=== PATIENT | male | born 1985 | race Caucasian/White ===

== ENCOUNTER 2023-11-29 11:23 | Outpatient (OUT) | payer OTHER, SELFPAY ==
--- NOTE | 2023-11-29 | XR_ITS ---
The [address] [address] Patient Name: JOSELIN------ Kanika GARAY MRN: [id number] date: 1985 Sex: M Assigned Patient Location: Current Patient Location: Accession/Order Number: [id number] Exam Date: 11/29/2023 11:28 Report Date: 12/01/2023 07:46 At the request of: KOLTON PARKS Procedure: XR foot LT min 3V PROCEDURE: XR foot LT min 3V HISTORY: LEFT FOOT PAIN ; wound on plantar surface of first toe; history of first toe fracture per patient COMPARISON: None. FINDINGS: BONES:Irregularity of the distal articular surface of the first proximal phalanx suggesting remote fracture/trauma. Mild degenerative change of first metatarsophalangeal joint. SOFT TISSUES:Soft tissue swelling of the first toe. EFFUSION:None visible. OTHER: Negative. XR/XR foot LT min 3V IMPRESSION: 1. First toe soft tissue swelling consistent with patient history. No appreciable foreign body or evidence of osteomyelitis. Electronically authenticated by: MICHAEL CR Date: 12/01/2023 07:46
== END 2023-11-29 11:24 | disposition home or self-care (01) ==
LOC: WC 11:23
PROVIDERS: PCP Internal Medicine; Visit Provider Podiatrist Foot & Ankle Surgery
DX: M79.672 Pain in left foot (principal); E10.621 Type 1 diabetes mellitus with foot ulcer; L97.425 Non-pressure chronic ulcer of left heel and midfoot with muscle involvement without evidence of necrosis; L97.522 Non-pressure chronic ulcer of other part of left foot with fat layer exposed
CPT/HCPCS: 73630; G0463

== ENCOUNTER 2023-12-12 13:47 | Outpatient (OUT) | payer OTHER, SELFPAY ==
[2023-12-12 13:33] LABS: Basophils Absolute Auto 0.1 10^3/uL (0.0-0.1); Basophils Percent Auto 0.9 % (0.2-2.0); Eosinophils Absolute Auto 0.3 10^3/uL (0.0-0.7); Eosinophils Percent Auto 5.2 % (0.9-7.0); Hematocrit 34.6 % (42.0-54.0); Hemoglobin 11.5 g/dL (14.0-18.0); Immature Granulocytes Abs Auto 0.01 10^3/uL (0.00-0.03); Immature Granulocytes Pct Auto 0.2 % (0.0-0.5); Lymphocytes Absolute Auto 1.6 10^3/uL (1.2-3.8); Lymphocytes Percent Auto 29.8 % (20.5-60.0); Mean Corpuscular HGB Conc 33.2 g/dL (29.9-35.2); Mean Corpuscular Hemoglobin 29.3 pg (25.9-34.0); Mean Platelet Volume 9.9 fL (9.5-13.5); Monocytes Absolute Auto 0.7 10^3/uL (0.3-0.8); Monocytes Percent Auto 13.1 % (1.7-12.0); Neutrophils Absolute Auto 2.7 10^3/uL (1.4-6.5); Neutrophils Percent Auto 50.8 % (43.0-75.0); Platelet Count 211 10^3/uL (150-450); Red Blood Count 3.93 10^6/uL (4.70-6.10); Red Cell Distribution Width 12.7 % (11.0-15.0); White Blood Count 5.3 10^3/uL (4.0-11.0)
[2023-12-12 13:54] LABS: Erythrocyte Sedimentation Rate 43 mm/hr (<=15)
[2023-12-12 14:54] LABS: Anion Gap 15.6; BUN Creatinine Ratio 24.2; C Reactive Protein <0.50 mg/dL (<=0.50); Calcium 9.4 mg/dL (8.5-10.1); Carbon Dioxide 26.4 mmol/L (21.0-32.0); Chloride 99 mmol/L (98-107); Estimated GFR (African America >60 (>=60 mL/min/1.73m^2); Estimated GFR (Non-African Ame >60 (>=60 mL/min/1.73m^2); Glucose 388 mg/dL (74-106); Sodium 136 mmol/L (136-145)
== END 2023-12-12 13:48 | disposition home or self-care (01) ==
LOC: MRI 12-16 13:47
PROVIDERS: PCP Internal Medicine; Visit Provider Podiatrist Foot & Ankle Surgery
DX: M86.672 Other chronic osteomyelitis, left ankle and foot (principal)
CPT/HCPCS: 36415; 80048; 85025; 85652; 86140

== ENCOUNTER 2024-01-15 14:10 | Outpatient (OUT) | payer OTHER, SELFPAY ==
--- NOTE | 2024-01-15 14:13 | XR_ITS ---
The [address] [address] Patient Name: JOSELIN GARAY MRN: [id number] date: 1985 Sex: M Assigned Patient Location: Current Patient Location: Accession/Order Number: [id number] Exam Date: 01/15/2024 14:25 Report Date: 01/16/2024 13:11 At the request of: KOLTON PARKS Procedure: XR foot LT min 3V PROCEDURE: XR foot LT min 3V HISTORY: Left Foot Ulcer ; progression of plantar surface wound in region of first and second metatarsals COMPARISON: XR foot left 11/29/2023, 01/15/2024 FINDINGS: BONES:Mild degenerative changes the first metatarsophalangeal joint. SOFT TISSUES:Soft tissue swelling of the first and second toes. EFFUSION:None visible. OTHER: Negative. XR/XR foot LT min 3V IMPRESSION: 1. Soft tissue swelling of first and second toes; also seen on prior study. 2. No acute bone abnormality or evidence of osteomyelitis. Electronically authenticated by: MICHAEL CR Date: 01/16/2024 13:11
== END 2024-01-15 14:11 | disposition home or self-care (01) ==
LOC: WC 14:10
PROVIDERS: PCP Internal Medicine; Visit Provider Podiatrist Foot & Ankle Surgery
DX: E10.621 Type 1 diabetes mellitus with foot ulcer (principal); L97.425 Non-pressure chronic ulcer of left heel and midfoot with muscle involvement without evidence of necrosis; L97.522 Non-pressure chronic ulcer of other part of left foot with fat layer exposed
CPT/HCPCS: 73630; G0463

== ENCOUNTER 2024-01-16 11:15 | Observation (INO) | payer OTHER, SELFPAY ==
[2024-01-16] VITALS (11 sets, daily range): BP systolic 120–144; BP diastolic 64–92; PULSE 74–105; TEMP 36.4–36.8; O2SAT 97–99; BMI 31.5; BMI 30.2
--- NOTE | 2024-01-16 11:34 | US_ITS ---
The [place] [address] Patient Name: JOSELIN GARAY MRN: [id number] date: 1985 Sex: M Assigned Patient Location: ED.MAIN Current Patient Location: ED.MAIN Accession/Order Number: [id number] Exam Date: 01/16/2024 12:40 Report Date: 01/16/2024 13:08 At the request of: PEDRO LUIS SIMMONS Procedure: US venous doppler LE LT EXAMINATION: US venous doppler LE LT HISTORY: L calf pain , redness, swelling; history of ptosis/foot infection; diabetic COMPARISON: No relevant comparison available. FINDINGS: REGION: Left lower extremity THROMBI: None. COMPRESSIBILITY: Normal compressibility. FLOW: Normal waveform and antegrade flow between 5 and 20 cm/s. OTHER: Subcutaneous edema. 2 large lymph nodes within right groin, 5.7 x 2.5 x 2.2 cm and 4.1 x 1.6 x 2.0 cm. US/US venous doppler LE LT IMPRESSION: 1. No deep vein thrombus within the left lower extremity. 2. Enlarged left groin lymph nodes, likely reactive. Electronically authenticated by: MICHAEL CR Date: 01/16/2024 13:08
--- OUTSIDE RECORDS SUMMARY | 2024-01-16 11:37 | XMS_ITS | CCD ---
Author Organization [facility] Care Team Providers 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 Name Role Phone MISC, DOCTOR Primary Care Unavailable ANAIS JOHN Consulting Unavailable ANAIS JOHN Attending Unavailable ANAIS JOHN Admitting Unavailable Kolton Cote Consulting Unavailable MALGORZATA CEVALLOS Consulting Unavailable SHAIKH MAE Attending Unavailable SHAIKH MAE Admitting Unavailable SHAIKH MAE Primary Care Unavailable SHAIKH MAE Consulting Unavailable Reinaldo Schulz Unavailable Wil Hackett Unavailable Wilver Chambers Unavailable Reinaldo Schulz Unavailable [facility] Primary Care Provider DO Joaquín Giles Emergency Provider MD Shanthi Cross Admit Provider MD Shanthi Cross Attending Provider DO Kennedy Tran Emergency Provider MD Taylor Whitman Admit Provider MICHAEL Esquivel Emergency Provider DO Tuan Thakkar Attending Provider [facility] Primary Care Provider [phone] MD Shanthi Cross Attending Provider MD Bren Mccray Emergency Provider [phone] MD Bren Mccray Emergency Provider [facility] Primary Care Provider MD Homer Padilla Attending Provider [phone] MD Nunu Fry Other Provider Reinaldo Schulz Unavailable Reinaldo Schulz Unavailable HOMER PADILLA Referring Unavailable RUMA GONZALEZ Referring Unavailable CHRISTOPHER MCCRAY Attending Unavailable NONE, XXXX Primary Care Physician Unavailab Agnieszka Hampton Attending Unavailab Agnieszka Hampton Attending Unavailab Agnieszka Hampton Attending Unavailab le [facility] Primary Care Provider MICHAEL Esquivel Emergency Provider DO Dominik George Attending Provider Dominik George Unavailable MD Edward Dunaway Emergency Provider [facility] Primary Care Provider MICHAEL Esquivel Emergency Provider DO Dominik George Attending Provider MD Edward Dunaway Emergency Provider LUIGI Cisneros Emergency Provider [facility] Services Primary Care Provider DO Ruy Perry Emergency Provider [facility] NON STAFF Primary Care Provider Unavailabl e LUIGI Serrano Emergency Provider NON STAFF Primary Care Unavailable Ruy Perry Admitting Unavailable Ruy Perry Attending Unavailable NON STAFF Primary Care Unavailable Roger Serrano Admitting Unavailable Roger Serrano Attending Unavailable [facility] Primary Care Unavaila Dominik Carter Admitting Unavailable Dominik George Attending Unavailable [facility] Primary Care Unavaila Howard Marcos Admitting Unavailable Howard Esquivel Attending Unavailable [facility] Primary Care Unavaila Edward Lawler Admitting Unavailable Edward Dunaway Attending Unavailable Ashlee Cisneros Admitting Unavailable Ashlee Cisneros Attending Unavailable [facility] Primary Care Unavaila chance Saldivar MD, [place] Provider Primary Care Provi luke Medications Current Medications Medication Drug Class(es) Dates Sig (Normalized) Sig (Original) amitriptyline hydrochloride 25 mg oral tablet (3 sources) Tricyclic Antidepressant take 1 tablet by mouth at bedtime amitriptyline (Elavil) 25 MG tablet Take 25 mg by mouth at bedtime Active amoxicillin 875 mg oral tablet (5 sources) Penicillin-class Antibacterial Start: 07-02-2023 take 1 tablet by mouth in the morning amoxicillin (Amoxil) 875 MG tablet Take 875 mg by mouth in the morning and 875 mg before bedtime. 07/02/2023 Active ARIPiprazole 5 mg oral tablet (3 sources) Atypical Antipsychotic Start: 07-02-2022 take 1 tablet by mouth in the morning ARIPiprazole (Abilify) 5 MG tablet Take 5 mg by mouth in the morning. 07/02/2022 Active atomoxetine 80 mg oral capsule (3 sources) Norepinephrine Reuptake Inhibitor Start: 06-13-2022 take 1 capsule by mouth in the morning atomoxetine (Strattera) 80 MG capsule Take 80 mg by mouth in the morning. 06/13/2022 Active bismuth subsalicylate (6 sources) Bismuth Pepto-Bismol Not -Taking Pepto-Bismol Act marek buprenorphine 8 mg / naloxone 2 mg sublingual film (20 sources) Partial Opioid Agonist, Opioid Antagonist Start: 12-03-2020 Buprenorphine-Naloxo ne (Suboxone) 8-2 mg Film Active 2 FILM SUBLINGUAL Daily December 03, 2020 12:00am Start: 12-07-2017 End: 02-23-2019 take 4 tablets under the tongue once daily Buprenorphine-Naloxone Discontinued 4 TA B SUBLINGUAL Daily December 07, 2017 12:00am February 23, 2019 1:40pm Start: 10-31-2016 End: 12-07-2017 take 8 mg under the tongue twice daily Buprenorphine-Naloxone (Suboxone) 8-2 mg Film Discontinued 8 MG SUBLINGUAL Twice daily October 31, 2016 12:00am December 07, 2017 7:24am buprenorphine-na loxone (Suboxone) 8-[address] under the tongue. Active Buprenorphine HC l-Naloxone HCl (Suboxone) 8-2 MG SL film DISSOLVE 2 (TWO) films UNDER THE TONGUE DAILY Active Suboxone Active Comment on above: Dissolve 2 Film unde r the tongue once daily. cariprazine 3 mg oral capsule (20 sources) Atypical Antipsychotic Start: 2 End: take 1 capsule by mouth in the morning Vraylar 3 MG capsule Take 1 capsule by mouth in the morning. 12/24/2021 Active Start: 08-09-2021 End: 10-18-2021 take 1 capsule by mouth once daily Cariprazine (Vraylar) 1.5 mg capsule Discontinued 3 MG PO Daily August 09, 2021 12:00am October 18, 2021 12:54am Comment on above: Take 3 mg by mouth o nce daily. Continuous Blood Gluc Wallpaper Remover Steam (Dexcom G7 Wallpaper Remover Steam) device (3 sources) Start: 07-25-2022 Continuous Blood Gluc Wallpaper Remover Steam (Dexcom G7 Wallpaper Remover Steam) device USE DIRECTED. 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) 1 kit by Subconjunctival route Every 10 (ten) days 9 each 1 12/09/2023 Active Start: 11-19-2023 Continuous Glu cose Sensor (Dexcom G7 Sensor) [facility] [place] Indications: 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) CHANGE SENSOR EVERY TEN DAYS 11/19/2023 Active ergocalciferol 1.25 mg oral capsule (3 sources) Provitamin D2 Compound Start: 02-15-2022 ergocalciferol (Madie min D2) 1.25 MG (88383 UT) capsule t1po once a week for EIGHT weeks 02/15/2022 Active gabapentin 600 mg oral tablet (20 sources) Anti-epileptic Agent Start: 12-12-2020 gabapentin 600 mg, O ral Start Date: 12/12/20 Status: Ordered Start: 12-03-2020 take 300 mg by mouth twice daily Gabapentin Active 300 MG PO Twice daily December 03, 2020 7:59am Start: 09-12-2019 End: 12-03-2020 take 300 mg by mouth three times daily Gabapentin Discontinued 300 MG PO Three times daily November 02, 2019 12:00am December 03, 2020 7:59am Start: 10-31-2016 End: 08-04-2019 take 600 mg by mouth three times daily Gabapentin Discontinued 600 MG PO Three times daily October 31, 2016 12:00am August 04, 2019 9:33pm Gabapentin Not-T aking/PRN Gabapentin Activ e Comment on above: 1 capsule. hydroCHLOROthiazide 25 mg / losartan potassium 100 mg oral tablet (3 sources) Thiazide Diuretic, Angiotensin 2 Receptor Aparna Start: 023 take 1 tablet by mouth in the morning losartan-hydroCHL OROthiazide (Hyzaar) 100-25 MG tablet Take 1 tablet by mouth in the morning. 07/02/2022 Active ibuprofen 600 mg oral tablet (6 sources) Nonsteroidal Anti-inflammatory Drug Start: 024 take 1 tablet by mouth every eight hours as needed ibuprofen 600 MG tablet Take 1 tablet by mouth every 8 (eight) hours if needed 06/20/2023 Active insulin aspart (NovoLOG) 100 UNIT/ML injection (3 sources) insulin aspart (NovoLOG) 100 UNIT/ML injection 3 (three) times a day with meals. Active Insulin Disposable Pump (Omnipod DASH Pods, Gen 4,) misc (3 sources) Start: 023 Insulin Disposable Pump (Omnipod DASH Pods, Gen 4,) [facility] [place] 12/06/2022 Active Lantus (20 sources) Insulin Analog Start: 021 Lantus Daily Start Date: 12/12/20 Status: Ordered Start: 12-07-2020 End: 08-11-2021 Insulin Glargine (Basaglar Donnie florentinoen U-100 Insulin) 100 unit/mL (3 mL) insulin pen Discontinued 40 UNIT SUBCUT Every morning 0 December 07, 2020 2:01pm August 11, 2021 10:46am INJECT 36 UNITS EVERY MORNING and 26 UNITS at night SUBCUTANEOUSLY Start: 12-07-2020 End: 08-11-2021 Insulin Glargine (Basaglar K wikpen U-100 Insulin) 100 unit/mL (3 mL) insulin pen Discontinued 30 UNIT SUBCUT Daily at bedtime 0 December 07, 2020 2:01pm August 11, 2021 10:46am Start: 10-08-2019 End: 12-07-2020 Insulin Glargine (Basaglar K wikpen U-100 Insulin) 100 unit/mL (3 mL) insulin pen Discontinued 26 UNIT SUBCUT Daily at bedtime October 08, 2019 12:00am December 07, 2020 2:01pm Start: 09-25-2019 End: 12-07-2020 Insulin Glargine (Basaglar K wikpen U-100 Insulin) 100 unit/mL (3 mL) insulin pen Discontinued 36 UNIT SUBCUT Every morning September 25, 2019 12:00am December 07, 2020 2:01pm INJECT 36 UNITS EVERY MORNING and 26 UNITS at night SUBCUTANEOUSLY Start: 02-23-2019 End: 09-25-2019 Insulin Glargine (Lantus La ostar U-100 Insulin) 100 unit/mL (3 mL) insulin pen Discontinued 36 UNIT SUBCUT Twice daily February 23, 2019 9:46am September 25, 2019 1:00pm Start: 12-08-2017 End: 02-23-2019 Insulin Glargine (Lantus La ostar U-100 Insulin) 100 unit/mL (3 mL) insulin pen Discontinued 30 UNIT SUBCUT Twice daily December 08, 2017 12:00am February 23, 2019 9:46am Start: 08-17-2017 End: 08-22-2017 Insulin Glargine (Lantus U-1 00 Insulin) 100 unit/mL Solution Discontinued 20 UNIT SUBCUT 1 to 2 times per day August 17, 2017 12:00am August 22, 2017 12:26pm Start: 03-18-2017 End: 12-07-2017 inject 30 [IU] by subcutaneous injection twice daily Insulin Glargine (Lantus U-100 Insulin) 100 unit/mL solution Discontinued 30 UNIT SUBCUT Twice daily May 01, 2017 5:55pm December 07, 2017 7:25am Start: 10-31-2016 End: 11-01-2016 Insulin Glargine (Lantus) 10 0 unit/mL Solution Discontinued SOLUTION October 31, 2016 12:00am November 01, 2016 4:46pm Start: 10-31-2016 End: 03-18-2017 inject 20 [IU] by subcutaneous injection twice daily Insulin Glargine (Lantus U-100 Insulin) 100 unit/mL Solution Discontinued 20 UNIT SUBCUT Twice daily 4 November 01, 2016 5:06pm March 18, 2017 1:34pm Lantus Not-Sandra g Lantus Active Comment on above: as directed Subcutan eous insulin isophane / insulin, regular, human (6 sources) Insulin NovoLIN N Not-Ta chandler NovoLIN N Active Insulin Pump-Infus. Set-Mete r (10 sources) Start: 08-11-2021 Insulin Pump-I nfus. Set-Meter Active 0 .Route 1 August 11, 2021 12:00am As directed Start: 08-11-2021 Insulin Pump-I nfus. Set-Meter Active 0 .ROUTE 1 August 10, 2021 11:00pm As directed Start: 08-11-2021 Insulin Pump-I nfus. Set-Meter Active 0 .ROUTE 1 August 11, 2021 12:00am As directed lamoTRIgine 100 mg oral tablet (20 sources) Mood Stabilizer, Anti-epileptic Agent Start: 06-13-2022 take 1 tablet by mouth every twelve hours lamoTRIgine (LaMICtal) 100 MG tablet Take 1 tablet by mouth every 12 (twelve) hours. 06/13/2022 Active Start: 10-18-2021 End: 06-20-2023 take 25 mg by mouth twice daily Lamotrigine Discontinued 25 MG PO Twice daily October 18, 2021 12:00am June 20, 2023 12:57pm Start: 08-09-2021 End: 09-02-2021 take 25 mg by mouth once daily Lamotrigine Discontinue d 25 MG PO Daily August 09, 2021 12:00am September 02, 2021 3:37am lisinopril 10 mg oral tablet (6 sources) Angiotensin Converting Enzyme Inhibitor Start: 06-20-2023 take 1 tablet by mouth once daily lisinopril 10 MG tablet Take 10 mg by mouth Daily 06/20/2023 Active losartan potassium 100 mg oral tablet (3 sources) Angiotensin 2 Receptor Aparna Start: 06-13-2022 take 1 tablet by mouth in the morning losartan (Cozaar) 100 MG tablet Take 100 mg by mouth in the morning. 06/13/2022 Active mupirocin 0.02 mg/mg topical ointment (20 sources) RNA Synthetase Inhibitor Antibacterial Start: 03-05-2023 mupirocin Top 2% Oint 1 france, Topical, TID, 22 gm, Refill(s) 0, [employer] [facility], 185, cm, 03/05/23 8:47:00 EST, Height/Length Dosing, 108.7, kg, 03/05/23 8:47:00 EST, Weight Dosing Start Date: 03/05/23 Status: Ordered Start: 10-14-2019 End: 12-03-2020 Mupirocin Discontinued 1 FR[place] LIC TOPICAL Daily October 28, 2019 8:18pm December 03, 2020 8:11am apply thin layer to all open areas omeprazole 40 mg oral tablet (20 sources) Proton Pump Inhibitor Start: 12-12-2020 take 40 mg by mouth once daily omeprazole 40 mg, Oral, Daily Start Date: 12/12/20 Status: Ordered Start: 12-07-2020 End: 08-09-2021 take 20 mg by mouth once daily before breakfast Omeprazole Discontinued 20 MG PO Daily before breakfast December 07, 2020 12:00am August 09, 2021 9:36am Start: 12-18-2019 End: 12-03-2020 take 20 mg by mouth once daily Omeprazole Discontinued 20 MG PO Daily December 18, 2019 12:00am December 03, 2020 8:11am Start: 12-08-2017 End: 05-27-2018 take 20 mg by mouth once daily Omeprazole Discontinued 20 MG PO Daily December 08, 2017 12:00am May 27, 2018 6:08pm further refills per PCP take [address] [facility] every twelve hours sildenafil 100 mg oral tablet (20 sources) Phosphodiesterase 5 Inhibitor Start: 03-05-2022 take 1 tablet by mouth in the morning sildenafil (Viagra) 100 MG tablet Take 100 mg by mouth in the morning. 03/05/2022 Active Start: 12-21-2020 End: 02-23-2022 sildenafil (VIAGRA) 100 mg t ablet Take 1 tablet by mouth as needed. 30 tablet 5 12/21/2020 02/23/2022 Discontinued (Course of therapy completed) Start: 10-08-2019 End: 12-03-2020 take 1 tablet by mouth once daily as needed Sildenafil Discontinued 50 MG PO Daily October 08, 2019 12:00am December 03, 2020 8:03am TAKE 1 TABLET BY MOUTH ONCE DAILY NEEDED Comment on above: Take 1 tablet by belen th as needed. sucralfate 1000 mg oral tablet (20 sources) Aluminum Complex Start: 12-12-2020 sucralfate 1 g Tab gm tab(s), Oral Start Date: 12/12/20 Status: Ordered Start: 12-07-2020 End: 08-09-2021 take 1 g by mouth once before mealtime Sucralfate Discontinued 1 GM PO 3x/Day before meals & bedtime 120 December 07, 2020 12:00am August 09, 2021 9:36am Start: 12-18-2019 sucralfate (CA RAFATE) 1 gram tablet Sucralfate (Carafate) 1 gram tablet Active 1 GM PO Twice daily 14 December 18, 2019 6:06pm 0 12/18/2019 Active Start: 12-18-2019 End: 12-03-2020 take 1 tablet by mouth twice daily Sucralfate (Carafate) 1 gram tablet Discontinued 1 GM PO Twice daily 14 December 18, 2019 12:00am December 03, 2020 8:03am take 1 tablet by belen th every eight hours Comment on above: Sucralfate (Carafate ) 1 gram tablet Active 1 GM PO Twice daily 14 December 18, 2019 6:06pm Completed/Discontinued Medications Medication Drug Class(es) Dates Sig (Normalized) Sig (Original) acetaminophen 325 mg oral capsule (10 sources) Start: 10-12-2019 End: 12-03-2020 take 2 capsules by mouth every six hours Acetaminophen (Tylenol) 325 mg capsule Discontinued 650 MG PO Q6H 60 October 12, 2019 8:55am December 03, 2020 7:59am acetaminophen 300 mg / codeine phosphate 30 mg oral tablet (10 sources) Opioid Agonist Start: 09-25-2019 End: 10-08-2019 take 1 tablet by mouth every six hours as needed Acetaminophen-Codei ne (Tylenol-Codeine #3) 300-30 mg tablet Discontinued 1 TAB PO Q6H September 25, 2019 12:00am October 08, 2019 6:24am TAKE 1 TABLET BY MOUTH EVERY 6 HOURS NEEDED acetaminophen 325 mg / HYDROcodone bitartrate 5 mg oral tablet (20 sources) Opioid Agonist Start: 09-12-2019 End: 09-25-2019 take 1 tablet by mouth every eight hours Hydrocodone-Acetami nophen (Starbuck) 5-325 mg tablet Discontinued 1 TAB PO Q8H 6 2 September 12, 2019 September 25, 2019 1:12pm Start: 11-29-2016 End: 12-19-2016 Hydrocodone-Acetaminophen (N orco) 5-325 mg tablet Discontinued 1 TAB PO every 6 to 8 hours November 29, 2016 December 19, 2016 4:40pm amLODIPine 5 mg oral tablet (20 sources) Dihydropyridine Calcium Channel Aparna Start: 08-26-2021 End: 06-20-2023 take 1 tablet by mouth once daily Amlodipine (Norvasc) 5 mg tablet Discontinued 5 MG PO Daily August 26, 2021 12:00am June 20, 2023 12:57pm Comment on above: Take 1 tablet by belen th. amoxicillin 875 mg / clavulanate 125 mg oral tablet (10 sources) Penicillin-class Antibacterial Start: 03-04-2019 End: 08-04-2019 take 1 tablet by mouth twice daily Amoxicillin-Pot Clavulanate (Augmentin) 875-125 mg tablet Discontinued 1 TAB PO Twice daily March 04, 2019 1:00am August 04, 2019 9:33pm atropine sulfate 0.025 mg / diphenoxylate hydrochloride 2.5 mg oral tablet (10 sources) Anticholinergic, Cholinergic Muscarinic Antagonist, Antidiarrheal Start: 08-22-2017 End: 12-07-2017 take 1 tablet by mouth three times daily Diphenoxylate-Atr opine Discontinued 1 TAB PO Three times daily August 22, 2017 12:27pm December 07, 2017 7:24am azithromycin 500 mg oral tablet (10 sources) Macrolide Antimicrobial Start: 03-04-2019 End: 08-04-2019 take 500 mg by mouth once daily Azithromycin Discontinued 500 MG PO Daily 5 March 04, 2019 1:00am August 04, 2019 9:33pm 24 hr buPROPion hydrochloride 150 mg extended release oral tablet (10 sources) Aminoketone Start: 12-03-2020 End: 08-09-2021 take 150 mg by mouth once daily Bupropion Hcl Discontinued 150 MG PO Daily December 03, 2020 12:00am August 09, 2021 9:39am cephalexin 500 mg oral capsule (20 sources) Cephalosporin Antibacterial Start: 11-02-2019 End: 12-27-2019 take 500 mg by mouth every eight hours Cephalexin Discontinued 500 MG PO Every 8 hours 12 November 02, 2019 12:00am December 27, 2019 10:09pm Start: 09-12-2019 End: 09-25-2019 take 1 capsule by mouth every twelve hours Cephalexin (Keflex) 500 mg capsule Discontinued 500 MG PO Q12H 14 September 12, 2019 12:00am September 25, 2019 1:12pm clindamycin 300 mg oral capsule (10 sources) Lincosamide Antibacterial Start: 08-07-2019 End: 09-12-2019 take 300 mg by mouth three times daily Clindamycin Hcl Discontinued 300 MG PO Three times daily August 07, 2019 12:00am September 12, 2019 3:02pm dicyclomine hydrochloride 10 mg oral capsule (10 sources) Anticholinergic Start: 08-22-2017 End: 05-27-2018 take 10 mg by mouth three times daily Dicyclomine Discontinued 10 MG PO Three times daily August 22, 2017 12:31pm May 27, 2018 6:08pm doxycycline hyclate 100 mg oral capsule (10 sources) Tetracycline-class Drug Start: 03-22-2021 End: 07-07-2021 take 100 mg by mouth twice daily Doxycycline Hyclate Discontinued 100 MG PO Twice daily 14 12March 22, 2021 1:00am July 07, 2021 7:35am DULoxetine 30 mg delayed release oral capsule (10 sources) Serotonin and Norepinephrine Reuptake Inhibitor Start: 12-08-2017 End: 05-27-2018 take 30 mg by mouth once daily at bedtime Duloxetine Discontinued 30 MG PO Daily at bedtime December 08, 2017 12:00am May 27, 2018 6:08pm Further refills per PCP Prior-authorization per PCP ([facility] FREESTYLE TANG 2 READER (10 sources) Start: 01-22-2022 FREESTYLE TANG 2 READER as directed. 0 01/22/2022 Active Comment on above: as directed. FREESTYLE TANG 2 SENSOR kit (10 sources) Start: 01-22-2022 FREESTYLE TANG 2 SENSOR kit CHANGE SENSOR EVERY 14 DAYS 0 01/22/2022 Active Comment on above: CHANGE SENSOR EVERY 14 DAYS glucose 4000 mg chewable tablet (10 sources) Start: 11-01-2016 End: 05-27-2018 Glucose Discontinued 4 GM PO Once 120 November 01, 2016 12:00am May 27, 2018 6:08pm may repeat once in 10 minutes 12 hr guaiFENesin 600 mg extended release oral tablet (10 sources) Start: 03-04-2019 End: 08-04-2019 take 1 tablet by mouth twice daily, then take 1 tablet by mouth every twelve hours Guaifenesin (Mucinex) 600 mg Tablet Extended Release 12hr Discontinued 600 MG PO Twice daily 14 March 04, 2019 1:00am August 04, 2019 9:33pm Insulin Aspart U-100 (Novolog Flexpen U-100 Insulin) 100 unit/mL (3 mL) insulin pen (10 sources) Start: 10-28-2019 End: 12-03-2020 Insulin Aspart U-100 (Novolog Flexpen U-100 Insulin) 100 unit/mL (3 mL) insulin pen Discontinued 20 UNIT SUBCUT THREE TIMES DAILY WITH MEALS October 28, 2019 7:18pm December 03, 2020 7:10am INJECT 20 UNITS SUBCUTANEOUSLY WITH MEALS and 6 (SIX) UNITS WITH snacks DIRECTED Start: 10-28-2019 End: 12-03-2020 Insulin Aspart U-100 (Novolo g Flexpen U-100 Insulin) 100 unit/mL (3 mL) insulin pen Discontinued 20 UNIT SUBCUT THREE TIMES DAILY WITH MEALS October 28, 2019 8:18pm December 03, 2020 8:10am INJECT 20 UNITS SUBCUTANEOUSLY WITH MEALS and 6 (SIX) UNITS WITH snacks DIRECTED insulin aspart, human 100 unt/ml injectable solution (20 sources) Insulin Analog Start: 02-13-2022 insulin aspart U-100 (NOVOLOG) 100 unit/mL USE UP TO 150 UNITS daily with insulin pump 0 02/13/2022 Active Start: 09-02-2021 Insulin Aspart U-100 Active 200 UNIT SUBCUT Use as Directed September 01, 2021 11:00pm EVERY 3 DAYS. Start: 09-02-2021 Insulin Aspart U-100 Active 200 UNIT SUBCUT Use as Directed September 02, 2021 12:00am EVERY 3 DAYS. Start: 12-12-2020 insulin aspart U-100 (NOVOLOG) 100 unit/mL as directed Subcutaneous 0 12/12/2020 Active Start: 12-12-2020 NovoLOG 100 un its/mL injectable solution SubCutaneous Start Date: 12/12/20 Status: Ordered Start: 12-03-2020 End: 08-11-2021 inject 1 dose by subcutaneous injection at bedtime Insulin Aspart U-100 Discontinued 0 sliding scale dose SUBCUT Before meals and at bedtime December 02, 2020 11:00pm August 11, 2021 9:46am Start: 12-03-2020 End: 08-11-2021 inject 1 dose by subcutaneous injection at bedtime Insulin Aspart U-100 Discontinued 0 sliding scale dose SUBCUT Before meals and at bedtime December 03, 2020 12:00am August 11, 2021 10:46am Start: 10-28-2019 End: 10-28-2019 Insulin Aspart U-100 (Novolo g Flexpen U-100 Insulin) 100 unit/mL (3 mL) insulin pen Discontinued 10 UNIT SUBCUT THREE TIMES DAILY WITH MEALS 0 October 28, 2019 12:50pm October 28, 2019 8:18pm INJECT 20 UNITS SUBCUTANEOUSLY WITH MEALS and 6 (SIX) UNITS WITH snacks DIRECTED Start: 10-28-2019 End: 12-03-2020 inject 6 [IU] by subcutaneous injection at bedtime Insulin Aspart U-100 Discontinued 6 UNIT SUBCUT Bedtime October 27, 2019 11:00pm December 03, 2020 7:10am 6 UNITS WITH hS SNACK Start: 10-28-2019 End: 12-03-2020 inject 6 [IU] by subcutaneous injection at bedtime Insulin Aspart U-100 Discontinued 6 UNIT SUBCUT Bedtime October 28, 2019 12:00am December 03, 2020 8:10am 6 UNITS WITH hS SNACK Start: 09-25-2019 End: 10-28-2019 Insulin Aspart U-100 (Novolo g Flexpen U-100 Insulin) 100 unit/mL (3 mL) insulin pen Discontinued 20 UNIT SUBCUT THREE TIMES DAILY WITH MEALS September 25, 2019 12:00am October 28, 2019 12:50pm INJECT 20 UNITS SUBCUTANEOUSLY WITH MEALS and 6 (SIX) UNITS WITH snacks DIRECTED Start: 09-25-2019 End: 10-28-2019 Insulin Aspart U-100 (Novolo g Flexpen U-100 Insulin) 100 unit/mL (3 mL) insulin pen Discontinued 6 UNIT SUBCUT As Directed September 25, 2019 12:00am October 28, 2019 12:50pm INJECT 20 UNITS SUBCUTANEOUSLY WITH MEALS and 6 (SIX) UNITS WITH snacks DIRECTED Start: 12-07-2017 End: 09-25-2019 Insulin Aspart U-100 (Novolo g Flexpen U-100 Insulin) 100 unit/mL insulin pen Discontinued 0 .ROUTE .COMPLEX December 07, 2017 7:26am September 25, 2019 1:00pm Sliding scale with meals and at bedtime. Start: 08-22-2017 End: 12-07-2017 inject 6 [IU] by subcutaneous injection once at mealtime Insulin Aspart U-100 (Novolog Flexpen U-100 Insulin) 100 unit/mL Insulin Pen Discontinued 6 UNITS SUBCUT 3x/Day with meals August 22, 2017 12:00am December 07, 2017 7:26am Start: 08-22-2017 End: 12-07-2017 Insulin Aspart U-100 (Novolo g Flexpen U-100 Insulin) 100 unit/mL Insulin Pen Discontinued 0 UNITS SUBCUT 3X/Day with meals and bedtime August 22, 2017 12:00am December 07, 2017 7:26am Insulin Aspart 1 00 UNIT/ML as directed Subcutaneous daily via insulin pump Active Insulin Aspart 1 00 UNIT/ML as directed Subcutaneous daily via insulin pump Active Comment on above: as directed Subcutan eous USE UP TO 150 UNITS daily with insulin pump 3 ml insulin lispro 100 unt/ml cartridge (20 sources) Insulin Analog Start: 11-01-19 17 End: 08-23-19 18 Insulin Lispro (Humalog U-100 Insulin) 100 unit/mL Cartridge Discontinued 0 UNIT SUBCUT Before meals and at bedtime May 01, 2017 5:55pm August 22, 2017 12:30pm insulin NPH hum/reg insulin hm (INSULIN NPH AND REGULAR HUMAN SUBCUTANEOUS) (10 sources) insulin NPH hum/ reg insulin hm (INSULIN NPH AND REGULAR HUMAN SUBCUTANEOUS) insulin isophane / insulin, regular, human (5 sources) Insulin 0 Active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 [Mass/Vol] 34.1 g/dL 32.5-35.6 [facility] MCV [Entitic volume] by Auto mated countOrdered By: Roger Serrano on 08-02-2023 MCV (RBC) [Entitic vol] 86.0 fL Normal 83.5-101 [facility] Comment on above: Performed By: #### B JULIUS BMP, CBC #### [facility] [address] Monocyte distribution width [Entitic volume] in Blood by AutomatedOrdered By: Roger Serrano on 08-02-2023 Monocyte distribution width Auto (Bld) [Entitic vol] 16.67 % 0.00-20.00 [facility] Neutrophils [#/volume] in Bl ood by Automated countOrdered By: Roger Serrano on 08-02-2023 Neutrophils (Bld) [#/Vol] 3.4 10*3/uL Normal 1.8-7.7 [facility] Comment on above: Performed By: #### B CLARISSA MADRID, CBC #### [facility] [address] No Panel InformationOrdered By: Roger Serrano on 08-02-2023 Estimated GFR (CKD-EPI) > 60.0 mL/Min [facility] Creatinine Clearance (Chem 108.44 [facility] Nucleated erythrocytes [Pres ence] in Blood by Automated countOrdered By: Roger Serrano on 08-02-2023 Nucleated RBC Auto Ql (Bld) 0.1 /100{WBC} 0-0.5 [facility] Platelet mean volume [Entiti c volume] in Blood by Automated countOrdered By: Roger Serrano on 08-02-2023 Platelet mean volume (Bld) [Entitic vol] 8.5 fL Normal 6.6-10.1 [facility] Comment on above: Performed By: #### B CLARISSA MADRID, CBC #### [facility] [address] [place] [address] [place] Platelets [#/volume] in Bloo d by Automated countOrdered By: Roger Serrano on 08-02-2023 Platelets (Bld) [#/Vol] 257 10*3/uL Normal 150-450 [facility] Comment on above: Performed By: #### B JULIUS BMP, CBC #### [facility] [address] Potassium [Moles/volume] in Serum or PlasmaOrdered By: Roger Serrano on 08-02-2023 Potassium [Moles/Vol] 4.5 mmol/L Normal 3.5-5.1 [facility] Comment on above: Performed By: #### B JULIUS BMP, CBC #### [facility] [address] Serum or plasma anion gap de terminationOrdered By: Roger Serrano on 08-02-2023 Anion gap [Moles/Vol] 10.8 mmol/L Normal 6.0-15.0 [facility] Comment on above: Performed By: #### B JULIUS BMP, CBC #### [facility] [address] [place] [address] Sodium [Moles/volume] in Ser um or PlasmaOrdered By: Roger Serrano on 08-02-2023 Sodium [Moles/Vol] 137 mmol/L Normal 136-145 [facility] Comment on above: Performed By: #### B JULIUS BMP, CBC #### [address] Urea nitrogen [Mass/volume] in Serum or PlasmaOrdered By: Roger Serrano on 08-02-2023 Urea nitrogen [Mass/Vol] 36 mg/dL High 7-25 [facility] Comment on above: Performed By: #### B JULIUS BMP, CBC #### [address] XR foot BI 3Von 08-02-2023 XR foot BI 3V [facility] [place] [address] [place] [address] XRay Report Signed Patient: Joselin Freitas MR#: [id number] : 1985 Acct:[id number] Age/Sex: 37 / M ADM Date: 08/02/23 Loc: ER Room: Type: [facility] ER Attending Dr: Copies to: Roger Serrano APRN Ordering Provider: Roger Serrano APRN Date of Service: 08/02/23 XR/XR foot BI 3V: Extremity Injury, Lower BILATERAL FEET - 3 views each COMPARISON: Left ankle 03/26/2023 and right 07/07/2021 Clinical data: Bilateral foot pain and swelling. Heel ulcers. AP, lateral and oblique views were obtained. There is mild chronic appearing deformity of the phalanges of the first toe on the left in the base of the proximal phalanx at the fourth toe on the right. There is no acute fracture or dislocation. There are small calcaneal spurs bilaterally. There is also minimal spurring at the dorsum of the tarsals. There is no significant soft tissue swelling. XR/XR foot BI 3V IMPRESSION: NO ACUTE BONY FINDINGS. Impression dictated by: Karly Mays M.D.08/02/2023 12:33 PM Dictation Location: [place] [address] Transcribed By: [facility] 08/02/23 1233 Dictated By: Karly Mays MD 08/02/23 1229 Signed By: 08/02/23 1233 Normal [facility] Alanine aminotransferase [En zymatic activity/volume] in Serum or PlasmaOrdered By: Ruy Perry on 07-02-2023 ALT [Catalytic activity/Vol] 40 U/L Normal 7-52 [facility] Comment on above: Performed By: #### M G, PHOS, CMP, CBC ####[facility] [id number] [place] [id number] [facility] Albumin [Mass/volume] in Ser um or Plasma by Bromocresol green (BCG) dye binding methoOrdered By: Ruy Perry on 07-02-2023 Albumin BCG dye [Mass/Vol] 4.1 g/dL 3.5-5.7 [facility] Alkaline phosphatase [Enzyma tic activity/volume] in Serum or PlasmaOrdered By: Ruy Perry on 07-02-2023 ALP [Catalytic activity/Vol] 62 U/L Normal 34-104 [facility] Comment on above: Performed By: #### M G, PHOS, CMP, CBC ####[place] [id number] [address] Aspartate aminotransferase [ Enzymatic activity/volume] in Serum or PlasmaOrdered By: Ruy Perry on 07-02-2023 AST [Catalytic activity/Vol] 40 U/L High 13-39 [facility] Comment on above: Performed By: #### M G, PHOS, CMP, CBC ####[address] Automated basophil %Ordered By: Ruy Perry on 07-02-2023 Basophils/100 WBC (Bld) 0.9 % Normal . [facility] Comment on above: Performed By: #### M G, PHOS, CMP, CBC ####[address] Automated basophil countOrde red By: Ruy Perry on 07-02-2023 Basophils (Bld) [#/Vol] 0.1 10*3/uL Normal 0.0-0.2 [facility] Comment on above: Result Comment: PERF ORMED BY: [facility] [address] [address] PATHOLOGIST FEE CLERK KATE URBINA M.D. Performed By: #### M G, PHOS, CMP, CBC ####[address] Automated blood monocyte cou ntOrdered By: Ruy Perry on 07-02-2023 Monocytes (Bld) [#/Vol] 0.7 10*3/uL Normal 0.0-0.8 [facility] Comment on above: Performed By: #### M G, PHOS, CMP, CBC ####[address] Automated eosinophil %Ordere d By: Ruy Perry on 07-02-2023 Eosinophils/100 WBC (Bld) 2.2 % Normal . [facility] Comment on above: Performed By: #### M G, PHOS, CMP, CBC ####[place] [id number] [facility] Automated eosinophil countOr dered By: Ruy Perry on 07-02-2023 Eosinophils (Bld) [#/Vol] 0.1 10*3/uL Normal 0.0-0.45 [facility] Comment on above: Performed By: #### M G, PHOS, CMP, CBC ####[address] Automated monocyte %Ordered By: Ruy Perry on 07-02-2023 Monocytes/100 WBC (Bld) 10.7 % Normal . [facility] Comment on above: Performed By: #### M G, PHOS, CMP, CBC ####[address] Automated neutrophil %Ordere d By: Ruy Perry on 07-02-2023 Neutrophils/100 WBC (Bld) 56.9 % Normal . [facility] Comment on above: Performed By: #### M G, PHOS, CMP, CBC ####[address] Bilirubin.total [Mass/volume ] in Serum or PlasmaOrdered By: Ruy Perry on 07-02-2023 Bilirubin [Mass/Vol] 0.3 mg/dL Normal 0.3-1.0 [facility] Comment on above: Performed By: #### M G, PHOS, CMP, CBC ####[address] Calcium [Mass/volume] in Ser um or PlasmaOrdered By: Ruy Perry on 07-02-2023 Calcium [Mass/Vol] 9.3 mg/dL Normal 8.6-10.3 [facility] Comment on above: Performed By: #### M G, PHOS, CMP, CBC ####[address] Carbon dioxide, total [Moles /volume] in Serum or PlasmaOrdered By: Ruy Perry on 07-02-2023 CO2 [Moles/Vol] 30.4 mmol/L Normal 21.0-31.0 [place] Comment on above: Performed By: #### M G, PHOS, CMP, CBC ####[address] Chloride [Moles/volume] in S belinda or PlasmaOrdered By: Ruy Perry on 07-02-2023 Chloride [Moles/Vol] 101 mmol/L Normal 98-107 [facility] Comment on above: Performed By: #### M G, PHOS, CMP, CBC ####[address] Complete Blood Count Auto Di ffon 07-02-2023 Mean Corpuscular HGB Conc 33.6 g/dL Normal 32.5-35.6 [facility] Comment on above: Performed By: #### M G, PHOS, CMP, CBC ####[address] Monocytes/100 WBC (Bld) 17.60 % Normal 0.00-20.00 [facility] Comment on above: Performed By: #### M G, PHOS, CMP, CBC ####[address] NRBC% 0.1 /100{WBC} Normal 0-0.5 [facility] Comment on above: Performed By: #### M G, PHOS, CMP, CBC ####[address] Comprehensive Metabolic Pane nilay 07-02-2023 Albumin [Mass/Vol] 4.1 g/dL Normal 3.5-5.7 [facility] Comment on above: Performed By: #### M G, PHOS, CMP, CBC ####[address] Creatinine Clr Calc Pharmacy 124.26 Normal [facility] Comment on above: Performed By: #### M G, PHOS, CMP, CBC ####[address] GFR/1.73 sq M.predicted MDRD (S/P/Bld) [Vol rate/Area] mL/min/{1.73_m2} Normal [facility] Comment on above: Performed By: #### M G, PHOS, CMP, CBC ####[place] [id number] [address] Creatinine [Mass/volume] in Serum or PlasmaOrdered By: Ruy Perry on 07-02-2023 Creatinine [Mass/Vol] 1.09 mg/dL Normal 0.70-1.30 [facility] Comment on above: Performed By: #### M G, PHOS, CMP, CBC ####[place] [id number] [address] Erythrocyte distribution wid th [Ratio] by Automated countOrdered By: Ruy Perry on 07-02-2023 Erythrocyte distribution width (RBC) [Ratio] 13.6 % Normal 12.0-14.8 [facility] Comment on above: Performed By: #### M G, PHOS, CMP, CBC ####[address] Erythrocytes [#/volume] in B lood by Automated countOrdered By: Ruy Perry on 07-02-2023 RBC (Bld) [#/Vol] 4.60 10*6/uL Normal 3.90-5.60 [facility] Comment on above: Performed By: #### M G, PHOS, CMP, CBC ####[place] [id number] [facility] Glucose [Mass/volume] in Ser um or PlasmaOrdered By: Ruy Perry on 07-02-2023 Glucose [Mass/Vol] 205 mg/dL High 70-100 [facility] Comment on above: ADA recommended refe rence rangeRandom Glucose Reference Range is dependent on time and content of last meal. Glucose of more than 200 mg/dL in a nonstressed, ambulatory subject supports the diagnosis of Diabetes Mellitus. Result Comment: [place] Glucose Reference Range is dependent on time and content of last meal. Glucose of more than 200 mg/dL in a nonstressed, ambulatory subject supports the diagnosis of Diabetes Mellitus. ADA recommended reference range Performed By: #### M G, PHOS, CMP, CBC ####[address] Hematocrit [Volume Fraction] of Blood by Automated countOrdered By: Ruy Perry on 07-02-2023 Hematocrit (Bld) [Volume fraction] 39.6 % Normal 38.8-50.0 [facility] Comment on above: Performed By: #### M G, PHOS, CMP, CBC ####[address] Hemoglobin [Mass/volume] in BloodOrdered By: Ruy Perry on 07-02-2023 Hemoglobin (Bld) [Mass/Vol] 13.3 g/dL Normal 13.0-17.0 [facility] Comment on above: Performed By: #### M G, PHOS, CMP, CBC ####[address] Leukocytes [#/volume] correc paulina for nucleated erythrocytes in Blood by Automated counOrdered By: Ruy Perry on 07-02-2023 WBC corrected for nucl RBC Auto (Bld) [#/Vol] 6.5 10*3/uL 4.1-10.5 [facility] Leukocytes [#/volume] in Blo od by Automated countOrdered By: Ruy Perry on 07-02-2023 WBC (Bld) [#/Vol] 6.5 10*3/uL Normal 4.1-10.5 [facility] Comment on above: Performed By: #### M G, PHOS, CMP, CBC ####[address] Lymphocytes [#/volume] in Bl ood by Automated countOrdered By: Ruy Perry on 07-02-2023 Lymphocytes (Bld) [#/Vol] 1.9 10*3/uL Normal 1.00-4.8 [facility] Comment on above: Performed By: #### M G, PHOS, CMP, CBC ####[address] Lymphocytes/100 leukocytes i n Blood by Automated countOrdered By: Ruy Perry on 07-02-2023 Lymphocytes/100 WBC (Bld) 29.3 % Normal . [facility] Comment on above: Performed By: #### M G, PHOS, CMP, CBC ####[place] [id number] [place] [id number] [facility] MCH [Entitic mass] by Automa paulina countOrdered By: Ruy Perry on 07-02-2023 MCH (RBC) [Entitic mass] 28.9 pg Normal 27.5-35.2 [facility] Comment on above: Performed By: #### M G, PHOS, CMP, CBC ####[place] [id number] [facility] MCHC Auto (RBC) [Mass/Vol]Or dered By: Ruy Perry on 07-02-2023 MCHC (RBC) [Mass/Vol] 33.6 g/dL 32.5-35.6 [facility] MCV [Entitic volume] by Auto mated countOrdered By: Ruy Perry on 07-02-2023 MCV (RBC) [Entitic vol] 86.2 fL Normal 83.5-101 [facility] Comment on above: Performed By: #### M G, PHOS, CMP, CBC ####[place] [id number] [facility] Magnesium [Mass/volume] in S belinda or PlasmaOrdered By: Ruy Perry on 07-02-2023 Magnesium [Mass/Vol] 1.6 mg/dL Low 1.9-2.7 [facility] Comment on above: Result Comment: PERF ORMED BY: [facility] [address] [place] [id number] PATHOLOGIST FEE CLERK KATE URBINA M.D. Performed By: #### M G, PHOS, CMP, CBC ####[place] [id number] [facility] Monocyte distribution width [Entitic volume] in Blood by AutomatedOrdered By: Ruy Perry on 07-02-2023 Monocyte distribution width Auto (Bld) [Entitic vol] 17.60 % 0.00-20.00 [facility] Neutrophils [#/volume] in Bl ood by Automated countOrdered By: Ruy Perry on 07-02-2023 Neutrophils (Bld) [#/Vol] 3.7 10*3/uL Normal 1.8-7.7 [facility] Comment on above: Performed By: #### M Kwame, PHOS, CMP, CBC ####[place] [id number] [address] No Panel InformationOrdered By: Ruy Perry on 07-02-2023 Estimated GFR (CKD-EPI) > 60.0 mL/Min [facility] Creatinine Clearance (Chem 124.26 [facility] Nucleated erythrocytes [Pres ence] in Blood by Automated countOrdered By: Ruy Perry on 07-02-2023 Nucleated RBC Auto Ql (Bld) 0.1 /100{WBC} 0-0.5 [facility] Phosphate [Mass/volume] in S belinda or PlasmaOrdered By: Ruy Perry on 07-02-2023 Phosphate [Mass/Vol] 3.9 mg/dL Normal 2.5-4.5 [facility] Comment on above: Performed By: #### M Kwame, PHOS, CMP, CBC ####[address] Platelet mean volume [Entiti c volume] in Blood by Automated countOrdered By: Ruy Perry on 07-02-2023 Platelet mean volume (Bld) [Entitic vol] 8.7 fL Normal 6.6-10.1 [facility] Comment on above: Performed By: #### M G, PHOS, CMP, CBC ####[address] Platelets [#/volume] in Bloo d by Automated countOrdered By: Ruy Perry on 07-02-2023 Platelets (Bld) [#/Vol] 200 10*3/uL Normal 150-450 [facility] Comment on above: Performed By: #### M G, PHOS, CMP, CBC ####[address] Potassium [Moles/volume] in Serum or PlasmaOrdered By: Ruy Perry on 07-02-2023 Potassium [Moles/Vol] 5.0 mmol/L Normal 3.5-5.1 [facility] Comment on above: Performed By: #### M G, PHOS, CMP, CBC ####[address] Protein [Mass/volume] in Ser um or PlasmaOrdered By: Ruy Perry on 07-02-2023 Protein [Mass/Vol] 6.9 g/dL Normal 6.4-8.9 [facility] Comment on above: Performed By: #### M G, PHOS, CMP, CBC ####[address] Serum globulin measurement b y calculation (mass/volume)Ordered By: Ruy Perry on 07-02-2023 Globulin (S) [Mass/Vol] 2.8 g/dL [facility] Comment on above: Performed By: #### M Kwame, PHOS, CMP, CBC ####[address] Serum or plasma albumin/glob ulin mass ratioOrdered By: Ruy Perry on 07-02-2023 Albumin/Globulin [Mass ratio] 1.5 {ratio} [facility] Comment on above: Performed By: #### M G, PHOS, CMP, CBC ####[address] Serum or plasma anion gap de terminationOrdered By: Ruy Perry on 07-02-2023 Anion gap [Moles/Vol] 8.6 mmol/L Normal 6.0-15.0 [facility] Comment on above: Performed By: #### M G, PHOS, CMP, CBC ####[address] Sodium [Moles/volume] in Ser um or PlasmaOrdered By: Ruy Perry on 07-02-2023 Sodium [Moles/Vol] 135 mmol/L Low 136-145 [facility] Comment on above: Performed By: #### M Kwame, PHOS, CMP, CBC ####[facility] [id number] [place] [address] [facility] Urea nitrogen [Mass/volume] in Serum or PlasmaOrdered By: Ruy Perry on 07-02-2023 Urea nitrogen [Mass/Vol] 21 mg/dL Normal 7-25 [facility] Comment on above: Performed By: #### M Kwame, PHOS, CMP, CBC ####[facility] [id number] [place] [address] [facility] Capillary blood glucose ranjit urement by glucometer (mass/volume)Ordered By: Ruy Perry on 07-01-2023 Glucose [Mass/Vol] 152 mg/dL Normal [facility] Comment on above: Random Glucose Refer ence Range is dependent on time and content of last meal. Glucose of more than 200 mg/dL in a nonstressed, ambulatory subject supports the diagnosis of Diabetes Mellitus. Result Comment: [facility] Glucose Reference Range is dependent on time and content of last meal. Glucose of more than 200 mg/dL in a nonstressed, ambulatory subject supports the diagnosis of Diabetes Mellitus. PERFORMED BY: [place] [address] PATHOLOGIST FEE CLERK KATE URBINA M.D. Performed By: #### G LULS #### Point of Care testing , ECG 12 lead ECGon 07-01-2023 ECG 12 lead ECG [facility] [place] [address] [place] [address] Electrocardiograph Report Signed Patient: Joselin Freitas MR#: [id number] : 1985 Acct:[id number] Age/Sex: 37 / M ADM Date: 07/01/23 Loc: ER Room: Type: [facility] ER Attending Dr: Ordering Provider: Ruy Perry DO Date of Service: 07/01/2308/19/2319 ECG/ECG 12 lead ECG: Seizure Copies to: Test Reason : Blood Pressure : 167/108 mmHG Vent. Rate : 106 BPM Atrial Rate : 106 BPM P-R Int : 162 ms QRS Dur : 088 ms QT Int : 340 ms P-R-T Axes : 052 043 014 degrees QTc Int : 451 ms Sinus tachycardia Confirmed by Ruy Perry DO ([id number]) on 07/02/2023 8:35:37 AM Referred By: Electronically Signed By:Ruy Perry DO Transcribed By: MUS Signed By Ruy Perry DO 0835 Normal [facility] Glucose Poct Glucometerson 0 07-01-2023 Glucose [Mass/Vol] 84 mg/dL Normal [facility] Comment on above: Result Comment: [facility] Glucose Reference Range is dependent on time and content of last meal. Glucose of more than 200 mg/dL in a nonstressed, ambulatory subject supports the diagnosis of Diabetes Mellitus. PERFORMED BY: [place] [address] PATHOLOGIST FEE CLERK KATE URBINA M.D. Performed By: #### G LULS ####Point of Care testing, XR hand RT min 3V*on 024 XR hand RT min 3V* [facility] [place] [address] XRay Report Signed Patient: Joselin Freitas MR#: [id number] : 1985 Acct:[id number] Age/Sex: 37 / M ADM Date: 06/20/23 Loc: ER Room: Type: [facility] ER Attending Dr: Copies to: Ashlee Cisneros APRN Ordering Provider: Ashlee Cisneros APRN Date of Service: 06/20/23 XR/XR hand RT min 3V*: Extremity Injury, Upper RIGHT HAND - 3 views COMPARISON: 10/08/2019 Clinical data: Patient fell a few weeks ago and has continued right hand pain and swelling. AP, lateral and oblique views were obtained. There is a transverse, nondisplaced fracture at the waist of scaphoid. This was also seen previously and therefore this may be nonunion. Slight sclerosis is seen at the proximal pole of the scaphoid. There is no additional acute fracture or dislocation. Minor degenerative change is present at the lateral wrist. There are no significant soft tissue abnormalities. XR/XR hand RT min 3V* IMPRESSION: OLD UNUNITED SCAPHOID FRACTURE. NO OTHER ACUTE FINDINGS. Impression dictated by: Karly Mays M.D.06/20/2023 2:27 PM Dictation Location: [place] [address] Transcribed By: SCAR[place]TT 06/20/23 1427 Dictated By: Karly Mays MD 06/20/23 1414 Signed By: 06/20/23 1427 Normal [facility] XR ankle LT min 3V*on 2023 XR ankle LT min 3V* [facility] [place] Other XR ankle LT min 3V* [facility] [employer] Other XR ankle LT min 3V* [address] [place] [address] [employer] Other XR ankle LT min 3V* [place] [address] [employer] Other XR ankle LT min 3V* XRay Report Nort [employer] Other XR ankle LT min 3V* Signed [employer] Other XR ankle LT min 3V* Patient: Joselin Freitas MR#: [id number] [employer] Other XR ankle LT min 3V* [id number] [employer] Other XR ankle LT min 3V* : 1985 Acct:[id number] [employer] Other XR ankle LT min 3V* Age/Sex: 37 / M ADM Date: 03/26/23 [employer] Other XR ankle LT min 3V* Loc: [facility] Room: Type : [facility] [employer] Other XR ankle LT min 3V* Attending Dr: Dominik George DO [employer] Other XR ankle LT min 3V* Copies to: Dominik George, DO [employer] Other XR ankle LT min 3V* Ordering Provider: Donnie George, DO [employer] Other XR ankle LT min 3V* Date of Service: 03/26/23 [employer] Other XR ankle LT min 3V* XR/XR ankle LT min 3V*: M25.572 [employer] Other XR ankle LT min 3V* 4 views LEFT ankle p luisa film [employer] Other XR ankle LT min 3V* COMPARISON: 03/23/23 [employer] Other XR ankle LT min 3V* HISTORY: LEFT latera l fibular pain for 3 days. Fell. [employer] Other XR ankle LT min 3V* ACUTE FINDINGS: No a cute fracture. Well-corticated bony density inferior to the medial malleolus [employer] Other XR ankle LT min 3V* redemonstrated which may represent old injury or unfused ossicle. [employer] Other XR ankle LT min 3V* DEGENERATIVE CHANGE: Mild degenerative change. Calcaneal spurring. [employer] Other XR ankle LT min 3V* SOFT TISSUE FINDINGS : Unremarkable [employer] Other XR ankle LT min 3V* JOINT EFFUSION: None [employer] Other XR ankle LT min 3V* POSTOP CHANGES: None [employer] Other XR ankle LT min 3V* BONE MINERALIZATION: Adequate [employer] Other XR ankle LT min 3V* X R/XR ankle LT min 3V* [employer] Other XR ankle LT min 3V* IMPRESSION: No acute findings. [employer] Other XR ankle LT min 3V* Impression dictated by: Justen Regalado M.D.03/26/2023 12:16 PM [employer] Other XR ankle LT min 3V* Dictation Location: [place] [address] [employer] Other XR ankle LT min 3V* Transcribed By: PWS 03/26/23 1216 [employer] Other XR ankle LT min 3V* Dictated By: Nahun Regalado DO 03/26/23 1214 [employer] Other XR ankle LT min 3V* Signed By: RotaPost Other XR ankle LT min 3V* 03/26/23 1216 No rt Tapru Other XR ankle LT min 3V* [facility] Main [place] [address] [place] [address] XRay Report Signed Patient: Joselin Freitas MR#: [id number] : 1985 Acct:[id number] Age/Sex: 37 / M ADM Date: 03/26/23 Loc: [facility] Room: Type: [facility] Attending Dr: Dominik George DO Copies to: Dominik George DO Ordering Provider: Dominik George DO Date of Service: 03/26/23 XR/XR ankle LT min 3V*: M25.572 4 views LEFT ankle plain film COMPARISON: 03/23/23 HISTORY: LEFT lateral fibular pain for 3 days. Fell. ACUTE FINDINGS: No acute fracture. Well-corticated bony density inferior to the medial malleolus redemonstrated which may represent old injury or unfused ossicle. DEGENERATIVE CHANGE: Mild degenerative change. Calcaneal spurring. SOFT TISSUE FINDINGS: Unremarkable JOINT EFFUSION: None POSTOP CHANGES: None BONE MINERALIZATION: Adequate XR/XR ankle LT min 3V* IMPRESSION: No acute findings. Impression dictated by: Justen Regalado M.D.03/26/2023 12:16 PM Dictation Location: RADIO--01 Transcribed By: SCARLETT 03/26/23 1216 Dictated By: Justen Regalado DO 03/26/231213 Signed By: 03/26/23 1216 Normal [facility] XR tibia fibula LT 2V*on XR tibia fibula LT 2V* [facility] Main [place] [address] [place] [address] XRay Report Signed Patient: Joselin Freitas MR#: [id number] : 1985 Acct:[id number] Age/Sex: 37 / M ADM Date: 03/23/23 Loc: ER Room: Type: [facility] ER Attending Dr: Copies to: Howard Esquivel PA-C Ordering Provider: Howard Esquivel PA-C Date of Service: 03/23/23 XR/XR knee LT 4V*: fall ([id number]) XR/XR tibia fibula LT 2V*: PAIN 4 views left knee plain film COMPARISON: None HISTORY: Left knee hyperextension injury. Continued pain. ACUTE FINDINGS: Proximal fibular shaft fracture. DEGENERATIVE CHANGE: Unremarkable SOFT TISSUE FINDINGS: Unremarkable JOINT EFFUSION: Small joint effusion. POSTOP CHANGES: None BONE MINERALIZATION: Adequate XR/XR knee LT 4V* IMPRESSION: Proximal fibular shaft fracture. Small joint effusion. 2 views left tibia and fibula Proximal fibular shaft fracture. Well-corticated bony density inferior to medial malleolus. Consider old injury versus unfused ossicle. No additional acute fracture. Adequate alignment. IMPRESSION: Proximal fibular shaft fracture. Impression dictated by: Justen Regalado M.D.03/24/2023 9:12 AM Dictation Location: [facility] Transcribed By: SCARLETT 03/24/23 0912 Dictated By: Justen Regalado DO 03/24/23 0909 Signed By: 03/24/23 09 Karina [facility] Capillary blood glucose ranjit urement by glucometer (mass/volume)Ordered By: Howard Esquivel on 03-23-2023 Glucose [Mass/Vol] 204 mg/dL Normal [facility] Comment on above: Random Glucose Refer ence Range is dependent on time and content of last meal. Glucose of more than 200 mg/dL in a nonstressed, ambulatory subject supports the diagnosis of Diabetes Mellitus. Result Comment: [place] om Glucose Reference Range is dependent on time and content of last meal. Glucose of more than 200 mg/dL in a nonstressed, ambulatory subject supports the diagnosis of Diabetes Mellitus. PERFORMED BY: [address] [place] [address] PATHOLOGIST FEE CLERK KATE URBINA M.D. Performed By: #### G LULS #### Point of Care testing , Glucose Poct Glucometerson 0 03-23-2023 Glucose [Mass/Vol] 118 mg/dL Normal [facility] Comment on above: Result Comment: [place] om Glucose Reference Range is dependent on time and content of last meal. Glucose of more than 200 mg/dL in a nonstressed, ambulatory subject supports the diagnosis of Diabetes Mellitus. PERFORMED BY: [facility] [address] [place] [address] PATHOLOGIST FEE CLERK KATE RUBINA M.D. Performed By: #### G LULS #### Point of Care testing , Glucose [Mass/Vol] 171 mg/dL Normal [facility] Comment on above: Result Comment: [place] om Glucose Reference Range is dependent on time and content of last meal. Glucose of more than 200 mg/dL in a nonstressed, ambulatory subject supports the diagnosis of Diabetes Mellitus. PERFORMED BY: [facility] [address] [address] PATHOLOGIST FEE CLERK KATE URBINA M.D. Performed By: #### G LULS #### Point of Care testing , Ambulatory Visit Summaryon 0 03-05-2023 Ambulatory Visit Summary JOSELIN FREITAS :1985 Visit Date:03/05/2023 Ambulatory Visit Instructions Your Diagnosis Routine adult health maintenance Severe major depression Generalized anxiety disorder Type 1 diabetes Diabetic neuropathy Opioid abuse Laceration of left index finger BMI 31.0-31.9,adult Obesity Your Care Team Attending Physician - MissAgnieszka Kumari Primary Care Physician - NONE, XXXX This Is Your Medications List buprenorphine-naloxone (Suboxone 8 mg-2 mg sublingual film) gabapentin insulin aspart (NovoLOG 100 units/mL injectable solution) insulin glargine (Lantus) Discharge Vitals Temperature (Oral) 36.9 ?C Heart Rate (Peripheral) 82 Blood Pressure 134/78 Height 185.0 cm Height 73 in Weight 108.7 kg Weight 239.14 lb BMI 31.76 What to do next You Need to Schedule the Following Appointments Follow Up with Ramon HOLCOMB, Agnieszka Quintanilla When: In 1 year Where: [address] [place] [address]- You Need to Complete the Following CBC w/ Auto Diff, Blood, Routine collect, 03/05/23, Order for future visit, Lab Collect, Routine adult health maintenance, Print Label By Order Location Comprehensive Metabolic Panel, Blood, Routine collect, 03/05/23, Order for future visit, Lab Collect, Routine adult health maintenance, Print Label By Order Location Lipid Panel, Blood, Routine collect, 03/05/23, Order for future visit, Lab Collect, Routine adult health maintenance, Print Label By Order Location Thyroid Stimulating Hormone, Blood, Routine collect, 03/05/23, Order for future visit, Lab Collect, Routine adult health maintenance, Print Label By Order Location Someone Will Contact You Regarding These Appointments [facility] External Ambulatory Referral, Psychiatry, 03/05/23 9:08:00 EST, Severe major depression Normal [facility] Family Medicine Office/Clini c Noteon 03-05-2023 Family Medicine Office/Clinic Note Chief 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 wants to get back on ADHD medication. type 1 DM. HPI Staff Last routine labs: none smoker status: former flu vaccine status: due covid vaccine: utd due for eye and foot exam lima- 21 dep- 25 History of Present Illness Joselin is a 37 yo male presenting today to [facility]. Pt is presenting with his mom. Pt was previously seen at [facility] Pt reports he was just recently released from skilled nursing and dx with BIPAD and schizophrenia but doesn't feel these are accurate dx. Pt reports great anxiety about his ED and a new partner. Medical history includes: Pt has hx of MDD/LIMA Current medications: none but long hx of trialing different medications Pt is not in therapy at this time. Pt reports being well controlled and tolerating medication well at this time. Pt denies medication side effects (TITUS, sexual dysfunction, increased weight, nausea, drowsiness). Pt denies increased fatigue/sleepiness, SI/HI, feelings of worthlessness, appetite changes, anhedonia, depressed mood at this time. Type 1 Diabetes follow up: Pt denies polydipsia, polyuria, polyphagia, vision changes, n/v/d, bloating, lightheadedness, numbness/tingling (paresthesias), ulcerations/sore/non-heal ing wounds, episodes of hypoglycemia at this time. complications: ED, neuropathy treated with gabapentin 300mg TID Current regimen: Medications: SA novolog via pump Pt denies any medication side effects pumps/CGM: yes - Dexcom G7 Pt is followed by endocrinology - Dr. Fry q3 mo OUD - taking suboxone 8mg-2mg SL/d via [employer] in [facility] hx: diet: well balanced, drinks water daily, follows high protein/low carb exercise: none alcohol use: none illicit drug use: hx of opioid abuse smoking status: none Specialists: Endocrinology [employer] Sub[facility] Review of Systems PHQ Score Initial Depression Screen Score: 6 SCORE Physical Exam Vitals & Measurements T: 36.9 ?C(Oral) HR: 82(Peripheral) BP: 134/78 SpO2: 99% HT: 73 in HT: 185.0 cm WT: 108.7 kg WT: 239.14 lb BMI: 31.76 General: Well developed, well nourished, in no acute distress Eyes: Bilateral PERRLA, conjunctivae and sclerae wnl, EOMs intact, lids without stye, chalazion, ect/extropion, ptosis, xanthelasma, blepharitis. No discharge to inner canthi.Negative for corneal abrasion or foreign bodies. Ears: grossly normal hearing Nose: No deformity, discharge, inflammation, or lesions. No congestion, no erythema; pink & moist turbinates; clear rhinorrhea. Mouth: mucous membranes pink, moist and intact. [place] posterior oropharynx, no palatal inflammation, uvula midline, no cobble-stoning, no enlarged tonsils, no tonsillar exudate, no ulcers, no active post nasal drip. tongue midline and wnl. Good dentition. Neck: Neck supple. No lymphadenopathy. Trachea midline. No thyroid, masses, tenderness, or enlargement noted. No bruit. Lungs: Normal respiratory effort and clear to auscultation Cardio: Regular rate and rhythm, normal S1 and S2, no murmur, no rub Abdomen: not assessed Musculoskeletal: No deformity or scoliosis noted. No vertebral tenderness. Normal range of motion. No vertebral point tenderness. Joints normal. No erythema, edema, effusion, crepitus, or ecchymosis. Straight leg raise negative Extremity: No clubbing, cyanosis, edema, or deformity. Normal ROM with upper and lower extremities, bilaterally. Neurologic: Cranial nerves II-XII grossly intact. motor strength equal & normal bilaterally, sensation equal & normal bilaterally. Gait normal. Skin: No rashes, ulcerations, or suspicious lesions Mental Status: Alert and oriented x3. Normal mood and affect Pt has very expressive language and inappropriate curse words and sexual references throughout appt. Assessment/Plan 1. Routine adult health maintenance (Z00.00: Encounter for general adult medical examination without abnormal findings) counseled pt on diet/exercise and staying UTD on routine screenings and vaccines - pt verbalized understanding complete routine labs prior to f/u appt Ordered: CBC w/ Auto Diff Comprehensive Metabolic Panel Lipid Panel Thyroid Stimulating Hormone 2. Severe major depression (F32.2: Major depressive disorder, single episode, severe without psychotic features) PHQ-9 score: 25 Discussed red flags/when to seek emergency care and suicide support hotlines. Pt verbalized understanding of resources and when to seek emergency care and denies SI/HI at this time. Will send referral to [facility] for evaluation and tx d/t possible dx of schizophrenia and/or BIPAD F/U PRN. Ordered: [facility] External Ambulatory Referral 3. Generalized anxiety disorder (F41.1: Generalized anxiety disorder) LIMA score: 21 Discussed red flags/when to seek emergency care and mental health support hotlines. Pt verbalized understanding of resources and when to seek emergency care and denies SI/HI at this time. Will send referral to [facility] for evaluatio (more content not included)... Normal [facility] Comment on above: Result Comment: Elec tronically Signed By: Ramon HOLCOMBAgnieszka\.br\Date and Time Signed: 03/05/23 09:17 EST Patient Educationon 03-05-19 Patient Education Endocrinology Diabetes Mellitus and Exercise Exercising regularly is important for overall health, especially for people who have diabetes mellitus. Exercising is not only about losing weight. It has many other health benefits, such as increasing muscle strength and bone density and reducing body fat and stress. This leads to improved fitness, flexibility, and endurance, all of which result in better overall health. What are the benefits of exercise if I have diabetes? Exercise has many benefits for people with diabetes. They include: ? Helping to lower and control blood sugar (glucose). ? Helping the body to respond better to the hormone insulin by improving insulin sensitivity. ? Reducing how much insulin the body needs. ? Lowering the risk for heart disease by: ? Lowering bad cholesterol and triglyceride levels. ? Increasing good cholesterol levels. ? Lowering blood pressure. ? Lowering blood glucose levels. What is my activity plan? Your health care provider or faa certified powerplant mechanic can help you make a plan for the type and frequency of exercise that works for you. This is called your activity plan. Be sure to: ? Get at least 150 minutes of medium-intensity or high-intensity exercise each week. Exercises may include brisk walking, biking, or water aerobics. ? Do stretching and strengthening exercises, such as yoga or weight lifting, at least 2 times a week. ? Spread out your activity over at least 3 days of the week. ? Get some form of physical activity each day. ? Do not go more than 2 days in a row without some kind of physical activity. ? Avoid being inactive for more than 90 minutes at a time. Take frequent breaks to walk or stretch. ? Choose exercises or activities that you enjoy. Set realistic goals. ? Start slowly and gradually increase your exercise intensity over time. How do I manage my diabetes during exercise? Monitor your blood glucose ? Check your blood glucose before and after exercising. If your blood glucose is: ? 240 mg/dL (13.3 mmol/L) or higher before you exercise, check your urine for ketones. These are chemicals created by the liver. If you have ketones in your urine, do not exercise until your blood glucose returns to normal. ? 100 mg/dL (5.6 mmol/L) or lower, eat a snack containing 15?20 grams of carbohydrate. Check your blood glucose 15 minutes after the snack to make sure that your glucose level is above 100 mg/dL (5.6 mmol/L) before you start your exercise. ? Know the symptoms of low blood glucose (hypoglycemia) and how to treat it. Your risk for hypoglycemia increases during and after exercise. Follow these tips and your health care provider's instructions ? Keep a carbohydrate snack that is fast-acting for use before, during, and after exercise to help prevent or treat hypoglycemia. ? Avoid injecting insulin into areas of the body that are going to be exercised. For example, avoid injecting insulin into: ? Your arms, when you are about to play tennis. ? Your legs, when you are about to go jogging. ? Keep records of your exercise habits. Doing this can help you and your health care provider adjust your diabetes management plan as needed. Write down: ? Food that you eat before and after you exercise. ? Blood glucose levels before and after you exercise. ? The type and amount of exercise you have done. ? Work with your health care provider when you start a new exercise or activity. He or she may need to: ? Make sure that the activity is safe for you. ? Adjust your insulin, other medicines, and food that you eat. ? Drink plenty of water while you exercise. This prevents loss of water (dehydration) and problems caused by a lot of heat in the body (heat stroke). Where to find more information ? [place] [employer]: www.diabetes.org Summary ? Exercising regularly is important for overall health, especially for people who have diabetes mellitus. ? Exercising has many health benefits. It increases muscle strength and bone density and reduces body fat and stress. It also lowers and controls blood glucose. ? Your health care provider or faa certified powerplant mechanic can help you make an activity plan for the type and frequency of exercise that works for you. ? Work with your health care provider to make sure any new activity is safe for you. Also work with your health care provider to adjust your insulin, other medicines, and the food you eat. This information is not intended to replace advice given to you by your health care provider. Make sure you discuss any questions you have with your health care provider. Document Revised: 11/09/2019 Document Reviewed: 11/09/2019 [employer] Patient Education ? 2022 [employer] Blood Glucose Monitoring, Adult Monitoring your blood sugar (glucose) is an important part of managing your diabetes. Blood glucose monitoring involves checking your blood glucos (more content not included)... Normal [facility] Physician Referralon 024 Physician Referral [id number]#1.00TIFF [facility] Transfer Inon 02-07-2023 Transfer In [id number]#1.00TIFF [facility] Auth for Release of Medical Recordson 01-30-2023 Auth for Release of Medical Records [id number]#1.00TIFF [facility] Auth for Release of Medical Records [id number]#1.00TIFF [facility] Auth for Release of Medical Records [id number]#1.00TIFF [facility] Consultation Noteon 01-31-20 Consultation Note [id number]#1.00TIFF [facility] Formson 01-29-2023 Forms [id number]#1.00TIFF [facility] XR FOOT 3+ VIEWS LEFTon 11-26 XR FOOT 3+ VIEWS LEFT EXAMINATION/TECHNI QUE: XR FOOT 3+ VIEWS LEFT HISTORY: Left foot pain. Twisting injury 2 weeks ago with great toe pain. COMPARISON: None RESULT: Complex recent appearing comminuted fracture of the great toe proximal phalanx with intra-articular extension to the great toe IP joint, and some associated sclerosis at the fracture site suggestive of healing. Nondisplaced fracture involving the base of the great toe distal phalanx with extension to the great toe IP joint. Associated soft tissue edema of the great toe. No evidence for fracture elsewhere. No dislocation. Mild to moderate degenerative changes of the great toe MTP joint. Mild hypertrophic changes within the midfoot. Hallux valgus. Os peroneum. Small plantar and posterior calcaneal enthesophytes. IMPRESSION: Fractures of the great toe proximal phalanx and great toe distal phalanx as discussed. ELECTRONICALLY SIGNED BY: Guilherme Vidal MD Normal Not Available [facility] JOSELIN FREITAS ([id number]) 1985 M Date Time Provider Department 06/13/22 HOMER PADILLA During your visit today, we recorded the following information about you: Homer Padilla MD 06/13/2022 4:32 PM Signed I called him and once again got his voicemail. The concerns that he has cannot be addressed by phone calls or a virtual visit. I told him that I would need to see him in person so that I can exam him again. Homer Padilla MD Allergies As of Date: 06/13/2022 (No Known Allergies) Date Reviewed: 02/23/2022 Reviewed by: Ruma Gonzalez APRN.FINE GRADE OPERATOR - Fully Assessed Reason for Visit: Returning Patient's Call [408] Prescriptions as of 06/13/2022 - amLODIPine (NORVASC) 5 mg tablet Take 1 tablet by mouth. - FREESTYLE TANG 2 READER as directed. - FREESTYLE TANG 2 SENSOR kit CHANGE SENSOR EVERY 14 DAYS - gabapentin (NEURONTIN) 300 mg capsule 1 capsule. - insulin aspart U-100 (NOVOLOG) 100 unit/mL as directed Subcutaneous - insulin aspart U-100 (NOVOLOG) 100 unit/mL USE UP TO 150 UNITS daily with insulin pump - insulin glargine (LANTUS) 100 unit/mL injection as directed Subcutaneous - insulin NPH hum/reg insulin hm (INSULIN NPH AND REGULAR HUMAN SUBCUTANEOUS) insulin isophane / insulin, regular, human (5 sources) Insulin - metoclopramide HCl (REGLAN) 10 mg tablet Metoclopramide Hcl (Reglan) 10 mg tablet Active 10 MG PO EVERY 4-6 HOURS February 04, 2020 9:28pm - ondansetron (ZOFRAN) 4 mg tablet Ondansetron Hcl (Zofran) 4 mg tablet Active 4 MG PO Q8H 9 3 December 18, 2019 6:07pm - sucralfate (CARAFATE) 1 gram tablet Sucralfate (Carafate) 1 gram tablet Active 1 GM PO Twice daily 14 7 December 18, 2019 6:06pm - buprenorphine-naloxone (SUBOXONE) 8-2 mg film Dissolve 2 Film under the tongue once daily. Problem List As Of Date 06/13/2022 Noted Resolved Type 1 (insulin dependent type) diabetes mellit*12/21/2020 ED (erectile dysfunction) of organic origin [N5*12/21/2020 Peyronie's disease [N48.6] 12/21/2020 Depressive disorder [F32.A] 02/23/2022 Gastroesophageal reflux disease [K21.9] 02/23/2022 Gastroparesis [K31.84] 02/23/2022 Hypertension [I10] 02/23/2022 Opioid dependence (HCC) [F11.20] 02/15/2020 Encounter Status:Closed by HOMER PADILLA on 06/13/22 [facility] Luis Enrique 05-29-2022 CNOV Office Visit (ASHER ) ----- JOSELIN FREITAS ([id number]) 1985 M Date Time Provider Department 05/29/22 11:30 AM ALBERTINA ELAM During your visit today, we recorded the following information about you: JODY Holley 05/29/2022 3:24 PM Signed No show to preop appt Allergies As of Date: 05/29/2022 (No Known Allergies) Date Reviewed: 02/23/2022 Reviewed by: Ruma Gonzalez, CHECK WEIGHER.FINE GRADE OPERATOR - Fully Assessed Reason for Visit: Pre-Op Exam [87] Primary Visit Diagnosis:No-show for appointment [Z91.199] Prescriptions as of 05/29/2022 - amLODIPine (NORVASC) 5 mg tablet Take 1 tablet by mouth. - FREESTYLE TANG 2 READER as directed. - FREESTYLE TANG 2 SENSOR kit CHANGE SENSOR EVERY 14 DAYS - gabapentin (NEURONTIN) 300 mg capsule 1 capsule. - insulin aspart U-100 (NOVOLOG) 100 unit/mL as directed Subcutaneous - insulin aspart U-100 (NOVOLOG) 100 unit/mL USE UP TO 150 UNITS daily with insulin pump - insulin glargine (LANTUS) 100 unit/mL injection as directed Subcutaneous - insulin NPH hum/reg insulin hm (INSULIN NPH AND REGULAR HUMAN SUBCUTANEOUS) insulin isophane / insulin, regular, human (5 sources) Insulin - metoclopramide HCl (REGLAN) 10 mg tablet Metoclopramide Hcl (Reglan) 10 mg tablet Active 10 MG PO EVERY 4-6 HOURS February 04, 2020 9:28pm - ondansetron (ZOFRAN) 4 mg tablet Ondansetron Hcl (Zofran) 4 mg tablet Active 4 MG PO Q8H 9 3 December 18, 2019 6:07pm - sucralfate (CARAFATE) 1 gram tablet Sucralfate (Carafate) 1 gram tablet Active 1 GM PO Twice daily 14 7 December 18, 2019 6:06pm - buprenorphine-naloxone (SUBOXONE) 8-2 mg film Dissolve 2 Film under the tongue once daily. Problem List As Of Date 05/29/2022 Noted Resolved Type 1 (insulin dependent type) diabetes mellit*12/21/2020 ED (erectile dysfunction) of organic origin [N5*12/21/2020 Peyronie's disease [N48.6] 12/21/2020 Depressive disorder [F32.A] 02/23/2022 Gastroesophageal reflux disease [K21.9] 02/23/2022 Gastroparesis [K31.84] 02/23/2022 Hypertension [I10] 02/23/2022 Opioid dependence (HCC) [F11.20] 02/15/2020 Encounter Status:Closed by AL[facility]ERTINA ELAM [facility]29[facility] [place] Tele[facility] (UROCHIP) ----- JOSELIN FREITAS ([id number]) 1985 M Date Time Provider Department 03/27/22 HOMER PADILLA During your visit today, we recorded the following information about you: Bren Adler 03/27/2022 11:46 AM Signed Sent fax to [facility] for PACC Allergies As of Date: 03/27/2022 (No Known Allergies) Date Reviewed: 02/23/2022 Reviewed by: Ruma Gonzalez APRN.FINE GRADE OPERATOR - Fully Assessed Reason for Visit: Electronic Communication [600] Cmt: Sent fax to [facility] for PACC Prescriptions as of 03/27/2022 - amLODIPine (NORVASC) 5 mg tablet Take 1 tablet by mouth. - FREESTYLE TANG 2 READER as directed. - FREESTYLE TANG 2 SENSOR kit CHANGE SENSOR EVERY 14 DAYS - gabapentin (NEURONTIN) 300 mg capsule 1 capsule. - insulin aspart U-100 (NOVOLOG) 100 unit/mL as directed Subcutaneous - insulin aspart U-100 (NOVOLOG) 100 unit/mL USE UP TO 150 UNITS daily with insulin pump - insulin glargine (LANTUS) 100 unit/mL injection as directed Subcutaneous - insulin NPH hum/reg insulin hm (INSULIN NPH AND REGULAR HUMAN SUBCUTANEOUS) insulin isophane / insulin, regular, human (5 sources) Insulin - metoclopramide HCl (REGLAN) 10 mg tablet Metoclopramide Hcl (Reglan) 10 mg tablet Active 10 MG PO EVERY 4-6 HOURS February 04, 2020 9:28pm - ondansetron (ZOFRAN) 4 mg tablet Ondansetron Hcl (Zofran) 4 mg tablet Active 4 MG PO Q8H 9 December 18, 2019 6:07pm - sucralfate (CARAFATE) 1 gram tablet Sucralfate (Carafate) 1 gram tablet Active 1 GM PO Twice daily 14 December 18, 2019 6:06pm - buprenorphine-naloxone (SUBOXONE) 8-2 mg film Dissolve 2 Film under the tongue once daily. Problem List As Of Date 03/27/2022 Noted Resolved Type 1 (insulin dependent type) diabetes mellit*12/21/2020 ED (erectile dysfunction) of organic origin [N5*12/21/2020 Peyronie's disease [N48.6] 12/21/2020 Depressive disorder [F32.A] 02/23/2022 Gastroesophageal reflux disease [K21.9] 02/23/2022 Gastroparesis [K31.84] 02/23/2022 Hypertension [I10] 02/23/2022 Opioid dependence (HCC) [F11.20] 02/15/2020 Encounter Status:Closed by BREN ADLER on 03/27/22 [facility] CNOVon 03-26-2022 CNOV Office Visit (UROLMN ) ----- JOSELIN FREITAS ([id number]) 1985 M Date Time Provider Department 03/26/22 1:30 PM MEI VILLA During your visit today, we recorded the following information about you: Mei Villa PA-C 03/26/2022 4:10 PM Signed Patient unfortunately did not show for scheduled visit. Allergies As of Date: 03/26/2022 (No Known Allergies) Date Reviewed: 02/23/2022 Reviewed by: Ruma Gonzalez APRN.FINE GRADE OPERATOR - Fully Assessed Reason for Visit: No Show [1558] Primary Visit Diagnosis:No-show for appointment [Z91.199] Prescriptions as of 03/26/2022 - amLODIPine (NORVASC) 5 mg tablet Take 1 tablet by mouth. - [employer] 2 READER as directed. - FREESTYLE TANG 2 SENSOR kit CHANGE SENSOR EVERY 14 DAYS - gabapentin (NEURONTIN) 300 mg capsule 1 capsule. - insulin aspart U-100 (NOVOLOG) 100 unit/mL as directed Subcutaneous - insulin aspart U-100 (NOVOLOG) 100 unit/mL USE UP TO 150 UNITS daily with insulin pump - insulin glargine (LANTUS) 100 unit/mL injection as directed Subcutaneous - insulin NPH hum/reg insulin hm (INSULIN NPH AND REGULAR HUMAN SUBCUTANEOUS) insulin isophane / insulin, regular, human (5 sources) Insulin - metoclopramide HCl (REGLAN) 10 mg tablet Metoclopramide Hcl (Reglan) 10 mg tablet Active 10 MG PO EVERY 4-6 HOURS February 04, 2020 9:28pm - ondansetron (ZOFRAN) 4 mg tablet Ondansetron Hcl (Zofran) 4 mg tablet Active 4 MG PO Q8H 9 December 18, 2019 6:07pm - sucralfate (CARAFATE) 1 gram tablet Sucralfate (Carafate) 1 gram tablet Active 1 GM PO Twice daily 14 December 18, 2019 6:06pm - buprenorphine-naloxone (SUBOXONE) 8-2 mg film Dissolve 2 Film under the tongue once daily. Problem List As Of Date 03/26/2022 Noted Resolved Type 1 (insulin dependent type) diabetes mellit*12/21/2020 ED (erectile dysfunction) of organic origin [N5*12/21/2020 Peyronie's disease [N48.6] 12/21/2020 Depressive disorder [F32.A] 02/23/2022 Gastroesophageal reflux disease [K21.9] 02/23/2022 Gastroparesis [K31.84] 02/23/2022 Hypertension [I10] 02/23/2022 Opioid dependence (HCC) [F11.20] 02/15/2020 Encounter Status:Closed by MEI VILLA on 03/26/22 [facility] Suzi 02-28-2022 [place]DE[place] Telephone ([facility]) ----- JOSELIN FREITAS ([id number]) 1985 M Date Time Provider Department 02/28/22 CATHY AGUILAR MNPACC During your visit today, we recorded the following information about you: Cathy Aguilar RN 02/28/2022 11:29 AM Signed Called and left message that HgA1C needs drawn. Allergies As of Date: 02/28/2022 (No Known Allergies) Date Reviewed: 02/23/2022 Reviewed by: Ruma Gonzalez APRN.FINE GRADE OPERATOR - Fully Assessed Reason for Visit: Pre-Op Update [997] Cmt: HgA1C needs drawn Prescriptions as of 01/09/2023 - amLODIPine (NORVASC) 5 mg tablet Take 1 tablet by mouth. - FREESTYLE TANG 2 READER as directed. - FREESTYLE TANG 2 SENSOR kit CHANGE SENSOR EVERY 14 DAYS - gabapentin (NEURONTIN) 300 mg capsule 1 capsule. - insulin aspart U-100 (NOVOLOG) 100 unit/mL as directed Subcutaneous - insulin aspart U-100 (NOVOLOG) 100 unit/mL USE UP TO 150 UNITS daily with insulin pump - insulin glargine (LANTUS) 100 unit/mL injection as directed Subcutaneous - insulin NPH hum/reg insulin hm (INSULIN NPH AND REGULAR HUMAN SUBCUTANEOUS) insulin isophane / insulin, regular, human (5 sources) Insulin - metoclopramide HCl (REGLAN) 10 mg tablet Metoclopramide Hcl (Reglan) 10 mg tablet Active 10 MG PO EVERY 4-6 HOURS February 04, 2020 9:28pm - ondansetron (ZOFRAN) 4 mg tablet Ondansetron Hcl (Zofran) 4 mg tablet Active 4 MG PO Q8H 9 3 December 18, 2019 6:07pm - sucralfate (CARAFATE) 1 gram tablet Sucralfate (Carafate) 1 gram tablet Active 1 GM PO Twice daily 14 December 18, 2019 6:06pm - buprenorphine-naloxone (SUBOXONE) 8-2 mg film Dissolve 2 Film under the tongue once daily. Problem List As Of Date 02/28/2022 Noted Resolved Type 1 (insulin dependent type) diabetes mellit*12/21/2020 ED (erectile dysfunction) of organic origin [N5*12/21/2020 Peyronie's disease [N48.6] 12/21/2020 Depressive disorder [F32.A] 02/23/2022 Gastroesophageal reflux disease [K21.9] 02/23/2022 Gastroparesis [K31.84] 02/23/2022 Hypertension [I10] 02/23/2022 Opioid dependence (HCC) [F11.20] 02/15/2020 Encounter Status:Closed by CATHY AGUILAR RN on 01/09/23 [facility] Suzi 02-27-2022 CNPN Telephone (UROSMN) ----- JOSELIN FREITAS ([id number]) 1985 Date Time Provider Department 02/27/22 HOMER PADILLA UROSMN During your visit today, we recorded the following information about you: Homer Padilla MD 02/27/2022 11:21 AM Signed He wanted to discuss surgery again and I repeated the informed consent answering all his questions. He still wants to proceed. Homer Padilla MD Allergies As of Date: 02/27/2022 (No Known Allergies) Date Reviewed: 02/23/2022 Reviewed by: Ruma Gonzalez APRN.FINE GRADE OPERATOR - Fully Assessed Reason for Visit: Returning Patient's Call [[id number]] Prescriptions as of 02/27/2022 - amLODIPine (NORVASC) 5 mg tablet Take 1 tablet by mouth. - FREESTYLE TANG 2 READER as directed. - FREESTYLE TANG 2 SENSOR kit CHANGE SENSOR EVERY 14 DAYS - gabapentin (NEURONTIN) 300 mg capsule 1 capsule. - insulin aspart U-100 (NOVOLOG) 100 unit/mL as directed Subcutaneous - insulin aspart U-100 (NOVOLOG) 100 unit/mL USE UP TO 150 UNITS daily with insulin pump - insulin glargine (LANTUS) 100 unit/mL injection as directed Subcutaneous - insulin NPH hum/reg insulin hm (INSULIN NPH AND REGULAR HUMAN SUBCUTANEOUS) insulin isophane / insulin, regular, human (5 sources) Insulin - metoclopramide HCl (REGLAN) 10 mg tablet Metoclopramide Hcl (Reglan) 10 mg tablet Active 10 MG PO EVERY 4-6 HOURS February 04, 2020 9:28pm - ondansetron (ZOFRAN) 4 mg tablet Ondansetron Hcl (Zofran) 4 mg tablet Active 4 MG PO Q8H 9 3 December 18, 2019 6:07pm - sucralfate (CARAFATE) 1 gram tablet Sucralfate (Carafate) 1 gram tablet Active 1 GM PO Twice daily 14 December 18, 2019 6:06pm - buprenorphine-naloxone (SUBOXONE) 8-2 mg film Dissolve 2 Film under the tongue once daily. Problem List As Of Date 02/27/2022 Noted Resolved Type 1 (insulin dependent type) diabetes mellit*12/21/2020 ED (erectile dysfunction) of organic origin [N5*12/21/2020 Peyronie's disease [N48.6] 12/21/2020 Depressive disorder [F32.A] 02/23/2022 Gastroesophageal reflux disease [K21.9] 02/23/2022 Gastroparesis [K31.84] 02/23/2022 Hypertension [I10] 02/23/2022 Opioid dependence (HCC) [F11.20] 02/15/2020 Encounter Status:Closed by HOMER PADILLA on 02/27/22 Normal [facility] ECG COMPLETEon 02-23-2022 ECG COMPLETE Ventricular Rate : 7 2 BPM Atrial Rate : 72 BPM P-R Interval : 160 ms QRS Duration : 86 ms Q-T Interval : 396 ms QTC Calculation(Bazett) : 433 ms Calculated P [place] : 51 degrees Calculated R [place] : 26 degrees Calculated T [place] : 23 degrees NORMAL SINUS RHYTHM NORMAL ECG Confirmed by FARHAD MANCIA M.D. ([id number]) on 03/06/2022 1:34:48 PM NAME : JOSELIN FREITAS PID : [id number] : 1985 Gender : Male Race : ORD : [id number] Procedure Date : Feb 23 2022 14:51:07 Edit Date : Mar 06 2022 13:36:55 Diagnosis: NORMAL SINUS RHYTHM NORMAL ECG Confirmed by FARHAD MANCIA M.D. ([id number]) on 03/06/2022 1:34:48 PM Test Reason : Location : 119 : A17 A17 Overread By : FARHAD MANCIA M.D. Edited By : FARHAD MANCIA M.D. Referred By : RUMA GONZALEZ Acquired by : JIM DECKER [facility] HISTORY PHYSICALon HISTORY PHYSICAL HNO ID: [id number] Author: Ruma Gonzalez APRN.FINE GRADE OPERATOR Service: ? Author Type: Nurse Practitioner Type: HANDP Filed: 02/27/2022 7:54 AM Note Text: HISTORY AND PHYSICAL EXAMINATION SERVICE DATE: 02/23/2022 SERVICE TIME: 1:51 PM PRIMARY CARE PHYSICIAN: No primary care provider on file. REASON FOR VISIT: Joselin Freitas is a 36 year old male who is scheduled for INSERTION PROSTHESIS PENILE INFLATABLE MULTI-COMPONENT on 03/02/2022 at [facility]. Patient is being seen at the request of Dr. Homer Padilla for consultation. My final recommendation will be communicated back to the requesting physician by way of shared medical record or letter. The patient has the following: ACTIVE PROBLEM LIST Type 1 (Insulin Dependent Type) Diabetes Mellitus With Other Coma, Not Stated As Uncontrolled (Hcc) Ed (Erectile Dysfunction) of Organic Origin Peyronie's Disease Depressive Disorder Gastroesophageal Reflux Disease Gastroparesis Hypertension Opioid Dependence (Hcc) Subjective CHIEF COMPLAINT: pre op exam, ED HPI: Salazar is a 36 year old male who presents to [facility] for pre op evaluation. Patient suffers from ED and Peyronie's disease. PMH is significant for insulin dependent diabetes, opioid use (IV) disorder (on subaxone), gastroparesis, anxiety. Patient admitted to ICU at [facility] 10/17/2021 for DKA. Per patient: he will be admitted to ICU following surgery. PAST MEDICAL HISTORY Diagnosis Date Diabetes (HCC) Hypertension No past surgical history on file. No family history on file. SOCIAL HISTORY: Social History Tobacco Use Smoking status: Never Smokeless tobacco: Never Substance Use Topics Alcohol use: Never Drug use: Never MEDICATIONS: Prior to Admission medications as of 06/05/21 1451 Medication Sig Last Dose Taking amLODIPine (NORVASC) 5 mg tablet Take 1 tablet by mouth. Yes insulin aspart U-100 (NOVOLOG U-100 INSULIN ASPART) 100 unit/mL as directed Subcutaneous Yes metFORMIN (GLUCOPHAGE) 500 mg tablet Take 500 mg by mouth. Yes metoclopramide HCl (REGLAN) 10 mg tablet Metoclopramide Hcl (Reglan) 10 mg tablet Active 10 MG PO EVERY 4-6 HOURS February 04, 2020 9:28pm Yes ondansetron (ZOFRAN) 4 mg tablet Ondansetron Hcl (Zofran) 4 mg tablet Active 4 MG PO Q8H 9 December 18, 2019 6:07pm Yes vortioxetine (TRINTELLIX) 10 mg tablet Vortioxetine (Trintellix) 10 mg Tablet Active 10 MG PO Daily November 02, 2019 11:24am Yes sucralfate (CARAFATE) 1 gram tablet Sucralfate (Carafate) 1 gram tablet Active 1 GM PO Twice daily 14 December 18, 2019 6:06pm Yes FREESTYLE TANG 2 READER as directed. FREESTYLE TANG 2 SENSOR kit CHANGE SENSOR EVERY 14 DAYS gabapentin (NEURONTIN) 300 mg capsule 1 capsule. insulin aspart U-100 (NOVOLOG) 100 unit/mL USE UP TO 150 UNITS daily with insulin pump insulin glargine (LANTUS U-100 INSULIN) 100 unit/mL injection as directed Subcutaneous insulin NPH hum/reg insulin hm (INSULIN NPH AND REGULAR HUMAN SUBCUTANEOUS) insulin isophane / insulin, regular, human (5 sources) Insulin buprenorphine-naloxone (SUBOXONE) 8-2 mg film Dissolve 2 Film under the tongue once daily. sildenafil (VIAGRA) 100 mg tablet Take 1 tablet by mouth as needed. No medication comments found. CURRENT ALLERGIES: ALLERGIES No Known Allergies COVID VACCINATION STATUS: Fully vaccinated REVIEW OF SYSTEMS: PAIN ASSESSMENT: Pain Pain Level: 3 Pain Location: Penis Description: (hard to describe how pain feels) Duration Amount of Time: 3 Duration Units: Years Frequency: Continuous General: No weight loss, malaise or fevers. Neuro: Negative for TIA's Stroke-residual deficit Stroke-No residual deficit Has seizure like activity when blood sugar drops. Respiratory: No history of current cough or dyspnea, or pneumonia in the past 6 weeks. No history of respiratory/pulmonary symptoms or problems. Cardiovascular: Negative for Recent KS, Arrhythmia, Chest Pain, DVT/PE GI: GERD, gastroparesis- nausea and vomiting, IBS with constipaton/diarrhea Negative for Liver disease, Pancreatitis : ED, Peyronie's disease No history of dysuria, frequency or incontinence,, stones or chronic kidney disease Endocrine: Diabetes Mellitus on insulin-INSULIN PUMP Hematology: No history of bleeding or clotting disorder. Pt is not taking anti-coagulation or platelet medications. No history of hematological symptoms or problems. Oncology: No history of CA metastasis, chemo within 30 days, or radiotherapy within 90 days. Has not lost 10% of body wt in 6 months. No history of oncological symptoms or problems. Psych: Anxiety, Depression, not currently on medication Musculoskeletal: Back pain Skin: Negative for lesions, rash and itching. Objective PHYSICAL EXAM: VITALS: BP 104/77 Pulse 83 Temp (Src) 98 (Temporal) Ht 6' 3 (1.91m) Wt 236 lb 14.4 oz (107.5kg) SpO2 99% BMI 29.61 kg/(m2). General: Alert and oriented, No acute distress, Health (more content not included)... Normal [facility] Basophils Auto (Bld) [#/Vol] Ordered By: Homer Padilla on 02-01-2022 Basophils (Bld) [#/Vol] 0.1 10*3/uL 0.0-0.2 [facility] Basophils/100 WBC Auto (Bld) Ordered By: Homer Padilla on 02-01-2022 Basophils/100 WBC (Bld) 0.6 % . [facility] Body fluid albumin measureme nt (mass/volume)Ordered By: Homer Padilla on 02-01-2022 Albumin (Body fld) [Mass/Vol] 3.7 g/dL 3.2-5.5 [facility] Cholesterol [Mass/volume] in Serum or PlasmaOrdered By: Nunu Fry on 02-01-2022 Cholesterol [Mass/Vol] 141 mg/dL 140-200 [facility] Comment on above: Chol less than 200 m g/dl low riskChol 201-239 mg/dl borderline riskChol 240 mg/dl and greater high risk Cholesterol in LDL Calc [Mas s/Vol]Ordered By: Nunu Fry on 02-01-2022 Cholesterol in LDL [Mass/Vol] 69 mg/dL 0-100 [facility] Comment on above: LDL ATP III CLASSIFI CATIONLDL less than 100 mg/dL OptimalLDL 100-129 mg/dL Near or above optimalLDL 130-159 mg/dL Borderline highLDL 160-189 mg/dL HighLDL greater than 189 mg/dL Very high Cholesterol in VLDL Calc [Ma ss/Vol]Ordered By: Nunu Fyr on 02-01-2022 Cholesterol in VLDL [Mass/Vol] 12 mg/dL [facility] Creatinine [Mass/volume] in UrineOrdered By: Nunu Fry on 02-01-2022 Creatinine (U) [Mass/Vol] 286.0 mg/dL [facility] Comment on above: No reference range e stablished Creatinine and Glomerular fi ltration rate.predicted panel (S/P/Bld)Ordered By: Homer Padilla on 02-01-2022 Creatinine [Mass/Vol] 0.78 mg/dL 0.64-1.27 [facility] Eosinophils Auto (Bld) [#/Vo l]Ordered By: Homer Padilla on 02-01-2022 Eosinophils (Bld) [#/Vol] 0.3 10*3/uL 0.0-0.45 [facility] Eosinophils/100 WBC Auto (Bl d)Ordered By: Homer Padilla on 02-01-2022 Eosinophils/100 WBC (Bld) 3.0 % . [facility] Erythrocyte distribution wid th Auto (RBC) [Ratio]Ordered By: Homer Padilla on 02-01-2022 Erythrocyte distribution width (RBC) [Ratio] 13.2 % 12.0-14.8 [facility] Estimated glomerular filtrat ion rate (GFR) non- AmericanOrdered By: Homer Padilla on 02-01-2022 GFR/1.73 sq M.predicted among non-blacks MDRD (S/P/Bld) [Vol rate/Area] > 60 mL/Min [facility] Globulin Calc (S) [Mass/Vol] Ordered By: Homer Padilla on 02-01-2022 Globulin (S) [Mass/Vol] 3.2 g/dL [facility] Hematocrit Auto (Bld) [Volum e fraction]Ordered By: Homer Padilla on 02-01-2022 Hematocrit (Bld) [Volume fraction] 43.8 % 38.8-50.0 [facility] Hemoglobin [Mass/volume] in BloodOrdered By: Homer Paidlla on 02-01-2022 Hemoglobin (Bld) [Mass/Vol] 14.5 g/dL 13.0-17.0 [facility] Leukocytes [#/volume] correc paulina for nucleated erythrocytes in Blood by Automated counOrdered By: Homer Padilla on 02-01-2022 WBC corrected for nucl RBC Auto (Bld) [#/Vol] 8.4 10*3/uL 4.1-10.5 [facility] Lymphocytes Auto (Bld) [#/Vo l]Ordered By: Homer Padilla on 02-01-2022 Lymphocytes (Bld) [#/Vol] 2.1 10*3/uL 1.00-4.8 [facility] Lymphocytes/100 WBC Auto (Bl d)Ordered By: Homer Padilla on 02-01-2022 Lymphocytes/100 WBC (Bld) 24.7 % . [facility] MCH Auto (RBC) [Entitic mass ]Ordered By: Homer Padilla on 02-01-2022 MCH (RBC) [Entitic mass] 29.2 pg 27.5-35.2 [facility] MCHC Auto (RBC) [Mass/Vol]Or dered By: Homer Padilla on 02-01-2022 MCHC (RBC) [Mass/Vol] 33.2 g/dL 32.5-35.6 [facility] MCV Auto (RBC) [Entitic vol] Ordered By: Homer Padilla on 02-01-2022 MCV (RBC) [Entitic vol] 87.9 fL 83.5-101 [facility] Monocytes Auto (Bld) [#/Vol] Ordered By: Homer Padilla on 02-01-2022 Monocytes (Bld) [#/Vol] 1.0 10*3/uL 0.0-0.8 [facility] Monocytes/100 WBC Auto (Bld) Ordered By: Homer Padilla on 02-01-2022 Monocytes/100 WBC (Bld) 11.6 % . [facility] Neutrophils Auto (Bld) [#/Vo l]Ordered By: Homer Padilla on 02-01-2022 Neutrophils (Bld) [#/Vol] 5.1 10*3/uL 1.8-7.7 [facility] Neutrophils/100 WBC Auto (Bl d)Ordered By: Homer Padilla on 02-01-2022 Neutrophils/100 WBC (Bld) 60.1 % . [facility] No Panel InformationOrdered By: Nunu Fry on 02-01-2022 25-Hydroxy Vitamin D Total 22.1 ng/mL 30-100 [facility] Comment on above: VITAMIN D STATUS 25( [place])VITAMIN D RANGE (ng/mL) Deficient <20 Insufficient 20 to <30Sufficient 30 to 100Reference: Santana MF,Jensen NC, Tawanna TITUS, et al. Evaluation,treatment, and prevention of vitamin D deficiency; an Endocrine Society clinical practice guideline. JCEM. 2010; 96(7):1911-30. No Panel InformationOrdered By: Homer aPdilla on 02-01-2022 Estimated GFR () > 60 mL/Min [facility] Comment on above: GFR estimated refere nce range: According to KDOQI guidelines, <60 ml/min/1.73m2 is sufficient to diagnose a patient with chronic kidney disease. Pharmacy Creatinine Clearance (Chem N/A [facility] Nucleated erythrocytes [Pres ence] in Blood by Automated countOrdered By: Homer Padilla on 02-01-2022 Nucleated RBC Auto Ql (Bld) 0.2 /100{WBC} 0-0.5 [facility] Phosphate [Mass/volume] in S belinda or PlasmaOrdered By: Homer Padilla on 02-01-2022 Phosphate [Mass/Vol] 3.5 mg/dL 2.5-4.6 [facility] Platelet mean volume Auto (B ld) [Entitic vol]Ordered By: Homer Padilla on 02-01-2022 Platelet mean volume (Bld) [Entitic vol] 8.7 fL 6.6-10.1 [facility] Platelets Auto (Bld) [#/Vol] Ordered By: Homer Padilla on 02-01-2022 Platelets (Bld) [#/Vol] 210 10*3/uL 150-450 [facility] Protein [Mass/volume] in Ser um or PlasmaOrdered By: Homer Padilla on 02-01-2022 Protein [Mass/Vol] 6.9 g/dL 6.1-7.9 [facility] RBC Auto (Bld) [#/Vol]Ordere d By: Homer Padilla on 02-01-2022 RBC (Bld) [#/Vol] 4.98 10*6/uL 3.90-5.60 [facility] Serum or plasma alanine cooley otransferase measurement without P-5'-P (enzymatic activiOrdered By: Homer Padilla on 02-01-2022 ALT No additional P-5'-P [Catalytic activity/Vol] 46 U/L 10-60 [facility] Serum or plasma albumin/glob ulin mass ratioOrdered By: Homer Padilla on 02-01-2022 Albumin/Globulin [Mass ratio] 1.2 {ratio} [facility] Serum or plasma alkaline rafael sphatase measurement (enzymatic activity/volume)Ordered By: Homer Padilla on 02-01-2022 ALP [Catalytic activity/Vol] 66 U/L 32-92 [facility] Serum or plasma anion gap de terminationOrdered By: Homer Padilla on 02-01-2022 Anion gap [Moles/Vol] 12.1 mmol/L 6.0-15.0 [facility] Serum or plasma aspartate am inotransferase measurement (enzymatic activity/volume)Ordered By: Homer Padilla on 02-01-2022 AST [Catalytic activity/Vol] 34 U/L 10-42 [facility] Serum or plasma calcium ranjit urement (mass/volume)Ordered By: Homer Padilla on 02-01-2022 Calcium [Mass/Vol] 9.2 mg/dL 8.2-10.2 [facility] Serum or plasma chloride susanna surement (moles/volume)Ordered By: Homer Padilla on 02-01-2022 Chloride [Moles/Vol] 102 mmol/L 95-114 [facility] Serum or plasma glucose ranjit urement (mass/volume)Ordered By: Homer Padilla on 02-01-2022 Glucose [Mass/Vol] 142 mg/dL 70-100 [facility] Comment on above: ADA recommended refe rence rangeRandom Glucose Reference Range is dependent on time and content of last meal. Glucose of more than 200 mg/dL in a nonstressed, ambulatory subject supports the diagnosis of Diabetes Mellitus. Serum or plasma high density lipoprotein (HDL) cholesterol measurementOrdered By: Nunu Fry on 02-01-2022 Cholesterol in HDL [Mass/Vol] 59 mg/dL 29- [facility] Comment on above: HDL CHOL ATP-III CLA SSIFICATION Cardiovascular RiskHDL > or equal to 60 mg/dL LOWHDL < 40 mg/dL HIGH Serum or plasma potassium me asurement (moles/volume)Ordered By: Homer Padilla on 02-01-2022 Potassium [Moles/Vol] 4.6 mmol/L 3.5-5.1 [facility] Serum or plasma sodium measu rement (moles/volume)Ordered By: Homer Padilla on 02-01-2022 Sodium [Moles/Vol] 138 mmol/L 136-146 [facility] Serum or plasma total biliru bin measurement (mass/volume)Ordered By: Homer Padilla on 02-01-2022 Bilirubin [Mass/Vol] 0.5 mg/dL 0.3-1.2 [facility] Serum or plasma total carbon dioxide measurement (moles/volume)Ordered By: Homer Padilla on 02-01-2022 CO2 [Moles/Vol] 28.5 mmol/L 22.0-30.0 [place] Serum or plasma total choles terol/high density lipoprotein (HDL) cholesterol mass ratOrdered By: Nunu Fry on 02-01-2022 Cholesterol.total/Chol esterol in HDL [Mass ratio] 2.4 {ratio} <5.0 [facility] Serum or plasma urea nitroge n measurement (mass/volume)Ordered By: Homer Padilla on 02-01-2022 Urea nitrogen [Mass/Vol] 13 mg/dL - [facility] Triglyceride [Mass/volume] i n Serum or PlasmaOrdered By: Nunu Fry on 02-01-2022 Triglyceride [Mass/Vol] 64 mg/dL 35-149 [facility] Comment on above: TRIG ATP III CLASSIF ICATIONTRIG less than 150 mg/dL NormalTRIG 150-199 mg/dL Borderline highTRIG 200-500 mg/dL High TRIG greater than 500 mg/dL Very highStandard traceable to the Center for Disease Conrtrol and Prevention (CDC) test method. Urine microalbumin measureme nt with detection limit of 20 mg/L or less (mass/volume)Ordered By: Nunu Fry on 02-01-2022 Albumin DL <= 20 mg/L (U) [Mass/Vol] 10.5 mg/dL 0.0-1.8 [facility] Urine microalbumin/creatinin e mass ratioOrdered By: Nunu Fry on 02-01-2022 Albumin/Creatinine DL <= 20 mg/L (U) [Mass ratio] 36.0 mg/g 0.0-30.0 [facility] Comment on above: 30-300 mg/g indicate s an increased risk for diabetic nephropathy. Greater than 300 mg/g is consistent with clinical nephropathy. (Am. J. Kidney Disease 1995, 25:107) WBC Auto (Bld) [#/Vol]Ordere d By: Homer Padilla on 02-01-2022 WBC (Bld) [#/Vol] 8.4 10*3/uL 4.1-10.5 [facility] Creatinine and Glomerular fi ltration rate.predicted panel (S/P/Bld)Ordered By: Bren Mccray on 11-22-2021 Creatinine [Mass/Vol] 0.94 mg/dL 0.64-1.27 [facility] Estimated glomerular filtrat ion rate (GFR) non- AmericanOrdered By: Bren Mccray on 11-22-2021 GFR/1.73 sq M.predicted among non-blacks MDRD (S/P/Bld) [Vol rate/Area] > 60 mL/Min [facility] Glucose Glucometer (BldC) [M ass/Vol]Ordered By: Bren Mccray on 11-22-2021 Glucose [Mass/Vol] 267 mg/dL [facility] Comment on above: Random Glucose Refer ence Range is dependent on time and content of last meal. Glucose of more than 200 mg/dL in a nonstressed, ambulatory subject supports the diagnosis of Diabetes Mellitus. Glucose [Mass/Vol] 112 mg/dL [facility] Comment on above: Random Glucose Refer ence Range is dependent on time and content of last meal. Glucose of more than 200 mg/dL in a nonstressed, ambulatory subject supports the diagnosis of Diabetes Mellitus. No Panel InformationOrdered By: Bren Mccray on 11-22-2021 Estimated GFR () > 60 mL/Min [facility] Comment on above: GFR estimated refere nce range: According to KDOQI guidelines, <60 ml/min/1.73m2 is sufficient to diagnose a patient with chronic kidney disease. Pharmacy Creatinine Clearance (Chem 144.17 [facility] Bedside Glucose #2 Comment Cleaned meter [facility] Bedside Glucose Comment See comment [facility] Comment on above: Glu2: WILL NOTIFY DR /RN Serum or plasma anion gap de terminationOrdered By: Bren Mccray on 11-22-2021 Anion gap [Moles/Vol] 15.7 mmol/L 6.0-15.0 [facility] Serum or plasma calcium ranjit urement (mass/volume)Ordered By: Bren Mccray on 11-22-2021 Calcium [Mass/Vol] 9.4 mg/dL 8.2-10.2 [facility] Serum or plasma chloride susanna surement (moles/volume)Ordered By: Bren Mccray on 11-22-2021 Chloride [Moles/Vol] 98 mmol/L 95-114 [facility] Serum or plasma glucose ranjit urement (mass/volume)Ordered By: Bren Mccray on 11-22-2021 Glucose [Mass/Vol] 113 mg/dL 70-100 [facility] Comment on above: ADA recommended refe rence rangeRandom Glucose Reference Range is dependent on time and content of last meal. Glucose of more than 200 mg/dL in a nonstressed, ambulatory subject supports the diagnosis of Diabetes Mellitus. Serum or plasma potassium me asurement (moles/volume)Ordered By: Bren Mccray on 11-22-2021 Potassium [Moles/Vol] 4.2 mmol/L 3.5-5.1 [facility] Serum or plasma sodium measu rement (moles/volume)Ordered By: Bren Mccray on 11-22-2021 Sodium [Moles/Vol] 135 mmol/L 136-146 [facility] Serum or plasma total carbon dioxide measurement (moles/volume)Ordered By: Bren Mccray on 11-22-2021 CO2 [Moles/Vol] 25.5 mmol/L 22.0-30.0 [place] Serum or plasma urea nitroge n measurement (mass/volume)Ordered By: Bren Mccray on 11-22-2021 Urea nitrogen [Mass/Vol] 10 mg/dL 9- [facility] Bacterial blood cultureOrder ed By: Tuan Thakkar on 10-23-2021 Bacteria identified Cx Nom (Bld) NO GROWTH 5 DAYS [facility] Basophils Auto (Bld) [#/Vol] Ordered By: Tuan Thakkar on 10-19-2021 Basophils (Bld) [#/Vol] 0.0 10*3/uL 0.0-0.2 [facility] Basophils/100 WBC Auto (Bld) Ordered By: Tuan Thakkar on 10-19-2021 Basophils/100 WBC (Bld) 0.3 % . [facility] Blood hemoglobin measurement (mass/volume)Ordered By: Tuan Thakkar on 10-19-2021 Hemoglobin (Bld) [Mass/Vol] 12.7 g/dL 13.0-17.0 [facility] Blood leukocytes automated c ount (number/volume)Ordered By: Tuan Thakkar on 10-19-2021 WBC (Bld) [#/Vol] 9.1 10*3/uL 4.5-11.0 [facility] Creatinine and Glomerular fi ltration rate.predicted panel (S/P/Bld)Ordered By: Tuan Thakkar on 10-19-2021 Creatinine [Mass/Vol] 0.99 mg/dL 0.64-1.27 [facility] Eosinophils Auto (Bld) [#/Vo l]Ordered By: Tuan Thakkar on 10-19-2021 Eosinophils (Bld) [#/Vol] 0.2 10*3/uL 0.0-0.45 [facility] Eosinophils/100 WBC Auto (Bl d)Ordered By: Tuan Thakkar on 10-19-2021 Eosinophils/100 WBC (Bld) 2.0 % . [facility] Erythrocyte distribution wid th Auto (RBC) [Ratio]Ordered By: Tuan Thakkar on 10-19-2021 Erythrocyte distribution width (RBC) [Ratio] 13.9 % 12.0-14.8 [facility] Estimated glomerular filtrat ion rate (GFR) non- AmericanOrdered By: Tuan Thakkar on 10-19-2021 GFR/1.73 sq M.predicted among non-blacks MDRD (S/P/Bld) [Vol rate/Area] > 60 mL/Min [facility] Glucose Glucometer (BldC) [M ass/Vol]Ordered By: Tuan Thakkar on 10-19-2021 Glucose [Mass/Vol] 209 mg/dL [facility] Comment on above: Random Glucose Refer ence Range is dependent on time and content of last meal. Glucose of more than 200 mg/dL in a nonstressed, ambulatory subject supports the diagnosis of Diabetes Mellitus. Hematocrit Auto (Bld) [Volum e fraction]Ordered By: Tuan Thakkar on 10-19-2021 Hematocrit (Bld) [Volume fraction] 38.1 % 38.8-50.0 [facility] Laboratory - Hematology and Cell countsOrdered By: Tuan Thakkar on 10-19-2021 Nucleated RBC/100 WBC (Bld) [Ratio] 0.1 % 0-0.5 [facility] Lymphocytes Auto (Bld) [#/Vo l]Ordered By: Tuan Thakkar on 10-19-2021 Lymphocytes (Bld) [#/Vol] 2.0 10*3/uL 1.00-4.8 [facility] Lymphocytes/100 WBC Auto (Bl d)Ordered By: Tuan Thakkar on 10-19-2021 Lymphocytes/100 WBC (Bld) 22.2 % . [facility] MCH Auto (RBC) [Entitic mass ]Ordered By: Tuan Thakkar on 10-19-2021 MCH (RBC) [Entitic mass] 29.6 pg 27.5-35.2 [facility] MCHC Auto (RBC) [Mass/Vol]Or dered By: Tuan Thakkar on 10-19-2021 MCHC (RBC) [Mass/Vol] 33.3 g/dL 32.5-35.6 [facility] MCV Auto (RBC) [Entitic vol] Ordered By: Tuan Thakkar on 10-19-2021 MCV (RBC) [Entitic vol] 88.8 fL 83.5-101 [facility] Monocytes Auto (Bld) [#/Vol] Ordered By: Tuan Thakkar on 10-19-2021 Monocytes (Bld) [#/Vol] 0.8 10*3/uL 0.0-0.8 [facility] Monocytes/100 WBC Auto (Bld) Ordered By: Tuan Thakkar on 10-19-2021 Monocytes/100 WBC (Bld) 8.3 % . [facility] Neutrophils Auto (Bld) [#/Vo l]Ordered By: Tuan Thakkar on 10-19-2021 Neutrophils (Bld) [#/Vol] 6.1 10*3/uL 1.8-7.7 [facility] Neutrophils/100 WBC Auto (Bl d)Ordered By: Tuan Thakkar on 10-19-2021 Neutrophils/100 WBC (Bld) 67.2 % . [facility] No Panel InformationOrdered By: Tuan Thakkar on 10-19-2021 Bedside Glucose Comment Glu2: cleaned meter [facility] Estimated GFR () > 60 mL/Min [facility] Comment on above: GFR estimated refere nce range: According to KDOQI guidelines, <60 ml/min/1.73m2 is sufficient to diagnose a patient with chronic kidney disease. Pharmacy Creatinine Clearance (Chem 161.43 [facility] Platelet mean volume Auto (B ld) [Entitic vol]Ordered By: Tuan Thakkar on 10-19-2021 Platelet mean volume (Bld) [Entitic vol] 8.1 fL 6.6-10.1 [facility] Platelets Auto (Bld) [#/Vol] Ordered By: Tuan Thakkar on 10-19-2021 Platelets (Bld) [#/Vol] 207 10*3/uL 150-450 [facility] RBC Auto (Bld) [#/Vol]Ordere d By: Tuan Thakkar on 10-19-2021 RBC (Bld) [#/Vol] 4.29 10*6/uL 3.90-5.60 [facility] Serum or plasma calcium ranjit urement (mass/volume)Ordered By: Tuan Thakkar on 10-19-2021 Calcium [Mass/Vol] 8.5 mg/dL 8.2-10.2 [facility] Serum or plasma chloride susanna surement (moles/volume)Ordered By: Tuan Thakkar on 10-19-2021 Chloride [Moles/Vol] 108 mmol/L 95-114 [facility] Serum or plasma glucose ranjit urement (mass/volume)Ordered By: Tuan Thakkar on 10-19-2021 Glucose [Mass/Vol] 205 mg/dL 70-100 [facility] Comment on above: ADA recommended refe rence range Random Glucose Reference Range is dependent on time and content of last meal. Glucose of more than 200 mg/dL in a nonstressed, ambulatory subject supports the diagnosis of Diabetes Mellitus. ADA recommended refe rence rangeRandom Glucose Reference Range is dependent on time and content of last meal. Glucose of more than 200 mg/dL in a nonstressed, ambulatory subject supports the diagnosis of Diabetes Mellitus. Serum or plasma potassium me asurement (moles/volume)Ordered By: Tuan Thakkar on 10-19-2021 Potassium [Moles/Vol] 3.7 mmol/L 3.5-5.1 [facility] Serum or plasma sodium measu rement (moles/volume)Ordered By: Tuan Thakkar on 10-19-2021 Sodium [Moles/Vol] 139 mmol/L 136-146 [facility] Serum or plasma total carbon dioxide measurement (moles/volume)Ordered By: Tuan Thakkar on 10-19-2021 CO2 [Moles/Vol] 27.6 mmol/L 22.0-30.0 [place] Serum or plasma urea nitroge n measurement (mass/volume)Ordered By: Tuan Thakkar on 10-19-2021 Urea nitrogen [Mass/Vol] 23 mg/dL 9- [facility] Amphetamine Screen Ql (U)Ord ered By: Howard Esquivel on 10-18-2021 Amphetamines Ql (U) Positive Negative [facility] Barbiturates [Presence] in U rineOrdered By: Howrad Esquivel on 10-18-2021 Barbiturates Ql (U) Negative Negative [facility] Benzodiazepines [Presence] i n UrineOrdered By: Howard Esquivel on 10-18-2021 Benzodiazepines Ql (U) Negative Negative [facility] Bilirubin Test strip Ql (U)O rdered By: Howard Esquivel on 10-18-2021 Bilirubin Ql (U) Negative Negative [place] Cannabinoids [Presence] in U rine by Screen methodOrdered By: Howard Esquivel on 10-18-2021 Cannabinoids Screen Ql (U) Positive Negative [facility] Comment on above: These are unconfirme d results and should not be used for legal purposes. Drug Cut-Off Concentration: AMPH 1000 ng/mL CHASITY 200 ng/mL ELISEO 200 ng/mL COCM 300 ng/mL OP 300 ng/mL PCP 25 ng/mL THC 20 ng/mL These are unconfirme d results and should not be used for legal purposes. Drug Cut-Off Concentration: AMPH 1000 ng/mL CHASITY 200 ng/mL ELISEO 200 ng/mL COCM 300 ng/mL OP 300 ng/mL PCP 25 ng/mL THC 20 ng/mL Color Auto (U)Ordered By: Sal Esquivel on 10-18-2021 Color (U) Yellow Yellow [facility] Glucose mean value [Mass/vol ume] in Blood Estimated from glycated hemoglobinOrdered By: Tuan Thakkar on 10-18-2021 Average glucose Estimated from glycated hemoglobin (Bld) [Mass/Vol] 214 mg/dL [facility] Hemoglobin A1c percentageOrd ered By: Tuan Thakkar on 10-18-2021 HbA1c (Bld) [Mass fraction] 9.1 % 4.3-5.6 [facility] Comment on above: Increased risk for d iabetes: 5.7 - 6.4 diabetes: >6.4 glycemic control for adults with diabetes: <7.0 Increased risk for d iabetes: 5.7 - 6.4diabetes: >6.4glycemic control for adults with diabetes: <7.0 Ketones Auto test strip (U) [Mass/Vol]Ordered By: Howard Esquivel on 10-18-2021 Ketones (U) [Mass/Vol] 3+ Negative [facility] Laboratory - Chemistry and C hemistry - challengeOrdered By: Howard Esquivel on 10-18-2021 Lactate [Moles/Vol] 1.5 mmol/L 0.5-2.2 [facility] Laboratory - Chemistry and C hemistry - challengeOrdered By: Taylor Martínez on 10-18-2021 Magnesium [Mass/Vol] 2.3 mg/dL 1.6-2.6 [facility] Laboratory - Drug toxicology Ordered By: Howard Esquivel on 10-18-2021 Opiates Ql (U) Negative Negative [facility] Nitrite Test strip Ql (U)Ord ered By: Howard Esquivel on 10-18-2021 Nitrite Ql (U) Negative Negative [facility] No Panel InformationOrdered By: Tuan Thakkar on 10-18-2021 Bedside Glucose #2 Comment Insulin drip protoco [facility] Phencyclidine Screen Ql (U)O rdered By: Howard Esquivel on 10-18-2021 Phencyclidine Ql (U) Negative Negative [facility] Protein Auto test strip (U) [Mass/Vol]Ordered By: Howard Esquivel on 10-18-2021 Protein (U) [Mass/Vol] Negative Negative [facility] Specific gravity Auto test s trip (U) [Rel density]Ordered By: Howard Esquivel on 10-18-2021 Specific gravity (U) [Rel density] 1.024 1.001-1.03 0 [facility] Urine clarity by refractomet ry automatedOrdered By: Howard Esquivel on 10-18-2021 Clarity Refractometry automated (U) Clear Clear [facility] Urine cocaine detectionOrder ed By: Howard Esquivel on 10-18-2021 Cocaine Ql (U) Negative Negative [facility] Urine glucose measurement by automated test strip (mass/volume)Ordered By: Howard Esquivel on 10-18-2021 Glucose Auto test strip (U) [Mass/Vol] >=1000 mg/dL Normal [facility] Urine hemoglobin detection b y automated test stripOrdered By: Howard Esquivel on 10-18-2021 Hemoglobin Auto test strip Ql (U) Negative Negative [facility] Urine leukocyte esterase det ection by automated test stripOrdered By: Howard Esquivel on 10-18-2021 Leukocyte esterase Auto test strip Ql (U) Negative Negative [facility] Urobilinogen Auto test strip (U) [Mass/Vol]Ordered By: Howard Esquivel on 10-18-2021 Urobilinogen (U) [Mass/Vol] Normal mg/dL Normal [facility] Whole blood phosphatidyletha nol measurement by LC-MS/MS (mass/volume)Ordered By: Tuan Thakkar on 10-18-2021 Phosphatidylethanol (Bld) [Mass/Vol] Negative NEGATIVE [facility] Comment on above: Analyzed compound: P Eth 16:0/18:1. 4-agdvinytl-8-nmqlrp-ab-cbyayas-3-phosphoethanol.Analysis performed by Liquid Chromatography withTandem Mass Spectrometry (LC/MS/MS).Detection limit: 20 ng/mLPEth levels in excess of 20 ng/mL are considered evidenceof moderate to heavy ethanol consumption. However,the [facility]stance Abuse [facility] (CSAT) advisescaution in interpretation and use of biomarkers aloneto assess alcohol use. Results should be interpretedin the context of all available clinical and behavioralinformation.Reference: Substance Abuse and Mental Health Services Administration (2012). The Role of Biomarkers in the Treatment of Alcohol Use Disorders , 2012 Revision. Advisory, Volume 11, Issue 2.This test was developed and its performance characteristicsdetermined by [employer]. It has not been cleared or approvedby the Food and Drug Administration.Performed at: [facility] [place] [address] [id number] Director: Dianne Paez [facility], Phone: [phone] pH Auto test strip (U)Ordere d By: Howard Esquivel on 10-18-2021 pH (U) 5.5 [pH] 5.0-9.0 [facility] Beta-hydroxybutyric acid susanna surementOrdered By: Howard Esquivel on 10-17-2021 Beta hydroxybutyrate [Mass/Vol] 8.76 mmol/L 0.05-0.27 [facility] Body fluid albumin measureme nt (mass/volume)Ordered By: Howard Esquivel on 10-17-2021 Albumin (Body fld) [Mass/Vol] 3.5 g/dL 3.2-5.5 [facility] COVID-19 Positive/NegativeOr dered By: Howard Esquivel on 10-17-2021 SARS-CoV-2 (COVID-19) N gene YAA+probe Ql (Resp) Negative Negative [facility] Comment on above: Testing for SARS-CoV -2 by RT-PCR This test was developed and its performance characteristics determined by [employer] and validated at the [facility]. This test has not been FDA cleared or approved. This test has been authorized by FDA under an Emergency Use Authorization (EUA). This test has been validated in accordance with the FDA's Guidance Document (Policy for Diagnostics Testing in Laboratories Certified to Perform High Complexity Testing under CLIA prior to Emergency Use Authorization for Coronavirus Disease-2019 during the Public Health Emergency) issued on May 28, 2019. This test is only authorized for the duration of time the declaration that circumstances exist justifying the authorization of the emergency use of in vitro diagnostic tests for detection of SARS-CoV-2 virus and/or diagnosis of COVID-19 infection under section 564(b)(1) of the Act, 21 U.S.C. 360bbb-3(b)(1), unless the authorization is terminated or revoked sooner. Testing for SARS-CoV -2 by RT-PCRThis test was developed and its performance characteristics determined by [employer] and validated at the [facility]. This test has not been FDA cleared or approved. This test has been authorized by FDA under an Emergency Use Authorization (EUA). This test has been validated in accordance with the FDA's Guidance Document (Policy for Diagnostics Testing in Laboratories Certified to Perform High Complexity Testing under CLIA prior to Emergency Use Authorization for Coronavirus Disease-2019 during the Public Health Emergency) issued on May 28, 2019. This test is only authorized for the duration of time the declaration that circumstances exist justifying the authorization of the emergency use of in vitro diagnostic tests for detection of SARS-CoV-2 virus and/or diagnosis of COVID-19 infection under section 564(b)(1) of the Act, 21 U.S.C. 360bbb-3(b)(1), unless the authorization is terminated or revoked sooner. COVID-19 SOFIAOrdered By: Sal Esquivel on 10-17-2021 SARS-CoV+SARS-CoV-2 (COVID-19) Ag IA.rapid Ql (Resp) Negative Negative [facility] Comment on above: This is a duplicate Lizett SARS Antigen (CINDY) result to be used for statistical tracking purpose only. Creatine kinase [Enzymatic a ctivity/volume] in Serum or PlasmaOrdered By: Howard Esquivel on 10-17-2021 CK [Catalytic activity/Vol] 318 U/L 22-269 [facility] Globulin Calc (S) [Mass/Vol] Ordered By: Howard Esquivel on 10-17-2021 Globulin (S) [Mass/Vol] 2.9 g/dL [facility] Laboratory - Chemistry and C hemistry - challengeOrdered By: Howard Esquivel on 10-17-2021 CO2 [Moles/Vol] 14.6 mmol/L 24.0-29.0 [place] HCO3 (Bld) [Moles/Vol] 13.5 mmol/L 23.0-29.0 [facility] No Panel InformationOrdered By: Howard Esquivel on 10-17-2021 Blood Gas Critical Value See comment [facility] Comment on above: Critical Value shah d on: 10/17/2021 at 19:23 Blood Gas Sample Site Venous Fir [facility] FiO2 21 % [facility] Venous Blood Base Excess -13.8 mmol/L -3.0-3.0 [facility] Venous Blood Oxygen Content 5.7 mmol/L 6.6-9.7 [facility] Venous Blood Oxygen Saturation 65.0 % 73.0-76.0 [facility] Venous Blood Partial Pressure CO2 36.3 mm[Hg] 38.0-50.0 [facility] Venous Blood Partial Pressure O2 38.5 mm[Hg] 35.0-45.0 [facility] Venous Blood pH 7.19 7.32-7.43 [facility] SARS Antigen (LFIA) [facility] Protein [Mass/volume] in Ser um or PlasmaOrdered By: Howard Esquivel on 10-17-2021 Protein [Mass/Vol] 6.4 g/dL 6.1-7.9 [facility] Serum or plasma alanine cooley otransferase measurement without P-5'-P (enzymatic activiOrdered By: Howard Esquivel on 10-17-2021 ALT No additional P-5'-P [Catalytic activity/Vol] 49 U/L 10-60 [facility] Serum or plasma albumin/glob ulin mass ratioOrdered By: Howard Esquivel on 10-17-2021 Albumin/Globulin [Mass ratio] 1.2 {ratio} [facility] Serum or plasma alkaline rafael sphatase measurement (enzymatic activity/volume)Ordered By: Howard Esquivel on 10-17-2021 ALP [Catalytic activity/Vol] 71 U/L 32-92 [facility] Serum or plasma aspartate am inotransferase measurement (enzymatic activity/volume)Ordered By: Howard Esquivel on 10-17-2021 AST [Catalytic activity/Vol] 53 U/L 10-42 [facility] Serum or plasma ethanol ranjit urement (mass/volume)Ordered By: Howard Esquivel on 10-17-2021 Ethanol [Mass/Vol] 7 mg/dL [facility] Ethanol [Mass/Vol] 0.007 % [facility] Serum or plasma total biliru bin measurement (mass/volume)Ordered By: Howard Esquivel on 10-17-2021 Bilirubin [Mass/Vol] 2.0 mg/dL 0.3-1.2 [facility] Comment on above: Samples from patient s who have taken Naproxen have shown spurious elevation in Total Bilirubin levels. A metabolite of Naproxen, O-desmethylnaproxen, has been shown to interfere with the Jencharly-Juanita method for measuring Total Bilirubin. Troponin I.cardiac [Mass/vol ume] in Serum or Plasma by High sensitivity methodOrdered By: Howard Esquivel on 10-17-2021 Troponin I.cardiac High sensitivity method [Mass/Vol] 6 pg/mL 0-20 [facility] Glucose Glucometer (BldC) [M ass/Vol]Ordered By: Kennedy Tran on 09-02-2021 Glucose [Mass/Vol] 427 mg/dL [facility] Comment on above: Random Glucose Refer ence Range is dependent on time and content of last meal. Glucose of more than 200 mg/dL in a nonstressed, ambulatory subject supports the diagnosis of Diabetes Mellitus. No Panel InformationOrdered By: Kennedy Tran on 09-02-2021 Bedside Glucose Comment See comment [facility] Comment on above: Glu2: WILL NOTIFY DR /RN Bacterial blood cultureOrder ed By: Joaquín Giles on 08-29-2021 Bacteria identified Cx Nom (Bld) NO GROWTH 5 DAYS [facility] Basophils Auto (Bld) [#/Vol] Ordered By: Shanthi Cross on 08-26-2021 Basophils (Bld) [#/Vol] 0.1 10*3/uL 0.0-0.2 [facility] Basophils/100 WBC Auto (Bld) Ordered By: Shanthi Cross on 08-26-2021 Basophils/100 WBC (Bld) 1.0 % . [facility] Blood hemoglobin measurement (mass/volume)Ordered By: Shanthi Cross on 08-26-2021 Hemoglobin (Bld) [Mass/Vol] 13.2 g/dL 13.0-17.0 [facility] Blood leukocytes automated c ount (number/volume)Ordered By: Shanthi Cross on 08-26-2021 WBC (Bld) [#/Vol] 5.5 10*3/uL 4.5-11.0 [facility] Creatinine and Glomerular fi ltration rate.predicted panel (S/P/Bld)Ordered By: Shanthi Cross on 08-26-2021 Creatinine [Mass/Vol] 0.77 mg/dL 0.64-1.27 [facility] Eosinophils Auto (Bld) [#/Vo l]Ordered By: Shanthi Cross on 08-26-2021 Eosinophils (Bld) [#/Vol] 0.2 10*3/uL 0.0-0.45 [facility] Eosinophils/100 WBC Auto (Bl d)Ordered By: Shanthi Cross on 08-26-2021 Eosinophils/100 WBC (Bld) 3.3 % . [facility] Erythrocyte distribution wid th Auto (RBC) [Ratio]Ordered By: Shanthi Cross on 08-26-2021 Erythrocyte distribution width (RBC) [Ratio] 14.0 % 12.0-14.8 [facility] Estimated glomerular filtrat ion rate (GFR) non- AmericanOrdered By: Shanthi Cross on 08-26-2021 GFR/1.73 sq M.predicted among non-blacks MDRD (S/P/Bld) [Vol rate/Area] > 60 mL/Min [facility] Glucose Glucometer (BldC) [M ass/Vol]Ordered By: Shanthi Cross on 08-26-2021 Glucose [Mass/Vol] 197 mg/dL [facility] Comment on above: Random Glucose Refer ence Range is dependent on time and content of last meal. Glucose of more than 200 mg/dL in a nonstressed, ambulatory subject supports the diagnosis of Diabetes Mellitus. Hematocrit Auto (Bld) [Volum e fraction]Ordered By: Shanthi Cross on 08-26-2021 Hematocrit (Bld) [Volume fraction] 39.4 % 38.8-50.0 [facility] Laboratory - Hematology and Cell countsOrdered By: Shanthi Cross on 08-26-2021 Nucleated RBC/100 WBC (Bld) [Ratio] 0.1 % 0-0.5 [facility] Lymphocytes Auto (Bld) [#/Vo l]Ordered By: Shanthi Cross on 08-26-2021 Lymphocytes (Bld) [#/Vol] 2.2 10*3/uL 1.00-4.8 [facility] Lymphocytes/100 WBC Auto (Bl d)Ordered By: Shanthi Cross on 08-26-2021 Lymphocytes/100 WBC (Bld) 41.1 % . [facility] MCH Auto (RBC) [Entitic mass ]Ordered By: Shanthi Cross on 08-26-2021 MCH (RBC) [Entitic mass] 29.6 pg 27.5-35.2 [facility] MCHC Auto (RBC) [Mass/Vol]Or dered By: Shanthi Cross on 08-26-2021 MCHC (RBC) [Mass/Vol] 33.4 g/dL 32.5-35.6 [facility] MCV Auto (RBC) [Entitic vol] Ordered By: Shanthi Cross on 08-26-2021 MCV (RBC) [Entitic vol] 88.8 fL 83.5-101 [facility] Monocytes Auto (Bld) [#/Vol] Ordered By: Shanthi Cross on 08-26-2021 Monocytes (Bld) [#/Vol] 0.6 10*3/uL 0.0-0.8 [facility] Monocytes/100 WBC Auto (Bld) Ordered By: Shanthi Cross on 08-26-2021 Monocytes/100 WBC (Bld) 10.1 % . [facility] Neutrophils Auto (Bld) [#/Vo l]Ordered By: Shanthi Cross on 08-26-2021 Neutrophils (Bld) [#/Vol] 2.4 10*3/uL 1.8-7.7 [facility] Neutrophils/100 WBC Auto (Bl d)Ordered By: Shanthi Cross on 08-26-2021 Neutrophils/100 WBC (Bld) 44.5 % . [facility] No Panel InformationOrdered By: Shanthi Cross on 08-26-2021 Bedside Glucose Comment Glu2: cleaned meter [facility] Estimated GFR () > 60 mL/Min [facility] Comment on above: GFR estimated refere nce range: According to KDOQI guidelines, <60 ml/min/1.73m2 is sufficient to diagnose a patient with chronic kidney disease. Pharmacy Creatinine Clearance (Chem 180.80 [facility] Platelet mean volume Auto (B ld) [Entitic vol]Ordered By: Shanthi Cross on 08-26-2021 Platelet mean volume (Bld) [Entitic vol] 8.3 fL 6.6-10.1 [facility] Platelets Auto (Bld) [#/Vol] Ordered By: Shanthi Cross on 08-26-2021 Platelets (Bld) [#/Vol] 226 10*3/uL 150-450 [facility] RBC Auto (Bld) [#/Vol]Ordere d By: Shanthi Cross on 08-26-2021 RBC (Bld) [#/Vol] 4.44 10*6/uL 3.90-5.60 [facility] Serum or plasma calcium ranjit urement (mass/volume)Ordered By: Shanthi Cross on 08-26-2021 Calcium [Mass/Vol] 8.5 mg/dL 8.2-10.2 [facility] Serum or plasma chloride susanna surement (moles/volume)Ordered By: Shanthi Cross on 08-26-2021 Chloride [Moles/Vol] 102 mmol/L 95-114 [facility] Serum or plasma glucose ranjit urement (mass/volume)Ordered By: Shanthi Cross on 08-26-2021 Glucose [Mass/Vol] 149 mg/dL 70-100 [facility] Comment on above: Delta: 358 on ADA recommended reference range Random Glucose Reference Range is dependent on time and content of last meal. Glucose of more than 200 mg/dL in a nonstressed, ambulatory subject supports the diagnosis of Diabetes Mellitus. Delta: 358 on DA recommended reference rangeRandom Glucose Reference Range is dependent on time and content of last meal. Glucose of more than 200 mg/dL in a nonstressed, ambulatory subject supports the diagnosis of Diabetes Mellitus. Serum or plasma potassium me asurement (moles/volume)Ordered By: Shanthi Cross on 08-26-2021 Potassium [Moles/Vol] 3.9 mmol/L 3.5-5.1 [facility] Serum or plasma sodium measu rement (moles/volume)Ordered By: Shanthi Cross on 08-26-2021 Sodium [Moles/Vol] 137 mmol/L 136-146 [facility] Serum or plasma total carbon dioxide measurement (moles/volume)Ordered By: Shanthi Cross on 08-26-2021 CO2 [Moles/Vol] 28.1 mmol/L 22.0-30.0 [place] Serum or plasma urea nitroge n measurement (mass/volume)Ordered By: Shanthi Cross on 08-26-2021 Urea nitrogen [Mass/Vol] 10 mg/dL 9-23 [facility] - Chemistry and C hemistry - challengeOrdered By: Taylor Martínez on 08-25-2021 Magnesium [Mass/Vol] 1.9 mg/dL 1.6-2.6 [facility] Activated partial thrombopla stin time (aPTT) in platelet poor plasma by coagulation aOrdered By: Joaquín Giles on 08-24-2021 aPTT Coag (PPP) [Time] 30.0 s 25.1-36.5 Fi [facility] Albumin [Mass/volume] in Ser um or PlasmaOrdered By: Joaquín Giles on 08-24-2021 Albumin [Mass/Vol] 3.5 g/dL 3.2-5.5 [facility] Amphetamine Screen Ql (U)Ord ered By: Joaquín Giles on 08-24-2021 Amphetamines Ql (U) Negative Negative [facility] Barbiturates [Presence] in U rineOrdered By: Joaquín Giles on 08-24-2021 Barbiturates Ql (U) Negative Negative [facility] Benzodiazepines [Presence] i n UrineOrdered By: Joaquín Giles on 08-24-2021 Benzodiazepines Ql (U) Negative Negative Fi [facility] Beta-hydroxybutyric acid susanna surementOrdered By: Joaquín Giles on 08-24-2021 Beta hydroxybutyrate [Mass/Vol] 3.05 mmol/L 0.05-0.27 [facility] Bilirubin Test strip Ql (U)O rdered By: Joaquín Giles on 08-24-2021 Bilirubin Ql (U) Negative Negative [place] COVID-19 Positive/NegativeOr dered By: Joaquín Giles on 08-24-2021 SARS-CoV-2 (COVID-19) N gene YAA+probe Ql (Resp) Negative Negative [facility] Comment on above: Testing for SARS-CoV -2 by RT-PCR This test was developed and its performance characteristics determined by [employer] ([employer]) and validated at the [facility]. This test has not been FDA cleared or approved. This test has been authorized by FDA under an Emergency Use Authorization (EUA). This test has been validated in accordance with the FDA's Guidance Document (Policy for Diagnostics Testing in Laboratories Certified to Perform High Complexity Testing under CLIA prior to Emergency Use Authorization for Coronavirus Disease-2019 during the Public Health Emergency) issued on May 28, 2019. This test is only authorized for the duration of time the declaration that circumstances exist justifying the authorization of the emergency use of in vitro diagnostic tests for detection of SARS-CoV-2 virus and/or diagnosis of COVID-19 infection under section 564(b)(1) of the Act, 21 U.S.C. 360bbb-3(b)(1), unless the authorization is terminated or revoked sooner. Testing for SARS-CoV -2 by RT-PCRThis test was developed and its performance characteristics determined by [employer] ([place]) and validated at the [facility]. This test has not been FDA cleared or approved. This test has been authorized by FDA under an Emergency Use Authorization (EUA). This test has been validated in accordance with the FDA's Guidance Document (Policy for Diagnostics Testing in Laboratories Certified to Perform High Complexity Testing under CLIA prior to Emergency Use Authorization for Coronavirus Disease-2019 during the Public Health Emergency) issued on May 28, 2019. This test is only authorized for the duration of time the declaration that circumstances exist justifying the authorization of the emergency use of in vitro diagnostic tests for detection of SARS-CoV-2 virus and/or diagnosis of COVID-19 infection under section 564(b)(1) of the Act, 21 U.S.C. 360bbb-3(b)(1), unless the authorization is terminated or revoked sooner. COVID-19 SOFIAOrdered By: Rafael Giles on 08-24-2021 SARS-CoV+SARS-CoV-2 (COVID-19) Ag IA.rapid Ql (Resp) Negative Negative [facility] Comment on above: This is a duplicate Lizett SARS Antigen (CINDY) result to be used for statistical tracking purpose only. Cannabinoids [Presence] in U rine by Screen methodOrdered By: Joaquín Giles on 08-24-2021 Cannabinoids Screen Ql (U) Positive Negative [facility] Comment on above: These are unconfirme d results and should not be used for legal purposes. Drug Cut-Off Concentration: AMPH 1000 ng/mL CHASITY 200 ng/mL ELISEO 200 ng/mL COCM 300 ng/mL OP 300 ng/mL PCP 25 ng/mL THC 20 ng/mL These are unconfirme d results and should not be used for legal purposes. Drug Cut-Off Concentration: AMPH 1000 ng/mL CHASITY 200 ng/mL ELISEO 200 ng/mL COCM 300 ng/mL OP 300 ng/mL PCP 25 ng/mL THC 20 ng/mL Cholesterol [Mass/volume] in Serum or PlasmaOrdered By: Taylor Martínez on 08-24-2021 Cholesterol [Mass/Vol] 121 mg/dL 140-200 [facility] Comment on above: Chol less than 200 m g/dl low risk Chol 201-239 mg/dl borderline risk Chol 240 mg/dl and greater high risk Chol less than 200 m g/dl low riskChol 201-239 mg/dl borderline riskChol 240 mg/dl and greater high risk Cholesterol in LDL Calc [Mas s/Vol]Ordered By: Taylor Martínez on 08-24-2021 Cholesterol in LDL [Mass/Vol] 55 mg/dL 0-100 [facility] Comment on above: LDL ATP III CLASSIFI CATION LDL less than 100 mg/dL Optimal LDL 100-129 mg/dL Near or above optimal LDL 130-159 mg/dL Borderline high LDL 160-189 mg/dL High LDL greater than 189 mg/dL Very high LDL ATP III CLASSIFI CATIONLDL less than 100 mg/dL OptimalLDL 100-129 mg/dL Near or above optimalLDL 130-159 mg/dL Borderline highLDL 160-189 mg/dL HighLDL greater than 189 mg/dL Very high Cholesterol in VLDL Calc [Ma ss/Vol]Ordered By: Taylor Martínez on 08-24-2021 Cholesterol in VLDL [Mass/Vol] 24 mg/dL [facility] Color Auto (U)Ordered By: Rafael Giles on 08-24-2021 Color (U) Yellow Yellow [facility] Creatine kinase [Enzymatic a ctivity/volume] in Serum or PlasmaOrdered By: Joaquín Giles on 08-24-2021 CK [Catalytic activity/Vol] 136 U/L 22-269 [facility] Globulin Calc (S) [Mass/Vol] Ordered By: Joaquín Giles on 08-24-2021 Globulin (S) [Mass/Vol] 3.3 g/dL [facility] Ketones Auto test strip (U) [Mass/Vol]Ordered By: Joaquín Giles on 08-24-2021 Ketones (U) [Mass/Vol] 1+ [facility] and C hem[facility] - challengeOrdered By: Joaquín Giles on 08-24-2021 Lactate [Moles/Vol] 4.0 mmol/L 0.5-2.2 [facility] Comment on above: Results called at 2310 on 08/24/21 Results calledat 231 0 on 08/24/21 CO2 [Moles/Vol] 28.8 mmol/L 24.0-29.0 [place] HCO3 (Bld) [Moles/Vol] 27.1 mmol/L 23.0-29.0 [facility] Natriuretic peptide B (Bld) [Mass/Vol] 87.0 pg/mL 5-100 [facility] - CoagulationOrde red By: Joaquín Giles on 08-24-2021 PT Coag (PPP) [Time] 10.7 s 9.0-12.9 [facility] - Drug toxicology Ordered By: Joaquín Giles on 08-24-2021 Opiates Ql (U) Negative Negative [facility] - Microbiology an d Antimicrobial susceptibilityOrdered By: Joaquín Giles on 08-24-2021 SARS-CoV-2 (COVID-19) RNA YAA+probe Ql (Unsp spec) N/A [facility] Nitrite Test strip Ql (U)Ord ered By: Joaquín Giles on 08-24-2021 Nitrite Ql (U) Negative Negative [facility] No Panel InformationOrdered By: Taylor Martínez on 08-24-2021 Bedside Glucose #2 Comment Insulin drip protoco [facility] No Panel InformationOrdered By: Joaquín Giles on 08-24-2021 Blood Gas Critical Value See comment [facility] Comment on above: Critical Value shah d on: 08/24/2021 at 18:30 Blood Gas Sample Site Venous Fir [facility] FiO2 N/A [facility] Venous Blood Base Excess -0.6 mmol/L -3.0-3.0 [facility] Venous Blood Oxygen Content 7.5 mmol/L 6.6-9.7 [facility] Venous Blood Oxygen Saturation 80.9 % 73.0-76.0 [facility] Venous Blood Partial Pressure CO2 56.5 mm[Hg] 38.0-50.0 [facility] Venous Blood Partial Pressure O2 45.4 mm[Hg] 35.0-45.0 [facility] Venous Blood pH 7.30 7.32-7.43 [facility] D-Dimer Quantitative (PE/DVT) 225 ng/mL 0-243 [facility] Comment on above: The reference range for D-dimer is <243 ng/mL D-dimer units. D-dimer results must be used in conjunction with a clinical pretest probability (PTP) assessment model for deep vein thrombosis (DVT) and pulmonary embolism (PE). Results <230 ng/mL d-dimer units can be used as a negative predictor in patients with low or moderate probability for DVT/PE. Results above the exclusion threshold of 230 ng/ml D-dimer units for DVT/PE may indicate the need for further diagnostic testing. D-Dimer can be increased in hospitalized patients due to co-morbid conditions. The reference range for D-dimer is <243 ng/mL D-dimer units.D-dimer results must be used in conjunction with a clinicalpretest probability (PTP) assessment model for deep veinthrombosis (DVT) and pulmonary embolism (PE). Results <230ng/mL d-dimer units can be used as a negative predictor inpatients with low or moderate probability for DVT/PE.Results above the exclusion threshold of 230 ng/ml D-dimerunits for DVT/PE may indicate the need for furtherdiagnostic testing.D-Dimer can be increased in hospitalized patients due toco-morbid conditions. SARS Antigen (LFIA) [facility] Phencyclidine Screen Ql (U)O rdered By: Joaquín Giles on 08-24-2021 Phencyclidine Ql (U) Negative Negative [facility] Platelet poor plasma interna tional normalized ratio (INR) by coagulation assay (relatOrdered By: Joaquín Giles on 08-24-2021 INR Coag (PPP) [Relative time] 1.0 {INR} [facility] Comment on above: INR Therapeutic Rang e A) Pre- and Peroperative OAT started two weeks before surgery. NOT HIP SURGERY: 1.5 - 2.5 HIP SURGERY: 2 - 3 B) Primary and secondary prevention of venous THROMBOSIS: 2 - 3 C) Active venous thrombosis, pulmonary embolism and prevention of recurrent venous thrombosis: 2 - 3 D) Prevention of arterial thromboembolism including patients with mechanical heart valves: 3 - 4.5 INR Therapeutic Rang e A) Pre- and Peroperative OAT started two weeks before surgery. NOT HIP SURGERY: 1.5 - 2.5 HIP SURGERY: 2 - 3B) Primary and secondary prevention of venous THROMBOSIS: 2 - 3C) Active venous thrombosis, pulmonary embolismand prevention of recurrent venous thrombosis: 2 - 3D) Prevention of arterial thromboembolismincluding patients with mechanical heart valves: 3 - 4.5 Protein Auto test strip (U) [Mass/Vol]Ordered By: Joaquín Giles on 08-24-2021 Protein (U) [Mass/Vol] Negative Negative [facility] Protein [Mass/volume] in Ser um or PlasmaOrdered By: Joaquín Giles on 08-24-2021 Protein [Mass/Vol] 6.8 g/dL 6.1-7.9 [facility] Serum or plasma alanine cooley otransferase measurement without P-5'-P (enzymatic activiOrdered By: Joaquín Giles on 08-24-2021 ALT No additional P-5'-P [Catalytic activity/Vol] 39 U/L 10-60 [facility] Serum or plasma albumin/glob ulin mass ratioOrdered By: Joaquín Giles on 08-24-2021 Albumin/Globulin [Mass ratio] 1.1 {ratio} [facility] Serum or plasma alkaline rafael sphatase measurement (enzymatic activity/volume)Ordered By: Joaquín Giles on 08-24-2021 ALP [Catalytic activity/Vol] 89 U/L 32-92 [facility] Serum or plasma aspartate am inotransferase measurement (enzymatic activity/volume)Ordered By: Joaquín Giles on 08-24-2021 AST [Catalytic activity/Vol] 39 U/L 10-42 [facility] Serum or plasma high density lipoprotein (HDL) cholesterol measurementOrdered By: Taylor Martínez on 08-24-2021 Cholesterol in HDL [Mass/Vol] 41 mg/dL 29- [facility] Comment on above: HDL CHOL ATP-III CLA SSIFICATION Cardiovascular Risk HDL > or equal to 60 mg/dL LOW HDL < 40 mg/dL HIGH HDL CHOL ATP-III CLA SSIFICATION Cardiovascular RiskHDL > or equal to 60 mg/dL LOWHDL < 40 mg/dL HIGH Serum or plasma total biliru bin measurement (mass/volume)Ordered By: Joaquín Giles on 08-24-2021 Bilirubin [Mass/Vol] 1.3 mg/dL 0.3-1.2 [facility] Comment on above: Samples from patient s who have taken Naproxen have shown spurious elevation in Total Bilirubin levels. A metabolite of Naproxen, O-desmethylnaproxen, has been shown to interfere with the Zehra-Juanita method for measuring Total Bilirubin. Serum or plasma total choles terol/high density lipoprotein (HDL) cholesterol mass ratOrdered By: Taylor Martínez on 08-24-2021 Cholesterol.total/Chol esterol in HDL [Mass ratio] 3.0 {ratio} <5.0 [facility] Specific gravity Auto test s trip (U) [Rel density]Ordered By: Joaquín Giles on 08-24-2021 Specific gravity (U) [Rel density] 1.015 1.001-1.03 0 [facility] TSH DL <= 0.005 mIU/L QnOrde red By: Joaquín Giles on 08-24-2021 TSH Qn 1.18 m[IU]/L 0.45-5.33 [facility] Triglyceride [Mass/volume] i n Serum or PlasmaOrdered By: Taylor Martínez on 08-24-2021 Triglyceride [Mass/Vol] 123 mg/dL 35-149 [facility] Comment on above: TRIG ATP III CLASSIF ICATION TRIG less than 150 mg/dL Normal TRIG 150-199 mg/dL Borderline high TRIG 200-500 mg/dL High TRIG greater than 500 mg/dL Very high Standard traceable to the Center for Disease Conrtrol and Prevention (CDC) test method. TRIG ATP III CLASSIF ICATIONTRIG less than 150 mg/dL NormalTRIG 150-199 mg/dL Borderline highTRIG 200-500 mg/dL High TRIG greater than 500 mg/dL Very highStandard traceable to the Center for Disease Conrtrol and Prevention (CDC) test method. Troponin I.cardiac [Mass/vol ume] in Serum or Plasma by High sensitivity methodOrdered By: Joaquín Giles on 08-24-2021 Troponin I.cardiac High sensitivity method [Mass/Vol] 5 pg/mL 0-20 [facility] Urine clarity by refractomet ry automatedOrdered By: Joaquín Giles on 08-24-2021 Clarity Refractometry automated (U) Clear Clear [facility] Urine cocaine detectionOrder ed By: Joaquín Giles on 08-24-2021 Cocaine Ql (U) Negative Negative [facility] Urine glucose measurement by automated test strip (mass/volume)Ordered By: Jaoquín Giles on 08-24-2021 Glucose Auto test strip (U) [Mass/Vol] 500 mg/dL Normal [facility] Urine hemoglobin detection b y automated test stripOrdered By: Joaquín Giles on 08-24-2021 Hemoglobin Auto test strip Ql (U) Negative Negative [facility] Urine leukocyte esterase det ection by automated test stripOrdered By: Joaquín Giles on 08-24-2021 Leukocyte esterase Auto test strip Ql (U) Negative Negative [facility] Urobilinogen Auto test strip (U) [Mass/Vol]Ordered By: Joaquín Giles on 08-24-2021 Urobilinogen (U) [Mass/Vol] Normal mg/dL Normal [facility] pH Auto test strip (U)Ordere d By: Joaquín Giles on 08-24-2021 pH (U) 7.0 [pH] 5.0-9.0 [facility] Albumin [Mass/volume] in Ser um or PlasmaOrdered By: Shanthi Cross on 08-11-2021 Albumin [Mass/Vol] 2.9 g/dL 3.2-5.5 [facility] Basophils Auto (Bld) [#/Vol] Ordered By: Shanthi Cross on 08-11-2021 Basophils (Bld) [#/Vol] 0.0 10*3/uL 0.0-0.2 [facility] Basophils/100 WBC Auto (Bld) Ordered By: Shanthi Cross on 08-11-2021 Basophils/100 WBC (Bld) 0.2 % . [facility] Blood hemoglobin measurement (mass/volume)Ordered By: Shanthi Cross on 08-11-2021 Hemoglobin (Bld) [Mass/Vol] 13.4 g/dL 13.0-17.0 [facility] Blood leukocytes automated c ount (number/volume)Ordered By: Shanthi Cross on 08-11-2021 WBC (Bld) [#/Vol] 5.5 10*3/uL 4.5-11.0 [facility] Creatinine and Glomerular fi ltration rate.predicted panel (S/P/Bld)Ordered By: Shanthi Cross on 08-11-2021 Creatinine [Mass/Vol] 0.75 mg/dL 0.64-1.27 [facility] Direct bilirubin measurement Ordered By: Shanthi Cross on 08-11-2021 Bilirubin.direct [Mass/Vol] 0.2 mg/dL 0.0-0.4 [facility] Eosinophils Auto (Bld) [#/Vo l]Ordered By: Shanthi Cross on 08-11-2021 Eosinophils (Bld) [#/Vol] 0.3 10*3/uL 0.0-0.45 [facility] Eosinophils/100 WBC Auto (Bl d)Ordered By: Shanthi Cross on 08-11-2021 Eosinophils/100 WBC (Bld) 5.5 % . [facility] Erythrocyte distribution wid th Auto (RBC) [Ratio]Ordered By: Shanthi Cross on 08-11-2021 Erythrocyte distribution width (RBC) [Ratio] 14.0 % 12.0-14.8 [facility] Estimated glomerular filtrat ion rate (GFR) non- AmericanOrdered By: Shanthi Cross on 08-11-2021 GFR/1.73 sq M.predicted among non-blacks MDRD (S/P/Bld) [Vol rate/Area] > 60 mL/Min [facility] Globulin Calc (S) [Mass/Vol] Ordered By: Shanthi Cross on 08-11-2021 Globulin (S) [Mass/Vol] 2.9 g/dL [facility] Glucose Glucometer (BldC) [M ass/Vol]Ordered By: Shanthi Cross on 08-11-2021 Glucose [Mass/Vol] 280 mg/dL [facility] Comment on above: Random Glucose Refer ence Range is dependent on time and content of last meal. Glucose of more than 200 mg/dL in a nonstressed, ambulatory subject supports the diagnosis of Diabetes Mellitus. Hematocrit Auto (Bld) [Volum e fraction]Ordered By: Shanthi Cross on 08-11-2021 Hematocrit (Bld) [Volume fraction] 40.2 % 38.8-50.0 [facility] - Hematology and Cell countsOrdered By: Shanthi Cross on 08-11-2021 Nucleated RBC/100 WBC (Bld) [Ratio] 0.1 % 0-0.5 [facility] Lymphocytes Auto (Bld) [#/Vo l]Ordered By: Shanthi Cross on 08-11-2021 Lymphocytes (Bld) [#/Vol] 2.4 10*3/uL 1.00-4.8 [facility] Lymphocytes/100 WBC Auto (Bl d)Ordered By: Shanthi Cross on 08-11-2021 Lymphocytes/100 WBC (Bld) 43.0 % . [facility] MCH Auto (RBC) [Entitic mass ]Ordered By: Shanthi Cross on 08-11-2021 MCH (RBC) [Entitic mass] 29.7 pg 27.5-35.2 [facility] MCHC Auto (RBC) [Mass/Vol]Or dered By: Shanthi Cross on 08-11-2021 MCHC (RBC) [Mass/Vol] 33.4 g/dL 32.5-35.6 [facility] MCV Auto (RBC) [Entitic vol] Ordered By: Shanthi Cross on 08-11-2021 MCV (RBC) [Entitic vol] 89.0 fL 83.5-101 [facility] Monocytes Auto (Bld) [#/Vol] Ordered By: Shanthi Cross on 08-11-2021 Monocytes (Bld) [#/Vol] 0.6 10*3/uL 0.0-0.8 [facility] Monocytes/100 WBC Auto (Bld) Ordered By: Shanthi Cross on 08-11-2021 Monocytes/100 WBC (Bld) 10.9 % . [facility] Neutrophils Auto (Bld) [#/Vo l]Ordered By: Shanthi Cross on 08-11-2021 Neutrophils (Bld) [#/Vol] 2.2 10*3/uL 1.8-7.7 [facility] Neutrophils/100 WBC Auto (Bl d)Ordered By: Shanthi Cross on 08-11-2021 Neutrophils/100 WBC (Bld) 40.4 % . [facility] No Panel InformationOrdered By: Shanthi Cross on 08-11-2021 Bedside Glucose Comment Glu2: cleaned meter [facility] Estimated GFR () > 60 mL/Min [facility] Comment on above: GFR estimated refere nce range: According to KDOQI guidelines, <60 ml/min/1.73m2 is sufficient to diagnose a patient with chronic kidney disease. Pharmacy Creatinine Clearance (Chem 183.44 [facility] Platelet mean volume Auto (B ld) [Entitic vol]Ordered By: Shanthi Cross on 08-11-2021 Platelet mean volume (Bld) [Entitic vol] 8.7 fL 6.6-10.1 [facility] Platelets Auto (Bld) [#/Vol] Ordered By: Shanthi Cross on 08-11-2021 Platelets (Bld) [#/Vol] 168 10*3/uL 150-450 [facility] Protein [Mass/volume] in Ser um or PlasmaOrdered By: Shanthi Cross on 08-11-2021 Protein [Mass/Vol] 5.8 g/dL 6.1-7.9 [facility] RBC Auto (Bld) [#/Vol]Ordere d By: Shanthi Cross on 08-11-2021 RBC (Bld) [#/Vol] 4.52 10*6/uL 3.90-5.60 [facility] Serum or plasma alanine cooley otransferase measurement without P-5'-P (enzymatic activiOrdered By: Shanthi Cross on 08-11-2021 ALT No additional P-5'-P [Catalytic activity/Vol] 150 U/L 10-60 [facility] Serum or plasma albumin/glob ulin mass ratioOrdered By: Shanthi Cross on 08-11-2021 Albumin/Globulin [Mass ratio] 1.0 {ratio} [facility] Serum or plasma alkaline rafael sphatase measurement (enzymatic activity/volume)Ordered By: Shanthi Cross on 08-11-2021 ALP [Catalytic activity/Vol] 62 U/L 32-92 [facility] Serum or plasma aspartate am inotransferase measurement (enzymatic activity/volume)Ordered By: Shanthi Cross on 08-11-2021 AST [Catalytic activity/Vol] 57 U/L 10-42 [facility] Serum or plasma calcium ranjit urement (mass/volume)Ordered By: Shanthi Cross on 08-11-2021 Calcium [Mass/Vol] 8.5 mg/dL 8.2-10.2 [facility] Serum or plasma chloride susanna surement (moles/volume)Ordered By: Shanthi Cross on 08-11-2021 Chloride [Moles/Vol] 103 mmol/L 95-114 [facility] Serum or plasma glucose ranjit urement (mass/volume)Ordered By: Shanthi Cross on 08-11-2021 Glucose [Mass/Vol] 141 mg/dL 70-100 [facility] Comment on above: ADA recommended refe rence range Random Glucose Reference Range is dependent on time and content of last meal. Glucose of more than 200 mg/dL in a nonstressed, ambulatory subject supports the diagnosis of Diabetes Mellitus. Serum or plasma non-glucuron idated bilirubin measurement (mass/volume)Ordered By: Shanthi Cross on 08-11-2021 Bilirubin.indirect [Mass/Vol] 0.7 mg/dL [facility] Serum or plasma potassium me asurement (moles/volume)Ordered By: Shanthi Cross on 08-11-2021 Potassium [Moles/Vol] 3.2 mmol/L 3.5-5.1 [facility] Serum or plasma sodium measu rement (moles/volume)Ordered By: Shanthi Cross on 08-11-2021 Sodium [Moles/Vol] 140 mmol/L 136-146 [facility] Serum or plasma total biliru bin measurement (mass/volume)Ordered By: Shanthi Cross on 08-11-2021 Bilirubin [Mass/Vol] 0.9 mg/dL 0.3-1.2 [facility] Serum or plasma total carbon dioxide measurement (moles/volume)Ordered By: Shanthi Cross on 08-11-2021 CO2 [Moles/Vol] 26.2 mmol/L 22.0-30.0 [place] Serum or plasma urea nitroge n measurement (mass/volume)Ordered By: Shanthi Cross on 08-11-2021 Urea nitrogen [Mass/Vol] 8 mg/dL 9- [facility] Activated partial thrombopla stin time (aPTT) in platelet poor plasma by coagulation aOrdered By: Joaquín Giles on 08-09-2021 aPTT Coag (PPP) [Time] 24.9 s 25.1-36.5 [facility] Amphetamine Screen Ql (U)Ord ered By: Joaquín Giles on 08-09-2021 Amphetamines Ql (U) Negative Negative [facility] Barbiturates [Presence] in U rineOrdered By: Joaquín Giles on 08-09-2021 Barbiturates Ql (U) Negative Negative [facility] Benzodiazepines [Presence] i n UrineOrdered By: Joaquín Giles on 08-09-2021 Benzodiazepines Ql (U) Negative Negative [facility] Beta-hydroxybutyric acid susanna surementOrdered By: Joaquín Giles on 08-09-2021 Beta hydroxybutyrate [Mass/Vol] 7.97 mmol/L 0.05-0.27 [facility] [facility] Bil[facility] Test strip Ql (U)O rdered By: Joaquín Giles on 08-09-2021 Bilirubin Ql (U) Negative Negative [place] COVID-19 Positive/NegativeOr dered By: Joaquín Giles on 08-09-2021 SARS-CoV-2 (COVID-19) N gene YAA+probe Ql (Resp) Negative Negative [facility] Comment on above: Testing for SARS-CoV -2 by RT-PCR This test was developed and its performance characteristics determined by [facility] and validated at the [facility]. This test has not been FDA cleared or approved. This test has been authorized by FDA under an Emergency Use Authorization (EUA). This test has been validated in accordance with the FDA's Guidance Document (Policy for Diagnostics Testing in Laboratories Certified to Perform High Complexity Testing under CLIA prior to Emergency Use Authorization for Coronavirus Disease-2019 during the Public Health Emergency) issued on May 28, 2019. This test is only authorized for the duration of time the declaration that circumstances exist justifying the authorization of the emergency use of in vitro diagnostic tests for detection of SARS-CoV-2 virus and/or diagnosis of COVID-19 infection under section 564(b)(1) of the Act, 21 U.S.C. 360bbb-3(b)(1), unless the authorization is terminated or revoked sooner. COVID-19 SOFIAOrdered By: Rafael Giles on 08-09-2021 SARS-CoV+SARS-CoV-2 (COVID-19) Ag IA.rapid Ql (Resp) Negative Negative [facility] Comment on above: This is a duplicate Lizett SARS Antigen (CINDY) result to be used for statistical tracking purpose only. Cannabinoids [Presence] in U rine by Screen methodOrdered By: Joaquín Giles on 08-09-2021 Cannabinoids Screen Ql (U) Positive Negative [facility] Comment on above: These are unconfirme d results and should not be used for legal purposes. Drug Cut-Off Concentration: AMPH 1000 ng/mL CHASITY 200 ng/mL ELISEO 200 ng/mL COCM 300 ng/mL OP 300 ng/mL PCP 25 ng/mL THC 20 ng/mL Color Auto (U)Ordered By: Rafael Giles on 08-09-2021 Color (U) Yellow Yellow [facility] Creatine kinase [Enzymatic a ctivity/volume] in Serum or PlasmaOrdered By: Joaquín Giles on 08-09-2021 CK [Catalytic activity/Vol] 76 U/L 22-269 [facility] Ketones Auto test strip (U) [Mass/Vol]Ordered By: Joaquín Giles on 08-09-2021 Ketones (U) [Mass/Vol] 4+ Negative Fi [facility] - Chemistry and C hemistry - challengeOrdered By: Joaquín Giles on 08-09-2021 CO2 [Moles/Vol] 16.9 mmol/L 24.0-29.0 [place] HCO3 (Bld) [Moles/Vol] 15.7 mmol/L 23.0-29.0 [facility] Magnesium [Mass/Vol] 1.7 mg/dL 1.6-2.6 [facility] Natriuretic peptide B (Bld) [Mass/Vol] 31.0 pg/mL 5-100 [facility] Laboratory - CoagulationOrde red By: Joaquín Giles on 08-09-2021 PT Coag (PPP) [Time] 11.4 s 9.0-12.9 [facility] Laboratory - Drug toxicology Ordered By: Joaquín Giles on 08-09-2021 Opiates Ql (U) Negative Negative [facility] Nitrite Test strip Ql (U)Ord ered By: Joaquín Giles on 08-09-2021 Nitrite Ql (U) Negative Negative [facility] No Panel InformationOrdered By: Joaquín Giles on 08-09-2021 Blood Gas Critical Value See comment [facility] Comment on above: Critical Value shah d on: 08/09/2021 at 07:05 Blood Gas Sample Site Venous Fir [facility] FiO2 21 % [facility] Venous Blood Base Excess -11.2 mmol/L -3.0-3.0 [facility] Venous Blood Oxygen Content 7.1 mmol/L 6.6-9.7 [facility] Venous Blood Oxygen Saturation 80.4 % 73.0-76.0 [facility] Venous Blood Partial Pressure CO2 38.5 mm[Hg] 38.0-50.0 [facility] Venous Blood Partial Pressure O2 47.4 mm[Hg] 35.0-45.0 [facility] Venous Blood pH 7.23 7.32-7.43 [facility] SARS Antigen (LFIA) [facility] Phencyclidine Screen Ql (U)O rdered By: Joaquín Giles on 08-09-2021 Phencyclidine Ql (U) Negative Negative [facility] Platelet poor plasma interna tional normalized ratio (INR) by coagulation assay (relatOrdered By: Joaquín Giles on 08-09-2021 INR Coag (PPP) [Relative time] 1.0 {INR} [facility] Comment on above: INR Therapeutic Rang e A) Pre- and Peroperative OAT started two weeks before surgery. NOT HIP SURGERY: 1.5 - 2.5 HIP SURGERY: 2 - 3 B) Primary and secondary prevention of venous THROMBOSIS: 2 - 3 C) Active venous thrombosis, pulmonary embolism and prevention of recurrent venous thrombosis: 2 - 3 D) Prevention of arterial thromboembolism including patients with mechanical heart valves: 3 - 4.5 Protein Auto test strip (U) [Mass/Vol]Ordered By: Joaquín Giles on 08-09-2021 Protein (U) [Mass/Vol] Negative Negative Fi [facility] Specific gravity Auto test s trip (U) [Rel density]Ordered By: Joaquín Giles on 08-09-2021 Specific gravity (U) [Rel density] 1.029 1.001-1.03 0 [facility] TSH DL <= 0.005 mIU/L QnOrde red By: Joaquín Giles on 08-09-2021 TSH Qn 0.48 m[IU]/L 0.45-5.33 [facility] Troponin I.cardiac [Mass/vol ume] in Serum or Plasma by High sensitivity methodOrdered By: Joaquín Giles on 08-09-2021 Troponin I.cardiac High sensitivity method [Mass/Vol] 8 pg/mL 0-20 [facility] Urine clarity by refractomet ry automatedOrdered By: Joaquín Giles on 08-09-2021 Clarity Refractometry automated (U) Clear Clear [facility] Urine cocaine detectionOrder ed By: Joaquín Giles on 08-09-2021 Cocaine Ql (U) Negative Negative [facility] Urine glucose measurement by automated test strip (mass/volume)Ordered By: Joaquín Giles on 08-09-2021 Glucose Auto test strip (U) [Mass/Vol] >=1000 mg/dL Normal [facility] Urine hemoglobin detection b y automated test stripOrdered By: Joaquín Giles on 08-09-2021 Hemoglobin Auto test strip Ql (U) Negative Negative [facility] Urine leukocyte esterase det ection by automated test stripOrdered By: Joaquín Giles on 08-09-2021 Leukocyte esterase Auto test strip Ql (U) Negative Negative [facility] Urobilinogen Auto test strip (U) [Mass/Vol]Ordered By: Joaquín Giles on 08-09-2021 Urobilinogen (U) [Mass/Vol] Normal mg/dL Normal [facility] pH Auto test strip (U)Ordere d By: Joaquín Giles on 08-09-2021 pH (U) 5.5 [pH] 5.0-9.0 [facility] CBC AUTO DIFFon 03-15-2020 Basophils (Bld) [#/Vol] 0.0 103/ul Normal 0.0-0.1 [facility] Comment on above: Performed By: #### C BC #### [facility] [address], [place] [address] Adeel Karly Basophils/100 WBC (Bld) 0.7 % Normal 0.2-2.0 [facility] Comment on above: Performed By: #### C BC #### [facility] [address], [place] [address] Adeel Karly Eosinophils (Bld) [#/Vol] 0.2 103/ul Normal 0.0-0.7 [facility] Comment on above: Performed By: #### C BC #### [facility] [address], [place] [address] Adeel Karly Eosinophils/100 WBC (Bld) 3.4 % Normal 0.9-7.0 [facility] Comment on above: Performed By: #### C BC #### [facility] [address] [place] [address] Adeel Karly Erythrocyte distribution width (RBC) [Ratio] 12.2 % Normal 11.0-15.0 [facility] Comment on above: Performed By: #### C BC #### [facility] [address] [place] [address] Adeel Karly Hematocrit (Bld) [Volume fraction] 41.3 % Critically low 42.0-54.0 [facility] Comment on above: Performed By: #### C BC #### [facility] [address] [place] [address] Adeel Karly Hemoglobin (Bld) [Mass/Vol] 13.6 g/dL Critically low 14.0-18.0 [facility] Comment on above: Performed By: #### C BC #### [facility] [address] [place] [address] Adeel Karly IG # 0.01 10e3/ul Normal 0.00-0.03 [facility] Comment on above: Performed By: #### C BC #### [facility] [address] [place] [address] Adeel Karly IG % 0.2 % Normal 0.0-0.5 [facility] Comment on above: Performed By: #### C BC #### [facility] [address] [place] [address] Adeel Karly Lymphocytes (Bld) [#/Vol] 2.4 103/ul Normal 1.2-3.8 [facility] Comment on above: Performed By: #### C BC #### [facility] [address] [place] [address] Adeel Karly Lymphocytes/100 WBC (Bld) 40.9 % Normal 20.5-60.0 [facility] Comment on above: Performed By: #### C BC #### [facility] [address] [place] [address] Adeel Karly MANUAL DIFF REQ NO Normal [facility] Comment on above: Performed By: #### C BC #### [facility] [address] [place] [address] Adeel Brandt MCH (RBC) [Entitic mass] 28.6 pg Normal 25.9-34.0 [facility] Comment on above: Performed By: #### C BC #### [facility] [address], [place] [address] Adeel Brandt MCHC (RBC) [Mass/Vol] 32.9 g/dL Normal 29.9-35.2 [facility] Comment on above: Performed By: #### C BC #### [facility] [address], [place] [address] Adeelcatracho Brandt MCV (RBC) [Entitic vol] 86.8 fL Normal 80.0-94.0 [facility] Comment on above: Performed By: #### C BC #### [facility] [address] [place], [place] [phone] Adeel Karly Monocytes (Bld) [#/Vol] 0.6 103/ul Normal 0.3-0.8 [facility] Comment on above: Performed By: #### C BC #### [facility] [address], [place] [address] Adeel Karly Monocytes/100 WBC (Bld) 9.7 % Normal 1.7-12.0 [facility] Comment on above: Performed By: #### C BC #### [facility] [address] [place] [phone] Adeel Karly Neutrophils (Bld) [#/Vol] 2.7 103/ul Normal 1.4-6.5 [facility] Comment on above: Performed By: #### C BC #### [facility] [address], [place] [address] Adeel Karly Neutrophils/100 WBC (Bld) 45.1 % Normal 43.0-75.0 [facility] Comment on above: Performed By: #### C BC #### [facility] [address], [place] [address] Adeel Karly Platelet mean volume (Bld) [Entitic vol] 10.6 fL Normal 9.5-13.5 [facility] Comment on above: Performed By: #### C BC #### [facility] [address], [place] [address] Adeelcatracho Brandt Platelets (Bld) [#/Vol] 234 103/ul Normal 150-450 [facility] Comment on above: Performed By: #### C BC #### [facility] [address], [place] [address] Adeel Karly RBC (Bld) [#/Vol] 4.76 106/ul Normal 4.70-6.10 [facility] Comment on above: Performed By: #### C BC #### [facility] [address] [place] [address] Adeel Karly WBC (Bld) [#/Vol] 5.9 103/ul Normal 4.0-11.0 [facility] Comment on above: Performed By: #### C BC #### [facility] [address] [place] [phone] Adeel Brandt PROF 14(COMP METB)on 021 Albumin [Mass/Vol] 3.8 g/dL Normal 3.5-5.0 [facility] Comment on above: Performed By: #### C BC #### [facility] [address] [place] [address] Adeel Karly Albumin/Globulin [Mass ratio] 1.0 {ratio} Normal [facility] Comment on above: Performed By: #### C BC #### [facility] [address] [place] [address] Adeel Karly ALP [Catalytic activity/Vol] 92 U/L Normal 38-126 [facility] Comment on above: Performed By: #### C BC #### [facility] [address] [place] [address] Adeel Karly ALT [Catalytic activity/Vol] 65 U/L Normal 21-72 [facility] Comment on above: Performed By: #### C BC #### [facility] [address] [place] [phone] Adeel Karly Anion gap [Moles/Vol] 11.4 mmol/L Normal [facility] Comment on above: Performed By: #### C BC #### [facility] [address] [place] [phone] Adeel Karly AST [Catalytic activity/Vol] 47 U/L Normal 17-59 [facility] Comment on above: Performed By: #### C BC #### [facility] [address] [place] [phone] Adeel Karly Bilirubin Ql (U) 0.5 mg/dL Normal 0.2-1.[address] [facility] Comment on above: Performed By: #### C BC #### [facility] [address] [place] [address] Adeel Karly Calcium [Mass/Vol] 9.0 mg/dL Normal 8.4-10.2 [facility] Comment on above: Performed By: #### C BC #### [facility] [address] [place] [address] Adeel Karly Chloride [Moles/Vol] 102 mmol/L Normal 98-107 [facility] Comment on above: Performed By: #### C BC #### [facility] [address] [place] [phone] Adeel Karly CO2 [Moles/Vol] 29.3 mmol/L Normal 22.0-30.[address] [facility] Comment on above: Performed By: #### C BC #### [facility] [address] [place], [place] [phone] Adeel Karly Creatinine [Mass/Vol] 0.78 mg/dL Normal 0.66-1.25 [facility] Comment on above: Performed By: #### C BC #### [facility] [address] [place], [place] [phone] Adeel Karly EGFR-AF ISRAELI >60 Normal >=[address] [facility] Comment on above: Performed By: #### C BC #### [facility] [address] [place], [place] [phone] Adeel Karly EGFR-NON AF ISRAELI >60 Normal >=60 [facility] Comment on above: Performed By: #### C BC #### [facility] [address] [place] [phone] Adeel Karly Globulin (S) [Mass/Vol] 3.7 g/dL Normal [facility] Comment on above: Performed By: #### C BC #### [facility] [address], [place] [address] Adeel Karly Glucose [Mass/Vol] 232 mg/dL Critically high 74-106 [facility] Comment on above: Performed By: #### C BC #### [facility] [address], [place] [address] Adeel Karly Potassium [Moles/Vol] 3.7 mmol/L Normal 3.4-5.0 [facility] Comment on above: Performed By: #### C BC #### [facility] [address] [place] [phone] Adeel Karly Protein [Mass/Vol] 7.5 g/dL Normal 6.1-8.2 [facility] Comment on above: Performed By: #### C BC #### [facility] [address] [place], [place] [phone] Adeel Karly Sodium [Moles/Vol] 139 mmol/L Normal 137-145 [facility] Comment on above: Performed By: #### C BC #### [facility] [address] [place] [address] Adeel Karly Urea nitrogen [Mass/Vol] 10.0 mg/dL Normal 9.0-20.0 [facility] Comment on above: Performed By: #### C BC #### [facility] [address] [place], [place] [phone] Adeel Karly Urea nitrogen/Creatinine [Mass ratio] 12.8 mg/mg Normal [facility] Comment on above: Performed By: #### C BC #### [facility] [address] [place] [address] Adeel Karly CBC AUTO DIFFon 02-09-2020 Basophils (Bld) [#/Vol] 0.0 103/ul Normal 0.0-0.1 [facility] Comment on above: Performed By: #### C BC #### [facility] [address], [place] [address] Adeel Karly Basophils/100 WBC (Bld) 1.0 % Normal 0.2-2.0 [facility] Comment on above: Performed By: #### C BC #### [facility] [address] [place] [address] Adeel Karly Eosinophils (Bld) [#/Vol] 0.2 103/ul Normal 0.0-0.7 [facility] Comment on above: Performed By: #### C BC #### [facility] [address] [place], [place] [phone] Adeel Karly Eosinophils/100 WBC (Bld) 4.6 % Normal 0.9-7.0 [facility] Comment on above: Performed By: #### C BC #### [facility] [address] [place] [address] Adeel Karly Erythrocyte distribution width (RBC) [Ratio] 12.3 % Normal 11.0-15.0 [facility] Comment on above: Performed By: #### C BC #### [facility] [address] [place] [address] Adeel Karly Hematocrit (Bld) [Volume fraction] 36.7 % Critically low 42.0-54.0 [facility] Comment on above: Performed By: #### C BC #### [facility] [address] [place] [address] Adeel Karly Hemoglobin (Bld) [Mass/Vol] 12.4 g/dL Critically low 14.0-18.0 [facility] Comment on above: Performed By: #### C BC #### [facility] [address] [place] [address] Adeel Karly IG # 0.01 10e3/ul Normal 0.00-0.03 [facility] Comment on above: Performed By: #### C BC #### [facility] [address] [place] [address] Adeel Karly IG % 0.2 % Normal 0.0-0.5 [facility] Comment on above: Performed By: #### C BC #### [facility] [address] [place] [address] Adeel Karly Lymphocytes (Bld) [#/Vol] 2.1 103/ul Normal 1.2-3.8 [facility] Comment on above: Performed By: #### C BC #### [facility] [address], [place] [address] Adeel Karly Lymphocytes/100 WBC (Bld) 50.4 % Normal 20.5-60.0 [facility] Comment on above: Performed By: #### C BC #### [facility] [address], [place] [address] Adeel Karly MANUAL DIFF REQ NO Normal [facility] Comment on above: Performed By: #### C BC #### [facility] [address], [place] [address] Adeel Karly MCH (RBC) [Entitic mass] 29.2 pg Normal 25.9-34.0 [facility] Comment on above: Performed By: #### C BC #### [facility] [address] [place] [address] Adeel Karly MCHC (RBC) [Mass/Vol] 33.8 g/dL Normal 29.9-35.2 [facility] Comment on above: Performed By: #### C BC #### [facility] [address] [place] [address] Adeel Karly MCV (RBC) [Entitic vol] 86.4 fL Normal 80.0-94.0 [facility] Comment on above: Performed By: #### C BC #### [facility] [address] [place] [address] Adeel Karly Monocytes (Bld) [#/Vol] 0.5 103/ul Normal 0.3-0.8 [facility] Comment on above: Performed By: #### C BC #### [facility] [address] [place] [address] Adeel Karly Monocytes/100 WBC (Bld) 12.7 % Critically high 1.7-12.0 [facility] Comment on above: Performed By: #### C BC #### [facility] [address], [place] [address] Adeel Karly Neutrophils (Bld) [#/Vol] 1.3 103/ul Critically low 1.4-6.5 [facility] Comment on above: Performed By: #### C BC #### [facility] [address] [place], [place] [phone] Adeel Karly Neutrophils/100 WBC (Bld) 31.1 % Critically low 43.0-75.0 [facility] Comment on above: Performed By: #### C BC #### [facility] [address] [place], [place] [phone] Adeelcatracho Brandt Platelet mean volume (Bld) [Entitic vol] 9.5 fL Normal 9.5-13.5 [facility] Comment on above: Performed By: #### C BC #### [facility] [address] [place], [place] [phone] Adeel Brandt Platelets (Bld) [#/Vol] 171 103/ul Normal 150-450 [facility] Comment on above: Performed By: #### C BC #### [facility] [address] [place], [place] [phone] Adeelcatracho Gardneren RBC (Bld) [#/Vol] 4.25 106/ul Critically low 4.70-6.10 [facility] Comment on above: Performed By: #### C BC #### [facility] [address] [place], [place] [phone] Adeel Brandt WBC (Bld) [#/Vol] 4.2 103/ul Normal 4.0-11.0 [facility] Comment on above: Performed By: #### C BC #### [facility] [address] [place], [place] [phone] Adeel Brandt PROF CHEM 8 (BAS METB)on Anion gap [Moles/Vol] 11.9 mmol/L Normal [facility] Comment on above: Performed By: #### B MP #### [facility] [address] [place], [place] [phone] Adeel Brandt Calcium [Mass/Vol] 8.6 mg/dL Normal 8.4-10.2 [facility] Comment on above: Performed By: #### B MP #### [facility] [address] [place], [place] [phone] Adeel Karly Chloride [Moles/Vol] 105 mmol/L Normal 98-107 [facility] Comment on above: Performed By: #### B MP #### [facility] [address] [place] [phone] Adeel Karly CO2 [Moles/Vol] 27.3 mmol/L Normal 22.0-30.0 [facility] Comment on above: Performed By: #### B MP #### [facility] [address] [place] [address] Adeel Karly Creatinine [Mass/Vol] 1.06 mg/dL Normal 0.66-1.25 [facility] Comment on above: Performed By: #### B MP #### [facility] [address] [place] [address] Adeel Karly EGFR-AF ISRAELI >60 Normal >=[address] [facility] Comment on above: Performed By: #### B MP #### [facility] [address] [place] [address] Adeel Karly EGFR-NON AF ISRAELI >60 Normal >=60 [facility] Comment on above: Performed By: #### B MP #### [facility] [address] [place] [address] Adeel Karly Glucose [Mass/Vol] 245 mg/dL Critically high 74-106 [facility] Comment on above: Performed By: #### B MP #### [facility] [address] [place] [address] Adeel Karly Potassium [Moles/Vol] 3.2 mmol/L Critically low 3.4-5.0 [facility] Comment on above: Performed By: #### B MP #### [facility] [address] [place] [phone] Adeel Karly Sodium [Moles/Vol] 141 mmol/L Normal 137-145 [facility] Comment on above: Performed By: #### B MP #### [facility] [address] [place] [address] Adeel Karly Urea nitrogen [Mass/Vol] 11.0 mg/dL Normal 9.0-20.0 [facility] Comment on above: Performed By: #### B MP #### [facility] [address] [id number] Adeel Karly Urea nitrogen/Creatinine [Mass ratio] 10.4 mg/mg Normal [facility] Comment on above: Performed By: #### B MP #### [facility] [address] [place], [place] [id number] Adeel Karly CBC AUTO DIFFon 02-08-2020 Basophils (Bld) [#/Vol] 0.0 103/ul Normal 0.0-0.1 [facility] Comment on above: Performed By: #### C BC #### [facility] [address] [place], [place] [id number] Adeel Karly Basophils/100 WBC (Bld) 0.4 % Normal 0.2-2.0 [facility] Comment on above: Performed By: #### C BC #### [facility] [address] [place] [address] Adeel Karly Eosinophils (Bld) [#/Vol] 0.1 103/ul Normal 0.0-0.7 [facility] Comment on above: Performed By: #### C BC #### [facility] [address] [place], [place] [id number] Adeel Karly Eosinophils/100 WBC (Bld) 2.1 % Normal 0.9-7.0 [facility] Comment on above: Performed By: #### C BC #### [facility] [address] [place], [place] [id number] Adeel Karly Erythrocyte distribution width (RBC) [Ratio] 12.4 % Normal 11.0-15.0 [facility] Comment on above: Performed By: #### C BC #### [facility] [address] [place], [place] [id number] Adeel Karly Hematocrit (Bld) [Volume fraction] 35.4 % Critically low 42.0-54.0 [facility] Comment on above: Performed By: #### C BC #### [facility] [address] [place], [place] [id number] Adeel Karly Hemoglobin (Bld) [Mass/Vol] 12.1 g/dL Critically low 14.0-18.0 [facility] Comment on above: Performed By: #### C BC #### [facility] [address] [place] [address] Adeelcatracho Gardneren IG # 0.01 10e3/ul Normal 0.00-0.03 [facility] Comment on above: Performed By: #### C BC #### [facility] [address] [place], [place] [id number] Adeel Karly IG % 0.1 % Normal 0.0-0.5 [facility] Comment on above: Performed By: #### C BC #### [facility] [address] [place], [place] [id number] Adeel Karly Lymphocytes (Bld) [#/Vol] 2.1 103/ul Normal 1.2-3.8 [facility] Comment on above: Performed By: #### C BC #### [facility] [address] [place] [address] Adeel Karly Lymphocytes/100 WBC (Bld) 31.2 % Normal 20.5-60.0 [facility] Comment on above: Performed By: #### C BC #### [facility] [address] [place], [place] [id number] Adeel Karly MANUAL DIFF REQ NO Normal [facility] Comment on above: Performed By: #### C BC #### [facility] [address] [place] [address] Adeel Karly MCH (RBC) [Entitic mass] 29.5 pg Normal 25.9-34.0 [facility] Comment on above: Performed By: #### C BC #### [facility] [address] [place] [address] Adeel Karly MCHC (RBC) [Mass/Vol] 34.2 g/dL Normal 29.9-35.2 [facility] Comment on above: Performed By: #### C BC #### [facility] [address] [place], [place] [id number] Adeel Karly MCV (RBC) [Entitic vol] 86.3 fL Normal 80.0-94.0 [facility] Comment on above: Performed By: #### C BC #### [facility] [address] [place], [place] [address] Adeel Karly Monocytes (Bld) [#/Vol] 0.9 103/ul Critically high 0.3-0.8 [facility] Comment on above: Performed By: #### C BC #### [facility] [address] [place], [place] [address] Adeel Karly Monocytes/100 WBC (Bld) 13.9 % Critically high 1.7-12.0 [facility] Comment on above: Performed By: #### C BC #### [facility] [address] [place] [id number] Adeel Karly Neutrophils (Bld) [#/Vol] 3.5 103/ul Normal 1.4-6.5 [facility] Comment on above: Performed By: #### C BC #### [facility] [address] [place], [place] [id number] Adeel Karly Neutrophils/100 WBC (Bld) 52.3 % Normal 43.0-75.0 [facility] Comment on above: Performed By: #### C BC #### [facility] [address] [place], [place] [id number] Adeel Karly Platelet mean volume (Bld) [Entitic vol] 9.4 fL Critically low 9.5-13.5 [facility] Comment on above: Performed By: #### C BC #### [facility] [address] [place], [place] [id number] Adeel Karly Platelets (Bld) [#/Vol] 204 103/ul Normal 150-450 [facility] Comment on above: Performed By: #### C BC #### [facility] [address] [place] [id number] Adeel Karly RBC (Bld) [#/Vol] 4.10 106/ul Critically low 4.70-6.10 [facility] Comment on above: Performed By: #### C BC #### [facility] [address] [place], [place] [id number] Adeel Karly WBC (Bld) [#/Vol] 6.7 103/ul Normal 4.0-11.0 [facility] Comment on above: Performed By: #### C BC #### [facility] [address] [place] [address] Adeelcatracho Brandt DRUG SCREEN RAPID (URINE)on 02-08-2020 AMP Negative Normal NEGATIVE [facility] Comment on above: Performed By: #### B MP #### [facility] [address] [place] [address] Adeel Karly BAR Negative Normal NEGATIVE [facility] Comment on above: Performed By: #### B MP #### [facility] [address] [place] [address] Adeel Karly BUP Positive Abnormal NEGATIVE [facility] Comment on above: Performed By: #### B MP #### [facility] [address] [place] [address] Adeel Karly BZO Negative Normal NEGATIVE [facility] Comment on above: Performed By: #### B MP #### [facility] [address] [place] [address] Adeel Karly DIMAS Negative Normal NEGATIVE [facility] Comment on above: Performed By: #### B MP #### [facility] [address] [place] [address] Adeel Karly CUT-OFFS SEE BELOW Normal [facility] Comment on above: Result Comment: AMP (Amphetamine): 500ng/mL, BAR (Barbituates): 200 ng/mL, BZO (Benzodiazepines): 150 ng/mL, BUP (Buprenorphine): 10 ng/mL, DIMAS (Cocaine): 150 ng/mL, mAMP (Methamphetamine): 500 ng/mL, MTD (Methadone): 200 ng/mL, OPI (Opiates): 100 ng/mL or 2000 ng/mL, OXY (Oxycodone): 100 ng/mL, PCP (Phencyclidine): 25 ng/mL, PPX (Propoxyphene): 300 ng/mL, THC (Cannabinoids): 50 ng/mL, TCA (Trycyclic Antidepressants): 300 ng/mL Performed By: #### B MP #### [facility] [address] [place], [place] [address] Adeel Karly DRUG CUT HEADER DRUG CLASS TEST SYST EM CUT-OFF CONCENTRATIONS ARE FOLLOWS: Normal [facility] Comment on above: Performed By: #### B MP #### [facility] [address] [place] [address] Adeel Karly mAMP Negative Normal NEGATIVE [facility] Comment on above: Performed By: #### B MP #### [facility] [address] [place] [address] Adeel Karly MTD Negative Normal NEGATIVE [facility] Comment on above: Performed By: #### B MP #### [facility] [address] [place] [address] Aedel Karly OPI Negative Normal NEGATIVE [facility] Comment on above: Performed By: #### B MP #### [facility] [address] [place] [address] Adeel Karly OXY Negative Normal NEGATIVE [facility] Comment on above: Performed By: #### B MP #### [facility] [address] [place] [address] Adeel Karly PCP Negative Normal NEGATIVE [facility] Comment on above: Performed By: #### B MP #### [facility] [address] [place] [address] Adeel Karly PPX Negative Normal NEGATIVE [facility] Comment on above: Performed By: #### B MP #### [facility] [address] [place] [address] Adeel Karly TCA Negative Normal NEGATIVE [facility] Comment on above: Performed By: #### B MP #### [facility] [address] [place] [address] Adeel Karly THC Negative Normal NEGATIVE [facility] Comment on above: Performed By: #### B MP #### [facility] [address] [place] [address] Adeel Karly LIVER PROFILEon 02-08-2020 Albumin [Mass/Vol] 3.0 g/dL Critically low 3.5-5.0 Th e [facility] Comment on above: Performed By: #### L IVER #### [facility] [address] [place] [address] Adeel Karly Albumin/Globulin [Mass ratio] 1.0 {ratio} Normal [facility] Comment on above: Performed By: #### L IVER #### [facility] [address] [id number] Adeel Karly ALP [Catalytic activity/Vol] 122 U/L Normal 38-126 [facility] Comment on above: Performed By: #### L IVER #### [facility] [address] [place], [place] [id number] Adeel Karly ALT [Catalytic activity/Vol] 151 U/L Critically high 21-72 [facility] Comment on above: Performed By: #### L IVER #### [facility] [address] [place], [place] [id number] Adeel Karly AST [Catalytic activity/Vol] 71 U/L Critically high 17-59 [facility] Comment on above: Performed By: #### L IVER #### [facility] [address] [place], [place] [id number] Adeel Karly BILI, CONJUGATED 0.2 mg/dL Normal 0.0-0.3 [facility] Comment on above: Performed By: #### L IVER #### [facility] [address] [place], [place] [id number] Adeel Karly Bilirubin Ql (U) 0.5 mg/dL Normal 0.2-1.[address] [facility] Comment on above: Performed By: #### L IVER #### [facility] [address] [place], [place] [id number] Adeel Karly Globulin (S) [Mass/Vol] 2.9 g/dL Normal [facility] Comment on above: Performed By: #### L IVER #### [facility] [address] [place], [place] [id number] Adeel Karly Protein [Mass/Vol] 5.9 g/dL Critically low 6.1-8.2 Th [facility] Comment on above: Performed By: #### L IVER #### [facility] [address] [place], [place] [id number] Adeel Brandt PROF CHEM 8 (BAS METB)on Anion gap [Moles/Vol] 14.9 mmol/L Normal Th [facility] Comment on above: Performed By: #### B MP #### [facility] [address] [place] [address] Adeel Karly Calcium [Mass/Vol] 8.7 mg/dL Normal 8.4-10.2 [facility] Comment on above: Performed By: #### B MP #### [facility] [address] [place] [address] Adeel Karly Chloride [Moles/Vol] 106 mmol/L Normal 98-107 [facility] Comment on above: Performed By: #### B MP #### [facility] [address] [place] [address] Adeel Karly CO2 [Moles/Vol] 24.6 mmol/L Normal 22.0-30.0 [facility] Comment on above: Performed By: #### B MP #### [facility] [address] [place] [address] Adeel Karly Creatinine [Mass/Vol] 1.26 mg/dL Critically high 0.66-1.25 [facility] Comment on above: Performed By: #### B MP #### [facility] [address] [place] [address] Adeel Karly EGFR-AF ISRAELI >60 Normal >=60 [facility] Comment on above: Performed By: #### B MP #### [facility] [address] [place] [address] Adeel Karly EGFR-NON AF ISRAELI >60 Normal >=60 [facility] Comment on above: Performed By: #### B MP #### [facility] [address] [place] [address] Adeel Karly Glucose [Mass/Vol] 186 mg/dL Critically high 74-106 [facility] Comment on above: Performed By: #### B MP #### [facility] [address] [place] [address] Adeel Karly Potassium [Moles/Vol] 3.5 mmol/L Normal 3.4-5.0 [facility] Comment on above: Performed By: #### B MP #### [facility] [address] [id number] Adeel Karly Sodium [Moles/Vol] 142 mmol/L Normal 137-145 [facility] Comment on above: Performed By: #### B MP #### [facility] [address] [id number] Adeel Karly Urea nitrogen [Mass/Vol] 12.0 mg/dL Normal 9.0-20.0 [facility] Comment on above: Performed By: #### B MP #### [facility] [address] [address] Adeel Karly Urea nitrogen/Creatinine [Mass ratio] 9.5 mg/mg Normal [facility] Comment on above: Performed By: #### B MP #### [facility] [address] [address] Adeel Karly Anion gap [Moles/Vol] 11.7 mmol/L Normal [facility] Comment on above: Performed By: #### B MP #### [facility] [address] [address] Adeel Karly Calcium [Mass/Vol] 8.6 mg/dL Normal 8.4-10.2 [facility] Comment on above: Performed By: #### B MP #### [facility] [address] [address] Adeel Karly Chloride [Moles/Vol] 106 mmol/L Normal 98-107 [facility] Comment on above: Performed By: #### B MP #### [facility] [address] [id number] Adeel Karly CO2 [Moles/Vol] 23.7 mmol/L Normal 22.0-30.0 [facility] Comment on above: Performed By: #### B MP #### [facility] [address] [id number] Adeel Karly Creatinine [Mass/Vol] 1.39 mg/dL Critically high 0.66-1.25 [facility] Comment on above: Performed By: #### B MP #### [facility] [address] [place], [place] [address] Adeel Karly EGFR-AF ISRAELI >60 Normal >=60 [facility] Comment on above: Performed By: #### B MP #### [facility] [address] [id number] Adeel Karly EGFR-NON AF ISRAELI 58 mL/min/1.73m2 Critically low >=60 [facility] Comment on above: Performed By: #### B MP #### [facility] [address] [id number] Adeel Karly Glucose [Mass/Vol] 241 mg/dL Critically high 74-106 [facility] Comment on above: Performed By: #### B MP #### [facility] [address] [id number] Adeel Karly Potassium [Moles/Vol] 3.4 mmol/L Normal 3.4-5.0 [facility] Comment on above: Performed By: #### B MP #### [facility] [address] [id number] Adeel Karly Sodium [Moles/Vol] 138 mmol/L Normal 137-145 [facility] Comment on above: Performed By: #### B MP #### [facility] [address] [id number] Adeel Karly Urea nitrogen [Mass/Vol] 14.0 mg/dL Normal 9.0-20.0 [facility] Comment on above: Performed By: #### B MP #### [facility] [address] [id number] Adeel Karly Urea nitrogen/Creatinine [Mass ratio] 10.1 mg/mg Normal [facility] Comment on above: Performed By: #### B MP #### [facility] [address] [id number] Adeel Karly ACETONE SERUMon 02-07-2020 ACETONE MODERATE Abnormal NEGATIVE [facility] Comment on above: Performed By: #### A CETON #### [facility] [address] [id number] Adeel Karly AMYLASEon 02-07-2020 Amylase [Catalytic activity/Vol] U/L Critically low 31-110 [facility] Comment on above: Performed By: #### B MP #### [facility] [address] [place], [place] [id number] Adeel Karly CBC AUTO DIFFon 02-07-2020 Basophils (Bld) [#/Vol] 0.0 103/ul Normal 0.0-0.1 [facility] Comment on above: Performed By: #### C BC #### [facility] [address] [place], [place] [id number] Adeel Karly Basophils/100 WBC (Bld) 0.3 % Normal 0.2-2.0 [facility] Comment on above: Performed By: #### C BC #### [facility] [address] [place] [address] Adeel Karly Eosinophils (Bld) [#/Vol] 0.0 103/ul Normal 0.0-0.7 [facility] Comment on above: Performed By: #### C BC #### [facility] [address] [place] [address] Adeel Karly Eosinophils/100 WBC (Bld) 0.1 % Critically low 0.9-7.0 [facility] Comment on above: Performed By: #### C BC #### [facility] [address] [place] [address] Adeel Karly Erythrocyte distribution width (RBC) [Ratio] 12.6 % Normal 11.0-15.0 [facility] Comment on above: Performed By: #### C BC #### [facility] [address] [place] [address] Adeel Karly Hematocrit (Bld) [Volume fraction] 43.8 % Normal 42.0-54.0 [facility] Comment on above: Performed By: #### C BC #### [facility] [address] [place], [place] [id number] Adeel Karly Hemoglobin (Bld) [Mass/Vol] 14.5 g/dL Normal 14.0-18.0 [facility] Comment on above: Performed By: #### C BC #### [facility] [address] [place] [address] Adeel Karly IG # 0.03 10e3/ul Normal 0.00-0.03 [facility] Comment on above: Performed By: #### C BC #### [facility] [address] [place], [place] [id number] Adeelcatracho Brandt IG % 0.3 % Normal 0.0-0.5 [facility] Comment on above: Performed By: #### C BC #### [facility] [address] [place], [place] [id number] Adeelcatracho Brandt Lymphocytes (Bld) [#/Vol] 1.4 103/ul Normal 1.2-3.8 [facility] Comment on above: Performed By: #### C BC #### [facility] [address] [place] [address] Adeel Brandt Lymphocytes/100 WBC (Bld) 12.8 % Critically low 20.5-60.0 [facility] Comment on above: Performed By: #### C BC #### [facility] [address] [place] [address] Adeelcatracho Brandt MANUAL DIFF REQ NO Normal [facility] Comment on above: Performed By: #### C BC #### [facility] [address] [place], [place] [id number] Adeelcatracho Brandt MCH (RBC) [Entitic mass] 29.0 pg Normal 25.9-34.0 [facility] Comment on above: Performed By: #### C BC #### [facility] [address] [place] [address] Adeel Brandt MCHC (RBC) [Mass/Vol] 33.1 g/dL Normal 29.9-35.2 [facility] Comment on above: Performed By: #### C BC #### [facility] [address] [place], [place] [id number] Adeelcatracho Brandt MCV (RBC) [Entitic vol] 87.6 fL Normal 80.0-94.0 [facility] Comment on above: Performed By: #### C BC #### [facility] [address] [place], [place] [id number] Adeelcatracho Brandt Monocytes (Bld) [#/Vol] 1.1 103/ul Critically high 0.3-0.8 [facility] Comment on above: Performed By: #### C BC #### [facility] [address] [place], [place] [id number] Adeel Karly Monocytes/100 WBC (Bld) 10.7 % Normal 1.7-12.0 [facility] Comment on above: Performed By: #### C BC #### [facility] [address] [place], [place] [id number] Adeel Karly Neutrophils (Bld) [#/Vol] 8.0 103/ul Critically high 1.4-6.5 [facility] Comment on above: Performed By: #### C BC #### [facility] [address] [place] [address] Adeel Karly Neutrophils/100 WBC (Bld) 75.8 % Critically high 43.0-75.0 [facility] Comment on above: Performed By: #### C BC #### [facility] [address] [place] [address] Adeel Karly Platelet mean volume (Bld) [Entitic vol] 9.3 fL Critically low 9.5-13.5 [facility] Comment on above: Performed By: #### C BC #### [facility] [address] [place], [place] [id number] Adeel Karly Platelets (Bld) [#/Vol] 263 103/ul Normal 150-450 [facility] Comment on above: Performed By: #### C BC #### [facility] [address] [place], [place] [id number] Adeel Karly RBC (Bld) [#/Vol] 5.00 106/ul Normal 4.70-6.10 [facility] Comment on above: Performed By: #### C BC #### [facility] [address] [place], [place] [id number] Adeel Karly WBC (Bld) [#/Vol] 10.6 103/ul Normal 4.0-11.0 [facility] Comment on above: Performed By: #### C BC #### [facility] [address] [place], [place] [id number] Adeel Karly LIPASEon 02-07-2020 Lipase [Catalytic activity/Vol] 25.0 U/L Normal 23.0-300.0 [facility] Comment on above: Performed By: #### B MP #### [facility] [address] [id number] Adeel Brandt OCC BLD IMMUNO SCREENon 01-25 OCCULT BLOOD Negative Normal NEGATIVE [facility] Comment on above: Performed By: #### O BSCRN #### [facility] [address] [id number] Adeelcatracho Brandt PH VENOUS BLOODon 02-07-2020 PCO2 VENOUS 32.2 mmHg Critically low 40.0-52.0 [facility] Comment on above: Performed By: #### B MP #### [facility] [address] [address] Adeel Brandt pH VENOUS 7.33 Normal 7.33-7.43 [facility] Comment on above: Performed By: #### B MP #### [facility] [address] [address] Adeel Brandt POINT OF CARE GLUCOSEon 01-25 Glucose [Mass/Vol] 251 mg/dL Critically high 74-106 [facility] Comment on above: Performed By: #### P OCGLUC #### [facility] [address] [id number] Adeel Brandt Glucose [Mass/Vol] 243 mg/dL Critically high 74-106 [facility] Comment on above: Performed By: #### B MP #### [facility] [address] [id number] Adeel rBandt PROF 14(COMP METB)on 020 Albumin [Mass/Vol] 3.7 g/dL Normal 3.5-5.0 [facility] Comment on above: Performed By: #### B MP #### [facility] [address] [id number] Adeel Brandt Albumin/Globulin [Mass ratio] 0.9 {ratio} Normal [facility] Comment on above: Performed By: #### B MP #### [facility] [address] [id number] Adeel Karly ALP [Catalytic activity/Vol] 167 U/L Critically high 38-126 [facility] Comment on above: Performed By: #### B MP #### [facility] [address] [place], [place] [id number] Adeel Karly ALT [Catalytic activity/Vol] 183 U/L Critically high 21-72 [facility] Comment on above: Performed By: #### B MP #### [facility] [address] [id number] Adeel Karly Anion gap [Moles/Vol] 19.8 mmol/L Normal Th [facility] Comment on above: Performed By: #### B MP #### [facility] [address] [place] [address] Adeel Karly AST [Catalytic activity/Vol] 66 U/L Critically high 17-59 [facility] Comment on above: Performed By: #### B MP #### [facility] [address] [place] [address] Adeel Karly Bilirubin Ql (U) 0.8 mg/dL Normal 0.2-1.[address] [facility] Comment on above: Performed By: #### B MP #### [facility] [address] [place], [place] [id number] Adeel Karly Calcium [Mass/Vol] 9.6 mg/dL Normal 8.4-10.2 [facility] Comment on above: Performed By: #### B MP #### [facility] [address] [place], [place] [id number] Adeel Karly Chloride [Moles/Vol] 99 mmol/L Normal 98-107 [facility] Comment on above: Performed By: #### B MP #### [facility] [address] [place], [place] [id number] Adeel Karly CO2 [Moles/Vol] 18.1 mmol/L Critically low 22.0-30.0 [facility] Comment on above: Performed By: #### B MP #### [facility] [address] [place], [place] [id number] Adeel Karly Creatinine [Mass/Vol] 1.78 mg/dL Critically high 0.66-1.25 [facility] Comment on above: Performed By: #### B MP #### [facility] [address] [id number] Adeel Karly EGFR-AF ISRAELI 53 mL/min/1.73m2 Critically low >=60 [facility] Comment on above: Performed By: #### B MP #### [facility] [address] [id number] Adeel Karly EGFR-NON AF ISRAELI 44 mL/min/1.73m2 Critically low >=60 [facility] Comment on above: Performed By: #### B MP #### [facility] [address] [place], [place] [id number] Adeel Karly Globulin (S) [Mass/Vol] 4.1 g/dL Normal [facility] Comment on above: Performed By: #### B MP #### [facility] [address] [id number] Adeel Karly Glucose [Mass/Vol] 368 mg/dL Critically high 74-106 [facility] Comment on above: Performed By: #### B MP #### [facility] [address] [place], [place] [id number] Adeel Karly Potassium [Moles/Vol] 3.9 mmol/L Normal 3.4-5.0 [facility] Comment on above: Performed By: #### B MP #### [facility] [address] [place], [place] [id number] Adeel Karly Protein [Mass/Vol] 7.8 g/dL Normal 6.1-8.2 [facility] Comment on above: Performed By: #### B MP #### [facility] [address] [id number] Adeel Karly Sodium [Moles/Vol] 133 mmol/L Critically low 137-145 [facility] Comment on above: Performed By: #### B MP #### [facility] [address] [id number] Adeel Karly Urea nitrogen [Mass/Vol] 17.0 mg/dL Normal 9.0-20.0 [facility] Comment on above: Performed By: #### B MP #### [facility] [address] [id number] Adeel Karly Urea nitrogen/Creatinine [Mass ratio] 9.6 mg/mg Normal [facility] Comment on above: Performed By: #### B MP #### [facility] [address] [id number] Adeelcatracho Gardneren PROF CHEM 8 (BAS METB)on Anion gap [Moles/Vol] 15.5 mmol/L Normal [facility] Comment on above: Performed By: #### B MP #### [facility] [address] [address] Adeel Karly Calcium [Mass/Vol] 8.5 mg/dL Normal 8.4-10.2 [facility] Comment on above: Performed By: #### B MP #### [facility] [address] [address] Adeel Karly Chloride [Moles/Vol] 104 mmol/L Normal 98-107 [facility] Comment on above: Performed By: #### B MP #### [facility] [address] [address] Adeel Karly CO2 [Moles/Vol] 20.3 mmol/L Critically low 22.0-30.0 [facility] Comment on above: Performed By: #### B MP #### [facility] [address] [id number] Adeel Karly Creatinine [Mass/Vol] 1.48 mg/dL Critically high 0.66-1.25 [facility] Comment on above: Performed By: #### B MP #### [facility] [address] [id number] Adeel Karly EGFR-AF ISRAELI >60 Normal >=60 [facility] Comment on above: Performed By: #### B MP #### [facility] [address] [id number] Adeel Karly EGFR-NON AF ISRAELI 54 mL/min/1.73m2 Critically low >=60 [facility] Comment on above: Performed By: #### B MP #### [facility] [address] [place], [place] [address] Adeel Karly Glucose [Mass/Vol] 325 mg/dL Critically high 74-106 [facility] Comment on above: Performed By: #### B MP #### [facility] [address] [place], [place] [address] Adeel Karly Potassium [Moles/Vol] 3.8 mmol/L Normal 3.4-5.0 [facility] Comment on above: Performed By: #### B MP #### [facility] [address] [address] Adeel Karly Sodium [Moles/Vol] 136 mmol/L Critically low 137-145 Th [facility] Comment on above: Performed By: #### B MP #### [facility] [address] [id number] Adeel Karly Urea nitrogen [Mass/Vol] 14.0 mg/dL Normal 9.0-20.0 [facility] Comment on above: Performed By: #### B MP #### [facility] [address] [id number] Adeel Karly Urea nitrogen/Creatinine [Mass ratio] 9.5 mg/mg Normal [facility] Comment on above: Performed By: #### B MP #### [facility] [address] [id number] Adeel Karly PROTIMEon 02-07-2020 INR Coag (PPP) [Relative time] 0.96 {INR} Normal [facility] Comment on above: Performed By: #### B MP #### [facility] [address] [id number] Adeel Karly PT Coag (PPP) [Time] SEE BELOW Normal [facility] Comment on above: Result Comment: SCOOBY RED INR: 2.0 - 3.0 CONDITIONS NOT LISTED BELOW 2.5 - 3.5 FOR PROSTHETIC HEART VALVE REPLACEMENT 2.5 - 3.5 RECURRENT THROMBOSIS Performed By: #### B MP #### [facility] [address] [id number] Adeel Karly PT Coag (PPP) [Time] 10.5 s Normal 9.0-11.6 [facility] Comment on above: Performed By: #### B MP #### [facility] [address] [place] [address] Adeel Brandt PTTon 02-07-2020 aPTT Coag (Bld) [Time] 25.1 s Normal 22.3-36.2 Th e [facility] Comment on above: Performed By: #### B MP #### [facility] [address] [place] [address] Adeel Brandt Rapid Covid-19 PCR (CVDRPD)o n 02-07-2020 [employer] LDT Info SEE BELOW Normal [facility] Comment on above: Result Comment: This test is not yet approved or cleared by the [place] Food and Drug Administration (FDA) . This test was developed by [employer] [place]. The performance characteristics of this test were validated by The [facility]. The results are not intended to be used as the sole means for clinical diagnosis or patient management decisions. The [facility] is authorized under Clinical Laboratory Improvement Amendments (CLIA) to perform high-complexity testing. When diagnostic testing is negative, the possibility of a false negative should be considered in the context of a patients recent exposures and the presence of clinical signs and symptoms consistent with SARS-CoV-2. Performed By: #### C VDRPD #### [facility] [address] [place] [address] Adeel Gardneren SARS-CoV-2 NOT DETECTED Normal NOT DETECTED [facility] Comment on above: Result Comment: . Performed By: #### C VDRPD #### [facility] [address] [place] [address] Adeel Brandt XR ABD FLAT UP_PA Ryder 02-06 XR ABD FLAT UP_PA CH EXAMINATION: XR ABD FLAT UP_PA CH REASON FOR EXAM: NAUSEA WITH VOMITING, UNSPECIFIED 2 months of epigastric pain, nausea and vomiting. COMPARISON: No comparison. FINDINGS: 4 views. Chest film is negative. There is moderate stool in the left colon. No dilated stomach, small bowel or colon. No foreign bodies or abnormal calcifications. No free air. IMPRESSION: Significant quantity of stool in the left colon, particularly in the rectosigmoid. No bowel obstruction or perforation. Electronically authenticated by: KOLTON COTE Date: 2020-02-07 13:[address] [facility] Vital Signs Date Time Vital Sign Value Performing Clinician Facility 08-02-2023 13:28-0400 Diastolic blood pressure 87 mm[Hg] [facility] Work Phone: [facility] 08-02-2023 13:28-0400 Heart rate 85 /min [facility] Work Phone: [facility] 08-02-2023 13:28-0400 Respiratory rate 16 /min [facility] Work Phone: [facility] 08-02-2023 13:28-0400 SaO2% (BldA) [Mass fraction] 99 % [facility] Work Phone: [facility] 08-02-2023 13:28-0400 Systolic blood pressure 146 mm[Hg] [facility] Work Phone: [facility] 08-02-2023 11:17-0400 Body height 190.5 cm [facility] Work Phone: [facility] 08-02-2023 11:17-0400 Body temperature 97.7 [degF] [facility] Work Phone: [facility] 08-02-2023 11:17-0400 Body weight 112.03 kg [facility] Work Phone: [facility] 07-02-2023 03:00-0400 Diastolic blood pressure 95 mm[Hg] [facility] Work Phone: [facility] 07-02-2023 03:00-0400 Heart rate 93 /min [facility] Work Phone: [facility] 07-02-2023 03:00-0400 Respiratory rate 18 /min [facility] Work Phone: [facility] 07-02-2023 03:00-0400 SaO2% (BldA) [Mass fraction] 98 % [facility] Work Phone: [facility] 07-02-2023 03:00-0400 Systolic blood pressure 175 mm[Hg] [facility] Work Phone: [facility] 07-01-2023 23:15-0400 Body height 187.96 cm [facility] Work Phone: [facility] 07-01-2023 23:15-0400 Body temperature 97.3 [degF] [facility] Work Phone: [facility] 07-01-2023 23:15-0400 Body weight 113.39 kg [facility] Work Phone: [facility] 06-20-2023 15:11-0400 Diastolic blood pressure 82 mm[Hg] [facility] Work Phone: [facility] 06-20-2023 15:11-0400 Systolic blood pressure 128 mm[Hg] [facility] Work Phone: [facility] 06-20-2023 12:56-0400 Body height 190.5 cm [facility] Work Phone: [facility] 06-20-2023 12:56-0400 Body weight 106.4 kg [facility] Work Phone: [facility] 06-20-2023 12:55-0400 Body temperature 97.8 [degF] [facility] Work Phone: [facility] 06-20-2023 12:55-0400 Heart rate 101 /min [facility] Work Phone: [facility] 06-20-2023 12:55-0400 Respiratory rate 16 /min [facility] Work Phone: [facility] 06-20-2023 12:55-0400 SaO2% (BldA) [Mass fraction] 97 % [facility] Work Phone: [facility] 04-03-2023 16:52-0500 Diastolic blood pressure 82 mm[Hg] [facility] Work Phone: [facility] 04-03-2023 16:52-0500 Systolic blood pressure 118 mm[Hg] [facility] Work Phone: [facility] 04-03-2023 16:44-0500 Body height 190.5 cm [facility] Work Phone: [facility] 04-03-2023 16:44-0500 Body temperature 97.5 [degF] [facility] Work Phone: [facility] 04-03-2023 16:44-0500 Body weight 108.86 kg [facility] Work Phone: [facility] 04-03-2023 16:44-0500 Heart rate 100 /min [facility] Work Phone: [facility] 04-03-2023 16:44-0500 Respiratory rate 20 /min [facility] Work Phone: [facility] 04-03-2023 16:44-0500 SaO2% (BldA) [Mass fraction] 99 % [facility] Work Phone: [facility] 03-26-2023 08:45-0500 Body height 190.5 cm Dominik George Other [facility] 03-26-2023 08:45-0500 Body mass index (BMI) [Ratio] 30.99 kg/m2 Dominik George Other [facility] Other 03-26-2023 08:45-0500 Body weight 112.49 kg Dominik George Other [facility] 03-23-2023 20:41-0500 Body height 190.5 cm [facility] Work Phone: [facility] 03-23-2023 20:41-0500 Body temperature 97.6 [degF] [facility] Work Phone: [facility] 03-23-2023 20:41-0500 Body weight 108.86 kg [facility] Work Phone: [facility] 03-23-2023 20:41-0500 Diastolic blood pressure 70 mm[Hg] [facility] Work Phone: [facility] 03-23-2023 20:41-0500 Heart rate 99 /min [facility] Work Phone: [facility] 03-23-2023 20:41-0500 Respiratory rate 20 /min [facility] Work Phone: [facility] 03-23-2023 20:41-0500 SaO2% (BldA) [Mass fraction] 98 % Services [facility] Work Phone: [facility] 03-23-2023 20:41-0500 Systolic blood pressure 145 mm[Hg] Services [facility] Work Phone: [facility] 03-05-2023 08:38-0500 Blood Pressure Location Agnieszka Navarro [facility] 03-05-2023 08:38-0500 Body temperature 98.42 [degF] Agnieszka Navarro [facility] 03-05-2023 08:38-0500 Diastolic blood pressure 78 mm[Hg] Agnieszka Navarro [facility] 03-05-2023 08:38-0500 Heart rate 82 /min Agnieszka Navarro [facility] 03-05-2023 08:38-0500 SaO2% (BldA) [Mass fraction] 99 % Agnieszka Navarro [facility] 03-05-2023 08:38-0500 Systolic blood pressure 134 mm[Hg] Agnieszka Navarro [facility] 02-23-2022 13:46-0500 Body height 190.5 cm [facility] Work Phone: [facility] 02-23-2022 13:46-0500 Body temperature 98.01 [degF] [facility] Work Phone: [facility] 02-23-2022 13:46-0500 Body weight 107.46 kg [facility] Work Phone: [facility] 02-23-2022 13:46-0500 Diastolic blood pressure 77 mm[Hg] [facility] Work Phone: [facility] 02-23-2022 13:46-0500 Heart rate 83 /min [facility] 9 Work Phone: [facility] 02-23-2022 13:46-0500 SaO2% (BldA) [Mass fraction] 99 % [facility] 9 Work Phone: [facility] 02-23-2022 13:46-0500 Systolic blood pressure 104 mm[Hg] [facility] 9 Work Phone: [facility] 11-22-2021 19:13-0400 Diastolic blood pressure 76 mm[Hg] [facility] Work Phone: [facility] 11-22-2021 19:13-0400 Heart rate 90 /min [facility] Work Phone: [facility] 11-22-2021 19:13-0400 Respiratory rate 18 /min [facility] Work Phone: [facility] 11-22-2021 19:13-0400 SaO2% (BldA) [Mass fraction] 97 % [facility] Work Phone: [facility] 11-22-2021 19:13-0400 Systolic blood pressure 136 mm[Hg] [facility] Work Phone: [facility] 11-22-2021 17:57-0400 Body height 190.5 cm [facility] Work Phone: [facility] 11-22-2021 17:57-0400 Body weight 107.8 kg [facility] Work Phone: [facility] 11-22-2021 17:51-0400 Body temperature 98.2 [degF] [facility] Work Phone: [facility] 10-19-2021 09:00-0400 Diastolic blood pressure 77 mm[Hg] [facility] Work Phone: [facility] 10-19-2021 09:00-0400 Heart rate 70 /min [facility] Work Phone: [facility] 10-19-2021 09:00-0400 Respiratory rate 10 /min [facility] Work Phone: [facility] 10-19-2021 09:00-0400 SaO2% (BldA) [Mass fraction] 96 % [facility] Work Phone: [facility] 10-19-2021 09:00-0400 Systolic blood pressure 124 mm[Hg] [facility] Work Phone: [facility] 10-19-2021 06:00-0400 Body weight 160.1 kg [facility] Work Phone: [facility] 10-19-2021 04:00-0400 Body temperature 97.9 [degF] [facility] Work Phone: [facility] 10-18-2021 11:07-0400 Body height 182.88 cm [facility] Work Phone: [facility] 09-02-2021 03:51-0400 Heart rate 130 /min [facility] Work Phone: [facility] 09-02-2021 03:27-0400 Body height 190.5 cm [facility] Work Phone: [facility] 09-02-2021 03:27-0400 Body mass index (BMI) [Ratio] 29 kg/m2 [facility] Work Phone: [facility] 09-02-2021 03:27-0400 Body temperature 98.2 [degF] [facility] Work Phone: [facility] 09-02-2021 03:27-0400 Body weight 105.5 kg [facility] Work Phone: [facility] 09-02-2021 03:27-0400 Diastolic blood pressure 83 mm[Hg] [facility] Work Phone: [facility] 09-02-2021 03:27-0400 Respiratory rate 20 /min [facility] Work Phone: [facility] 09-02-2021 03:27-0400 SaO2% (BldA) [Mass fraction] 95 % [facility] Work Phone: [facility] 09-02-2021 03:27-0400 Systolic blood pressure 147 mm[Hg] [facility] Work Phone: [facility] 08-26-2021 14:48-0400 Diastolic blood pressure 50 mm[Hg] [facility] Work Phone: [facility] 08-26-2021 14:48-0400 Systolic blood pressure 183 mm[Hg] [facility] Work Phone: [facility] 08-26-2021 11:47-0400 Heart rate 70 /min [facility] Work Phone: [facility] 08-26-2021 11:47-0400 Respiratory rate 18 /min [facility] Work Phone: [facility] 08-26-2021 11:47-0400 SaO2% (BldA) [Mass fraction] 97 % [facility] Work Phone: [facility] 08-26-2021 08:24-0400 Body temperature 97.7 [degF] [facility] Work Phone: [facility] 08-26-2021 05:29-0400 Body weight 111.9 kg [facility] Work Phone: [facility] 08-25-2021 16:08-0400 Body height 190.5 cm [facility] Work Phone: [facility] 08-24-2021 22:51-0400 Body mass index (BMI) [Ratio] 30.5 kg/m2 [facility] Work Phone: [facility] 08-11-2021 08:00-0400 Body temperature 98.1 [degF] [facility] Work Phone: [facility] 08-11-2021 08:00-0400 Diastolic blood pressure 91 mm[Hg] [facility] Work Phone: [facility] 08-11-2021 08:00-0400 Heart rate 64 /min Services [facility] Work Phone: [facility] 08-11-2021 08:00-0400 Respiratory rate 18 /min Services [facility] [employer] Work Phone: [facility] 08-11-2021 08:00-0400 SaO2% (BldA) [Mass fraction] 100 % Services [email or web address] [facility] Work Phone: [facility] 08-11-2021 08:00-0400 Systolic blood pressure 136 mm[Hg] Services [facility] [employer] Work Phone: [facility] 08-11-2021 06:13-0400 Body weight 109.1 kg Services [facility] [employer] Work Phone: [facility] 08-10-2021 12:42-0400 Body height 190.5 cm Services [email or web address] [facility] Work Phone: [facility] 08-09-2021 10:28-0400 Body mass index (BMI) [Ratio] 29.9 kg/m2 Services [facility] Work Phone: [facility] 12-14-2020 14:30-0400 Body height 190.5 cm Wil Hackett Other [employer] Other 12-14-2020 14:30-0400 Body mass index (BMI) [Ratio] 29.37 kg/m2 Wil Hackett Other [employer] Other 12-14-2020 14:30-0400 Body weight 106.6 kg Wil Hackett Other [employer] Other Encounters Encounter Date Encounter Type Care Provider Facility Start: 03-11-2024 ambulatory Agnieszka Quintanilla [facility] Facility:[facility] Start: 12-12-2023 End: 12-12-2023 [employer] Result Encounter Generic External Data Provider [facility] External Department Unsolicited Start: 12-12-2023 End: 12-12-2023 [employer] Result Encounter Generic External Data Provider [facility] External Department Unsolicited Start: 12-12-2023 End: 12-17-2023 Telephone encounter Nunu Fry MD Work Phone: [facility] Start: 12-02-2023 End: 12-03-2023 Telephone encounter Nunu Fry MD Work Phone: [facility] Start: 08-02-2023 End: 08-02-2023 Emergency department patient visit [facility] Work Phone: [facility] Work Phone: Start: 07-01-2023 End: 07-02-2023 Emergency department patient visit [facility] Work Phone: [facility] Work Phone: Start: 06-20-2023 End: 06-20-2023 Emergency department patient visit [facility] Work Phone: [facility] Work Phone: Start: 04-03-2023 End: 04-03-2023 Emergency department patient visit [facility] Work Phone: [facility] Work Phone: Start: 03-26-2023 [facility] visit new patient [facility] Start: 03-26-2023 End: 03-26-2023 Patient encounter procedure [facility] Work Phone: [facility] Start: 03-26-2023 End: 03-26-2023 ambulatory [facility] Work Phone: [facility] Work Phone: Start: 03-26-2023 End: 03-26-2023 Patient encounter procedure [facility] Work Phone: [facility] Start: 03-23-2023 End: 03-23-2023 Emergency department patient visit [facility] Work Phone: [facility] Work Phone: Start: 03-05-2023 End: 03-06-2023 ambulatory Agnieszka Navarro Facility:[facility] Start: 03-05-2023 End: 03-05-2023 Patient encounter procedure Agnieszka Navarro [facility] Start: 03-05-2023 End: 03-05-2023 Well adult monitoring check done Agnieszka Navarro [facility] Start: 02-22-2023 ambulatory Agnieszka Navarro [facility]ilit [facility] Start: 01-29-2023 End: 01-30-2023 ambulatory Agnieszka Navarro Facility:[facility] Start: 01-29-2023 End: 01-29-2023 Patient encounter procedure Agnieszka Navarro [facility] Start: 01-24-2023 End: 01-24-2023 ambulatory CHRISTOPHER MCCRAY Not Available Start: 06-13-2022 ambulatory Homer charles MD Work Phone: Urology Start: 06-13-2022 Telephone encounter Homer nick MD Work Phone: Urology Comment on above: Returning Patient's Call Start: 05-29-2022 ambulatory Albertina mascorro PA Work Phone: Urology Start: 05-29-2022 End: 05-29-2022 Patient encounter procedure Albertina VERA Work Phone: Urology Comment on above: No-show for appointm ent (Primary Dx) Start: 05-01-2022 [facility] Start: 03-27-2022 Telephone encounter Homer nick MD Work Phone: Urology Comment on above: Electronic Communica tion (Sent fax to [facility] for PACC ) Start: 03-26-2022 ambulatory Mei eugene PA-C Work Phone: Urology Start: 03-26-2022 End: 03-26-2022 Patient encounter procedure Mei Villa PA-C Work Phone: Urology Comment on above: No-show for appointm ent (Primary Dx) Start: 03-16-2022 [facility] Start: 02-28-2022 Telephone encounter Cathy Aguilar RN Pre Anesthesia Comment on above: Pre-Op Update (HgA1C needs drawn) Start: 02-27-2022 Telephone encounter Homer nick MD Work Phone: Urology Comment on above: Returning Patient's Call Start: 02-23-2022 Encounter for other preprocedural examination [facility] Start: 02-23-2022 End: 02-24-2022 PAT Pacc Main 9 Work Phone: Pre Anesthesia Comment on above: Pre-op evaluation (P rimary Dx); 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, not stated as uncontrolled (HCC); Opioid dependence with opioid-induced disorder (HCC); Hypertension, unspecified type; Gastroparesis; Depressive disorder Start: 02-23-2022 End: 02-23-2022 Preprocedural examination done Pacc Main 9 Work Phone: Pre Anesthesia Start: 02-01-2022 End: 02-01-2022 ambulatory MD Bren Mccray Work Phone: [facility] Work Phone: Start: 02-01-2022 End: 02-01-2022 Patient encounter procedure MD Bren Mccray Work Phone: [facility] [place] Start: 01-30-2022 End: 01-30-2022 ambulatory DROGO WAYMART Facility:[facility] Start: 11-22-2021 End: 11-22-2021 Emergency department patient visit Services [facility] Work Phone: [facility]gency Room Start: 11-01-2021 ambulatory Noemi Mccray RN [facility] Start: 10-25-2021 End: 10-25-2021 ambulatory Mateus Cronin RN NURSE BIT [employer] Comment on above: Information (Lab res ult ) Start: 10-25-2021 Telephone encounter Tondra Mapus [facility] Start: 10-18-2021 End: 10-18-2021 ambulatory Tondra Mapus Other [employer] Other Start: 10-18-2021 Telephone encounter Tondra Mapus [facility] Start: 10-17-2021 End: 10-19-2021 Evaluation and management of inpatient Services [facility] Work Phone: [facility] Start: 09-02-2021 End: 09-02-2021 Emergency department patient visit Services [facility] Work Phone: [facility] Start: 08-24-2021 End: 08-26-2021 Evaluation and management of inpatient Services [facility] Work Phone: [facility] [place] Start: 08-09-2021 End: 08-11-2021 Evaluation and management of inpatient Services [facility] Work Phone: [facility] Start: 06-28-2021 Telephone encounter Homer nick MD Work Phone: Urology Comment on above: Returning Patient's Call Start: 06-27-2021 End: 06-27-2021 ambulatory Wil Hackett Other [place] [employer] Other Start: 06-27-2021 Telephone encounter Wil ROBISON [facility] Start: 06-21-2021 End: 06-21-2021 ambulatory Wil Hackett Other [place] [employer] Other Start: 06-21-2021 Telephone encounter Wil ROBISON G [facility] Start: 06-05-2021 End: 06-05-2021 Patient encounter procedure Homer Padilla MD Work Phone: Urology Comment on above: 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); Peyronie's disease; 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, not stated as uncontrolled (HCC) Start: 05-17-2021 ambulatory Homer charles MD Work Phone: Urology Start: 05-10-2021 ambulatory Homer charles MD Work Phone: Urology Start: 12-14-2020 Patient encounter procedure Wil FRITZ [facility] Start: 03-15-2020 End: 03-16-2020 Patient encounter procedure SHAIKH TU Facility:[facility] Start: 02-07-2020 End: 02-09-2020 Patient encounter procedure [facility] Facility:[facility] Procedures Date Procedure Procedure Detail Performing Clinician Start: 12-12-2023 ALL CBC WITH AUTO DIFF Generic External Data Provider Start: 08-02-2023 X-ray of both feet Serv [facility] [employer] Work Phone: Start: 06-20-2023 Plain X-ray of right hand [facility] [employer] Work Phone: Start: 03-26-2023 X-ray of left ankle Ser v[facility] [employer] Work Phone: Start: 03-23-2023 Plain X-ray of left tibia and left fibula [facility] [employer] Phone: Start: 03-23-2023 Radiologic examinati on of knee [facility] Phone: Start: 10-17-2021 Plain chest X-ray [facility] Work Phone: Start: 09-02-2021 Plain chest X-ray [facility] Work Phone: Start: 08-24-2021 Plain chest X-ray [facility] Work Phone: Start: 08-09-2021 US scan of gallbladder [facility] Phone: Start: 08-09-2021 Plain chest X-ray [facility] [employer] Phone: Blood culture for bacteria, including anaerobic screen [facility] Phone: Blood culture for bacteria, including anaerobic screen [facility] Phone: SARS Antigen (LFIA) [facility] Phone: SARS Antigen (LFIA) [facility] [employer] Work Phone: SARS Antigen (LFIA) [facility] Phone: Plan of Treatment Date Care Activity Detail Author Start: 10-07-2029 Urine microalbumin profile DTaP,Tdap,Td Vaccine (8 - Td or Tdap) [facility] Start: 02-06-2024 End: 02-06-2024 Patient encounter procedure 02/06/2024 11:10 AM EST Office Visit [facility] [address] [place] [id number] Nunu Fry MD [address] [place] [address] [facility] Start: 10-27-2023 Influenza vaccination Influenza Vaccine (#1) [facility] Start: 03-23-2023 Plain X-ray of left tibia and left fibula XR tibia fibula LT 2V* [facility] Start: 03-23-2023 XR Tibia and Fibula - left 2 Views [facility] Start: 03-23-2023 Radiologic examination of knee XR knee LT 4V* [facility] Start: 03-23-2023 XR Knee - left 4 Views [facility] Start: 02-23-2023 BP CONTROLLED (<130/80) BP CONTROLLED (<130/80) [facility] Start: 10-26-2022 Covid-19 Vaccine () Covid-19 Vaccine () [facility] Start: 10-26-2022 Influenza vaccination [facility] Start: 02-28-2022 End: 04-30-2022 CBC panel - Blood by Automated count CBC Lab Routine Organic erectile dysfunction Expected: 02/28/2022, Expires: 04/30/2022 [facility] Work Phone: Comment on above: Expected: 02/28/2022, Expires: 3 Start: 02-28-2022 End: 04-30-2022 Comprehensive metabolic 2000 panel - Serum or Plasma COMP METABOLIC PANEL Lab Routine Organic erectile dysfunction Expected: 02/28/2022, Expires: 04/30/2022 [facility] Work Phone: Comment on above: Expected: 02/28/2022, Expires: 3 Start: 02-23-2022 End: 04-25-2022 Hemoglobin A1c in Blood HGB A1C Lab Routine Pre-op evaluation 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, not stated as uncontrolled (HCC) Expected: 02/23/2022, Expires: 04/25/2022 [facility] Work Phone: Comment on above: Expected: 02/23/2022, Expires: 3 Start: 11-02-2021 End: 11-02-2022 SARS-CoV-2 (COVID-19) RNA [Presence] in Respiratory specimen by YAA with probe detection PRE-PROCEDURE & PRE-OPERATIVE COVID Microbiology Routine Organic erectile dysfunction Expected: 11/02/2021, Expires: 11/02/2022 [facility] Work Phone: Comment on above: Expected: 11/02/2021, Expires: 3 Start: 10-26-2021 Influenza vaccination [facility] Start: 10-19-2021 [facility] Start: 10-17-2021 [facility] Start: 08-26-2021 [facility] Start: 08-24-2021 Hospital admission [facility] Start: 08-11-2021 [facility] Work Phone: Start: 08-09-2021 [facility] Work Phone: Start: 08-09-2021 Hospital admission [facility] Work Phone: Start: 06-05-2021 End: 08-05-2021 Hemoglobin A1c/Hemoglobin.total in Blood HGB A1C Lab Routine 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, not stated as uncontrolled (HCC) Expected: 06/05/2021, Expires: 08/05/2021 [facility] Work Phone: Comment on above: Expected: 06/05/2021, Expires: 2 Start: 12-08-2020 COVID-19 VACCINE (3 - Booster for Moderna series) COVID-19 VACCINE (3 - Booster for Moderna series) [facility] Start: 10-26-2020 Influenza vaccination INFLUENZA (#1) [facility] Start: 09-02-2020 COVID-19 VACCINE (3 - Booster for Moderna series) COVID-19 VACCINE (3 - Booster for Moderna series) [facility] Start: 10-19-2014 Hemoglobin A1c/Hemoglobin.total in Blood HBA1C [facility] Start: 2004 Urine microalbumin profile DTAP,TDAP,TD (1 - Tdap) [facility] Start: 2004 Urine screening for protein Diabetes: Urine Protein Screening [facility] Start: 09-05-2003 ANNUAL PCP TEAM CHRONIC DISEASE VISIT ANNUAL PCP TEAM CHRONIC DISEASE VISIT [facility] Start: 09-05-2003 Hepatitis B surface antibody level LDL CHOLESTEROL [facility] Start: 09-05-2003 HEPATITIS C SCREENING HEPATITIS C SCREENING [facility] Start: 09-05-2003 HIV SCREENING HIV SCREENING [facility] Start: 2001 ONE PNEUMOVAX PRIOR TO AGE 65 ONE PNEUMOVAX PRIOR TO AGE 65 [facility] Start: 11-15-1998 Hepatitis B Vaccine (2 of 3 - 3-dose series) Hepatitis B Vaccine (2 of 3 - 3-dose series) [facility] Start: 1997 Adult depression screening assessment DEPRESSION SCREENING [facility] Start: 09-05-1995 3 comp foot exam completed DIABETIC FOOT EXAM [facility] Start: 09-05-1995 Glaucoma screening Diabetes: Retinopathy Screening [facility] Start: 09-05-1995 Hepatitis B screening URINE ALBUMIN:CREATININE RATIO [facility] Start: 09-05-1995 Hepatitis C antibody, confirmatory test DILATED RETINAL EXAM [facility] Start: 09-05-1991 PNEUMOCOCCAL (1 - PCV) PNEUMOCOCCAL (1 - PCV) [facility] Start: 09-05-1991 Pneumococcal vaccination Pneumococcal Vaccine (1 - PCV) [facility] Start: 1985 Hemoglobin A1c measurement Diabetes: Hemoglobin A1C [facility] Start: 1985 HEPATITIS B (1 of 3 - 3-dose series) HEPATITIS B (1 of 3 - 3-dose series) [facility] ECG COMPLETE ECG COMPLETE ECG Routine Pre-op evaluation 02/23/2022 2:51 PM EST [facility] Work Phone: Patient Education [facility] Work Phone: Patient referral [facility] Work Phone: Phosphatidylethanol [Mass/volume] in Blood [facility] Work Phone: URINALYSIS, REFLEX MICROSCOPIC URINALYSIS, REFLEX MICROSCOPIC Lab Routine Screening for genitourinary condition Ordered: 05/10/2021 [facility] Work Phone: Comment on above: Ordered: 05/10/2021 URINALYSIS, REFLEX MICROSCOPIC URINALYSIS, REFLEX MICROSCOPIC Lab Routine Screening for genitourinary condition Ordered: 05/17/2021 [facility] Work Phone: Comment on above: Ordered: 05/17/2021 URINALYSIS, REFLEX MICROSCOPIC URINALYSIS, REFLEX MICROSCOPIC Lab Routine Screening for genitourinary condition Ordered: 03/26/2022 [facility] Work Phone: Comment on above: Ordered: 03/26/2022 URINALYSIS, REFLEX MICROSCOPIC URINALYSIS, REFLEX MICROSCOPIC Lab Routine Screening for genitourinary condition Ordered: 05/29/2022 [facility] Work Phone: Comment on above: Ordered: 05/29/2022 URINALYSIS, REFLEX MICROSCOPIC URINALYSIS, REFLEX MICROSCOPIC Lab Routine Screening for genitourinary condition Ordered: 06/13/2022 [facility] Work Phone: Comment on above: Ordered: 06/13/2022 [facility] Immunizations Immunization Date Immunization Notes Care Provider [facility] 07-08-2020 SARS-CoV-2 (COVID-19 ) mRNA-1273 vaccine Agnieszka Navarro [facility] 06-13-2020 SARS-CoV-2 (COVID-19 ) mRNA-1273 vaccine Agnieszka Navarro [facility] 10-08-2019 tetanus toxoid, reduced diphtheria toxoid, and acellular pertussis vaccine, adsorbed Services [email or web address] [facility] Work Phone: [facility] 03-03-2019 Influenza, injectable, Madin Clare Canine Kidney, preservative free, quadrivalent Services [email or web address] [facility] Work Phone: [facility] 03-03-2019 influenza virus vaccine, unspecified formulation Cathy Aguilar RN [facility] 07-28-2018 hepatitis A vaccine, adult dosage Agnieszka Navarro [facility] Comment on above: Result Comment: 2023: [facility] 06-12-2018 hepatitis A vaccine, adult dosage Agnieszka Navarro [facility] Comment on above: Result Comment: 2023: [facility] 11-29-2016 tetanus toxoid, reduced diphtheria toxoid, and acellular pertussis vaccine, adsorbed Services [facility] Work Phone: [facility] 10-18-1998 hepatitis B vaccine, pediatric or pediatric/adolescent dosage Agnieszka Navarro [facility] 10-18-1998 measles, mumps and rubella virus vaccine Agnieszka Navarro [facility] 10-18-1998 Td(adult) unspecifie d formulation Agnieszka Navarro [facility] 02-16-1988 haemophilus influenzae type b vaccine, HbOC conjugate Nunu Fry MD Work Phone: [facility] 02-16-1988 Hib, unspecified formulation Agnieszka Navarro [facility] 01-31-1987 measles, mumps and rubella virus vaccine Agnieszka Navarro [facility] NEGATED: Highlighted row has not occurred!03-05-2023 influenza virus vaccine, unspecified formulation Agnieszka Navarro [facility] Payers Date Payer Category Payer Self-pay [id number] 2022 Medicaid [id number] 2022 Private Health Insurance [facility] MEDICAID [id number] 2015 Medicaid [facility] MEDICAID [id number] 2015-Present [phone] [address] [place] [address] Medicaid [id number] 2015 Medicaid [id number] 1985 Unknown [id number] 593 1985 Unknown [id number]. 593 1985 Unknown [id number]. 1259 1985 Unknown [id number]. 727 1985 Unknown [id number]. 727 1985 Unknown [id number]. 727 1959 Unknown [id number] Unknown [id number] Unknown [id number]. 531 Unknown [id number]. 531 Unknown [id number]. 531 Unknown [id number]. 531 Unknown [id number]. 531 Unknown [id number] 531 Social History Date Type Detail Facility Start: 12-21-2020 End: 08-02-2023 Tobacco smoking status NHIS Never smoked tobacco [facility] Start: 12-21-2020 End: 02-23-2022 Tobacco use and exposure Smokeless tobacco non-user [facility] Start: 1985 Sex Assigned At Not on file [facility] Start: 03-25-2021 End: 04-24-2021 Exposure to SARS-CoV-2 (event) Unable to assess [facility] Start: 05-07-2021 End: 06-05-2021 Exposure to SARS-CoV-2 (event) Not sure [facility] Start: 1985 Sex Assigned At Male [facility] Start: 02-23-2022 End: 06-25-2023 Sex Assigned At [facility] Start: 10-18-2021 End: 04-03-2023 Tobacco smoking status NHIS Smoker (finding) [facility] Start: 02-23-2022 End: 06-26-2023 Alcohol intake Lifetime non-drinker (finding) [facility] Start: 02-23-2022 End: 06-25-2023 History of Social function [facility] National Score (1-10 0), lower number is lower risk 85 [facility] Start: 06-05-2021 Gender identity Identifies as male gender (finding) [facility] Start: 12-12-2020 End: 12-24-2022 Tobacco smoking status Ex-smoker (finding) [facility] History of tobacco use Cigarette Smoker [facility] Start: 12-24-2022 Tobacco use and exposure User of smokeless tobacco [facility] Do you belong to any clubs or organizations such as confucianist groups, unions, fraternal or athletic groups, or school groups? No [facility] Are you now , , , , never or living with a partner? [facility] How often to you hav e a drink containing alcohol? Never [facility] How hard is it for y ou to pay for the very basics like food, housing, medical care, and heating Somewhat hard [facility] Do you feel stress - tense, restless, nervous, or anxious, or unable to sleep at night because your mind is troubled all the time - these days [OSQ] Very much [facility] (I/We) worried [facility] (my/our) food would run out before (I/we) got money to buy more. Sometimes true [facility] The food that (I/we) bought just didn't last, and (I/we) didn't have money to get more. Never true [facility] Medical Equipment Procedure Code Equipment Code Equipment Origin al Text Equipment Identifier Dates USE TO TEST BLOO D SUGAR SIX TIMES DAILY Start: 06-06-2022 Goals Date Patient Goal Desired Activity /State Functional Status Date Assessment Result Facility 03-05-2023 Functional Status N/A [facility] 10-19-2021 Functional status Patient at Baseline [facility] Work Phone: 08-26-2021 Functional status Patient at Baseline [facility] Work Phone: 08-11-2021 Functional status Patient at Baseline [facility] Work Phone: Mental Status Date Assessment Result Facility 10-19-2021 Cognitive function Cognitive Sta tus Patient at Baseline [facility] Work Phone: 08-26-2021 Cognitive function Cognitive Sta tus Patient at Baseline [facility] Work Phone: 08-11-2021 Cognitive function Cognitive Sta tus Patient at Baseline [facility] Work Phone: Clinical Notes 12-14-2020 to 12-12-2023 Telephone Encounter - Bernabe Perry - 12/12/2023 1:13 PM EDTTelephone Encounter - Bernabe Perry - 12/12/2023 1:13 PM EDTTelephone Encounter - Apple Sewell LPN - 12/03/2023 3:32 PM EDT Note Date & Type Note Facility 12-12-2023 Telephone encount er Note Pt was told G7 transmitters wouldn't arrive until the , please give Gregory or Demetria 2 G7 samples when they come in Saturday. Thanks! [facility] 12-12-2023 Miscellaneous Notes Formattin g of this note might be different from the original. Pt was told G7 transmitters wouldn't arrive until the , please give Gregory or Demetria 2 G7 samples when they come in Saturday. Thanks! documented in this encounter [facility] 12-03-2023 Telephone encount er Note MEDICATION SENT TO PHARMACY. [facility] 12-03-2023 Miscellaneous Notes Formattin g of this note might be different from the original. MEDICATION SENT TO PHARMACY. Please refill G6 sensors to [facility]. Thank you! documented in this encounter [facility] 12-02-2023 Telephone encount er Note Please refill G6 sensors to [facility]. Thank you! [facility] 06-20-2023 Hospital Discharg e instructions Additional Instructions Utilize thumb spica for support Follow-up with Ortho Utilize ibuprofen as needed for pain Ice as needed 20 minutes on 20 minutes off, do not apply directly to skin Elevate hand Monitor blood pressure, 30-day supply of lisinopril has been sent to your pharmacy but ensure follow-up with PCP Return to emergency room for purplish discoloration of fingers, increased swelling, absence of pulse on thumb side of wrist [facility] Work Phone: 03-26-2023 Evaluation note Encounter Date Diagnosis Assessment Notes Feb, Other closed fracture of shaft of left fibula, initial encounter (ICD-10 - S82.492A) Discussed with patient and company on the patient's symptoms, exam, and imaging. Likely etiologies of the patient's symptoms were discussed. Patient is suffering from fibula shaft fracture and syndesmotic disruption of left ankle. Based on stress view, I do not believe that the ankle joint is unstable requiring surgical intervention. We discussed various treatment options including surgical treatment vs conservative treatment options. At this point we will pursue conservative management in the form of tall CAM boot and strict non weight bearing for 8 weeks. Patient is in need of a tall CAM boot due to their diagnosis of fibula shaft fracture. I initially wanted to put him in a cast however I want him to follow-up with a banana room cutter get established for his chronic diabetic neuropathy and chronic wounds. This is needed for aid in activities of daily living by increasing safety and stability and the patient is in need of a knee scooter due to their diagnosis of fibula shaft fracture. This is needed for aid in activities of daily living by increasing safety and stability. This will be needed for approximately 6 months. Instructed patient to follow up with his banana room cutter as soon as possible for the numbness and wounds around the foot and ankle. Patient will follow-up in 6 with updated xrays for reevaluation. Feb, Diabetic mononeuropathy associated with type 1 diabetes mellitus (ICD-10 - E10.41) Feb, Acute left ankle pain (ICD-10 - M25.572) Feb, Syndesmotic disruption of left ankle, initial encounter (ICD-10 - S93.432A) [facility] Other 01-02-2024 Hospital Discharge instructions Patient Education 02/26/2023 14:38:04 Diabetes Mellitus and Exercise Diabetes Mellitus and Exercise Exercising regularly is important for overall health, especially for people who have diabetes mellitus. Exercising is not only about losing weight. It has many other health benefits, such as increasing muscle strength and bone density and reducing body fat and stress. This leads to improved fitness, flexibility, and endurance, all of which result in better overall health. What are the benefits of exercise if I have diabetes? Exercise has many benefits for people with diabetes. They include: Helping to lower and control blood sugar (glucose). Helping the body to respond better to the hormone insulin by improving insulin sensitivity. Reducing how much insulin the body needs. Lowering the risk for heart disease by: ?Lowering bad cholesterol and triglyceride levels. ?Increasing good cholesterol levels. ?Lowering blood pressure. ?Lowering blood glucose levels. What is my activity plan? Your health care provider or faa certified powerplant mechanic can help you make a plan for the type and frequency of exercise that works for you. This is called your activity plan. Be sure to: Get at least 150 minutes of medium-intensity or high-intensity exercise each week. Exercises may include brisk walking, biking, or water aerobics. Do stretching and strengthening exercises, such as yoga or weight lifting, at least 2 times a week. Spread out your activity over at least 3 days of the week. Get some form of physical activity each day. ?Do not go more than 2 days in a row without some kind of physical activity. ?Avoid being inactive for more than 90 minutes at a time. Take frequent breaks to walk or stretch. Choose exercises or activities that you enjoy. Set realistic goals. Start slowly and gradually increase your exercise intensity over time. How do I manage my diabetes during exercise? Monitor your blood glucose Check your blood glucose before and after exercising. If your blood glucose is: ?240 mg/dL (13.3 mmol/L) or higher before you exercise, check your urine for ketones. These are chemicals created by the liver. If you have ketones in your urine, do not exercise until your blood glucose returns to normal. ?100 mg/dL (5.6 mmol/L) or lower, eat a snack containing 15 20 grams of carbohydrate. Check your blood glucose 15 minutes after the snack to make sure that your glucose level is above 100 mg/dL (5.6 mmol/L) before you start your exercise. Know the symptoms of low blood glucose (hypoglycemia) and how to treat it. Your risk for hypoglycemia increases during and after exercise. Follow these tips and your health care provider's instructions Keep a carbohydrate snack that is fast-acting for use before, during, and after exercise to help prevent or treat hypoglycemia. Avoid injecting insulin into areas of the body that are going to be exercised. For example, avoid injecting insulin into: ?Your arms, when you are about to play tennis. ?Your legs, when you are about to go jogging. Keep records of your exercise habits. Doing this can help you and your health care provider adjust your diabetes management plan as needed. Write down: ?Food that you eat before and after you exercise. ?Blood glucose levels before and after you exercise. ?The type and amount of exercise you have done. Work with your health care provider when you start a new exercise or activity. He or she may need to: ?Make sure that the activity is safe for you. ?Adjust your insulin, other medicines, and food that you eat. Drink plenty of water while you exercise. This prevents loss of water (dehydration) and problems caused by a lot of heat in the body (heat stroke). Where to find more information [place] [employer]: www.diabetes.org Summary Exercising regularly is important for overall health, especially for people who have diabetes mellitus. Exercising has many health benefits. It increases muscle strength and bone density and reduces bodyfat and stress. It also lowers and controls blood glucose. Your health care provider or faa certified powerplant mechanic can help you make an activity plan for thetype and frequency of exercise that works for you. Work with your health care provider to make sure any new activity is safe for you. Also work with your health care provider to adjust your insulin, other medicines, and the food you eat. This information is not intended to replace advice given to you by your health care provider. Make sure you discuss any questions you have with your health care provider. Document Revised: 11/09/2019 Document Reviewed: 11/09/2019 [employer] Patient Education 2022 [employer]. 02/26/2023 14:38:03 Blood Glucose Monitoring, Adult Blood Glucose Monitoring, Adult Monitoring your blood sugar (glucose) is an important part of managing your diabetes. Blood glucosemonitoring involves checking your blood glucose as often as directed and keeping a log or record ofyour results over time. Checking your blood glucose regularly and keeping a blood glucose log can: Help you and your health care provider adjust your diabetes management plan as needed, including your medicines or insulin. Help you understand how food, exercise, illnesses, and medicines affect your blood glucose. Let you know what your blood glucose is at any time. You can quickly find out if you have low bloodglucose (hypoglycemia) or high blood glucose (hyperglycemia). Your health care provider will set individualized treatment goals for you. Your goals will be basedon your age, other medical conditions you have, and how you respond to diabetes treatment. Generally, the goal of treatment is to maintain the following blood glucose levels: Before meals (preprandial): 80 130 mg/dL (4.4 7.2 mmol/L). After meals (postprandial): below 180 mg/dL (10 mmol/L). A1C level: less than 7%. Supplies needed: Blood glucose meter. Test strips for your meter. Each meter has its own strips. You must use the strips that came with your meter. A needle to prick your finger (lancet). Do not use a lancet more than one time. A device that holds the lancet (lancing device). A journal or log book to write down your results. How to check your blood glucose Checking your blood glucose 1.Wash your hands for at least 20 seconds with soap and water. 2.Prick the side of your finger (not the tip) with the lancet. Do not use the same finger consecutively. 3.Gently rub the finger until a small drop of blood appears. 4.Follow instructions that come with your meter for inserting the test strip, applying blood to thestrip, and using your blood glucose meter. 5.Write down your result and any notes in your log. Using alternative sites Some meters allow you to use areas of your body other than your finger (alternative sites) to test your blood. The most common alternative sites are the forearm, the thigh, and the palm of your hand. Alternative sites may not be as accurate as the fingers because blood flow is slower in those areas. This means that the result you get may be delayed, and it may be different from the result that you would get from your finger. Use the finger only, and do not use alternative sites, if: You think you have hypoglycemia. You sometimes do not know that your blood glucose is getting low (hypoglycemia unawareness). General tips and recommendations Blood glucose log Every time you check your blood glucose, write down your result. Also write down any notes about things that may be affecting your blood glucose, such as your diet and exercise for the day. This information can help you and your health care provider: ?Look for patterns in your blood glucose over time. ?Adjust your diabetes management plan as needed. Check if your meter allows you to download your records to a computer or if there is an [place] for [employer]. Most glucose meters store a record of glucose readings in the meter. If you have type 1 diabetes: Check your blood glucose 4 or more times a day if you are on intensive insulin therapy with multiple daily injections (MDI) or if you are using an insulin pump. Check your blood glucose: ?Before every meal and snack. ?Before bedtime. Also check your blood glucose: ?If you have symptoms of hypoglycemia. ?After treating low blood glucose. ?Before doing activities that create a risk for injury, like driving or using machinery. ?Before and after exercise. ?Two hours after a meal. ?Occasionally between 2:00 a.m. and 3:00 a.m., as directed. You may need to check your blood glucose more often, 6 10 times per day, if: ?You have diabetes that is not well controlled. ?You are ill. ?You have a history of severe hypoglycemia. ?You have hypoglycemia unawareness. If you have type 2 diabetes: Check your blood glucose 2 or more times a day if you take insulin or other diabetes medicines. Check your blood glucose 4 or more times a day if you are on intensive insulin therapy. Occasionally, you may also need to check your glucose between 2:00 a.m. and 3:00 a.m., as directed. Also check your blood glucose: ?Before and after exercise. ?Before doing activities that create a risk for injury, like driving or using machinery. You may need to check your blood glucose more often if: ?Your medicine is being adjusted. ?Your diabetes is not well controlled. ?You are ill. General tips Make sure you always have your supplies with you. After you use a few boxes of test strips, adjust (calibrate) your blood glucose meter by following instructions that came with your meter. If you have questions or need help, all blood glucose meters have a 24-hour hotline phone number available that you can call. Also contact your health care provider with questions or concerns you mayhave. Where to find more information The [place] [employer]: www.diabetes.org The Association of Diabetes Care & Education Specialists: www.diabeteseducator.org Contact a health care provider if: Your blood glucose is at or above 240 mg/dL (13.3 mmol/L) for 2 days in a row. You have been sick or have had a fever for 2 days or longer, and you are not getting better. You have any of the following problems for more than 6 hours: ?You cannot eat or drink. ?You have nausea or vomiting. ?You have diarrhea. Get help right away if: Your blood glucose is lower than 54 mg/dL (3 mmol/L). You become confused, or you have trouble thinking clearly. You have difficulty breathing. You have moderate or large ketone levels in your urine. These symptoms may represent a serious problem that is an emergency. Do not wait to see if the symptoms will go away. Get medical help right away. Call your local emergency services (911 in the [place] Do not drive yourself to the hospital. Summary Monitoring your blood glucose is an important part of managing your diabetes. Blood glucose monitoring involves checking your blood glucose as often as directed and keeping a log or record of your results over time. Your health care provider will set individualized treatment goals for you. Your goals will be basedon your age, other medical conditions you have, and how you respond to diabetes treatment. Every time you check your blood glucose, write down your result. Also, write down any notes about things that may be affecting your blood glucose, such as your diet and exercise for the day. This information is not intended to replace advice given to you by your health care provider. Make sure you discuss any questions you have with your health care provider. Document Revised: 11/09/2020 Document Reviewed: 11/09/2020 [employer] Patient Education 2022 [employer]. Follow Up Care 01/29/2023 09:00:42 With:Agnieszka Price Address: [address] [place] [address] [place] [phone] When:Within 1 Year(s) Comments:[facility] 04-19-2023 Miscellaneous Notes* Telephone Encounter - Homer Padilla MD - 06/13/2022 4:30 PM EDT I called him and once again got his voicemail. The concerns that he has cannot be addressed by phone calls or a virtual visit. I told him that I would need to see him in person so that I can exam himagain. Homer Padilla MD documented in this encounterProtestant Hospital04-19-2023 NotePatient Outreach (UROLMN) JOSELIN FREITAS ([id number]) 1985 M Date Time Provider Department 06/13/22 HOMER PADILLA During your visit today, we recorded the following information about you: Allergies As of Date: 06/13/2022 (No Known Allergies) Date Reviewed: 02/23/2022 Reviewed by: Ruma Gonzalez APRN.FINE GRADE OPERATOR - Fully Assessed Visit Diagnosis:Screening for genitourinary condition [Z13.89] Order(s):URINALYSIS, REFLEX MICROSCOPIC [[id number]] Order #: [id number] Prescriptions as of 06/18/2022 - amLODIPine (NORVASC) 5 mg tablet Take 1 tablet by mouth. - FREESTYLE TANG 2 READER as directed. - FREESTYLE TANG 2 SENSOR kit CHANGE SENSOR EVERY 14 DAYS - gabapentin (NEURONTIN) 300 mg capsule 1 capsule. - insulin aspart U-100 (NOVOLOG) 100 unit/mL as directed Subcutaneous - insulin aspart U-100 (NOVOLOG) 100 unit/mL USE UP TO 150 UNITS daily with insulin pump - insulin glargine (LANTUS) 100 unit/mL injection as directed Subcutaneous - insulin NPH hum/reg insulin hm (INSULIN NPH AND REGULAR HUMAN SUBCUTANEOUS) insulin isophane / insulin, regular, human (5 sources) Insulin - metoclopramide HCl (REGLAN) 10 mg tablet Metoclopramide Hcl (Reglan) 10 mg tablet Active 10 MG PO EVERY 4-6 HOURS February 04, 2020 9:28pm - ondansetron (ZOFRAN) 4 mg tablet Ondansetron Hcl (Zofran) 4 mg tablet Active 4 MG PO Q8H 9 December 18, 2019 6:07pm - sucralfate (CARAFATE) 1 gram tablet Sucralfate (Carafate) 1 gram tablet Active 1 GM PO Twice daily 14 December 18, 2019 6:06pm - buprenorphine-naloxone (SUBOXONE) 8-2 mg film Dissolve 2 Film under the tongue once daily. Problem List As Of Date 06/13/2022 Noted Resolved Type 1 (insulin dependent type) diabetes mellit*12/21/2020 ED (erectile dysfunction) of organic origin [N5*12/21/2020 Peyronie's disease [N48.6] 12/21/2020 Depressive disorder [F32.A] 02/23/2022 Gastroesophageal reflux disease [K21.9] 02/23/2022 Gastroparesis [K31.84] 02/23/2022 Hypertension [I10] 02/23/2022 Opioid dependence (HCC) [F11.20] 02/15/2020 Encounter Status:Closed by JESSICA FLORES on 06/18/22[facility] 05-29-2022 NotePatient Outreach (UROLMN) JOSELIN FREITAS ([id number]) 1985 M Date Time Provider Department 05/29/22 ALBERTINA ELAM During your visit today, we recorded the following information about you: Allergies As of Date: 05/29/2022 (No Known Allergies) Date Reviewed: 02/23/2022 Reviewed by: Ruma Gonzalez APRN.FINE GRADE OPERATOR - Fully Assessed Visit Diagnosis:Screening for genitourinary condition [Z13.89] Order(s):URINALYSIS, REFLEX MICROSCOPIC [[id number]] Order #: [id number] Prescriptions as of 06/01/2022 - amLODIPine (NORVASC) 5 mg tablet Take 1 tablet by mouth. - FREESTYLE TANG 2 READER as directed. - FREESTYLE TANG 2 SENSOR kit CHANGE SENSOR EVERY 14 DAYS - gabapentin (NEURONTIN) 300 mg capsule 1 capsule. - insulin aspart U-100 (NOVOLOG) 100 unit/mL as directed Subcutaneous - insulin aspart U-100 (NOVOLOG) 100 unit/mL USE UP TO 150 UNITS daily with insulin pump - insulin glargine (LANTUS) 100 unit/mL injection as directed Subcutaneous - insulin NPH hum/reg insulin hm (INSULIN NPH AND REGULAR HUMAN SUBCUTANEOUS) insulin isophane / insulin, regular, human (5 sources) Insulin - metoclopramide HCl (REGLAN) 10 mg tablet Metoclopramide Hcl (Reglan) 10 mg tablet Active 10 MG PO EVERY 4-6 HOURS February 04, 2020 9:28pm - ondansetron (ZOFRAN) 4 mg tablet Ondansetron Hcl (Zofran) 4 mg tablet Active 4 MG PO Q8H 9 3 December 18, 2019 6:07pm - sucralfate (CARAFATE) 1 gram tablet Sucralfate (Carafate) 1 gram tablet Active 1 GM PO Twice daily 14 December 18, 2019 6:06pm - buprenorphine-naloxone (SUBOXONE) 8-2 mg film Dissolve 2 Film under the tongue once daily. Problem List As Of Date 05/29/2022 Noted Resolved Type 1 (insulin dependent type) diabetes mellit*12/21/2020 ED (erectile dysfunction) of organic origin [N5*12/21/2020 Peyronie's disease [N48.6] 12/21/2020 Depressive disorder [F32.A] 02/23/2022 Gastroesophageal reflux disease [K21.9] 02/23/2022 Gastroparesis [K31.84] 02/23/2022 Hypertension [I10] 02/23/2022 Opioid dependence (HCC) [F11.20] 02/15/2020 Encounter Status:Closed by [employer] on 06/01/22[facility] 05-29-2022 NoteHNO ID: [id number] Author: JODY Holley Service: ? Author Type: Physician Station Operator Type: Progress Notes Filed: 05/29/2022 3:24 PM Note Text: [facility] History of Present illness Narrative* JODY Holley - 05/29/2022 11:30 AM EDT No show to preop appt documented in this encounterProtestant Hospital01-31-2023 Miscellaneous Notes* Telephone Encounter - Bren Adler - 03/27/2022 11:45 AM EST Sent fax to [facility] for [facility] documented in this encounterProtestant Hospital01-30-2023 NoteHNO ID: [id number] Author: Mei Villa PA-C Service: ? Author Type: Physician Station Operator Type: Progress Notes Filed: 03/26/2022 4:10 PM Note Text: Patient unfortunately did not show for scheduled visit.[facility]01-30[facility]23 History of Present illness Narrative* Mei Villa PA-C - 03/26/2022 4:10 PM EST Patient unfortunately did not show for scheduled visit. documented in this encounterProtestant Hospital01-30-2023 NotePatient Outreach (UROFRANCESCAN) JOSELIN FREITAS ([id number]) 1985 Date Time Provider Department 03/26/22 MEI VILLA During your visit today, we recorded the following information about you: Allergies As of Date: 03/26/2022 (No Known Allergies) Date Reviewed: 02/23/2022 Reviewed by: Ruma Gonzalez APRN.FINE GRADE OPERATOR - Fully Assessed Visit Diagnosis:Screening for genitourinary condition [Z13.89] Order(s):URINALYSIS, REFLEX MICROSCOPIC [[id number]] Order #: [id number] Prescriptions as of 03/29/2022 - amLODIPine (NORVASC) 5 mg tablet Take 1 tablet by mouth. - FREESTYLE TANG 2 READER as directed. - FREESTYLE TANG 2 SENSOR kit CHANGE SENSOR EVERY 14 DAYS - gabapentin (NEURONTIN) 300 mg capsule 1 capsule. - insulin aspart U-100 (NOVOLOG) 100 unit/mL as directed Subcutaneous - insulin aspart U-100 (NOVOLOG) 100 unit/mL USE UP TO 150 UNITS daily with insulin pump - insulin glargine (LANTUS) 100 unit/mL injection as directed Subcutaneous - insulin NPH hum/reg insulin hm (INSULIN NPH AND REGULAR HUMAN SUBCUTANEOUS) insulin isophane / insulin, regular, human (5 sources) Insulin - metoclopramide HCl (REGLAN) 10 mg tablet Metoclopramide Hcl (Reglan) 10 mg tablet Active 10 MG PO EVERY 4-6 HOURS February 04, 2020 9:28pm - ondansetron (ZOFRAN) 4 mg tablet Ondansetron Hcl (Zofran) 4 mg tablet Active 4 MG PO Q8H 9 3 December 18, 2019 6:07pm - sucralfate (CARAFATE) 1 gram tablet Sucralfate (Carafate) 1 gram tablet Active 1 GM PO Twice daily 14 December 18, 2019 6:06pm - buprenorphine-naloxone (SUBOXONE) 8-2 mg film Dissolve 2 Film under the tongue once daily. Problem List As Of Date 03/26/2022 Noted Resolved Type 1 (insulin dependent type) diabetes mellit*12/21/2020 ED (erectile dysfunction) of organic origin [N5*12/21/2020 Peyronie's disease [N48.6] 12/21/2020 Depressive disorder [F32.A] 02/23/2022 Gastroesophageal reflux disease [K21.9] 02/23/2022 Gastroparesis [K31.84] 02/23/2022 Hypertension [I10] 02/23/2022 Opioid dependence (HCC) [F11.20] 02/15/2020 Encounter Status:Closed by JESSICA FLORES on 03/29/22[facility] 02-28-2022 Miscellaneous Notes* Telephone Encounter - Cathy Aguilar RN - 02/28/2022 11:27 AM EST Called and left message that HgA1C needs drawn. documented in this encounterProtestant Hospital01-03-2023 Miscellaneous Notes* Telephone Encounter - Homer Padilla MD - 02/27/2022 11:19 AM EST He wanted to discuss surgery again and I repeated the informed consent answering all his questions.He still wants to proceed. Homer Padilla MD documented in this encounterProtestant Hospital12-30-2022 History and physical note * Ruma Gonzalez APRN.FINE GRADE OPERATOR - 02/23/2022 2:00 PM EST Images from the original note were not included. HISTORY AND PHYSICAL EXAMINATION SERVICE DATE: 02/23/2022 SERVICE TIME: 1:51 PM PRIMARY CARE PHYSICIAN: No primary care provider on file. REASON FOR VISIT: Joselin Freitas is a 36 year old male who is scheduled for INSERTION PROSTHESIS PENILE INFLATABLEMULTI-COMPONENT on 03/02/2022 at [facility]. Patient is being seen at the request of Dr. Homer Padilla for consultation. My final recommendation will be communicated back to the requesting physician by way of shared medical record or letter. The patient has the following: ACTIVE PROBLEM LIST Type 1 (Insulin Dependent Type) Diabetes Mellitus With Other Coma, Not Stated As Uncontrolled (Hcc) Ed (Erectile Dysfunction) of Organic Origin Peyronie's Disease Depressive Disorder Gastroesophageal Reflux Disease Gastroparesis Hypertension Opioid Dependence (Hcc) Subjective CHIEF COMPLAINT: pre op exam, ED HPI: Salazar is a 36 year old male who presents to [facility] for pre op evaluation. Patient suffers from ED and Peyronie's disease. PMH is significant for insulin dependent diabetes, opioid use (IV) disorder (on subaxone), gastroparesis, anxiety. Patient admitted to ICU at [facility] 10/17/2021 for DKA. Per patient: he will be admitted to ICU following surgery. PAST MEDICAL HISTORY Diagnosis Date Diabetes (HCC) Hypertension No past surgical history on file. No family history on file. SOCIAL HISTORY: Social History Tobacco Use Smoking status: Never Smokeless tobacco: Never Substance Use Topics Alcohol use: Never Drug use: Never MEDICATIONS: Prior to Admission medications as of 06/05/21 1451 Medication Sig Last Dose Taking amLODIPine (NORVASC) 5 mg tablet Take 1 tablet by mouth. Yes insulin aspart U-100 (NOVOLOG U-100 INSULIN ASPART) 100 unit/mL as directed Subcutaneous Yes metFORMIN (GLUCOPHAGE) 500 mg tablet Take 500 mg by mouth. Yes metoclopramide HCl (REGLAN) 10 mg tablet Metoclopramide Hcl (Reglan) 10 mg tablet Active 10 MG PO EVERY 4-6 HOURS February 04, 2020 9:28pm Yes ondansetron (ZOFRAN) 4 mg tablet Ondansetron Hcl (Zofran) 4 mg tablet Active 4 MG PO Q8H 9 3 December 18, 2019 6:07pm Yes vortioxetine (TRINTELLIX) 10 mg tablet Vortioxetine (Trintellix) 10 mg Tablet Active 10 MG PO DailyNovember 02, 2019 11:24am Yes sucralfate (CARAFATE) 1 gram tablet Sucralfate (Carafate) 1 gram tablet Active 1 GM PO Twice daily 14 December 18, 2019 6:06pm Yes FREESTYLE TANG 2 READER as directed. FREESTYLE TANG 2 SENSOR kit CHANGE SENSOR EVERY 14 DAYS gabapentin (NEURONTIN) 300 mg capsule 1 capsule. insulin aspart U-100 (NOVOLOG) 100 unit/mL USE UP TO 150 UNITS daily with insulin pump insulin glargine (LANTUS U-100 INSULIN) 100 unit/mL injection as directed Subcutaneous insulin NPH hum/reg insulin hm (INSULIN NPH AND REGULAR HUMAN SUBCUTANEOUS) insulin isophane / insulin, regular, human (5 sources) Insulin buprenorphine-naloxone (SUBOXONE) 8-2 mg film Dissolve 2 Film under the tongue once daily. sildenafil (VIAGRA) 100 mg tablet Take 1 tablet by mouth as needed. No medication comments found. CURRENT ALLERGIES: ALLERGIES No Known Allergies COVID VACCINATION STATUS: Fully vaccinated REVIEW OF SYSTEMS: PAIN ASSESSMENT: Pain Pain Level: 3 Pain Location: Penis Description: (hard to describe how pain feels) Duration Amount of Time: 3 Duration Units: Years Frequency: Continuous General: No weight loss, malaise or fevers. Neuro: Negative for TIA's Stroke-residual deficit Stroke-No residual deficit Has seizure like activity when blood sugar drops. Respiratory: No history of current cough or dyspnea, or pneumonia in the past 6 weeks. No history of respiratory/pulmonary symptoms or problems. Cardiovascular: Negative for Recent KS, Arrhythmia, Chest Pain, DVT/PE GI: GERD, gastroparesis- nausea and vomiting, IBS with constipaton/diarrhea Negative for Liver disease, Pancreatitis : ED, Peyronie's disease No history of dysuria, frequency or incontinence,, stones or chronic kidney disease Endocrine: Diabetes Mellitus on insulin-INSULIN PUMP Hematology: No history of bleeding or clotting disorder. Pt is not taking anti- coagulation or platelet medications. No history of hematological symptoms or problems. Oncology: No history of CA metastasis, chemo within 30 days, or radiotherapy within 90 days. Has not lost 10% of body wt in 6 months. No history of oncological symptoms or problems. Psych: Anxiety, Depression, not currently on medication Musculoskeletal: Back pain Skin: Negative for lesions, rash and itching. Objective PHYSICAL EXAM: VITALS: BP 104/77 Pulse 83 Temp (Src) 98 (Temporal) Ht 6' 3 (1.91m) Wt 236 lb 14.4 oz (107.5kg) SpO2 99% BMI 29.61 kg/(m^2). General: Alert and oriented, No acute distress, Healthy appearance Skin: Normal color, no rash, no lesions. HEENT: EOM, pupils equal, round and reactive. Cardiovascular: Normal S1 & S2, no rubs, murmurs or gallops. No JVD. Pulse regular. Lungs: Normal breath sounds, no wheezes or crackles. Abdomen: Positive bowel sounds Extremities: No deformity, no edema or tenderness, no joint swelling or clubbing. Neurological: Normal cognition and motor skills. Pulses: Carotid and radial pulses normal +2. Diagnostic tests reviewed for today's visit: EKG 02/23/2022 Diagnosis: NORMAL SINUS RHYTHM NORMAL ECG Assessment/Plan 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, not stated as uncontrolled (HCC) On insulin pump and sliding scale. History of uncontrolled Opioid dependence (HCC) On suboxone Hypertension Stable on rx Gastroparesis Daily use of antiemetics. Depressive disorder No current medication use METS: Walk a block or two on level ground (2.75 METs) Climb a flight of stairs or walk up a hill (5.50 METs) Patient denies any chest pain or undue shortness of breath with the above physical activity. ASA Class: 3 ANESTHESIA FINDINGS: Intubation History: No history of difficult intubation Significant Anesthesia Considerations: Difficult IV/Vein Access: difficult access Airway Exam: General: Normal appearance Mallampati Score is CLASS III ULBT: Class I - Lower incisors can bite the upper lip above the carolina line Neck: Normal appearance and function, Distance from hyoid to mentum during neck extension is at least 3 finger breaths Mouth: Normal tongue size and Mouth opening greater than 2 finger breaths Dentition: Intact Airway History: No prior intubation STOP BANG Score: Criteria: Hypertension Male gender Score = 2 PLAN This patient is optimally prepared for surgery pending LABS and EKG. CONSULTS: Patient does not require consults for optimization at this time. The Following Tests/Procedures Have Been Initiated: Labs per surgery. EKG per P[facility] Planned Anesthetic: Per anesthesia choice Instructions Given to Patient: Instructions located in the after visit summary. Patient given verbal and written preop instructions and voices comprehension and compliance. SIGNATURE: Ruma Gonzalez APRN.CNP PATIENT NAME: Joselin Freitas DATE: February 23, 2022 TIME: 1:17 PM February 27, 2022 7:54 AM Labs and EKG reviewed and accepted. Ruma Gonzalez APRN.CNP documented in this encounterProtestant Hospital12-30-2022 Instructions* Patient Instructions* Ruma Gonzalez APRN.CNP - 02/23/2022 1:58 PM EST PATIENT PREOPERATIVE INSTRUCTIONS Homer Padilla MD has scheduled you for your procedure at this surgery center: [facility] Scheduling Office: [phone] --[address] [place] [address]. Please read below carefully for your personalized instructions. Dietary Restrictions: - No solid food after midnight. - You may have 12 ounces of clear liquids (water, clear juices such as apple juice or gatorade, carbonated beverages, clear tea, black coffee, jello) until 2 hours before scheduled arrival at facility. Medications: Unless instructed differently below, stay on all of your medications until your surgery. Approved medications to take the morning of surgery with a sip of water: amlodipine, suboxone, gabapentin, (reglan, zofran if needed) - Insulin pump: continue the same basal rate. If you start any new medications after today's visit, please contact the surgeon's office. Blood Thinning Medications: - Stop NSAIDS (Ibuprofen, Advil, Aleve, Motrin, Celebrex, Mobic, etc.) 7 days before surgery, as directed by your surgeon. - Stop Aspirin 7 days before surgery, as directed by your surgeon. - Stop Vitamin E, ALL multi-vitamins, herbals and dietary supplements 7 days before surgery. - You may take Tylenol (Acetaminophen) or any of your pain medications that do not contain aspirin or NSAIDS as needed. Important Reminders: - Candy, mints, and tobacco products are NOT permitted the morning of surgery. - Hearing aids, dentures and glasses may be worn the morning of surgery. - NO jewelry, body piercings, makeup, hairpins or contacts are to be worn the day of surgery. If you develop symptoms such as a fever, cold, or flu, or have other changes to your health within TWO DAYS of scheduled surgery or the morning of surgery, please contact the surgery center above. Personal Belongings: -Please have photo ID and insurance cards. -If you do not have a copy of advance directives on file with us, please bring a copy with you on the day of surgery. - Leave ALL valuables and money at home or with family members. For Outpatient Procedures: - YOU MUST HAVE A RESPONSIBLE BOILERMAKER INDUSTRIAL BOILERS TAKE YOU HOME. A CLEARANCE CENTER MANAGER OR SUMMER LAW ASSOCIATE CANNOT BE MADE A RESPONSIBLE BOILERMAKER [employer]RI[employer] BOILERS. - We recommend that a responsible person stays with you overnight to take care of you. - You cannot stay in a hotel alone after outpatient surgery. You will not be permitted to have yoursurgery, if you do not have someone to take care of you. Arrival Time for Surgery: - To obtain your arrival time for surgery, call your physician's office the day before your surgery. - If your surgery is scheduled for Saturday, call the Saturday before. Your surgeon s master scheduler will tell you what time to call the office. - If you have not reached the departmental master scheduler by 5 P.M., call [phone] after 5 P.M. the day before your surgery. Please be aware that emergency situations arise, which may delay or change your surgical time. If this happens, we will notify you as soon as possible and regret any inconvenience. If you already have an Advance Directive, please fax a copy to [phone] or email to for it to be added to your chart. If you do not have an Advance Directive, you can find the appropriate form and more information at [email or web address]. We recommend that youcomplete the Advance Directive form found on the website and bring it with you the day of your surgery. It can be witnessed and scanned into your chart that day. Ruma Gonzalez APRN.BRANDEE documented in this encounterProtestant Hospital08-31-2022 Miscellaneous Notes* Telephone Encounter - Mateus Cronin RN - 10/25/2021 8:11 AM EDT Patient calling with request for lab result. Patient denies any new or worsening symptoms of which a provider is not aware: Yes. Pt stated he had a diabetic pump surgery yesterday and they were supposed to send over his A1C results to . He would like to see if his results was received and was he able to now schedule his surgery. documented in this encounterProtestant Hospital08-24-2022 Progress note Author Tuan Thakkar [facility] October 18, 2021 2:21pm Note Date/Time October 18, 2021 2: 15pm [facility] [address] [place] [address] Hospitalist Progress Note Signed Patient: Joselin Freitas MR#: [id number] : 1985 Acct:[id number] Age/Sex: 36 / M Adm Date: 2 Loc: Room: [address] [place] [id number] Type: ADM IN Attending Dr: Tuan Thakkar DO Copies to: ~ Date of Service: 10/18/2021 Subjective Subjective Narrative: Patient has been continued on the diabetic ketoacidosis here in the ICU. Hyponatremia has improved. Hypokalemia has improved. Potassium levels have been stable. Acute kidney injury does seem to be improving nicely. Urine drug screen is positive for amphetamines. White blood count is elevated. He came in with 15.2 and then went even higher to 18.7. There is only 1 mild temperature elevation of 99.2 ?F and that everything else has been normal without a fever. When I see the patient he is rather sleepy. He does seem to wake up. He still seems to be more sedated than I would expect. He denies any nausea or vomiting or abdominal pain. He does indicate that he is beginning to feel hungry. He denies any cough or expectoration sputum. He denies any fevers chills. He denies any dysuria. I ask him some questions about infection and we cannot identify any at all. Exam Physical Exam Vital Signs: Temp Pulse Resp BP Pulse Ox O2 Del Method 98.8 F 95 H 13 114/60 96 Room Air 10/18/21 08:00 10/18/21 11:00 10/18/21 11:00 10/18/21 11:00 10/18/21 11:00 10/18/21 11:00 Narrative: Gen: Resting in bed. Seems to be rather sedated. Got 16 mg of buprenorphine this morning when he normally takes only 8 mg twice daily. Neurologic: No focal or lateralizing neurologic deficit noted. He does follow commands. He does answer some questions. Just seems to be very sedated. Pulmonary: Listening anteriorly I do not hear any wheezing. Breath sounds are soft and easy. No cough. Cardiac: Normal sinus rhythm on the monitor. No rubs or gallops to auscultation. GI: Abdomen is entirely soft and nontender to palpation throughout. No rigidity.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 End: August 02, 2023 Roger Serrnao APRN Emergency Provider Active Start: August 02, 2023 End: August 02, 2023 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 Relationship Specialty Start Date End Date Unallocated, Anamaria Matthews MD [facility] [address] [place] [address] PCP - General 12/20/22 [employer] 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 Relationship Specialty Start Date End Date Unallocated, Anamaria Matthews MD [facility] [address] [facility] [address] PCP - General 12/20/22 [employer] 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 Relationship Specialty Start Date End Date Unallocated, Aanmaria Matthews MD [facility] [address] [facility] [place] [address] PCP - General 12/20/22 Reason for Visit (unrecogniz ed section and content) Reason Comments Follow Up Reason Comments Returning Patient's Call Reason Comments Information Lab result Reason Comments Pre-Op Visit Reason Comments No Show Reason Comments Electronic Communication Sent fax to [facility] for [facility]ACC Reason Comments Pre-Op Exam Reason Comments Pre-Op Update HgA1C needs drawn Goals (unrecognized section and content) Goals may be documented in a n alternate section FOR RECORDS PERTAINING TO PATIENTS WHO ARE OR HAVE BEEN ENROLLED IN A CHEMICAL DEPENDENCY/SUBSTANCEABUSE PROGRAM, SOME INFORMATION MAY BE OMITTED. This clinical summary was aggregated from multiple sources. Caution should be exercised in using it in the provision of clinical care. This summary normalizes information from multiple sources, and as a consequence, information in this document may materially change the coding, format and clinical context of patient data. In addition, data may be omitted in some cases. CLINICAL DECISIONS SHOULD BE BASED ON THE PRIMARY CLINICAL RECORDS. [facility]. provides no warranty or guarantee of the accuracy or completeness of information in this document.
[2024-01-16 12:00] LABS: Basophils Absolute Auto 0.1 10^3/uL (0.0-0.1); Basophils Percent Auto 0.9 % (0.2-2.0); Eosinophils Absolute Auto 0.3 10^3/uL (0.0-0.7); Eosinophils Percent Auto 4.7 % (0.9-7.0); Hematocrit 36.8 % (42.0-54.0); Hemoglobin 12.1 g/dL (14.0-18.0); Immature Granulocytes Abs Auto 0.01 10^3/uL (0.00-0.03); Immature Granulocytes Pct Auto 0.2 % (0.0-0.5); Lymphocytes Absolute Auto 1.6 10^3/uL (1.2-3.8); Lymphocytes Percent Auto 28.3 % (20.5-60.0); Mean Corpuscular HGB Conc 32.9 g/dL (29.9-35.2); Mean Corpuscular Hemoglobin 28.7 pg (25.9-34.0); Mean Corpuscular Volume 87.4 fL (80.0-94.0); Mean Platelet Volume 9.7 fL (9.5-13.5); Monocytes Absolute Auto 0.9 10^3/uL (0.3-0.8); Monocytes Percent Auto 15.4 % (1.7-12.0); Neutrophils Absolute Auto 2.9 10^3/uL (1.4-6.5); Neutrophils Percent Auto 50.5 % (43.0-75.0); Platelet Count 286 10^3/uL (150-450); Red Blood Count 4.21 10^6/uL (4.70-6.10); Red Cell Distribution Width 12.5 % (11.0-15.0); White Blood Count 5.8 10^3/uL (4.0-11.0)
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
[2024-01-16] MEDS: VANCOMYCIN HCL 1,000 MG in 0.9 % SODIUM CHLORIDE 250 ML 250 MG IV ×2 (12:14→21:22)
[2024-01-16] MEDS: LORAZEPAM 2 MG/ML VIAL 1 MG IV (12:14)
[2024-01-16] MEDS: KETOROLAC TROMETHAMINE 30 MG/ML VIAL 15 MG IVP (12:14)
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
[2024-01-16 12:32] LABS: Alanine Aminotransferase 60 U/L (16-63); Albumin Globulin Ratio 0.6; Alkaline Phosphatase 102 U/L (46-116); Anion Gap 13.3; Aspartate Amino Transferase 45 U/L (15-37); BUN Creatinine Ratio 17.1; Bilirubin Total 0.3 mg/dL (0.2-1.0); Calcium 9.1 mg/dL (8.5-10.1); Carbon Dioxide 28.6 mmol/L (21.0-32.0); Chloride 103 mmol/L (98-107); Estimated GFR (African America >60 (>=60 mL/min/1.73m^2); Estimated GFR (Non-African Ame >60 (>=60 mL/min/1.73m^2); Globulin 4.8 g/dL; Glucose 308 mg/dL (74-106); Lactate/Lactic Acid 1.8 mmol/L (0.4-2.0); Potassium 3.9 mmol/L (3.5-5.1); Sodium 141 mmol/L (136-145); Total Protein 7.8 g/dL (6.4-8.2)
[2024-01-16 12:54] LABS: Erythrocyte Sedimentation Rate 37 mm/hr (<=15)
[2024-01-16 12:59] LABS: C Reactive Protein 0.64 mg/dL (<=0.50)
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
[2024-01-16] MEDS: PIPERACILLIN SODIUM/TAZOBACTAM 3.375 GM in 0.9 % SODIUM CHLORIDE 50 ML IV ×2 (14:06→21:22)
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
[2024-01-16 16:21] LABS: Glucometer 134 mg/dL (74-106)
[2024-01-16] MEDS: FLU VAC QS 2024(6MS UP)CEL/PF 60 MCG/0.5 ML SYRINGE IM (17:04)
[2024-01-16] MEDS: ENOXAPARIN SODIUM 40 MG/0.4 ML SYRINGE SUBQ (17:04)
[2024-01-16] MEDS: COLLAGENASE CLOSTRIDIUM HIST. 250 UNITS/GM 30 GRAM TUBE 1 APPLIC TOPICAL (17:05)
[2024-01-16 20:09] LABS: Glucometer 224 mg/dL (74-106)
[2024-01-16] MEDS: GABAPENTIN 300 MG CAPSULE PO (21:20)
[2024-01-16] MEDS: BUPRENORPHINE HCL/NALOXONE HCL 8-2 MG TABLET SUBL 1 TAB SL (21:21)
[2024-01-17] VITALS: BP 151/105; PULSE 84; TEMP 36.4; O2SAT 98
[2024-01-17 00:23] LABS: Glucometer 67 mg/dL (74-106)
[2024-01-17 04:00] VITALS: BP 164/88; PULSE 77; TEMP 36.9; O2SAT 98
[2024-01-17] MEDS: VANCOMYCIN HCL 1,000 MG in 0.9 % SODIUM CHLORIDE 250 ML 250 MG IV ×2 (04:27→21:11)
[2024-01-17] MEDS: PIPERACILLIN SODIUM/TAZOBACTAM 3.375 GM in 0.9 % SODIUM CHLORIDE 50 ML IV ×3 (05:31→21:11)
[2024-01-17] MEDS: GABAPENTIN 300 MG CAPSULE PO ×3 (05:31→21:10)
[2024-01-17 06:13] LABS: Basophils Absolute Auto 0.1 10^3/uL (0.0-0.1); Basophils Percent Auto 1.3 % (0.2-2.0); Eosinophils Absolute Auto 0.4 10^3/uL (0.0-0.7); Eosinophils Percent Auto 8.8 % (0.9-7.0); Hematocrit 40.3 % (42.0-54.0); Hemoglobin 13.3 g/dL (14.0-18.0); Lymphocytes Absolute Auto 1.8 10^3/uL (1.2-3.8); Lymphocytes Percent Auto 37.7 % (20.5-60.0); Mean Corpuscular Hemoglobin 28.9 pg (25.9-34.0); Mean Corpuscular Volume 87.4 fL (80.0-94.0); Mean Platelet Volume 9.7 fL (9.5-13.5); Monocytes Absolute Auto 0.7 10^3/uL (0.3-0.8); Monocytes Percent Auto 14.4 % (1.7-12.0); Neutrophils Absolute Auto 1.8 10^3/uL (1.4-6.5); Neutrophils Percent Auto 37.8 % (43.0-75.0); Platelet Count 291 10^3/uL (150-450); Red Blood Count 4.61 10^6/uL (4.70-6.10); Red Cell Distribution Width 12.4 % (11.0-15.0); White Blood Count 4.8 10^3/uL (4.0-11.0)
[2024-01-17 06:29] LABS: Estimated Average Glucose 212 mg/dL
[2024-01-17 06:31] LABS: INR 1.01; Partial Thromboplastin Time 33.9 sec (22.3-36.2); Prothrombin Time 10.7 sec (9.0-11.6)
[2024-01-17 06:33] LABS: Alanine Aminotransferase 63 U/L (16-63); Albumin Globulin Ratio 0.6; Albumin Level 3.2 g/dL (3.4-5.0); Alkaline Phosphatase 110 U/L (46-116); Anion Gap 10.3; Aspartate Amino Transferase 45 U/L (15-37); BUN Creatinine Ratio 17.6; Bilirubin Total 0.5 mg/dL (0.2-1.0); Calcium 9.3 mg/dL (8.5-10.1); Carbon Dioxide 28.5 mmol/L (21.0-32.0); Chloride 103 mmol/L (98-107); Estimated GFR (African America >60 (>=60 mL/min/1.73m^2); Estimated GFR (Non-African Ame >60 (>=60 mL/min/1.73m^2); Glucose 138 mg/dL (74-106); Potassium 3.8 mmol/L (3.5-5.1); Sodium 138 mmol/L (136-145); Total Protein 8.2 g/dL (6.4-8.2)
[2024-01-17 07:36] VITALS: BP 139/91; PULSE 81; TEMP 36.8; O2SAT 98
--- NOTE | 2024-01-17 08:34 | PM.PN ---
Progress Note: Subjective Subjective Interval history: Patient is resting in bed, Dr. Mendez was in earlier to assess wound. Erythema has improved on the left leg, no fevers or chills. Normal appetite, pain controlled. No other further issues or complaints. Exam Narrative Exam Narrative: General: Patient is alert, and oriented to person, place and time with normal affect, proper hygiene Skin: large ulcer to the bottom of the left foot with no surrounding erythema but the 2nd toe is draining, red all the way down to the PIP joint, erythema and swelling of the left leg just below the knee has improved, deformity of the left great toe Head: atraumatic, acephalic Eyes: PERRLA, no nystagmus present, conjunctiva clear, no scleral icterus Ears: normal gross auditory acuity Neck: no masses palpated, normal thyroid, no JVD or audible carotid bruits Heart: Normal rate and rhythm, no murmurs/rubs/gallops Lungs: no audible wheezes, crackles and normal breath sounds all lung iverson Abdomen: Normal audible bowel sounds, no distension, No palpable masses, no organomegaly, no rebound/guarding/ or rigidity Musculoskeletal: +1 swelling left lower extremity Neuro: CN II-X grossly intact Constitutional Vital Signs, click to edit/add: Last Vital Signs Temp 98.2 F 01/17/24 07:36 Pulse 81 01/17/24 07:36 Resp 20 01/17/24 07:36 BP 139/91 01/17/24 07:36 Pulse Ox 98 01/17/24 07:36 O2 Del Method Room Air 01/17/24 07:36 Progress Note: Objective Labs Labs: Short CBC 01/16/24 01/17/24 Range/Units 11:38 05:57 WBC 5.8 4.8 (4.0-11.0) 10^3/uL Hgb 12.1 L 13.3 L (14.0-18.0) g/dL Hct 36.8 L 40.3 L (42.0-54.0) % Plt Count 286 291 (150-450) 10^3/uL BMP 01/16/24 01/17/24 11:38 05:57 Sodium 141 138 Potassium 3.9 3.8 Chloride 103 103 Carbon Dioxide 28.6 28.5 BUN 21.0 H 16.0 Creatinine 1.23 0.91 Glucose 308 H 138 H Calcium 9.1 9.3 Liver Function 01/16/24 01/17/24 Range/Units 11:38 05:57 Total Bilirubin 0.3 0.5 (0.2-1.0) mg/dL AST 45 H 45 H (15-37) U/L ALT 60 63 (16-63) U/L Alkaline Phosphatase 102 110 (46-116) U/L Albumin 3.0 L 3.2 L (3.4-5.0) g/dL Progress Note: A&P Assessment and Plan (1) Diabetic infection of left foot: Assessment and Plan: WBC's normal, lactate normal, elevated ESR, CRP. Given chronic but worse and hyperglycemia, will place on Vancomycin and Zosyn. consulted podiatry that deems not surgical at this time. Apparently he's been seen for awhile at the wound clinic. Pain is controlled. Taking suboxone and will continue that here. X-ray showed Soft tissue swelling of first and second toes, no bony evidence of osteo. ultrasound of the left leg was negative for DVT. (2) Cellulitis of left foot: Assessment and Plan: see #1 (3) Bipolar 1 disorder: Assessment and Plan: continue abilify, Lexapro, Methylphenidate (4) Hypertension: Assessment and Plan: continue lisinopril Qualifiers: Hypertension type: secondary to endocrine disorders Qualified Code(s): I15.2 - Hypertension secondary to endocrine disorders (5) Type 1 diabetes: Assessment and Plan: continue home insulin pump, accucheck qachs, patient with ha1c of 9.0 showing uncontrolled status Qualifiers: Diabetes mellitus complication status: with hyperglycemia Qualified Code(s): E10.65 - Type 1 diabetes mellitus with hyperglycemia (6) Drug abuse in remission: Assessment and Plan: continue suboxone Plan patient is a full code continue lovenox for DVT prophylaxis Probable discharge tomorrow on Oral antibiotics with close outpatient follow up next week at the wound clinic.
[2024-01-17] MEDS: LISINOPRIL 10 MG TABLET PO (09:31)
[2024-01-17] MEDS: BUPRENORPHINE HCL/NALOXONE HCL 8-2 MG TABLET SUBL 1 TAB SL ×2 (09:31→21:10)
[2024-01-17] MEDS: ESCITALOPRAM 10 MG TABLET 20 MG PO (09:31)
[2024-01-17] MEDS: ARIPIPRAZOLE 15 MG TABLET PO (09:31)
[2024-01-17] MEDS: COLLAGENASE CLOSTRIDIUM HIST. 250 UNITS/GM 30 GRAM TUBE 1 APPLIC TOPICAL (09:32)
--- NOTE | 2024-01-17 09:45 | PM.PN ---
Progress Note: Subjective Subjective Interval history: Patient seen at bedside & relates to no overnight events. He states he is feeling a bit better specifically referring to his left leg pain. No complaints but anxious about possibly losing his toe. Exam Narrative Exam Narrative: Bandage removed and redness to the left second toe is less intense. Wound on plantar foot remains healthy and granular. The second toe wound has a visible sinus which does probe to bone. No purulent drainage. No fluctuance. Serosanguineous drainage from the second toe which is also contracted but unchanged in alignment. Constitutional Vital Signs, click to edit/add: Last Vital Signs Temp 98.2 F 01/17/24 07:36 Pulse 81 01/17/24 07:36 Resp 20 01/17/24 07:36 BP 139/91 01/17/24 07:36 Pulse Ox 98 01/17/24 07:36 O2 Del Method Room Air 01/17/24 07:36 Progress Note: Objective Labs Labs: Short CBC 01/16/24 01/17/24 Range/Units 11:38 05:57 WBC 5.8 4.8 (4.0-11.0) 10^3/uL Hgb 12.1 L 13.3 L (14.0-18.0) g/dL Hct 36.8 L 40.3 L (42.0-54.0) % Plt Count 286 291 (150-450) 10^3/uL BMP 01/16/24 01/17/24 11:38 05:57 Sodium 141 138 Potassium 3.9 3.8 Chloride 103 103 Carbon Dioxide 28.6 28.5 BUN 21.0 H 16.0 Creatinine 1.23 0.91 Glucose 308 H 138 H Calcium 9.1 9.3 Liver Function 01/16/24 01/17/24 Range/Units 11:38 05:57 Total Bilirubin 0.3 0.5 (0.2-1.0) mg/dL AST 45 H 45 H (15-37) U/L ALT 60 63 (16-63) U/L Alkaline Phosphatase 102 110 (46-116) U/L Albumin 3.0 L 3.2 L (3.4-5.0) g/dL Progress Note: A&P Assessment and Plan (1) Diabetic infection of left foot: (2) Cellulitis of left foot: Assessment and Plan: Continue broad-spectrum antibiotics as patient is clinically improving (3) Bipolar 1 disorder: (4) Hypertension: Qualifiers: Hypertension type: secondary to endocrine disorders Qualified Code(s): I15.2 - Hypertension secondary to endocrine disorders (5) Type 1 diabetes: Qualifiers: Diabetes mellitus complication status: with hyperglycemia Qualified Code(s): E10.65 - Type 1 diabetes mellitus with hyperglycemia (6) Drug abuse in remission: Plan Patient seen and evaluated. Dr. Nolasco notified. No surgery planned for this admission however patient does remain at high risk for amputation given uncontrolled type 1 diabetes with diabetic foot infection. Continue Santyl to be applied daily. Patient is happy with no surgery at this point but I did spend significant time discussing that a partial amputation of his left second toe would likely be beneficial. I related that this could be done as an outpatient and he agreed to consider his options. Continue broad-spectrum antibiotics and hopeful discharge over the weekend on oral antibiotics Will follow
--- NOTE | 2024-01-17 09:55 | CM.NOTE ---
Rounds made with Dr. Nolasco. Continue with current plan of care. Understanding verbalized.
[2024-01-17 11:20] LABS: Glucometer 159 mg/dL (74-106)
[2024-01-17 12:00] VITALS: BP 148/90; PULSE 90; TEMP 36.4; O2SAT 97
[2024-01-17] MEDS: VANCOMYCIN HCL 1,000 MG in 0.9 % SODIUM CHLORIDE 250 ML 125 MG IV (12:17)
[2024-01-17 15:47] VITALS: BP 139/89; PULSE 89; TEMP 36.6; O2SAT 97
[2024-01-17] MEDS: ENOXAPARIN SODIUM 40 MG/0.4 ML SYRINGE SUBQ (16:51)
[2024-01-17 19:59] VITALS: BP 148/86; PULSE 90; TEMP 36.4; O2SAT 98
[2024-01-17 20:04] LABS: Vancomycin Trough 10.8 ug/mL (5.0-20.0)
[2024-01-17] MEDS: ACETAMINOPHEN 500 MG TABLET 1000 MG PO (21:10)
[2024-01-18] VITALS: BP 132/74; PULSE 84; TEMP 36.6; O2SAT 98
[2024-01-18] MEDS: VANCOMYCIN HCL 1,000 MG in 0.9 % SODIUM CHLORIDE 250 ML 250 MG IV (03:00)
[2024-01-18 04:00] VITALS: BP 142/87; PULSE 78; O2SAT 94
[2024-01-18] MEDS: PIPERACILLIN SODIUM/TAZOBACTAM 3.375 GM in 0.9 % SODIUM CHLORIDE 50 ML IV (05:54)
[2024-01-18] MEDS: GABAPENTIN 300 MG CAPSULE PO (05:54)
[2024-01-18] MEDS: ACETAMINOPHEN 500 MG TABLET 1000 MG PO (05:57)
[2024-01-18 06:11] LABS: Basophils Absolute Auto 0.1 10^3/uL (0.0-0.1); Basophils Percent Auto 1.1 % (0.2-2.0); Eosinophils Absolute Auto 0.4 10^3/uL (0.0-0.7); Eosinophils Percent Auto 8.3 % (0.9-7.0); Hematocrit 31.7 % (42.0-54.0); Hemoglobin 10.4 g/dL (14.0-18.0); Lymphocytes Absolute Auto 1.7 10^3/uL (1.2-3.8); Lymphocytes Percent Auto 37.4 % (20.5-60.0); Mean Corpuscular HGB Conc 32.8 g/dL (29.9-35.2); Mean Corpuscular Hemoglobin 29.1 pg (25.9-34.0); Mean Corpuscular Volume 88.5 fL (80.0-94.0); Mean Platelet Volume 9.6 fL (9.5-13.5); Monocytes Absolute Auto 0.7 10^3/uL (0.3-0.8); Monocytes Percent Auto 15.5 % (1.7-12.0); Neutrophils Absolute Auto 1.7 10^3/uL (1.4-6.5); Neutrophils Percent Auto 37.7 % (43.0-75.0); Platelet Count 247 10^3/uL (150-450); Red Blood Count 3.58 10^6/uL (4.70-6.10); Red Cell Distribution Width 12.4 % (11.0-15.0); White Blood Count 4.5 10^3/uL (4.0-11.0)
[2024-01-18 06:24] LABS: Alanine Aminotransferase 47 U/L (16-63); Albumin Globulin Ratio 0.6; Albumin Level 2.3 g/dL (3.4-5.0); Alkaline Phosphatase 84 U/L (46-116); Anion Gap 9.5; Aspartate Amino Transferase 32 U/L (15-37); BUN Creatinine Ratio 19.3; Bilirubin Total 0.2 mg/dL (0.2-1.0); Calcium 8.6 mg/dL (8.5-10.1); Carbon Dioxide 29.6 mmol/L (21.0-32.0); Chloride 106 mmol/L (98-107); Estimated GFR (African America >60 (>=60 mL/min/1.73m^2); Estimated GFR (Non-African Ame >60 (>=60 mL/min/1.73m^2); Glucose 206 mg/dL (74-106); Potassium 4.1 mmol/L (3.5-5.1); Sodium 141 mmol/L (136-145); Total Protein 6.3 g/dL (6.4-8.2)
[2024-01-18 08:00] VITALS: BP 157/92; PULSE 84; TEMP 36.4; O2SAT 95
[2024-01-18] MEDS: BUPRENORPHINE HCL/NALOXONE HCL 8-2 MG TABLET SUBL 1 TAB SL (08:28)
[2024-01-18] MEDS: COLLAGENASE CLOSTRIDIUM HIST. 250 UNITS/GM 30 GRAM TUBE 1 APPLIC TOPICAL (08:29)
[2024-01-18] MEDS: LISINOPRIL 10 MG TABLET PO (08:29)
[2024-01-18] MEDS: ARIPIPRAZOLE 15 MG TABLET PO (08:29)
[2024-01-18] MEDS: ESCITALOPRAM 10 MG TABLET 20 MG PO (08:29)
--- NOTE | 2024-01-18 10:13 | PM.PN ---
Progress Note: Subjective Subjective Interval history: Patient is resting in bed, and relates he is feeling much improved. Relates that he had some pain last night to his left leg which was relieved with Tylenol. Normal appetite, pain controlled. No other further issues or complaints. Exam Narrative Exam Narrative: Ulcer appearance to plantar left foot and left second toe has not changed however erythema and edema to the second toe is much improved with very little erythema currently. No pain on palpation. Serosanguineous drainage from the second toe Constitutional Vital Signs, click to edit/add: Last Vital Signs Temp 97.5 F L 01/18/24 08:00 Pulse 84 01/18/24 08:00 Resp 16 01/18/24 08:00 BP 157/92 H 01/18/24 08:00 Pulse Ox 95 01/18/24 08:00 O2 Del Method Room Air 01/18/24 08:00 Progress Note: Objective Labs Labs: Short CBC 01/18/24 Range/Units 05:49 WBC 4.5 (4.0-11.0) 10^3/uL Hgb 10.4 L (14.0-18.0) g/dL Hct 31.7 L (42.0-54.0) % Plt Count 247 (150-450) 10^3/uL BMP 01/18/24 05:49 Sodium 141 Potassium 4.1 Chloride 106 Carbon Dioxide 29.6 BUN 17.0 Creatinine 0.88 Glucose 206 H Calcium 8.6 Liver Function 01/18/24 Range/Units 05:49 Total Bilirubin 0.2 (0.2-1.0) mg/dL AST 32 (15-37) U/L ALT 47 (16-63) U/L Alkaline Phosphatase 84 (46-116) U/L Albumin 2.3 L (3.4-5.0) g/dL Progress Note: A&P Assessment and Plan (1) Diabetic infection of left foot: (2) Cellulitis of left foot: Assessment and Plan: Continue broad-spectrum antibiotics and will be discharged on p.o. 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 Discussed case with Dr. Palafox. Shaanay to discharge home on Bactrim DS and Augmentin 875 1 p.o. twice daily for 2 weeks Patient has follow-up in the wound center for Saturday I did discuss with the patient that partial second toe amputation may be his best option which can be done as an outpatient. I reviewed the potential risks and benefits and postoperative course. If all infection has resolved then he may also benefit from allogenic skin substitute on the plantar foot ulcer. I did discuss patient's uncontrolled diabetes and how this affects his healing potential. Patient does remain at high risk for limb loss and recurrent infection.
--- NOTE | 2024-01-18 11:00 | P.DS_ITS ---
DS: Providers Provider Date of admission: 01/16/24 14:58 Primary care physician: PRASANNA GARNICA Admitting clinician: Cat Nolasco Attending physician on admission: Cat Nolasco Consults: 01/16/24 13:01 Consult to Podiatry Routine Consulting Provider: Logan Mendez Reason for consultation: left foot osteo Has provider been notified: Yes Attending physician on discharge: Shaikh Vivienne Discharging clinician: Shaikh Vivienne Anticipated date of discharge: 01/18/24 DS: Diagnosis Discharge Diagnosis (1) Diabetic infection of left foot: (2) Cellulitis of left foot: (3) Bipolar 1 disorder: (4) Hypertension: Qualifiers: Hypertension type: secondary to endocrine disorders Qualified Code(s): I15.2 - Hypertension secondary to endocrine disorders (5) Type 1 diabetes: Qualifiers: Diabetes mellitus complication status: with hyperglycemia Qualified Code(s): E10.65 - Type 1 diabetes mellitus with hyperglycemia (6) Drug abuse in remission: (7) 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 He also has chronic ulcer on the dorsum of first left metatarsal for which [facility]. 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 Given the extent of skin involvement, risk factors including DM and peripheral neuropathy, he was considered to be at high risk of toe/limb amputation and was treated with IV vancomycin/zosyn. XR negative for OM but clinically osteomyelitis based on bone probe and clinical exam. Patient was evaluated by podiatry who recommended medical management with plans for partial 2nd left toe amputation as outpatient if no improvement. Patient still has serosanguineous and slightly purulent discharge from his left toe. However, his overall erythema/pain/tenderness along his left leg and foot has considerably improved. Cleared for discharge on oral abx by Podiatry. Patient will be discharged home on oral Bactrim/Augmentin x 2 weeks. He has an appt with Podiatry next week. F/u closely with Podiatry and wound clinic as outpatient. Patient also has chronic b/l LE edema/swelling that is ongoing. He has no known cardiac hx but he will benefit from work up and appropriate treatment for underlying congestive heart failure, liver cirrhosis or venous insufficiency as this will reduce the risk of recurrent cellulitis/foot infections. This could also be due to Gabapentin and if alternate etiologies have been ruled out, changing to Cymbalta or reducing the dose should be considered. F/u with PCP in one week. Status at Discharge Functional status at discharge: independent ambulation Overall status at discharge: patient is back to baseline Time Spent with Patient Time attestation: Total time spent providing and/or coordinating discharge services: Time spent: greater than 30 minutes Exam Constitutional Vital Signs, click to edit/add: Last Vital Signs Temp 97.5 F L 01/18/24 08:00 Pulse 84 01/18/24 08:00 Resp 16 01/18/24 08:00 BP 157/92 H 01/18/24 08:00 Pulse Ox 95 01/18/24 08:00 O2 Del Method Room Air 01/18/24 08:00 Documenting provider has reviewed patient's vital signs: yes Common normals: no apparent distress and oriented x3 General appearance: cooperative Respiratory Common normals: normal respiratory effort and clear to auscultation bilaterally Effort & inspection: able to speak in complete sentences Auscultation: clear to auscultation bilaterally Cardio Common normals: regular rate, S1 normal heart sound and S2 normal heart sound Rate: regular rate Heart sounds: S1 normal and S2 normal Extremity General: edema (+2 B/l ) Other: Erythema and edema to the second toe is much improved with very little erythema currently. No pain on palpation. Serosanguineous drainage from the second toe Neuro Common normals: oriented x3, moves all extremities and no focal motor deficits Psych Common normals: mental status grossly normal, denies hallucinations, denies homicidal ideation and denies suicidal ideation DS: Data Data Completed and Pending Labs on day of discharge: Labs from last 24 hours 01/18/24 01/17/24 01/17/24 05:49 19:30 11:20 WBC 4.5 RBC 3.58 L Hgb 10.4 L Hct 31.7 L MCV 88.5 MCH 29.1 MCHC 32.8 RDW 12.4 Plt Count 247 MPV 9.6 Neut % (Auto) 37.7 L Lymph % (Auto) 37.4 [place] % (Auto) 15.5 H Eos % (Auto) 8.3 H Baso % (Auto) 1.1 Neut # (Auto) 1.7 Lymph # (Auto) 1.7 [place] # (Auto) 0.7 Eos # (Auto) 0.4 Baso # (Auto) 0.1 Abs Immat Gran (auto) 0.00 Imm/Tot Granulo (auto) 0.0 Sodium 141 Potassium 4.1 Chloride 106 Carbon Dioxide 29.6 Anion Gap 9.5 BUN 17.0 Creatinine 0.88 Est GFR ( Amer) >60 Est GFR (Non-Af Amer) >60 BUN/Creatinine Ratio 19.3 Glucose 206 H Calcium 8.6 Total Bilirubin 0.2 AST 32 ALT 47 Alkaline Phosphatase 84 Total Protein 6.3 L Albumin 2.3 L Globulin 4.0 Albumin/Globulin Ratio 0.6 Vancomycin Trough 10.8 POC Glucose 159 H Discharge Plan Discharge Disposition: Home, Self-Care Condition: Fair Discharge Medications: New sulfamethoxazole-trimethoprim [Bactrim DS] 800-160 mg tablet 1 tab PO BID 14 Days Qty: 28 0RF amoxicillin-pot clavulanate 875-125 mg tablet 1 tab PO BID 14 Days Qty: 28 0RF Continued buprenorphine-naloxone 8-2 mg film 1 film sublingual BID aripiprazole 15 mg tablet 15 mg PO DAILY gabapentin 300 mg capsule 300 mg PO TID methylphenidate HCl 20 mg tablet 20 mg PO BID meclizine 12.5 mg tablet 12.5 mg PO TID PRN (Reason: dizziness) insulin aspart U-100 100 unit/mL solution 1 unit subcut Q6H Rx Instructions: USE SLIDING SCALE DIRECTED escitalopram oxalate 20 mg tablet 20 mg PO DAILY lisinopril 10 mg tablet 10 mg PO DAILY mupirocin calcium 2 % cream 1 applic TOPICAL BID Rx Instructions: TO WOUNDS Activity: increase activity as tolerated Diet: advance to your usual diet Print Language: Brazilian Patient Instructions: Sulfamethoxazole/Trimethoprim (By mouth) (Bactrim, Bactrim DS,..., Amoxicillin/Clavulanate Potassium (By mouth), Foot Care for People with Diabetes (DC), Chronic Wounds (DC) Forms: Portal Instructions Follow Up Appointments: Juanita Gaspar., 2023, at 9:00am [phone] F/u with PCP in one week
--- NOTE | 2024-01-20 14:27 | CM.DCFOLLOWU ---
1st attempt 01/20/24, no answer
--- NOTE | 2024-01-21 13:32 | CM.DCFOLLOWU ---
2nd attempt 01/21/24, no answer
--- NOTE | 2024-01-22 13:14 | CM.DCFOLLOWU ---
3rd attempt 01/22/24, no answer
== END 2024-01-18 11:10 | disposition home or self-care (01) | DRG 344 ==
LOC: ER 13:41 → MS 01-18 10:58
PROVIDERS: Admitting Provider Family Medicine; Emergency Provider Emergency Medicine; PCP Nurse Practitioner Family; Visit Provider Internal Medicine
DX: E10.628 Type 1 diabetes mellitus with other skin complications (principal); L03.116 Cellulitis of left lower limb; I10 Essential (primary) hypertension; F19.11 Other psychoactive substance abuse, in remission; E10.621 Type 1 diabetes mellitus with foot ulcer; L97.425 Non-pressure chronic ulcer of left heel and midfoot with muscle involvement without evidence of necrosis; E10.65 Type 1 diabetes mellitus with hyperglycemia; E10.69 Type 1 diabetes mellitus with other specified complication; E10.42 Type 1 diabetes mellitus with diabetic polyneuropathy; M86.9 Osteomyelitis, unspecified; L97.524 Non-pressure chronic ulcer of other part of left foot with necrosis of bone; F41.9 Anxiety disorder, unspecified; F31.9 Bipolar disorder, unspecified; Z96.41 Presence of insulin pump (external) (internal); Z87.891 Personal history of nicotine dependence; Z87.820 Personal history of traumatic brain injury; Z79.4 Long term (current) use of insulin; Z79.899 Other long term (current) drug therapy
CPT/HCPCS: 36415; 73630; 80053; 80202; 82948; 83036; 83605; 85025; 85610; 85652; 85730; 86140; 87040; 90674; 93971; 96365; 96367; 96375; 99285; G0378; G0463; J0574; J1650; J1885; J2060; J2543; J3370

== ENCOUNTER 2024-01-21 10:00 | Outpatient (OUT) | payer OTHER, SELFPAY | END 2024-01-21 10:01 | disposition home or self-care (01) | LOC: WC 10:00 | PROVIDERS: PCP Nurse Practitioner Family; Visit Provider Physician Assistant | DX: E10.621 Type 1 diabetes mellitus with foot ulcer (principal); L97.425 Non-pressure chronic ulcer of left heel and midfoot with muscle involvement without evidence of necrosis; L97.522 Non-pressure chronic ulcer of other part of left foot with fat layer exposed | CPT/HCPCS: 11043; 11044 ==

== ENCOUNTER 2024-03-06 10:33 | Outpatient (OUT) | payer OTHER, SELFPAY ==
--- NOTE | 2024-03-06 | XR_ITS ---
The [address] [address] Patient Name: JOSELIN GARAY MRN: [id number] date: 1985 Sex: M Assigned Patient Location: Current Patient Location: Accession/Order Number: [id number] Exam Date: 03/06/2024 10:33 Report Date: 03/06/2024 12:54 At the request of: LUPILLO MARQUEZ Procedure: XR foot LT min 3V PROCEDURE: XR foot LT min 3V HISTORY: LEFT FOOT PAIN ; or laceration to dorsal aspect of hindfoot COMPARISON: XR foot left 01/15/2024 FINDINGS: BONES:Fragmented appearance of bones and intervening lucencies involving the second toe distal phalanx and the distal end of the middle phalanx. Mild degenerative changes the first metatarsophalangeal joint and the first interphalangeal joint. Mild degenerative enthesopathic spurring of the calcaneus. SOFT TISSUES:Soft tissue swelling of the second toe. EFFUSION:None visible. OTHER: Negative. XR/XR foot LT min 3V IMPRESSION: 1. Second toe soft tissue swelling and osseous destruction of the bones most suggestive of osteonecrosis. This is felt less likely to represent sequela of recent comminuted fracture and subsequent bone resorption. 2. No suspicious hindfoot are calcaneal abnormality to correspond to patient's history. Electronically authenticated by: MICHAEL CR Date: 03/06/2024 12:54
--- OUTSIDE RECORDS SUMMARY | 2024-03-06 10:45 | XMS_ITS | CCD ---
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 Diabetes Mellitus. PERFORMED BY: [place] [address] PATHOLOGIST LABOR RELATIONS OR PERSONNEL NEGOTIATOR ACE JOSÉ M.D. Performed By: #### G LULS #### Point of Care testing , Glucose [Mass/Vol] 249 mg/dL Normal [facility] Comment on above: Result Comment: [place] Glucose Reference Range is dependent on time and content of last meal. Glucose of more than 200 mg/dL in a nonstressed, ambulatory subject supports the diagnosis of Diabetes Mellitus. PERFORMED BY: [place] [address] PATHOLOGIST LABOR RELATIONS OR PERSONNEL NEGOTIATOR ACE JOSÉ M.D. Performed By: #### G LULS #### Point of Care testing , Glucose [Mass/Vol] 249 mg/dL Normal [facility] Comment on above: Result Comment: [place] Glucose Reference Range is dependent on time and content of last meal. Glucose of more than 200 mg/dL in a nonstressed, ambulatory subject supports the diagnosis of Diabetes Mellitus. PERFORMED BY: [address] [place] [address] PATHOLOGIST LABOR RELATIONS OR PERSONNEL NEGOTIATOR ACE JOSÉ M.D. Performed By: #### G LULS #### Point of Care testing , Glucose [Mass/Vol] 229 mg/dL Normal [facility] Comment on above: Result Comment: [place] Glucose Reference Range is dependent on time and content of last meal. Glucose of more than 200 mg/dL in a nonstressed, ambulatory subject supports the diagnosis of Diabetes Mellitus. PERFORMED BY: [address] [address] PATHOLOGIST LABOR RELATIONS OR PERSONNEL NEGOTIATOR ACE JOSÉ M.D. Performed By: #### G LULS #### Point of Care testing , Glucose [Mass/Vol] 265 mg/dL Normal [facility] Comment on above: Result Comment: [facility] Glucose Reference Range is dependent on time and content of last meal. Glucose of more than 200 mg/dL in a nonstressed, ambulatory subject supports the diagnosis of Diabetes Mellitus. PERFORMED BY: [address] [address] PATHOLOGIST LABOR RELATIONS OR PERSONNEL NEGOTIATOR ACE JOSÉ M.D. Performed By: #### G LULS #### Point of Care testing , Glucose [Mass/Vol] 290 mg/dL Normal [facility] Comment on above: Result Comment: [facility] Glucose Reference Range is dependent on time and content of last meal. Glucose of more than 200 mg/dL in a nonstressed, ambulatory subject supports the diagnosis of Diabetes Mellitus. PERFORMED BY: [address] [address] PATHOLOGIST LABOR RELATIONS OR PERSONNEL NEGOTIATOR ACE JOSÉ M.D. Performed By: #### G LULS #### Point of Care testing , A1C with Estimated Average G [facility] 02-18-2024 Glucose [Mass/Vol] 209 mg/dL Normal [facility] Comment on above: Order Comment: Comme nt add Result Comment: PERF ORMED BY: [place] [address] PATHOLOGIST LABOR RELATIONS OR PERSONNEL NEGOTIATOR ACE JOSÉ M.D. Performed By: #### G LULS #### Point of Care testing , HbA1c (Bld) [Mass fraction] 8.9 % High 4.3-5.6 [facility] Comment on above: Order Comment: Comme nt add Result Comment: Incr eased risk for diabetes: 5.7 - 6.4 diabetes: >6.4 glycemic control for adults with diabetes: <7.0 Performed By: #### G LULS #### Point of Care testing , Beta Hydroxybuterateon 02-17 Beta Hydroxybuterate 2.15 mmol/L High 0.02-0.27 [facility] Comment on above: Result Comment: PERF ORMED BY: [place] [phone] PATHOLOGIST LABOR RELATIONS OR PERSONNEL NEGOTIATOR ACE JOSÉ M.D. Performed By: #### C MP, CBC, MG, PHOS #### [address] Complete Blood Count Auto Di ffon 02-18-2024 Basophils (Bld) [#/Vol] 0.1 10*3/uL Normal 0.0-0.2 [facility] Comment on above: Result Comment: PERF ORMED BY: [place] [phone] PATHOLOGIST LABOR RELATIONS OR PERSONNEL NEGOTIATOR ACE JOSÉ M.D. Performed By: #### C MP, CBC, MG, PHOS #### [place] [address] [place] Basophils/100 WBC (Bld) 1.1 % Normal . [facility] Comment on above: Performed By: #### C MP, CBC, MG, PHOS #### [place] [address] [place] Eosinophils (Bld) [#/Vol] 0.3 10*3/uL Normal 0.0-0.45 [facility] Comment on above: Performed By: #### C MP, CBC, MG, PHOS #### [address] Eosinophils/100 WBC (Bld) 4.9 % Normal . [facility] Comment on above: Performed By: #### C MP, CBC, MG, PHOS #### [address] Erythrocyte distribution width (RBC) [Ratio] 13.5 % Normal 12.0-14.8 [facility] Comment on above: Performed By: #### C MP, CBC, MG, PHOS #### [address] Hematocrit (Bld) [Volume fraction] 38.4 % Low 38.8-50.0 [facility] Comment on above: Performed By: #### C MP, CBC, MG, PHOS #### [address] Hemoglobin (Bld) [Mass/Vol] 12.5 g/dL Low 13.0-17.0 [facility] Comment on above: Performed By: #### C MP, CBC, MG, PHOS #### [address] Lymphocytes (Bld) [#/Vol] 1.9 10*3/uL Normal 1.00-4.8 [facility] Comment on above: Performed By: #### C MP, CBC, MG, PHOS #### [address] Lymphocytes/100 WBC (Bld) 33.1 % Normal . [facility] Comment on above: Performed By: #### C MP, CBC, MG, PHOS #### [address] MCH (RBC) [Entitic mass] 28.5 pg Normal 27.5-35.2 [facility] Comment on above: Performed By: #### C MP, CBC, MG, PHOS #### [address] MCV (RBC) [Entitic vol] 87.3 fL Normal 83.5-101 [facility] Comment on above: Performed By: #### C MP, CBC, MG, PHOS #### [address] Mean Corpuscular HGB Conc 32.7 g/dL Normal 32.5-35.6 [facility] Comment on above: Performed By: #### C MP, CBC, MG, PHOS #### [address] Monocytes (Bld) [#/Vol] 0.7 10*3/uL Normal 0.0-0.8 [facility] Comment on above: Performed By: #### C MP, CBC, MG, PHOS #### [address] Monocytes/100 WBC (Bld) 17.51 % Normal 0.00-20.00 [facility] Comment on above: Performed By: #### C MP, CBC, MG, PHOS #### [address] Monocytes/100 WBC (Bld) 11.6 % Normal . [facility] Comment on above: Performed By: #### C MP, CBC, MG, PHOS #### [address] Neutrophils (Bld) [#/Vol] 2.8 10*3/uL Normal 1.8-7.7 [facility] Comment on above: Performed By: #### C MP, CBC, MG, PHOS #### [address] Neutrophils/100 WBC (Bld) 49.3 % Normal . [facility] Comment on above: Performed By: #### C MP, CBC, MG, PHOS #### [address] NRBC% 0.1 /100{WBC} Normal 0-0.5 [facility] Comment on above: Performed By: #### C MP, CBC, MG, PHOS #### [address] Platelet mean volume (Bld) [Entitic vol] 8.8 fL Normal 6.6-10.1 [facility] Comment on above: Performed By: #### C MP, CBC, MG, PHOS #### [address] Platelets (Bld) [#/Vol] 260 10*3/uL Normal 150-450 [facility] Comment on above: Performed By: #### C MP, CBC, MG, PHOS #### [address] RBC (Bld) [#/Vol] 4.40 10*6/uL Normal 3.90-5.[address] [facility] Comment on above: Performed By: #### C MP, CBC, MG, PHOS #### [address] WBC (Bld) [#/Vol] 5.7 10*3/uL Normal 4.1-10.5 [facility] Comment on above: Performed By: #### C MP, CBC, MG, PHOS #### [address] Comprehensive Metabolic Pane [facility] 02-18-2024 Albumin [Mass/Vol] 3.6 g/dL Normal 3.5-5.7 [facility] Comment on above: Performed By: #### C MP ####[address] Albumin/Globulin [Mass ratio] 1.0 {ratio} Normal [facility] Comment on above: Performed By: #### C MP ####[address] ALP [Catalytic activity/Vol] 84 U/L Normal 34-104 [facility] Comment on above: Performed By: #### C MP ####[place] [id number] [facility] ALT [Catalytic activity/Vol] 57 U/L High 7-52 [facility] Comment on above: Performed By: #### C MP ####[place] [id number] [facility] Anion gap [Moles/Vol] 11.2 mmol/L Normal 6.0-15.0 Th e [facility] Comment on above: Performed By: #### C MP ####[address] AST [Catalytic activity/Vol] 40 U/L High 13-39 [facility] Comment on above: Performed By: #### C MP ####[place] [id number] [facility] Bilirubin [Mass/Vol] 0.4 mg/dL Normal 0.3-1.0 [facility] Comment on above: Performed By: #### C MP ####[place] [id number] [facility] Calcium [Mass/Vol] 9.4 mg/dL Normal 8.6-10.3 [facility] Comment on above: Performed By: #### C MP ####[place] [id number] [facility] Chloride [Moles/Vol] 103 mmol/L Normal 98-107 [facility] Comment on above: Performed By: #### C MP ####[place] [id number] [facility] CO2 [Moles/Vol] 28.9 mmol/L Normal 21.0-31.0 [facility] Comment on above: Performed By: #### C MP ####[place] [id number] [facility] Creatinine [Mass/Vol] 0.75 mg/dL Normal 0.70-1.30 [facility] Comment on above: Performed By: #### C MP ####[place] [id number] [place] Creatinine Clr Calc Pharmacy 177.59 Normal [facility] Comment on above: Result Comment: PERF ORMED BY: [facility] [address] [place] [id number] PATHOLOGIST LABOR RELATIONS OR PERSONNEL NEGOTIATOR ACE JOSÉ M.D. Performed By: #### C MP ####[place] [id number] [facility] GFR/1.73 sq M.predicted MDRD (S/P/Bld) [Vol rate/Area] mL/min/{1.73_m2} Normal [facility] Comment on above: Performed By: #### C MP ####[address] Globulin (S) [Mass/Vol] 3.7 g/dL Normal [facility] Comment on above: Performed By: #### C MP ####[address] Glucose [Mass/Vol] 80 mg/dL Significant change down 70-100 [facility] Comment on above: Result Comment: [facility] Glucose Reference Range is dependent on time and content of last meal. Glucose of more than 200 mg/dL in a nonstressed, ambulatory subject supports the diagnosis of Diabetes Mellitus. ADA recommended reference range Performed By: #### C MP ####[address] Potassium [Moles/Vol] 4.1 mmol/L Normal 3.5-5.1 [facility] Comment on above: Performed By: #### C MP ####[place] [id number] [facility] Protein [Mass/Vol] 7.3 g/dL Normal 6.4-8.9 [facility] Comment on above: Performed By: #### C MP ####[place] [id number] [facility] Sodium [Moles/Vol] 139 mmol/L Significant change down 136-145 [facility] Comment on above: Performed By: #### C MP ####[place] [id number] [place] Urea nitrogen [Mass/Vol] 24 mg/dL Normal 7-25 [facility] Comment on above: Performed By: #### C MP ####[facility] Albumin [Mass/Vol] 3.5 g/dL Normal 3.5-5.7 [facility] Comment on above: Performed By: #### C MP, CBC, MG, PHOS #### [address] Albumin/Globulin [Mass ratio] 1.1 {ratio} Normal [facility] Comment on above: Performed By: #### C MP, CBC, MG, PHOS #### [address] ALP [Catalytic activity/Vol] 73 U/L Normal 34-104 [facility] Comment on above: Performed By: #### C MP, CBC, MG, PHOS #### [address] ALT [Catalytic activity/Vol] 53 U/L High 7-52 [facility] Comment on above: Performed By: #### C MP, CBC, MG, PHOS #### [address] Anion gap [Moles/Vol] 10.6 mmol/L Normal 6.0-15.0 [facility] e [facility] Comment on above: Performed By: #### C MP, CBC, MG, PHOS #### [address] AST [Catalytic activity/Vol] 37 U/L Normal 13-39 [facility] Comment on above: Performed By: #### C MP, CBC, MG, PHOS #### [address] Bilirubin [Mass/Vol] 0.3 mg/dL Normal 0.3-1.0 [facility] Comment on above: Performed By: #### C MP, CBC, MG, PHOS #### [address] [address] [place] Calcium [Mass/Vol] 9.1 mg/dL Normal 8.6-10.3 [facility] Comment on above: Performed By: #### C MP, CBC, MG, PHOS #### [address] Chloride [Moles/Vol] 99 mmol/L Normal 98-107 [facility] Comment on above: Performed By: #### C MP, CBC, MG, PHOS #### [address] CO2 [Moles/Vol] 27.5 mmol/L Normal 21.0-31.0 [facility] Comment on above: Performed By: #### C MP, CBC, MG, PHOS #### [address] Creatinine [Mass/Vol] 0.89 mg/dL Normal 0.70-1.30 [facility] Comment on above: Performed By: #### C MP, CBC, MG, PHOS #### [address] Creatinine Clr Calc Pharmacy 149.66 Normal [facility] Comment on above: Result Comment: PERF ORMED BY: [place] [address] PATHOLOGIST LABOR RELATIONS OR PERSONNEL NEGOTIATOR ACE JOSÉ M.D. Performed By: #### C MP, CBC, MG, PHOS #### [address] GFR/1.73 sq M.predicted MDRD (S/P/Bld) [Vol rate/Area] mL/min/{1.73_m2} Normal [facility] Comment on above: Performed By: #### C MP, CBC, MG, PHOS #### [address] Globulin (S) [Mass/Vol] 3.2 g/dL Normal [facility] Comment on above: Performed By: #### C MP, CBC, MG, PHOS #### [address] Glucose [Mass/Vol] 352 mg/dL Significant change up 70-100 [facility] Comment on above: Result Comment: [facility] Glucose Reference Range is dependent on time and content of last meal. Glucose of more than 200 mg/dL in a nonstressed, ambulatory subject supports the diagnosis of Diabetes Mellitus. ADA recommended reference range Performed By: #### C MP, CBC, MG, PHOS #### [address] Potassium [Moles/Vol] 4.1 mmol/L Normal 3.5-5.1 [facility] Comment on above: Performed By: #### C MP, CBC, MG, PHOS #### [address] Protein [Mass/Vol] 6.7 g/dL Normal 6.4-8.9 [facility] Comment on above: Performed By: #### C MP, CBC, MG, PHOS #### [address] Sodium [Moles/Vol] 133 mmol/L Significant change down 136-145 [facility] Comment on above: Performed By: #### C MP, CBC, MG, PHOS #### [address] Urea nitrogen [Mass/Vol] 28 mg/dL High 7-25 [facility] Comment on above: Performed By: #### C MP, CBC, MG, PHOS #### [address] Albumin [Mass/Vol] 3.9 g/dL Normal 3.5-5.7 [facility] Comment on above: Performed By: #### C MP, CBC, MG, PHOS #### [address] Albumin/Globulin [Mass ratio] 1.0 {ratio} Normal [facility] Comment on above: Performed By: #### C MP, CBC, MG, PHOS #### [address] ALP [Catalytic activity/Vol] 107 U/L High 34-104 [facility] Comment on above: Performed By: #### C MP, CBC, MG, PHOS #### [address] ALT [Catalytic activity/Vol] 62 U/L High 7-52 [facility] Comment on above: Performed By: #### C MP, CBC, MG, PHOS #### [address] Anion gap [Moles/Vol] 15.7 mmol/L High 6.0-15.0 [facility] Comment on above: Performed By: #### C MP, CBC, MG, PHOS #### [address] AST [Catalytic activity/Vol] 47 U/L High 13-39 [facility] Comment on above: Performed By: #### C MP, CBC, MG, PHOS #### [address] Bilirubin [Mass/Vol] 0.4 mg/dL Normal 0.3-1.0 [facility] Comment on above: Performed By: #### C MP, CBC, MG, PHOS #### [address] Calcium [Mass/Vol] 9.6 mg/dL Normal 8.6-10.3 [facility] Comment on above: Performed By: #### C MP, CBC, MG, PHOS #### [address] Chloride [Moles/Vol] 91 mmol/L Low 98-107 [facility] Comment on above: Performed By: #### C MP, CBC, MG, PHOS #### [address] CO2 [Moles/Vol] 25.1 mmol/L Normal 21.0-31.0 [facility] Comment on above: Performed By: #### C MP, CBC, MG, PHOS #### [address] Creatinine [Mass/Vol] 1.03 mg/dL Normal 0.70-1.30 [facility] Comment on above: Performed By: #### C MP, CBC, MG, PHOS #### [address] Creatinine Clr Calc Pharmacy 133.62 Normal [facility] Comment on above: Performed By: #### C MP, CBC, MG, PHOS #### [address] GFR/1.73 sq M.predicted MDRD (S/P/Bld) [Vol rate/Area] mL/min/{1.73_m2} Normal [facility] Comment on above: Performed By: #### C MP, CBC, MG, PHOS #### [address] Globulin (S) [Mass/Vol] 4.1 g/dL Normal [facility] Comment on above: Performed By: #### C MP, CBC, MG, PHOS #### [address] Glucose [Mass/Vol] 753 mg/dL Off scale high 70-100 [facility] Comment on above: Result Comment: Crit ical Result Called to and read back by: REBEKAH SWAN at: 02/18/2024 13:24:33 by:MLG Random Glucose Reference Range is dependent on time and content of last meal. Glucose of more than 200 mg/dL in a nonstressed, ambulatory subject supports the diagnosis of Diabetes Mellitus. ADA recommended reference range Performed By: #### C MP, CBC, MG, PHOS #### [address] Potassium [Moles/Vol] 7.8 mmol/L Off scale high 3.5-5.1 [facility] Comment on above: Result Comment: Crit ical Result Called to and read back by: REBEKAH SWAN at: 02/18/2024 13:24:33 by:MLG Performed By: #### C MP, CBC, MG, PHOS #### [address] Protein [Mass/Vol] 8.0 g/dL Normal 6.4-8.9 [facility] Comment on above: Performed By: #### C MP, CBC, MG, PHOS #### [address] Sodium [Moles/Vol] 124 mmol/L Off scale low 136-145 [facility] Comment on above: Result Comment: Crit ical Result Called to and read back by: REBEKAH SWAN at: 02/18/2024 13:24:33 by:MLG Performed By: #### C MP, CBC, MG, PHOS #### [address] Urea nitrogen [Mass/Vol] 31 mg/dL High 7-25 [facility] Comment on above: Performed By: #### C MP, CBC, MG, PHOS #### [address] Dipstick and Microscopicon 1 04-20-2023 Appearance (U) Clear Normal Clear [facility] Comment on above: Order Comment: Name Collection Type:: Clean-Voided Midstream Performed By: #### G LULS #### Point of Care testing , Bacteria,Urine None Seen Normal None Seen [facility] Comment on above: Order Comment: Name Collection Type:: Clean-Voided Midstream Performed By: #### G LULS #### Point of Care testing , Bilirubin,Urine Negative Normal Negative [facility] Comment on above: Order Comment: Name Collection Type:: Clean-Voided Midstream Performed By: #### G LULS #### Point of Care testing , Color (U) Colorless Normal Yellow [facility] Comment on above: Order Comment: Name Collection Type:: Clean-Voided Midstream Performed By: #### G LULS #### Point of Care testing , Glucose Ql (U) >= High Normal [facility] Comment on above: Order Comment: Name Collection Type:: Clean-Voided Midstream Performed By: #### G LULS #### Point of Care testing , Hyaline Casts,Urine None Normal 0-8 [facility] Comment on above: Order Comment: Name Collection Type:: Clean-Voided Midstream Result Comment: PERF ORMED BY: [address] [address] PATHOLOGIST LABOR RELATIONS OR PERSONNEL NEGOTIATOR ACE JOSÉ M.D. Performed By: #### G LULS #### Point of Care testing , Ketones Ql (U) 1+ High Negative [facility] Comment on above: Order Comment: Name Collection Type:: Clean-Voided Midstream Performed By: #### G LULS #### Point of Care testing , Leukocyte esterase Test strip Ql (U) Negative Normal Negative [facility] Comment on above: Order Comment: Name Collection Type:: Clean-Voided Midstream Performed By: #### G LULS #### Point of Care testing , Nitrite,Urine Negative Normal Negative The [facility] Comment on above: Order Comment: Name Collection Type:: Clean-Voided Midstream Performed By: #### G LULS #### Point of Care testing , Occult Blood,Urine Trace High Negative [facility] Comment on above: Order Comment: Name Collection Type:: Clean-Voided Midstream Result Comment: PERF ORMED BY: [address] [address] PATHOLOGIST LABOR RELATIONS OR PERSONNEL NEGOTIATOR ACE JOSÉ M.D. Performed By: #### G LULS #### Point of Care testing , pH (U) 6.0 [pH] Normal 5.0-9.0 [facility] Comment on above: Order Comment: Name Collection Type:: Clean-Voided Midstream Performed By: #### G LULS #### Point of Care testing , Protein,Urine Negative Normal Negative [facility] Comment on above: Order Comment: Name Collection Type:: Clean-Voided Midstream Performed By: #### G LULS #### Point of Care testing , RBC,Urine 3 [HPF] Normal 0-4 [facility] Comment on above: Order Comment: Name Collection Type:: Clean-Voided Midstream Performed By: #### G LULS #### Point of Care testing , Specificy [place],Urine 1.020 Normal 1.001-1.03 0 [facility] Comment on above: Order Comment: Name Collection Type:: Clean-Voided Midstream Performed By: #### G LULS #### Point of Care testing , Urobilinogen,Urine Normal Normal Normal [facility] Comment on above: Order Comment: Name Collection Type:: Clean-Voided Midstream Performed By: #### G LULS #### Point of Care testing , WBC,Urine 1 [HPF] Normal 0-4 [facility] Comment on above: Order Comment: Name Collection Type:: Clean-Voided Midstream Performed By: #### G LULS #### Point of Care testing , ECG 12 lead ECGon 02-18-2024 ECG 12 lead ECG [facility] [place] [address] Electrocardiograph Report Signed Patient: Joselin Freitas MR#: [id number] : 1985 Acct:[id number] Age/Sex: 38 / M ADM Date: 02/18/24 Loc: Room: [address] [place] [address] Type: ADM IN Attending Dr: Xin Hawk MD Ordering Provider: Jignesh Dunaway MD Date of Service: 02/18/24 ECG/ECG 12 lead ECG: Skin/Abscess/Foreign Body Copies to: Test Reason : Blood Pressure : 169/95 mmHG Vent. Rate : 100 BPM Atrial Rate : 100 BPM P-R Int : 170 ms QRS Dur : 86 ms QT Int : 348 ms P-R-T Axes : 66 72 27 degrees QTcB Int : 448 ms Normal sinus rhythm Normal ECG When compared with ECG of 18-Feb-2024 12:20, (Unconfirmed) Previous ECG has undetermined rhythm, needs review Incomplete right bundle branch block is no longer present Confirmed by JIGNESH DUNAWAY MD ([id number]) on 02/18/2024 7:37:21 PM Referred By: Electronically Signed By: JIGNESH DUNAWAY MD Transcribed By: MUS Signed By Jignesh Dunaway MD 01/26 Normal [facility] ECG 12 lead ECG [facility] [place] [address] [place] [address] Electrocardiograph Report Signed Patient: Joselin Freitas MR#: [id number] : 1985 Acct:[id number] Age/Sex: 38 / M ADM Date: 02/18/24 Loc: Room: [address] [place] [address] Type: ADM IN Attending Dr: Xin Hawk MD Ordering Provider: Jignesh Dunaway MD Date of Service: 02/18/24 ECG/ECG 12 lead ECG: Skin/Abscess/Foreign Body Copies to: Test Reason : Blood Pressure : */* mmHG Vent. Rate : 175 BPM Atrial Rate : 175 BPM P-R Int : * ms QRS Dur : 118 ms QT Int : 200 ms P-R-T Axes : 69 141 61 degrees QTcB Int : 341 ms Undetermined rhythm Right axis deviation Incomplete right bundle branch block Possible Right ventricular hypertrophy Abnormal ECG When compared with ECG of 01-Jul-2023 23:18, Current undetermined rhythm precludes rhythm comparison, needs review Incomplete right bundle branch block is now present Confirmed by JIGNESH DUNAWAY MD ([id number]) on 02/18/2024 7:37:38 PM Referred By: Electronically Signed By: JIGNESH DUNAWAY MD Transcribed By: MUS Signed By Jignesh Dunaway MD 01/26 Normal [facility] Glucose Poct Glucometerson 1 04-20-2023 Glucose [Mass/Vol] 298 mg/dL Normal [facility] Comment on above: Result Comment: [facility] Glucose Reference Range is dependent on time and content of last meal. Glucose of more than 200 mg/dL in a nonstressed, ambulatory subject supports the diagnosis of Diabetes Mellitus. PERFORMED BY: [place] [address] PATHOLOGIST LABOR RELATIONS OR PERSONNEL NEGOTIATOR ACE JOSÉ M.D. Performed By: #### C MP, CBC, MG, PHOS #### [address] Glucose [Mass/Vol] 131 mg/dL Normal [facility] Comment on above: Result Comment: [place] Glucose Reference Range is dependent on time and content of last meal. Glucose of more than 200 mg/dL in a nonstressed, ambulatory subject supports the diagnosis of Diabetes Mellitus. PERFORMED BY: [address] [place] [address] PATHOLOGIST LABOR RELATIONS OR PERSONNEL NEGOTIATOR ACE JOSÉ M.D. Performed By: #### G LULS #### Point of Care testing , Glucose [Mass/Vol] 124 mg/dL Normal [facility] Comment on above: Result Comment: [place] Glucose Reference Range is dependent on time and content of last meal. Glucose of more than 200 mg/dL in a nonstressed, ambulatory subject supports the diagnosis of Diabetes Mellitus. PERFORMED BY: [address] [place] [address] PATHOLOGIST LABOR RELATIONS OR PERSONNEL NEGOTIATOR ACE JOSÉ M.D. Performed By: #### G LULS #### Point of Care testing , Commemt1 Normal [facility] Comment on above: Result Comment: Glu2 : Will Repeat Test Performed By: #### G LULS ####Point of Care testing, Commemt2 Cleaned Meter Normal [facility] Comment on above: Performed By: #### G LULS ####Point of Care testing, Commemt3 FOLLOW HYPOGLYCEMIC Normal The [facility] Comment on above: Result Comment: PERF ORMED BY: [address] [place] [address] PATHOLOGIST LABOR RELATIONS OR PERSONNEL NEGOTIATOR ACE JOSÉ M.D. Performed By: #### G LULS ####Point of Care testing, Glucose [Mass/Vol] 59 mg/dL Off scale low [facility] Comment on above: Result Comment: [place] Glucose Reference Range is dependent on time and content of last meal. Glucose of more than 200 mg/dL in a nonstressed, ambulatory subject supports the diagnosis of Diabetes Mellitus. Performed By: #### G LULS ####Point of Care testing, Commemt1 Glu2: Cleaned Meter Normal The [facility] Comment on above: Result Comment: PERF ORMED BY: [address] [place] [address] PATHOLOGIST LABOR RELATIONS OR PERSONNEL NEGOTIATOR ACE JOSÉ M.D. Performed By: #### G LULS #### Point of Care testing , Glucose [Mass/Vol] 125 mg/dL Normal [facility] Comment on above: Result Comment: [place] Glucose Reference Range is dependent on time and content of last meal. Glucose of more than 200 mg/dL in a nonstressed, ambulatory subject supports the diagnosis of Diabetes Mellitus. Performed By: #### G LULS #### Point of Care testing , Commemt1 Glu2: Cleaned Meter Normal The [facility] Comment on above: Result Comment: PERF ORMED BY: [address] [place] [address] PATHOLOGIST LABOR RELATIONS OR PERSONNEL NEGOTIATOR ACE JOSÉ M.D. Performed By: #### G LULS #### Point of Care testing , Glucose [Mass/Vol] 172 mg/dL Normal [facility] Comment on above: Result Comment: [place] Glucose Reference Range is dependent on time and content of last meal. Glucose of more than 200 mg/dL in a nonstressed, ambulatory subject supports the diagnosis of Diabetes Mellitus. Performed By: #### G LULS #### Point of Care testing , Commemt1 Glu2: Cleaned Meter Normal [facility] Comment on above: Result Comment: PERF ORMED BY: [address] [place] [address] PATHOLOGIST LABOR RELATIONS OR PERSONNEL NEGOTIATOR ACE JOSÉ M.D. Performed By: #### G LULS ####Point of Care testing, Glucose [Mass/Vol] 317 mg/dL Normal [facility] Comment on above: Result Comment: [place] Glucose Reference Range is dependent on time and content of last meal. Glucose of more than 200 mg/dL in a nonstressed, ambulatory subject supports the diagnosis of Diabetes Mellitus. Performed By: #### G LULS ####Point of Care testing, Commemt1 Glu2: Cleaned Meter Normal [facility] Comment on above: Performed By: #### G LULS #### Point of Care testing , Commemt2 WILL NOTIFY DR/RN Normal [facility] Comment on above: Result Comment: PERF ORMED BY: [address] [place] [address] PATHOLOGIST LABOR RELATIONS OR PERSONNEL NEGOTIATOR ACE JOSÉ M.D. Performed By: #### G LULS #### Point of Care testing , Glucose [Mass/Vol] 351 mg/dL Normal [facility] Comment on above: Result Comment: [place] Glucose Reference Range is dependent on time and content of last meal. Glucose of more than 200 mg/dL in a nonstressed, ambulatory subject supports the diagnosis of Diabetes Mellitus. Performed By: #### G LULS #### Point of Care testing , Commemt1 Normal [facility] Comment on above: Result Comment: Glu2 : WILL NOTIFY DR/CHARL[place]TE PERFORMED BY: [place] [address] PATHOLOGIST LABOR RELATIONS OR PERSONNEL NEGOTIATOR ACE JOSÉ M.D. Performed By: #### G LULS #### Point of Care testing , Glucose [Mass/Vol] 484 mg/dL Off scale high Th e [facility] Comment on above: Result Comment: [place] Glucose Reference Range is dependent on time and content of last meal. Glucose of more than 200 mg/dL in a nonstressed, ambulatory subject supports the diagnosis of Diabetes Mellitus. Performed By: #### G LULS #### Point of Care testing , Commemt1 Normal [facility] Comment on above: Result Comment: Glu2 : Result Not Confirmed PERFORMED BY: [place] [address] PATHOLOGIST LABOR RELATIONS OR PERSONNEL NEGOTIATOR ACE JOSÉ M.D. Performed By: #### G LULS #### Point of Care testing , Glucose [Mass/Vol] 430 mg/dL Off scale high Th e [facility] Comment on above: Result Comment: [place] Glucose Reference Range is dependent on time and content of last meal. Glucose of more than 200 mg/dL in a nonstressed, ambulatory subject supports the diagnosis of Diabetes Mellitus. Performed By: #### G LULS #### Point of Care testing , Lipid Panelon 02-18-2024 Cholesterol [Mass/Vol] 129 mg/dL Low 140-200 [facility] Comment on above: Order Comment: Comme nt add Result Comment: Chol less than 200 mg/dl low risk Chol 201-239 mg/dl borderline risk Chol 240 mg/dl and greater high risk Performed By: #### G LULS #### Point of Care testing , Cholesterol in HDL [Mass/Vol] 58 mg/dL Normal 23-92 [facility] Comment on above: Order Comment: Comme nt add Result Comment: HDL CHOL ATP-III CLASSIFICATION Cardiovascular Risk HDL > or equal to 60 mg/dL LOW HDL < 40 mg/dL HIGH Performed By: #### G LULS #### Point of Care testing , Cholesterol.total/Chol esterol in HDL [Mass ratio] 2.2 {ratio} Normal <5.0 [facility] Comment on above: Order Comment: Comme nt add Result Comment: PERF ORMED BY: [facility] [address] [place] [address] PATHOLOGIST LABOR RELATIONS OR PERSONNEL NEGOTIATOR ACE JOSÉ M.D. Performed By: #### G LULS #### Point of Care testing , LDL Cholesterol,Calculated 54 mg/dL Normal 0-100 [facility] Comment on above: Order Comment: Comme nt add Result Comment: LDL ATP III CLASSIFICATION LDL less than 100 mg/dL Optimal LDL 100-129 mg/dL Near or above optimal LDL 130-159 mg/dL Borderline high LDL 160-189 mg/dL High LDL greater than 189 mg/dL Very high Performed By: #### G LULS #### Point of Care testing , Triglyceride w/Reflex 87 mg/dL Normal 0-149 [facility] Comment on above: Order Comment: Comme nt add Result Comment: TRIG ATP III CLASSIFICATION TRIG less than 150 mg/dL Normal TRIG 150-199 mg/dL Borderline high TRIG 200-500 mg/dL High TRIG greater than 500 mg/dL Very high Standard traceable to the Center for Disease Conrtrol and Prevention (CDC) test method. Performed By: #### G LULS #### Point of Care testing , VLDL CHOLESTEROL 17 mg/dL Normal [facility] Comment on above: Order Comment: Comme nt add Performed By: #### G LULS #### Point of Care testing , Potassiumon 02-18-2024 Potassium [Moles/Vol] 4.9 mmol/L Significan t change down 3.5-5.1 [facility] Comment on above: Result Comment: PERF ORMED BY: [place] [address] PATHOLOGIST LABOR RELATIONS OR PERSONNEL NEGOTIATOR ACE JOSÉ M.D. Performed By: #### C MP, CBC, MG, PHOS #### [address] Venous Blood Gason 4 CO2 [Moles/Vol] 26.8 mmol/L Normal 24.0-29.0 [facility] Comment on above: Performed By: #### G LULS #### Point of Care testing , HCO3 (Bld) [Moles/Vol] 25.5 mmol/L Normal 23.0-29.0 [facility] Comment on above: Performed By: #### G LULS #### Point of Care testing , Respiratory Critical Normal [facility] Comment on above: Result Comment: Crit ical Value called on: 02/18/2024 at 12:15 PERFORMED BY: [place] [id number] PATHOLOGIST LABOR RELATIONS OR PERSONNEL NEGOTIATOR ACE JOSÉ M.D. Performed By: #### G LULS #### Point of Care testing , VBG Base Excess 0.4 mmol/L Normal -3.0-3.0 [facility] Comment on above: Performed By: #### G LULS #### Point of Care testing , VBG Draw Site Venous Normal [facility] Comment on above: Performed By: #### G LULS #### Point of Care testing , VBG Frac Inspired O2 21 % Normal [facility] Comment on above: Performed By: #### G LULS #### Point of Care testing , VBG Oxygen Saturation 81.3 % High 73.0-76.0 [facility] Comment on above: Performed By: #### G LULS #### Point of Care testing , VBG PCO2 42.9 mm[Hg] Normal 38.0-50.0 [facility] Comment on above: Performed By: #### G LULS #### Point of Care testing , VBG PH Venous PH 7.39 Normal 7.32-7.43 [facility] Comment on above: Performed By: #### G LULS #### Point of Care testing , VBG PO2 <48.1 High 35.0-45.0 [facility] Comment on above: Performed By: #### G LULS #### Point of Care testing , XR chest 1V portableon 02-17 XR chest 1V portable [facility] [place] [address] XRay Report Signed Patient: Joselin Freitas MR#: [id number] : 1985 Acct:[id number] Age/Sex: 38 / M ADM Date: 02/18/24 Loc: ER Room: Type: [facility] ER Attending Dr: Copies to: Jignesh Dunaway MD Ordering Provider: Jignesh Dunaway MD Date of Service: 02/18/24 XR/XR chest 1V portable: Skin/Abscess/Foreign Body XR chest 1V portable 02/18/2024 1:28 PM SIGNS AND SYMPTOMS: Laceration of left foot, shortness breath, chest pain PROTOCOL: Frontal radiograph of the chest COMPARISON: 01/30/2024 FINDINGS: The trachea is midline. The heart and mediastinal structures are within normal limits. The lung parenchyma is clear. The bony thorax is intact. XR/XR chest 1V portable IMPRESSION: No acute cardiopulmonary pathology. Impression dictated by: Joe Almanzar M.D.02/18/2024 1:44 PM Dictation Location: [place] [address] Transcribed By: [facility] 02/18/24 1344 Dictated By: Joe Almanzar II, MD 02/18/24 1343 Signed By: 02/18/24 1344 Normal [facility] Glucose (Bld) [Mass/Vol]on 1 04-08-2023 Glucose Blood, POC 114 mg/dL [facility] Interpretation and review of laboratory results Normal [facility] HbA1c (Bld) [Mass fraction]o n 02-06-2024 Interpretation and review of laboratory results Abnormal [facility] Laboratory - Hematology and Cell countson 02-06-2024 HbA1c (Bld) [Mass fraction] 8.8 % [facility] No Panel Informationon 02-05 [facility] MONIK Antinuclear Antibodieson 01-30-2024 Antinuclear Abs, IFA Negative Normal . [facility] Comment on above: Result Comment: Nega tive <1:80 Borderline 1:80 Positive >1:80 ICAP nomenclature: AC-0 For more information about Hep-2 cell patterns use ANApatterns.org, the official website for the International Consensus on Antinuclear Antibody (MONIK) Patterns (ICAP). Performed at: [facility] [id number] Nurse Informaticist: Mark Myers PhD, Phone: [phone] Performed By: #### G LULS #### Point of Care testing , Angiotensin Converting Enzym jefry 01-30-2024 Angiotensin converting enzyme [Catalytic activity/Vol] 119 U/L High 14-82 [facility] Comment on above: Result Comment: Perf ormed at: [facility] [id number] Nurse Informaticist: Mark Myers PhD, Phone: [phone] Performed By: #### G LULS #### Point of Care testing , Complete Blood Count Auto Di ffon 01-30-2024 Basophils (Bld) [#/Vol] 0.1 10*3/uL Normal 0.0-0.2 [facility] Comment on above: Performed By: #### G LULS #### Point of Care testing , Basophils/100 WBC (Bld) 0.7 % Normal . [facility] Comment on above: Performed By: #### G LULS #### Point of Care testing , Eosinophils (Bld) [#/Vol] 0.4 10*3/uL Normal 0.0-0.45 [facility] Comment on above: Performed By: #### G LULS #### Point of Care testing , Eosinophils/100 WBC (Bld) 3.9 % Normal . [facility] Comment on above: Performed By: #### G LULS #### Point of Care testing , Erythrocyte distribution width (RBC) [Ratio] 13.2 % Normal 12.0-14.8 [facility] Comment on above: Performed By: #### G LULS #### Point of Care testing , Hematocrit (Bld) [Volume fraction] 35.3 % Low 38.8-50.0 [facility] Comment on above: Performed By: #### G LULS #### Point of Care testing , Hemoglobin (Bld) [Mass/Vol] 11.9 g/dL Low 13.0-17.0 [facility] Comment on above: Performed By: #### G LULS #### Point of Care testing , Lymphocytes (Bld) [#/Vol] 1.8 10*3/uL Normal 1.00-4.8 [facility] Comment on above: Performed By: #### G LULS #### Point of Care testing , Lymphocytes/100 WBC (Bld) 19.0 % Normal . [facility] Comment on above: Performed By: #### G LULS #### Point of Care testing , MCH (RBC) [Entitic mass] 28.7 pg Normal 27.5-35.2 [facility] Comment on above: Performed By: #### G LULS #### Point of Care testing , MCV (RBC) [Entitic vol] 84.8 fL Normal 83.5-101 [facility] Comment on above: Performed By: #### G LULS #### Point of Care testing , Mean Corpuscular HGB Conc 33.8 g/dL Normal 32.5-35.6 [facility] Comment on above: Performed By: #### G LULS #### Point of Care testing , Monocytes (Bld) [#/Vol] 0.9 10*3/uL High 0.0-0.8 [facility] Comment on above: Performed By: #### G LULS #### Point of Care testing , Monocytes/100 WBC (Bld) 10.0 % Normal . [facility] Comment on above: Performed By: #### G LULS #### Point of Care testing , Neutrophils (Bld) [#/Vol] 6.2 10*3/uL Normal 1.8-7.7 [facility] Comment on above: Performed By: #### G LULS #### Point of Care testing , Neutrophils/100 WBC (Bld) 66.4 % Normal . [facility] Comment on above: Performed By: #### G LULS #### Point of Care testing , NRBC% 0.1 /100{WBC} Normal 0-0.5 [facility] Comment on above: Performed By: #### G LULS #### Point of Care testing , Platelet mean volume (Bld) [Entitic vol] 8.2 fL Normal 6.6-10.1 [facility] Comment on above: Performed By: #### G LULS #### Point of Care testing , Platelets (Bld) [#/Vol] 291 10*3/uL Normal 150-450 [facility] Comment on above: Performed By: #### G LULS #### Point of Care testing , RBC (Bld) [#/Vol] 4.16 10*6/uL Normal 3.90-5.[address] [facility] Comment on above: Performed By: #### G LULS #### Point of Care testing , WBC (Bld) [#/Vol] 9.4 10*3/uL Normal 4.1-10.5 [facility] Comment on above: Performed By: #### G LULS #### Point of Care testing , Dipstick and Microscopicon 1 04-01-2023 Appearance (U) Clear Normal Clear [facility] Comment on above: Order Comment: Name Collection Type:: Clean-Voided Midstream Performed By: #### G LULS #### Point of Care testing , Bacteria,Urine Rare Normal None Seen [facility] Comment on above: Order Comment: Name Collection Type:: Clean-Voided Midstream Performed By: #### G LULS #### Point of Care testing , Bilirubin,Urine Negative Normal Negative [facility] Comment on above: Order Comment: Name Collection Type:: Clean-Voided Midstream Performed By: #### G LULS #### Point of Care testing , Color (U) Yellow Normal Yellow [facility] Comment on above: Order Comment: Name Collection Type:: Clean-Voided Midstream Performed By: #### G LULS #### Point of Care testing , Glucose Ql (U) Normal Normal Normal [facility] Comment on above: Order Comment: Name Collection Type:: Clean-Voided Midstream Performed By: #### G LULS #### Point of Care testing , Hyaline Casts,Urine 20 [LPF] High 0-8 [facility] Comment on above: Order Comment: Name Collection Type:: Clean-Voided Midstream Performed By: #### G LULS #### Point of Care testing , Ketones Ql (U) Trace High Negative [facility] Comment on above: Order Comment: Name Collection Type:: Clean-Voided Midstream Performed By: #### G LULS #### Point of Care testing , Leukocyte esterase Test strip Ql (U) Negative Normal Negative [facility] Comment on above: Order Comment: Name Collection Type:: Clean-Voided Midstream Performed By: #### G LULS #### Point of Care testing , Mucus,Urine Rare Normal [facility] Comment on above: Order Comment: Name Collection Type:: Clean-Voided Midstream Result Comment: PERF ORMED BY: [place] [address] [place] [address] PATHOLOGIST LABOR RELATIONS OR PERSONNEL NEGOTIATOR ACE JOSÉ M.D. Performed By: #### G LULS #### Point of Care testing , Nitrite,Urine Negative Normal Negative [facility] Comment on above: Order Comment: Name Collection Type:: Clean-Voided Midstream Performed By: #### G LULS #### Point of Care testing , Occult Blood,Urine Trace High Negative [facility] Comment on above: Order Comment: Name Collection Type:: Clean-Voided Midstream Result Comment: PERF ORMED BY: [facility] [place] [address] PATHOLOGIST LABOR RELATIONS OR PERSONNEL NEGOTIATOR ACE JOSÉ M.D. Performed By: #### G LULS #### Point of Care testing , pH (U) 5.5 [pH] Normal 5.0-9.0 [facility] Comment on above: Order Comment: Name Collection Type:: Clean-Voided Midstream Performed By: #### G LULS #### Point of Care testing , Protein (U) [Mass/Vol] 50 mg/dL High Negative [facility] Comment on above: Order Comment: Name Collection Type:: Clean-Voided Midstream Performed By: #### G LULS #### Point of Care testing , RBC,Urine 5 [HPF] High 0-4 [facility] Comment on above: Order Comment: Name Collection Type:: Clean-Voided Midstream Performed By: #### G LULS #### Point of Care testing , Specificy [place],Urine 1.022 Normal 1.001-1.03 0 [facility] Comment on above: Order Comment: Name Collection Type:: Clean-Voided Midstream Performed By: #### G LULS #### Point of Care testing , Squamous Epithelial Cell,Urine 1 [HPF] Normal 0-2 [facility] Comment on above: Order Comment: Name Collection Type:: Clean-Voided Midstream Performed By: #### G LULS #### Point of Care testing , Urobilinogen,Urine 2 mg/dL High Normal [facility] Comment on above: Order Comment: Name Collection Type:: Clean-Voided Midstream Performed By: #### G LULS #### Point of Care testing , WBC,Urine 3 [HPF] Normal 0-4 [facility] Comment on above: Order Comment: Name Collection Type:: Clean-Voided Midstream Performed By: #### G LULS #### Point of Care testing , Erythrocyte Sedimentation Ra chadwick 01-30-2024 ESR (Bld) [Velocity] 48 mm/h High 0-14 [facility] Comment on above: Result Comment: PERF ORMED BY: [facility] [place]ATH[place]INE [address] PATHOLOGIST LABOR RELATIONS OR PERSONNEL NEGOTIATOR ACE JOSÉ M.D. Performed By: #### G LULS #### Point of Care testing , HLA B27 Disease Associationo n 01-30-2024 HLA B27 Disease Association Negative Normal . [facility] Comment on above: Result Comment: HLA- B*27 Negative B27 allele interpretation for all loci based on IMGT/HLA database version 3.51.0 This test was developed and its performance characteristics determined by [employer]. It has not been cleared or approved by the Food and Drug Administration. The FDA has determined that such clearance or approval is not necessary. [facility] CLIA ID Number [id number] This test was performed using Polymerase Chain Reaction (PCR) and Sequence Specific Oligonucleotide Probes (SSOP) technique. Sequence Based Typing (SBT) may be used as a supplemental method when necessary. If you have questions, please call [facility] customer service at or email at [email or web address]. Performed at: [address] [place] [id number] Nurse Informaticist: Greer Lozano PhD, Phone: [phone] Performed By: #### G LULS #### Point of Care testing , Lupus Anticoagulant Compon 1 04-01-2023 Dilute Prothrombin Time (dPt) 34.6 Normal 0.0-47.6 [facility] Comment on above: Performed By: #### G LULS #### Point of Care testing , dPT Confirm Ratio 1.00 Normal 0.00-1.34 [facility] Comment on above: Performed By: #### G LULS #### Point of Care testing , DRVVT Lupus 37.6 Normal 0.0-47.0 [facility] Comment on above: Performed By: #### G LULS #### Point of Care testing , Interpretation Comment: Normal . [facility] Comment on above: Result Comment: No l upus anticoagulant was detected. Performed at: - [place] [id number] [facility], [place], [place] [id number] Nurse Informaticist: Jaylon Goldstein MD, Phone: [phone] PERFORMED BY: [facility] [address] [place] [address] PATHOLOGIST LABOR RELATIONS OR PERSONNEL NEGOTIATOR ACE JOSÉ M.D. Performed By: #### G LULS #### Point of Care testing , PTT-LA 33.2 Normal 0.0-43.5 [facility] Comment on above: Performed By: #### G LULS #### Point of Care testing , Thrombin Time 19.2 Normal 0.0-23.0 [facility] Comment on above: Performed By: #### G LULS #### Point of Care testing , QuantiFERON TB Goldon 2023 QFTB Criteria Comment Normal . [facility] Comment on above: Result Comment: Ciro tiFERON-TB Gold Plus is a qualitative indirect test for M tuberculosis infection (including disease) and is intended for use in conjunction with risk assessment, radiography, and other medical and diagnostic evaluations. The QuantiFERON-TB Gold Plus result is determined by subtracting the Nil value from either TB antigen (Ag) value. The Mitogen tube serves as a control for the test. Performed By: #### G LULS #### Point of Care testing , Quant TB Ag Value 0.00 [IU]/mL Normal . The [facility] Comment on above: Performed By: #### G LULS #### Point of Care testing , Quant TB Gold Plus Negative Normal Negative [facility] Comment on above: Result Comment: No r esponse to M tuberculosis antigens detected. Infection with M tuberculosis is unlikely, but high risk individuals should be considered for additional testing (ATS/IDSA/CDC Clinical Practice Guidelines, 2017). The reference range is an Antigen minus Nil result of <0.35 IU/mL. The specimen received for QuantiFERON testing was incubated by the ordering institution. Specific procedures outlined in our Directory of Services and in the package insert for the QuantiFERON Gold (In Tube) test must be followed to enable for proper stimulation of cells for the production of interferon gamma. Chemiluminescence immunoassay methodology Performed at: [address] [id number] Nurse Informaticist: Mark Myers PhD, Phone: [phone] PERFORMED BY: [place] [address] PATHOLOGIST LABOR RELATIONS OR PERSONNEL NEGOTIATOR ACE JOSÉ M.D. Performed By: #### G LULS #### Point of Care testing , Quant TB2 Ag Value 0.00 [IU]/mL Normal . [facility] Comment on above: Performed By: #### G LULS #### Point of Care testing , Quantiferon Nil Value 0.00 [IU]/mL Normal . [facility] Comment on above: Performed By: #### G LULS #### Point of Care testing , Quantiferon TB Mitogen >10.00 Normal . [facility] Comment on above: Performed By: #### G LULS #### Point of Care testing , RPR w/rfx to Quant TP Abson 01-30-2024 RPR, Rfx Quant RPR Non-Reactive Normal Non Reactive [facility] Comment on above: Result Comment: Perf ormed at: [address] [id number] Nurse Informaticist: Mark Myers PhD, Phone: [phone] PERFORMED BY: [place] [address] PATHOLOGIST LABOR RELATIONS OR PERSONNEL NEGOTIATOR ACE JOSÉ M.D. Performed By: #### G LULS #### Point of Care testing , Scleroderma 70 Antibodieson 01-30-2024 Scleroderma 70 Antibodies <0.2 Normal 0.0-0.9 [facility] Comment on above: Result Comment: Perf ormed at: [address] [id number] Nurse Informaticist: Mark Myers PhD, Phone: [phone] Performed By: #### G LULS #### Point of Care testing , Treponema pallidum Ab(FTA-AB S)on 01-30-2024 Treponema pallidum Ab(FTA-ABS) Non-Reactive Normal Non Reactive [facility] Comment on above: Result Comment: Perf ormed at: - [facility] [address] [id number] Nurse Informaticist: Jaylon Goldstein MD, Phone: [phone] Performed By: #### G LULS #### Point of Care testing , XR chest 2V*on 01-30-2024 XR chest 2V* [facility] Main [address] [address] XRay Report Signed Patient: Joselin Freitas MR#: [id number] : 1985 Acct:[id number] Age/Sex: 38 / M ADM Date: 01/30/24 Loc: Room: Type: [facility] Attending Dr: Salvador Proctor MD Copies to: Salvador Proctor MD Ordering Provider: Salvador Proctor MD Date of Service: 01/30/24 XR/XR chest 2V*: . Plain film chest 2 view HISTORY: Assessment for sarcoidosis. COMPARISON: 10/17/2021 FINDINGS: SUPPORT DEVICES: None POSTSURGICAL CHANGES: None HEART: Within normal limits PULMONARY JENNY: Within normal limits MEDIASTINUM: Unremarkable LUNGS AND PLEURA: No acute lung process, pleural effusion or pneumothorax identified. BONY STRUCTURES: Intact ADDITIONAL FINDINGS None XR/XR chest 2V* IMPRESSION: No acute process. Impression dictated by: Justen Regalado M.D.01/30/2024 3:42 PM Dictation Location: [place] [address] Transcribed By: [facility] 01/30/24 1542 Dictated By: Justen Regalado DO 01/30/24 154 Signed By: 01/30/24 154 Normal [facility] XR lumbar spine min 4V*on XR lumbar spine min 4V* [facility] Main [address] [address] XRay Report Signed Patient: Joselin Freitas MR#: [id number] : 1985 Acct:[id number] Age/Sex: 38 / M ADM Date: 01/30/24 Loc: XD Room: Type: [facility] Attending Dr: Salvador Proctor MD Copies to: Salvador Proctor MD Ordering Provider: Salvador Proctor MD Date of Service: 01/30/24 XR/XR si joints: . ([id number]) XR/XR lumbar spine min 4V*: . Plain film SI joints HISTORY: Assessment for ankylosing spondylitis. Diabetic. Assessment for sarcoidosis. Symmetric SI joints. Unremarkable lumbar spine. No obvious bony fusion. No acute bony findings. Mild degeneration. XR/XR si joints IMPRESSION: No bony fusion changes. 5 views of lumbar spine Moderate L5-S1 spondylosis. Lower lumbar facet degeneration. No acute displaced fracture. Mild scoliosis. IMPRESSION: Extensive L5-S1 spondylosis. Lower lumbar hypertrophic facet changes. Mild scoliosis. No significant bony bridging/fusion changes. Impression dictated by: Justen Regalado M.D.01/30/2024 4:29 PM Dictation Location: [place] [address] Transcribed By: [facility] 01/30/24 1629 Dictated By: Justen Regalado DO 01/30/24 1616 Signed By: 01/30/24 1629 Normal [facility] ALL CBC WITH AUTO DIFFon BASOPHILS ABSOLUTE AUTO 0.1 [facility] Basophils/100 WBC (Bld) 0.9 % 0.2 - 2.0 % [facility] Eosinophils/100 WBC (Bld) 5.2 % 0.9 - 7.0 % [facility] Erythrocyte distribution width (RBC) [Ratio] 12.7 % 11.0 - 15.0 % [facility] Hematocrit (Bld) [Volume fraction] 34.6 % Low 42.0 - 54.0 % [facility] Hemoglobin (Bld) [Mass/Vol] 11.5 g/dL Low 14.0 - 18.0 g/dL [facility] IMMATURE GRANULOCYTES ABS AUTO 0.01 [facility] Immature granulocytes/100 WBC (Bld) 0.2 % 0.0 - 0.5 % [facility] Interpretation and review of laboratory results Abnormal [facility] LYMPHOCYTES ABSOLUTE AUTO 1.6 [facility] Lymphocytes/100 WBC (Bld) 29.8 % 20.5 - 60.0 % [facility] MCH (RBC) [Entitic mass] 29.3 pg 25.9 - 34.0 pg [facility] MCHC (RBC) [Mass/Vol] 33.2 g/dL 29.9 - 35.2 g/dL [facility] MCV (RBC) [Entitic vol] 88 fL 80.0 - 94.0 fL [facility] MONOCYTES ABSOLUTE AUTO 0.7 [facility] Monocytes/100 WBC (Bld) 13.1 % High 1.7 - 12.0 % [facility] NEUTROPHILS ABSOLUTE AUTO 2.7 [facility] Neutrophils/100 WBC (Bld) 50.8 % 43.0 - 75.0 % [facility] Platelet mean volume (Bld) [Entitic vol] 9.9 fL 9.5 - 13.5 fL [facility] TBH EO # 0.3 [facility] TBH PLT 211 [facility] RBC 3.93 Low [facility] WBC 5.3 [facility] Automated basophil %Ordered By: Roger Serrano on 08-02-2023 Basophils/100 WBC (Bld) 0.8 % Normal . [facility] Comment on above: Performed By: #### G LULS #### Point of Care testing , Automated basophil countOrde red By: Roger Serrano on 08-02-2023 Basophils (Bld) [#/Vol] 0.0 10*3/uL Normal 0.0-0.2 [facility] Comment on above: Result Comment: PERF ORMED BY: [facility] [address] [place] [address] PATHOLOGIST LABOR RELATIONS OR PERSONNEL NEGOTIATOR KATE URBINA M.D. Performed By: #### G LULS #### Point of Care testing , Automated blood monocyte cou ntOrdered By: Roger Serrano on 08-02-2023 Monocytes (Bld) [#/Vol] 0.7 10*3/uL Normal 0.0-0.8 [facility] Comment on above: Performed By: #### G LULS #### Point of Care testing , Automated eosinophil %Ordere d By: Roger Serrano on 08-02-2023 Eosinophils/100 WBC (Bld) 4.0 % Normal . [facility] Comment on above: Performed By: #### G LULS #### Point of Care testing , Automated eosinophil countOr dered By: Roger Serrano on 08-02-2023 Eosinophils (Bld) [#/Vol] 0.2 10*3/uL Normal 0.0-0.45 [facility] Comment on above: Performed By: #### G LULS #### Point of Care testing , Automated monocyte %Ordered By: Roger Serrano on 08-02-2023 Monocytes/100 WBC (Bld) 12.2 % Normal . [facility] Comment on above: Performed By: #### G LULS #### Point of Care testing , Automated neutrophil %Ordere d By: Roger Serrano on 08-02-2023 Neutrophils/100 WBC (Bld) 55.6 % Normal . [facility] Comment on above: Performed By: #### G LULS #### Point of Care testing , Basic Metabolic Panelon Creatinine Clr Calc Pharmacy 108.44 Normal [facility] Comment on above: Performed By: #### G LULS #### Point of Care testing , GFR/1.73 sq M.predicted MDRD (S/P/Bld) [Vol rate/Area] mL/min/{1.73_m2} Normal [facility] Comment on above: Performed By: #### G LULS #### Point of Care testing , Beta Hydroxybuterateon 08-01 Beta Hydroxybuterate 0.30 mmol/L High 0.02-0.27 [facility] Comment on above: Result Comment: PERF ORMED BY: [facility] [address] [place] [address] PATHOLOGIST LABOR RELATIONS OR PERSONNEL NEGOTIATOR KATE URBINA M.D. Performed By: #### G LULS #### Point of Care testing , Beta hydroxybutyrate [Moles/ volume] in Serum or PlasmaOrdered By: Roger Serrano on 08-02-2023 Beta hydroxybutyrate [Moles/Vol] 0.30 mmol/L 0.02-0.27 [facility] Calcium [Mass/volume] in Ser um or PlasmaOrdered By: Roger Serrano on 08-02-2023 Calcium [Mass/Vol] 9.5 mg/dL Normal 8.6-10.3 [facility] Comment on above: Performed By: #### G LULS #### Point of Care testing , Carbon dioxide, total [Moles /volume] in Serum or PlasmaOrdered By: Roger Serrano on 08-02-2023 CO2 [Moles/Vol] 28.7 mmol/L Normal 21.0-31.0 [facility] Comment on above: Performed By: #### G LULS #### Point of Care testing , Chloride [Moles/volume] in S belinda or PlasmaOrdered By: Roger Serrano on 08-02-2023 Chloride [Moles/Vol] 102 mmol/L Normal 98-107 [facility] Comment on above: Performed By: #### G LULS #### Point of Care testing , Complete Blood Count Auto Di ffon 08-02-2023 Mean Corpuscular HGB Conc 34.1 g/dL Normal 32.5-35.6 [facility] Comment on above: Performed By: #### G LULS #### Point of Care testing , Monocytes/100 WBC (Bld) 16.67 % Normal 0.00-20.00 [facility] Comment on above: Performed By: #### G LULS #### Point of Care testing , NRBC% 0.1 /100{WBC} Normal 0-0.5 [facility] Comment on above: Performed By: #### G LULS #### Point of Care testing , Creatinine [Mass/volume] in Serum or PlasmaOrdered By: Roger Serrano on 08-02-2023 Creatinine [Mass/Vol] 1.26 mg/dL Normal 0.70-1.30 [facility] Comment on above: Performed By: #### G LULS #### Point of Care testing , Erythrocyte distribution wid th [Ratio] by Automated countOrdered By: Roger Serrano on 08-02-2023 Erythrocyte distribution width (RBC) [Ratio] 13.7 % Normal 12.0-14.8 [facility] Comment on above: Performed By: #### G MAIK #### Point of Care testing , Erythrocytes [#/volume] in B lood by Automated countOrdered By: Roger Serrano on 08-02-2023 RBC (Bld) [#/Vol] 4.38 10*6/uL Normal 3.90-5.60 [facility] Comment on above: Performed By: #### G KARLALS #### Point of Care testing , Glucose [Mass/volume] in Ser um or PlasmaOrdered By: Roger Serrano on 08-02-2023 Glucose [Mass/Vol] 97 mg/dL Normal 70-100 [facility] Comment on above: ADA recommended refe rence rangeRandom Glucose Reference Range is dependent on time and content of last meal. Glucose of more than 200 mg/dL in a nonstressed, ambulatory subject supports the diagnosis of Diabetes Mellitus. Result Comment: [place] om Glucose Reference Range is dependent on time and content of last meal. Glucose of more than 200 mg/dL in a nonstressed, ambulatory subject supports the diagnosis of Diabetes Mellitus. ADA recommended reference range Performed By: #### G MAIK #### Point of Care testing , Hematocrit [Volume Fraction] of Blood by Automated countOrdered By: Roger Serrano on 08-02-2023 Hematocrit (Bld) [Volume fraction] 37.7 % Low 38.8-50.0 [facility] Comment on above: Performed By: #### G MAIK #### Point of Care testing , Hemoglobin [Mass/volume] in BloodOrdered By: Roger Serrano on 08-02-2023 Hemoglobin (Bld) [Mass/Vol] 12.9 g/dL Low 13.0-17.0 [facility] Comment on above: Performed By: #### G MAIK #### Point of Care testing , Leukocytes [#/volume] correc paulina for nucleated erythrocytes in Blood by Automated counOrdered By: Roger Serrano on 08-02-2023 WBC corrected for nucl RBC Auto (Bld) [#/Vol] 6.1 10*3/uL 4.1-10.5 [facility] Leukocytes [#/volume] in Blo od by Automated countOrdered By: Roger Serrano on 08-02-2023 WBC (Bld) [#/Vol] 6.1 10*3/uL Normal 4.1-10.5 [facility] Comment on above: Performed By: #### G LULS #### Point of Care testing , Lymphocytes [#/volume] in Bl ood by Automated countOrdered By: Roger Serrano on 08-02-2023 Lymphocytes (Bld) [#/Vol] 1.7 10*3/uL Normal 1.00-4.8 [facility] Comment on above: Performed By: #### G LULS #### Point of Care testing , Lymphocytes/100 leukocytes i n Blood by Automated countOrdered By: Roger Serrano on 08-02-2023 Lymphocytes/100 WBC (Bld) 27.4 % Normal . [facility] Comment on above: Performed By: #### G LULS #### Point of Care testing , MCH [Entitic mass] by Automa paulina countOrdered By: Roger Serrano on 08-02-2023 MCH (RBC) [Entitic mass] 29.3 pg Normal 27.5-35.2 [facility] Comment on above: Performed By: #### G LULS #### Point of Care testing , MCHC Auto (RBC) [Mass/Vol]Or dered By: Roger Serrano on 08-02-2023 MCHC (RBC) [Mass/Vol] 34.1 g/dL 32.5-35.6 [facility] MCV [Entitic volume] by Auto mated countOrdered By: Roger Serrano on 08-02-2023 MCV (RBC) [Entitic vol] 86.0 fL Normal 83.5-101 [facility] Comment on above: Performed By: #### G LULS #### Point of Care testing , Monocyte distribution width [Entitic volume] in Blood by AutomatedOrdered By: Roger Serrano on 08-02-2023 Monocyte distribution width Auto (Bld) [Entitic vol] 16.67 % 0.00-20.00 [facility] Neutrophils [#/volume] in Bl ood by Automated countOrdered By: Roger Serrano on 08-02-2023 Neutrophils (Bld) [#/Vol] 3.4 10*3/uL Normal 1.8-7.7 [facility] Comment on above: Performed By: #### G LULS #### Point of Care testing , No Panel InformationOrdered By: Roger Serrano on 08-02-2023 Estimated GFR (CKD-EPI) > 60.0 mL/Min [facility] Creatinine Clearance (Chem 108.44 [facility] Nucleated erythrocytes [Pres ence] in Blood by Automated countOrdered By: Roger Serrano on 08-02-2023 Nucleated RBC Auto Ql (Bld) 0.1 /100{WBC} 0-0.5 [facility] Platelet mean volume [Entiti c volume] in Blood by Automated countOrdered By: Roger Serrano on 08-02-2023 Platelet mean volume (Bld) [Entitic vol] 8.5 fL Normal 6.6-10.1 [facility] Comment on above: Performed By: #### G LULS #### Point of Care testing , Platelets [#/volume] in Bloo d by Automated countOrdered By: Roger Serrano on 08-02-2023 Platelets (Bld) [#/Vol] 257 10*3/uL Normal 150-450 [facility] Comment on above: Performed By: #### G LULS #### Point of Care testing , Potassium [Moles/volume] in Serum or PlasmaOrdered By: Roger Serrano on 08-02-2023 Potassium [Moles/Vol] 4.5 mmol/L Normal 3.5-5.1 [facility] Comment on above: Performed By: #### G LULS #### Point of Care testing , Serum or plasma anion gap de terminationOrdered By: Roger Serrano on 08-02-2023 Anion gap [Moles/Vol] 10.8 mmol/L Normal 6.0-15.0 [facility] Comment on above: Performed By: #### G LULS #### Point of Care testing , Sodium [Moles/volume] in Ser um or PlasmaOrdered By: Roger Serrano on 08-02-2023 Sodium [Moles/Vol] 137 mmol/L Normal 136-145 [facility] Comment on above: Performed By: #### G LULS #### Point of Care testing , Urea nitrogen [Mass/volume] in Serum or PlasmaOrdered By: Roger Serrano on 08-02-2023 Urea nitrogen [Mass/Vol] 36 mg/dL High 7-25 [facility] Comment on above: Performed By: #### G LULS #### Point of Care testing , XR foot BI 3Von 08-02-2023 XR foot BI 3V [facility] Main [place] [address] [place] [address] XRay Report Signed Patient: Joselin Freitas MR#: [id number] : 1985 Acct:[id number] Age/Sex: 37 / M ADM Date: 08/02/23 Loc: ER Room: Type: [facility] ER Attending Dr: Copies to: Roger [...] Karly Mays M.D.08/02/2023 12:33 PM Dictation Location: [place] [address] Transcribed By: [facility] 08/02/23 1233 Dictated By: Karly Mays MD 08/02/23 1229 Signed By: 08/02/23 1233 Normal [facility] Alanine aminotransferase [En zymatic activity/volume] in Serum or PlasmaOrdered By: Ruy Perry on 07-02-2023 ALT [Catalytic activity/Vol] 40 U/L Normal 7-52 [facility] Comment on above: Performed By: #### C MP, CBC, MG, PHOS #### [address] Albumin [Mass/volume] in Ser um or Plasma by Bromocresol green (BCG) dye binding methoOrdered By: Ruy Perry on 07-02-2023 Albumin BCG dye [Mass/Vol] 4.1 g/dL 3.5-5.7 [facility] Alkaline phosphatase [Enzyma tic activity/volume] in Serum or PlasmaOrdered By: Ruy Perry on 07-02-2023 ALP [Catalytic activity/Vol] 62 U/L Normal 34-104 [facility] Comment on above: Performed By: #### C MP, CBC, MG, PHOS #### [address] Aspartate aminotransferase [ Enzymatic activity/volume] in Serum or PlasmaOrdered By: Ruy Perry on 07-02-2023 AST [Catalytic activity/Vol] 40 U/L High 13-39 [facility] Comment on above: Performed By: #### C MP, CBC, MG, PHOS #### [address] Automated basophil %Ordered By: Ruy Perry on 07-02-2023 Basophils/100 WBC (Bld) 0.9 % Normal . [facility] Comment on above: Performed By: #### C MP, CBC, MG, PHOS #### [address] Automated basophil countOrde red By: Ruy Perry on 07-02-2023 Basophils (Bld) [#/Vol] 0.1 10*3/uL Normal 0.0-0.2 [facility] Comment on above: Result Comment: PERF ORMED BY: [place] [address] PATHOLOGIST LABOR RELATIONS OR PERSONNEL NEGOTIATOR KATE URBINA M.D. Performed By: #### C MP, CBC, MG, PHOS #### [address] Automated blood monocyte cou ntOrdered By: Ruy Peryr on 07-02-2023 Monocytes (Bld) [#/Vol] 0.7 10*3/uL Normal 0.0-0.8 [facility] Comment on above: Performed By: #### C MP, CBC, MG, PHOS #### [address] Automated eosinophil %Ordere d By: Ruy Perry on 07-02-2023 Eosinophils/100 WBC (Bld) 2.2 % Normal . [facility] Comment on above: Performed By: #### C MP, CBC, MG, PHOS #### [address] Automated eosinophil countOr dered By: Ruy Perry on 07-02-2023 Eosinophils (Bld) [#/Vol] 0.1 10*3/uL Normal 0.0-0.45 [facility] Comment on above: Performed By: #### C MP, CBC, MG, PHOS #### [address] Automated monocyte %Ordered By: Ruy Perry on 07-02-2023 Monocytes/100 WBC (Bld) 10.7 % Normal . [facility] Comment on above: Performed By: #### C MP, CBC, MG, PHOS #### [address] Automated neutrophil %Ordere d By: Ruy Perry on 07-02-2023 Neutrophils/100 WBC (Bld) 56.9 % Normal . [facility] Comment on above: Performed By: #### C MP, CBC, MG, PHOS #### [address] Bilirubin.total [Mass/volume ] in Serum or PlasmaOrdered By: Ruy Perry on 07-02-2023 Bilirubin [Mass/Vol] 0.3 mg/dL Normal 0.3-1.0 [facility] Comment on above: Performed By: #### C MP, CBC, MG, PHOS #### [address] Calcium [Mass/volume] in Ser um or PlasmaOrdered By: Ruy Perry on 07-02-2023 Calcium [Mass/Vol] 9.3 mg/dL Normal 8.6-10.3 [facility] Comment on above: Performed By: #### C MP, CBC, MG, PHOS #### [address] Carbon dioxide, total [Moles /volume] in Serum or PlasmaOrdered By: Ruy Arjun on 07-02-2023 CO2 [Moles/Vol] 30.4 mmol/L Normal 21.0-31.0 [facility] Comment on above: Performed By: #### C MP, CBC, MG, PHOS #### [address] Chloride [Moles/volume] in S belinda or PlasmaOrdered By: Ruy Nancearthy on 07-02-2023 Chloride [Moles/Vol] 101 mmol/L Normal 98-107 [facility] Comment on above: Performed By: #### C MP, CBC, MG, PHOS #### [address] Complete Blood Count Auto Di ffon 07-02-2023 Mean Corpuscular HGB Conc 33.6 g/dL Normal 32.5-35.6 [facility] Comment on above: Performed By: #### C MP, CBC, MG, PHOS #### [place] [address] [place] Monocytes/100 WBC (Bld) 17.60 % Normal 0.00-20.00 [facility] Comment on above: Performed By: #### C MP, CBC, MG, PHOS #### [place] [id number] [place] NRBC% 0.1 /100{WBC} Normal 0-0.5 [facility] Comment on above: Performed By: #### C MP, CBC, MG, PHOS #### [address] Comprehensive Metabolic Pane nilay 07-02-2023 Albumin [Mass/Vol] 4.1 g/dL Normal 3.5-5.7 [facility] Comment on above: Performed By: #### C MP, CBC, MG, PHOS #### [address] Creatinine Clr Calc Pharmacy 124.26 Normal [facility] Comment on above: Performed By: #### C MP, CBC, MG, PHOS #### [address] GFR/1.73 sq M.predicted MDRD (S/P/Bld) [Vol rate/Area] mL/min/{1.73_m2} Normal [facility] Comment on above: Performed By: #### C MP, CBC, MG, PHOS #### [address] Creatinine [Mass/volume] in Serum or PlasmaOrdered By: Ruy Perry on 07-02-2023 Creatinine [Mass/Vol] 1.09 mg/dL Normal 0.70-1.30 [facility] Comment on above: Performed By: #### C MP, CBC, MG, PHOS #### [address] Erythrocyte distribution wid th [Ratio] by Automated countOrdered By: Ruy Perry on 07-02-2023 Erythrocyte distribution width (RBC) [Ratio] 13.6 % Normal 12.0-14.8 [facility] Comment on above: Performed By: #### C MP, CBC, MG, PHOS #### [address] Erythrocytes [#/volume] in B lood by Automated countOrdered By: Ruy Perry on 07-02-2023 RBC (Bld) [#/Vol] 4.60 10*6/uL Normal 3.90-5.60 [facility] Comment on above: Performed By: #### C MP, CBC, MG, PHOS #### [address] Glucose [Mass/volume] in Ser um or PlasmaOrdered By: Ruy Perry on 07-02-2023 Glucose [Mass/Vol] 205 mg/dL High 70-100 [facility] Comment on above: ADA recommended refe rence rangeRandom Glucose Reference Range is dependent on time and content of last meal. Glucose of more than 200 mg/dL in a nonstressed, ambulatory subject supports the diagnosis of Diabetes Mellitus. Result Comment: [place] Glucose Reference Range is dependent on time and content of last meal. Glucose of more than 200 mg/dL in a nonstressed, ambulatory subject supports the diagnosis of Diabetes Mellitus. ADA recommended reference range Performed By: #### C MP, CBC, MG, PHOS #### [address] Hematocrit [Volume Fraction] of Blood by Automated countOrdered By: Ruy Perry on 07-02-2023 Hematocrit (Bld) [Volume fraction] 39.6 % Normal 38.8-50.0 [facility] Comment on above: Performed By: #### C MP, CBC, MG, PHOS #### [address] Hemoglobin [Mass/volume] in BloodOrdered By: Ruy Perry on 07-02-2023 Hemoglobin (Bld) [Mass/Vol] 13.3 g/dL Normal 13.0-17.0 [facility] Comment on above: Performed By: #### C MP, CBC, MG, PHOS #### [address] Leukocytes [#/volume] correc paulina for nucleated erythrocytes in Blood by Automated counOrdered By: Ruy Perry on 07-02-2023 WBC corrected for nucl RBC Auto (Bld) [#/Vol] 6.5 10*3/uL 4.1-10.5 [facility] Leukocytes [#/volume] in Blo od by Automated countOrdered By: Ruy Perry on 07-02-2023 WBC (Bld) [#/Vol] 6.5 10*3/uL Normal 4.1-10.5 [facility] Comment on above: Performed By: #### C MP, CBC, MG, PHOS #### [facility] [address] [place] [address] Lymphocytes [#/volume] in Bl ood by Automated countOrdered By: Ruy Perry on 07-02-2023 Lymphocytes (Bld) [#/Vol] 1.9 10*3/uL Normal 1.00-4.8 [facility] Comment on above: Performed By: #### C MP, CBC, MG, PHOS #### [facility] [address] [place] [address] Lymphocytes/100 leukocytes i n Blood by Automated countOrdered By: Ruy Perry on 07-02-2023 Lymphocytes/100 WBC (Bld) 29.3 % Normal . [facility] Comment on above: Performed By: #### C MP, CBC, MG, PHOS #### [facility] [address] [place] [address] MCH [Entitic mass] by Automa paulina countOrdered By: Ruy Perry on 07-02-2023 MCH (RBC) [Entitic mass] 28.9 pg Normal 27.5-35.2 [facility] Comment on above: Performed By: #### C MP, CBC, MG, PHOS #### [facility] [address] [place] [address] MCHC Auto (RBC) [Mass/Vol]Or dered By: Ruy Perry on 07-02-2023 MCHC (RBC) [Mass/Vol] 33.6 g/dL 32.5-35.6 [facility] MCV [Entitic volume] by Auto mated countOrdered By: Ruy Perry on 07-02-2023 MCV (RBC) [Entitic vol] 86.2 fL Normal 83.5-101 [facility] Comment on above: Performed By: #### C MP, CBC, MG, PHOS #### [facility] [address] [place] [address] Magnesium [Mass/volume] in S belinda or PlasmaOrdered By: Ruy Perry on 07-02-2023 Magnesium [Mass/Vol] 1.6 mg/dL Low 1.9-2.7 [facility] Comment on above: Result Comment: PERF ORMED BY: [place] [address] PATHOLOGIST LABOR RELATIONS OR PERSONNEL NEGOTIATOR KATE URBINA M.D. Performed By: #### C MP, CBC, MG, PHOS #### [facility] [address] [place] [address] Monocyte distribution width [Entitic volume] in Blood by AutomatedOrdered By: Ruy Perry on 07-02-2023 Monocyte distribution width Auto (Bld) [Entitic vol] 17.60 % 0.00-20.00 [facility] Neutrophils [#/volume] in Bl ood by Automated countOrdered By: Ruy Perry on 07-02-2023 Neutrophils (Bld) [#/Vol] 3.7 10*3/uL Normal 1.8-7.7 [facility] Comment on above: Performed By: #### C MP, CBC, MG, PHOS #### [facility] [address] [place] [address] No Panel InformationOrdered By: Ruy Perry on 07-02-2023 Estimated GFR (CKD-EPI) > 60.0 mL/Min [facility] Creatinine Clearance (Chem 124.26 [facility] Nucleated erythrocytes [Pres ence] in Blood by Automated countOrdered By: Ruy Perry on 07-02-2023 Nucleated RBC Auto Ql (Bld) 0.1 /100{WBC} 0-0.5 [facility] Phosphate [Mass/volume] in S belinda or PlasmaOrdered By: Ruy Perry on 07-02-2023 Phosphate [Mass/Vol] 3.9 mg/dL Normal 2.5-4.5 [facility] Comment on above: Performed By: #### C MP, CBC, MG, PHOS #### [address] Platelet mean volume [Entiti c volume] in Blood by Automated countOrdered By: Ruy Perry on 07-02-2023 Platelet mean volume (Bld) [Entitic vol] 8.7 fL Normal 6.6-10.1 [facility] Comment on above: Performed By: #### C MP, CBC, MG, PHOS #### [address] Platelets [#/volume] in Bloo d by Automated countOrdered By: Ruy Perry on 07-02-2023 Platelets (Bld) [#/Vol] 200 10*3/uL Normal 150-450 [facility] Comment on above: Performed By: #### C MP, CBC, MG, PHOS #### [address] Potassium [Moles/volume] in Serum or PlasmaOrdered By: Ruy Perry on 07-02-2023 Potassium [Moles/Vol] 5.0 mmol/L Normal 3.5-5.1 [facility] Comment on above: Performed By: #### C MP, CBC, MG, PHOS #### [address] Protein [Mass/volume] in Ser um or PlasmaOrdered By: Ruy Perry on 07-02-2023 Protein [Mass/Vol] 6.9 g/dL Normal 6.4-8.9 [facility] Comment on above: Performed By: #### C MP, CBC, MG, PHOS #### [address] Serum globulin measurement b y calculation (mass/volume)Ordered By: Ruy Perry on 07-02-2023 Globulin (S) [Mass/Vol] 2.8 g/dL Normal [facility] Comment on above: Performed By: #### C MP, CBC, MG, PHOS #### [address] Serum or plasma albumin/glob ulin mass ratioOrdered By: Ruy Perry on 07-02-2023 Albumin/Globulin [Mass ratio] 1.5 {ratio} Normal [facility] Comment on above: Performed By: #### C MP, CBC, MG, PHOS #### [address] Serum or plasma anion gap de terminationOrdered By: Ruy Perry on 07-02-2023 Anion gap [Moles/Vol] 8.6 mmol/L Normal 6.0-15.0 [facility] Comment on above: Performed By: #### C MP, CBC, MG, PHOS #### [address] Sodium [Moles/volume] in Ser um or PlasmaOrdered By: Ruy Perry on 07-02-2023 Sodium [Moles/Vol] 135 mmol/L Low 136-145 [facility] Comment on above: Performed By: #### C MP, CBC, MG, PHOS #### [address] Urea nitrogen [Mass/volume] in Serum or PlasmaOrdered By: Ruy Perry on 07-02-2023 Urea nitrogen [Mass/Vol] 21 mg/dL Normal 7-25 [facility] Comment on above: Performed By: #### C MP, CBC, MG, PHOS #### [address] Capillary blood glucose ranjit urement by glucometer (mass/volume)Ordered By: Ruy Perry on 07-01-2023 Glucose [Mass/Vol] 152 mg/dL Normal [facility] Comment on above: Random Glucose Refer ence Range is dependent on time and content of last meal. Glucose of more than 200 mg/dL in a nonstressed, ambulatory subject supports the diagnosis of Diabetes Mellitus. Result Comment: [place] om Glucose Reference Range is dependent on time and content of last meal. Glucose of more than 200 mg/dL in a nonstressed, ambulatory subject supports the diagnosis of Diabetes Mellitus. PERFORMED BY: [address] [address] PATHOLOGIST LABOR RELATIONS OR PERSONNEL NEGOTIATOR KATE URBINA M.D. Performed By: #### G MAIK #### Point of Care testing , ECG 12 lead ECGon 07-01-2023 ECG 12 lead ECG [address] [address] Electrocardiograph Report Signed Patient: Joselin Freitas MR#: [id number] : 1985 Acct:[id number] Age/Sex: 37 / M ADM Date: 07/01/23 Loc: ER Room: Type: [facility] ER Attending Dr: Ordering Provider: Ruy [...] Sinus tachycardia Confirmed by Ruy Perry DO ([id number]) on 07/02/2023 8:35:37 AM Referred By: Electronically Signed By:Ruy Perry DO Transcribed By: MUS Signed By Ruy Perry DO 0835 Normal [facility] Glucose Poct Glucometerson 0 07-01-2023 Glucose [Mass/Vol] 84 mg/dL Normal [facility] Comment on above: Result Comment: [facility] Glucose Reference Range is dependent on time and content of last meal. Glucose of more than 200 mg/dL in a nonstressed, ambulatory subject supports the diagnosis of Diabetes Mellitus. PERFORMED BY: [address] [address] PATHOLOGIST LABOR RELATIONS OR PERSONNEL NEGOTIATOR KATE URBINA M.D. Performed By: #### G MAIK #### Point of Care testing , XR hand RT min 3V*on XR hand RT min 3V* [facility] Main [address] [address] XRay Report Signed Patient: Joselin Freitas MR#: [id number] : 1985 Acct:[id number] Age/Sex: 37 / M ADM Date: 06/20/23 Loc: ER Room: Type: [facility] ER Attending Dr: Copies to: Ashlee [...] Karly Mays M.D.06/20/2023 2:27 PM Dictation Location: [place] [address] Transcribed By: [facility] 06/20/23 1427 Dictated By: Karly Mays MD 06/20/23 1414 Signed By: 06/20/23 1427 Normal [facility] XR ankle LT min 3V*on 2023 XR ankle LT min 3V* [facility] [employer] Other XR ankle LT min 3V* [facility] [employer] Other XR ankle LT min 3V* [address] [facility] [employer] Other XR ankle LT min 3V* [place] [address] [facility] [employer] Other XR ankle LT min 3V* XRay Report Nort [employer] Other XR ankle LT min 3V* Signed [employer] Other XR ankle LT min 3V* Patient: Joselin Freitas MR#: [id number] [employer] Other XR ankle LT min 3V* [id number] [employer] Other XR ankle LT min 3V* : 1985 Acct:[id number] [employer] Other XR ankle LT min 3V* Age/Sex: 37 / M ADM Date: 03/26/23 [employer] Other XR ankle LT min 3V* Loc: [facility] Room: Type : [facility] [employer] Other XR ankle LT min 3V* Attending Dr: Dominik George DO [employer] Other XR ankle LT min 3V* Copies to: Dominik George DO [employer] Other XR ankle LT min 3V* Ordering Provider: Donnie George DO [employer] Other XR ankle LT min 3V* Date of Service: 03/26/23 [employer] Other XR ankle LT min 3V* XR/XR ankle LT min 3V*: M25.572 [employer] Other XR ankle LT min 3V* 4 views LEFT ankle p luisa film [employer] Other XR ankle LT min 3V* COMPARISON: 03/23/23 [employer] Other XR ankle LT min 3V* HISTORY: LEFT latera l fibular pain for 3 days. Fell. [employer] Other XR ankle LT min 3V* ACUTE FINDINGS: No a cute fracture. Well-corticated bony density inferior to the medial malleolus [employer] Other XR ankle LT min 3V* redemonstrated which may represent old injury or unfused ossicle. [employer] Other XR ankle LT min 3V* DEGENERATIVE CHANGE: Mild degenerative change. Calcaneal spurring. [employer] Other XR ankle LT min 3V* SOFT TISSUE FINDINGS : Unremarkable [employer] Other XR ankle LT min 3V* JOINT EFFUSION: None [employer] Other XR ankle LT min 3V* POSTOP CHANGES: None [employer] Other XR ankle LT min 3V* BONE MINERALIZATION: Adequate [employer] Other XR ankle LT min 3V* X R/XR ankle LT min 3V* [employer] Other XR ankle LT min 3V* IMPRESSION: No acute findings. [employer] Other XR ankle LT min 3V* Impression dictated by: Justen Regalado M.D.03/26/2023 12:16 PM [employer] Other XR ankle LT min 3V* Dictation Location: [facility]-- [employer] Other XR ankle LT min 3V* Transcribed By: [facility] 03/26/23 1216 [employer] Other XR ankle LT min 3V* Dictated By: Nahun Regalado DO 03/26/23 1214 [employer] Other XR ankle LT min 3V* Signed By: [employer] Other XR ankle LT min 3V* 03/26/23 1216 No [facility] Other XR ankle LT min 3V* [facility] Main [place] [address] [place], [place] [id number] XRay Report Signed Patient: Joselin Freitas MR#: [id number] : 1985 Acct:[id number] Age/Sex: 37 / M ADM Date: 03/26/23 Loc: SOXD Room: Type: [facility] CLI Attending Dr: Dominik George DO Copies to: [...] Justen Regalado M.D.03/26/2023 12:16 PM Dictation Location: [place] [address] Transcribed By: [facility] 03/26/23 1216 Dictated By: Justen Regalado DO 03/26/23 1214 Signed By: 03/26/23 1216 Normal [facility] XR tibia fibula LT 2V*on XR tibia fibula LT 2V* [facility] [place] [address] XRay Report Signed Patient: Joselin Freitas MR#: [id number] : 1985 Acct:[id number] Age/Sex: 37 / M ADM Date: 03/23/23 Loc: ER Room: Type: [facility] ER Attending Dr: Copies to: Howard Esquivel PA-C Ordering Provider: Howard Esquivel PA-C Date of Service: 03/23/23 XR/XR knee LT 4V*: fall ([id number]) XR/XR tibia fibula LT 2V*: PAIN 4 [...] Justen Regalado M.D.03/24/2023 9:12 AM Dictation Location: [place] [address] Transcribed By: [facility] 03/24/[address]11 Dictated By: Justen Regalado DO 03/24/23908 Signed By: 03/24/[address] Normal [facility] Capillary blood glucose ranjit urement by glucometer (mass/volume)Ordered By: Howard Esquivel on 03-23-2023 Glucose [Mass/Vol] 204 mg/dL Normal [facility] Comment on above: Random Glucose Refer ence Range is dependent on time and content of last meal. Glucose of more than 200 mg/dL in a nonstressed, ambulatory subject supports the diagnosis of Diabetes Mellitus. Result Comment: [facility] Glucose Reference Range is dependent on time and content of last meal. Glucose of more than 200 mg/dL in a nonstressed, ambulatory subject supports the diagnosis of Diabetes Mellitus. PERFORMED BY: [facility] [address] [place] [address] PATHOLOGIST LABOR RELATIONS OR PERSONNEL NEGOTIATOR KATE URBINA M.D. Performed By: #### G LULS ####Point of Care testing, Glucose Poct Glucometerson 0 03-23-2023 Glucose [Mass/Vol] 118 mg/dL Normal [facility] Comment on above: Result Comment: [facility] Glucose Reference Range is dependent on time and content of last meal. Glucose of more than 200 mg/dL in a nonstressed, ambulatory subject supports the diagnosis of Diabetes Mellitus. PERFORMED BY: [facility] [address] [place] [address] PATHOLOGIST LABOR RELATIONS OR PERSONNEL NEGOTIATOR KATE URBINA M.D. Performed By: #### G LULS ####Point of Care testing, Glucose [Mass/Vol] 171 mg/dL Normal [facility] Comment on above: Result Comment: [facility] Glucose Reference Range is dependent on time and content of last meal. Glucose of more than 200 mg/dL in a nonstressed, ambulatory subject supports the diagnosis of Diabetes Mellitus. PERFORMED BY: [facility] [place] [address] PATHOLOGIST LABOR RELATIONS OR PERSONNEL NEGOTIATOR KATE URBINA M.D. Performed By: #### G LULS #### Point of Care testing , Ambulatory Visit Summaryon 0 03-05-2023 Ambulatory Visit Summary JOSELIN FREITAS :1985 Visit Date:03/05/2023 Ambulatory Visit Instructions Your Diagnosis Routine adult health maintenance Severe major depression Generalized anxiety disorder Type 1 diabetes Diabetic neuropathy Opioid abuse Laceration of left index finger BMI 31.0-31.9,adult Obesity Your Care Team Attending Physician - Ramon HOLCOMB, Agnieszka Quintanilla Primary Care Physician - NONE, XXXX This [...] Quintanilla When: In 1 year Where: [address], [place] [address]- You Need to Complete the Following CBC [...] Someone Will Contact You Regarding These Appointments [facility] External Ambulatory Referral, Psychiatry, 03/05/23 9:08:00 EST, Severe major depression Normal [facility] Family Medicine Office/Clini c Noteon 03-05-2023 Family Medicine Office/Clinic Note Chief Complaint supervisor doping here to est care. wants to get back on ADHD medication. type 1 DM. HPI Staff Last routine labs: none smoker status: former flu vaccine status: due covid vaccine: utd due for eye and foot exam lima- 21 dep- 25 History of Present Illness Joselin is a 37 yo male presenting today to establish care. Pt is presenting with his mom. Pt was previously seen at [facility] Pt reports he was just recently released from jail and dx with BIPAD and schizophrenia but [...] OUD - taking suboxone 8mg-2mg SL/d via [facility] in [facility] hx: diet: well balanced, drinks water daily, follows high protein/low carb exercise: none alcohol use: none illicit drug use: hx of opioid abuse smoking status: none Specialists: Endocrinology [facility] Review of [...] Mouth: mucous membranes pink, moist and intact. Nesco posterior oropharynx, no palatal inflammation, uvula midline, [...] at this time. Will send referral to [facility] for evaluation and tx d/t possible dx of schizophrenia and/or BIPAD F/U PRN. Ordered: [facility] External Ambulatory Referral 3. Generalized anxiety disorder (F41.1: Generalized anxiety disorder) LIMA score: 21 Discussed red flags/when to seek emergency care and mental health support hotlines. Pt verbalized understanding of resources and when to seek emergency care and denies SI/HI at this time. Will send referral to [facility] for evaluatio (more content not included)... Normal [facility] Comment on above: Result Comment: Elec tronically Signed By: Ramon HOLCOMB, Agnieszka Quintanilla\.br\Date and Time Signed: 03/05/23 09:17 EST Patient [...] activity plan? Your health care provider or certified tumor registrar can help you make a plan for [...] stroke). Where to find more information ? [place] [employer]: www.diabetes.org Summary ? Exercising regularly is important for overall health, especially for people who have diabetes mellitus. ? Exercising has many health benefits. It increases muscle strength and bone density and reduces body fat and stress. It also lowers and controls blood glucose. ? Your health care provider or certified tumor registrar can help you make an activity plan [...] provider. Document Revised: 11/09/2019 Document Reviewed: 11/09/2019 [employer] Patient Education ? 2022 [employer] Blood Glucose Monitoring, Adult Monitoring your blood sugar (glucose) is an important part of managing your diabetes. Blood glucose monitoring involves checking your blood glucos (more content not included)... [facility] Physician Referralon 024 Physician Referral [id number]#1.00TIFF [facility] Transfer Inon 02-07-2023 Transfer In [id number]#1.00TIFF [facility] Auth for Release of Medical Recordson 01-30-2023 Auth for Release of Medical Records [id number]#1.00TIFF [facility] Auth for Release of Medical Records [id number]#1.00TIFF [facility] Auth for Release of Medical Records [id number]#1.00TIFF [facility] Consultation Noteon 01-31-20 Consultation Note [id number]#1.00TIFF [facility] Formson 01-29-2023 Forms [id number]#1.00TIFF [facility] CNPNon 06-13-2022 CNPN Telephone (UROFRANCESCAN) ----- JOSELIN FREITAS ([id number]) 1985 M Date Time Provider Department 06/13/22 [...] Date Reviewed: 02/23/2022 Reviewed by: Ruma Gonzalez APRN.PRODUCT SAFETY COORDINATOR - Fully Assessed Reason for Visit: Returning [...] Encounter Status:Closed by HOMER PADILLA on 06/13/22 [facility] CNROSINAon 05-29-2022 CNOV Office Visit (ASHER ) ----- JOSELIN FREITAS ([id number]) 1985 M Date Time Provider Department 05/29/22 11:30 AM ALBERTINA ELAM During your visit today, we recorded the following information about you: JODY Holley 05/29/2022 3:24 PM Signed No show to preop appt Allergies As of Date: 05/29/2022 (No Known Allergies) Date Reviewed: 02/23/2022 Reviewed by: Ruma Gonzalez APRN.PRODUCT SAFETY COORDINATOR - Fully Assessed Reason for Visit: Pre-Op [...] Encounter Status:Closed by ALBERTINA ELAM on 05/29/22 [facility] JOSELIN FREITAS ([id number]) 1985 M Date Time Provider Department 03/27/22 HOMER PADILLA During your visit today, we recorded the following information about you: Bren Adler 03/27/2022 11:46 AM Signed Sent fax to [facility] for PACC Allergies As of Date: 03/27/2022 (No Known Allergies) Date Reviewed: 02/23/2022 Reviewed by: Ruma Gonzalez APRN.PRODUCT SAFETY COORDINATOR - Fully Assessed Reason for Visit: Electronic Communication [030] Cmt: Sent fax to [facility] for PACC Prescriptions as of 03/27/2022 - [...] Encounter Status:Closed by BREN ADLER on 03/27/22 [facility] CNOVon 03-26-2022 CNOV Office Visit (UROLMN ) ----- JOSELIN FREITAS ([id number]) 1985 M Date Time Provider Department 03/26/22 1:30 PM MEI VILLA During your visit today, we recorded the following information about you: Mei Villa PA-C 03/26/2022 4:10 PM Signed Patient unfortunately did not show for scheduled visit. Allergies As of Date: 03/26/2022 (No Known Allergies) Date Reviewed: 02/23/2022 Reviewed by: Ruma Gonzalez APRN.PRODUCT SAFETY COORDINATOR - Fully Assessed Reason for Visit: No Show [1558] Primary Visit Diagnosis:No-show for appointment [Z91.199] Prescriptions as of 03/26/2022 - amLODIPine (NORVASC) 5 mg tablet Take 1 tablet by mouth. - [employer] TANG 2 READER as directed. - [employer] TANG 2 SENSOR kit CHANGE SENSOR EVERY [...] Encounter Status:Closed by MEI VILLA on 03/26/22 [facility] Suzi 02-28-2022 [facility] Telephone ([facility]) ----- JOSELIN FREITAS ([id number]) 1985 M Date Time Provider Department 02/28/[address] [facility] During your visit today, we recorded the following information about you: Cathy Aguilar RN 02/28/2022 11:29 AM Signed Called and left message that HgA1C needs drawn. Allergies As of Date: 02/28/2022 (No Known Allergies) Date Reviewed: 02/23/2022 Reviewed by: Ruma Gonzalez APRN.PRODUCT SAFETY COORDINATOR - Fully Assessed Reason for Visit: Pre-Op [...] dependence (HCC) [F11.20] 02/15/2020 Encounter Status:Closed by CATYH AGUILAR RN on 01/09/23 [facility] JOSELIN FREITAS ([id number]) 1985 Date Time Provider Department 02/27/22 HOMER [...] Date Reviewed: 02/23/2022 Reviewed by: Ruma Gonzalez APRN.PRODUCT SAFETY COORDINATOR - Fully Assessed Reason for Visit: Returning [...] Status:Closed by HOMER PADILLA on 02/27/22 Normal [facility] ECG COMPLETEon 02-23-2022 ECG COMPLETE Ventricular Rate : 7 2 BPM Atrial Rate : 72 BPM P-R Interval : 160 ms QRS Duration : 86 ms Q-T Interval : 396 ms QTC Calculation(Bazett) : 433 ms Calculated P [place] : 51 degrees Calculated R [place] : 26 degrees Calculated T [place] : 23 degrees NORMAL SINUS RHYTHM NORMAL ECG Confirmed by FARHAD MANCIA M.D. ([id number]) on 03/06/2022 1:34:48 PM NAME : JOSELIN FREITAS PID : [id number] : 1985 Gender : Male Race : ORD : [id number] Procedure Date : Feb 23 2022 14:51:07 Edit Date : Mar 06 2022 13:36:55 Diagnosis: NORMAL SINUS RHYTHM NORMAL ECG Confirmed by FARHAD MANCIA M.D. ([id number]) on 03/06/2022 1:34:48 PM Test Reason : Location : 119 : A17 A17 Overread By : FARHAD MANCIA M.D. Edited By : FAHRAD MANCIA M.D. Referred By : RUMA GONZALEZ Acquired by : JIM DECKER [facility] HISTORY PHYSICALon HISTORY PHYSICAL HNO ID: [id number] Author: Ruma Gonzalez APRN.PRODUCT SAFETY COORDINATOR Service: ? Author Type: Nurse Practitioner Type: HANDP Filed: 02/27/2022 7:54 AM Note Text: HISTORY AND PHYSICAL EXAMINATION SERVICE DATE: 02/23/2022 SERVICE TIME: 1:51 PM PRIMARY CARE PHYSICIAN: No primary care provider on file. REASON FOR VISIT: Joselin Freitas is a 36 year old male who is scheduled for INSERTION PROSTHESIS PENILE INFLATABLE MULTI-COMPONENT on 03/02/2022 at [facility]. Patient is being seen at the [...] gastroparesis, anxiety. Patient admitted to ICU at [facility] 10/17/2021 for DKA. Per patient: he [...] tablet Active 1 GM PO Twice daily 07 09December 18, 2019 6:06pm Yes FREESTYLE TANG 2 [...] symptoms or problems. Cardiovascular: Negative for Recent ME, Arrhythmia, Chest Pain, DVT/PE GI: GERD, gastroparesis- [...] distress, Health (more content not included)... Normal [facility] Basophils Auto (Bld) [#/Vol] Ordered By: Homer Padilla on 02-01-2022 Basophils (Bld) [#/Vol] 0.1 10*3/uL 0.0-0.2 [facility] Basophils/100 WBC Auto (Bld) Ordered By: Homer Padilla on 02-01-2022 Basophils/100 WBC (Bld) 0.6 % . [facility] Body fluid albumin measureme nt (mass/volume)Ordered By: Homer Padilla on 02-01-2022 Albumin (Body fld) [Mass/Vol] 3.7 g/dL 3.2-5.5 [facility] Cholesterol [Mass/volume] in Serum or PlasmaOrdered By: Nunu Fry on 02-01-2022 Cholesterol [Mass/Vol] 141 mg/dL 140-200 [facility] Comment on above: Chol less than 200 m g/dl low riskChol 201-239 mg/dl borderline riskChol 240 mg/dl and greater high risk Cholesterol in LDL Calc [Mas s/Vol]Ordered By: Nunu Fry on 02-01-2022 Cholesterol in LDL [Mass/Vol] 69 mg/dL 0-100 [facility] Comment on above: LDL ATP III CLASSIFI CATIONLDL less than 100 mg/dL OptimalLDL 100-129 mg/dL Near or above optimalLDL 130-159 mg/dL Borderline highLDL 160-189 mg/dL HighLDL greater than 189 mg/dL Very high Cholesterol in VLDL Calc [Ma ss/Vol]Ordered By: Nunu Fry on 02-01-2022 Cholesterol in VLDL [Mass/Vol] 12 mg/dL [facility] Creatinine [Mass/volume] in UrineOrdered By: Nunu Fry on 02-01-2022 Creatinine (U) [Mass/Vol] 286.0 mg/dL [facility] Comment on above: No reference range e stablished Creatinine and Glomerular fi ltration rate.predicted panel (S/P/Bld)Ordered By: Homer Padilla on 02-01-2022 Creatinine [Mass/Vol] 0.78 mg/dL 0.64-1.27 [facility] Eosinophils Auto (Bld) [#/Vo l]Ordered By: Homer Padilla on 02-01-2022 Eosinophils (Bld) [#/Vol] 0.3 10*3/uL 0.0-0.45 [facility] Eosinophils/100 WBC Auto (Bl d)Ordered By: Homer Padilla on 02-01-2022 Eosinophils/100 WBC (Bld) 3.0 % . [facility] Erythrocyte distribution wid th Auto (RBC) [Ratio]Ordered By: Homer Padilla on 02-01-2022 Erythrocyte distribution width (RBC) [Ratio] 13.2 % 12.0-14.8 [facility] Estimated glomerular filtrat ion rate (GFR) non- AmericanOrdered By: Homer Padilla on 02-01-2022 GFR/1.73 sq M.predicted among non-blacks MDRD (S/P/Bld) [Vol rate/Area] > 60 mL/Min [facility] Globulin Calc (S) [Mass/Vol] Ordered By: Homer Padilla on 02-01-2022 Globulin (S) [Mass/Vol] 3.2 g/dL [facility] Hematocrit Auto (Bld) [Volum e fraction]Ordered By: Homer Padilla on 02-01-2022 Hematocrit (Bld) [Volume fraction] 43.8 % 38.8-50.0 [facility] Hemoglobin [Mass/volume] in BloodOrdered By: Homer Padilla on 02-01-2022 Hemoglobin (Bld) [Mass/Vol] 14.5 g/dL 13.0-17.0 [facility] Leukocytes [#/volume] correc paulina for nucleated erythrocytes in Blood by Automated counOrdered By: Homer Padilla on 02-01-2022 WBC corrected for nucl RBC Auto (Bld) [#/Vol] 8.4 10*3/uL 4.1-10.5 [facility] Lymphocytes Auto (Bld) [#/Vo l]Ordered By: Homer Padilla on 02-01-2022 Lymphocytes (Bld) [#/Vol] 2.1 10*3/uL 1.00-4.8 [facility] Lymphocytes/100 WBC Auto (Bl d)Ordered By: Homer Padilla on 02-01-2022 Lymphocytes/100 WBC (Bld) 24.7 % . [facility] MCH Auto (RBC) [Entitic mass ]Ordered By: Homer Padilla on 02-01-2022 MCH (RBC) [Entitic mass] 29.2 pg 27.5-35.2 [facility] MCHC Auto (RBC) [Mass/Vol]Or dered By: Homer Padilla on 02-01-2022 MCHC (RBC) [Mass/Vol] 33.2 g/dL 32.5-35.6 [facility] MCV Auto (RBC) [Entitic vol] Ordered By: Homer Padilla on 02-01-2022 MCV (RBC) [Entitic vol] 87.9 fL 83.5-101 [facility] Monocytes Auto (Bld) [#/Vol] Ordered By: Homer Padilla on 02-01-2022 Monocytes (Bld) [#/Vol] 1.0 10*3/uL 0.0-0.8 [facility] Monocytes/100 WBC Auto (Bld) Ordered By: Homer Padilla on 02-01-2022 Monocytes/100 WBC (Bld) 11.6 % . [facility] Neutrophils Auto (Bld) [#/Vo l]Ordered By: Homer Padilla on 02-01-2022 Neutrophils (Bld) [#/Vol] 5.1 10*3/uL 1.8-7.7 [facility] Neutrophils/100 WBC Auto (Bl d)Ordered By: Homer Padilla on 02-01-2022 Neutrophils/100 WBC (Bld) 60.1 % . [facility] No Panel InformationOrdered By: Nunu Fry on 02-01-2022 25-Hydroxy Vitamin D Total 22.1 ng/mL 30-100 [facility] Comment on above: VITAMIN D STATUS 25( OH)VITAMIN D RANGE (ng/mL) Deficient <20 Insufficient 20 to <30Sufficient 30 to 100Reference: Santana MF,Jensen FRYE, Tawanna TITUS, et al. Evaluation,treatment, and prevention of vitamin D deficiency; an Endocrine Society clinical practice guideline. JCEM. 2010; 96(7):1911-30. No Panel InformationOrdered By: Homer Padilla on 02-01-2022 Estimated GFR () > 60 mL/Min [facility] Comment on above: GFR estimated refere nce range: According to KDOQI guidelines, <60 ml/min/1.73m2 is sufficient to diagnose a patient with chronic kidney disease. Pharmacy Creatinine Clearance (Chem N/A [facility] Nucleated erythrocytes [Pres ence] in Blood by Automated countOrdered By: Homer Padilla on 02-01-2022 Nucleated RBC Auto Ql (Bld) 0.2 /100{WBC} 0-0.5 [facility] Phosphate [Mass/volume] in S belinda or PlasmaOrdered By: Homer Padilla on 02-01-2022 Phosphate [Mass/Vol] 3.5 mg/dL 2.5-4.6 [facility] Platelet mean volume Auto (B ld) [Entitic vol]Ordered By: Homer Padilla on 02-01-2022 Platelet mean volume (Bld) [Entitic vol] 8.7 fL 6.6-10.1 [facility] Platelets Auto (Bld) [#/Vol] Ordered By: Homer Padilla on 02-01-2022 Platelets (Bld) [#/Vol] 210 10*3/uL 150-450 [facility] Protein [Mass/volume] in Ser um or PlasmaOrdered By: Homer Padilla on 02-01-2022 Protein [Mass/Vol] 6.9 g/dL 6.1-7.9 [facility] RBC Auto (Bld) [#/Vol]Ordere d By: Homer Padilla on 02-01-2022 RBC (Bld) [#/Vol] 4.98 10*6/uL 3.90-5.60 [facility] Serum or plasma alanine cooley otransferase measurement without P-5'-P (enzymatic activiOrdered By: Homer Padilla on 02-01-2022 ALT No additional P-5'-P [Catalytic activity/Vol] 46 U/L 10-60 [facility] Serum or plasma albumin/glob ulin mass ratioOrdered By: Homer Padilla on 02-01-2022 Albumin/Globulin [Mass ratio] 1.2 {ratio} [facility] Serum or plasma alkaline rafael sphatase measurement (enzymatic activity/volume)Ordered By: Homer Padilla on 02-01-2022 ALP [Catalytic activity/Vol] 66 U/L 32-92 [facility] Serum or plasma anion gap de terminationOrdered By: Homer Padilla on 02-01-2022 Anion gap [Moles/Vol] 12.1 mmol/L 6.0-15.0 [facility] Serum or plasma aspartate am inotransferase measurement (enzymatic activity/volume)Ordered By: Homer Padilla on 02-01-2022 AST [Catalytic activity/Vol] 34 U/L 10-42 [facility] Serum or plasma calcium ranjit urement (mass/volume)Ordered By: Homer Padilla on 02-01-2022 Calcium [Mass/Vol] 9.2 mg/dL 8.2-10.2 [facility] Serum or plasma chloride susanna surement (moles/volume)Ordered By: Homer Padilla on 02-01-2022 Chloride [Moles/Vol] 102 mmol/L 95-114 [facility] Serum or plasma glucose ranjit urement (mass/volume)Ordered By: Homer Padilla on 02-01-2022 Glucose [Mass/Vol] 142 mg/dL 70-100 [facility] Comment on above: ADA recommended refe rence rangeRandom Glucose Reference Range is dependent on time and content of last meal. Glucose of more than 200 mg/dL in a nonstressed, ambulatory subject supports the diagnosis of Diabetes Mellitus. Serum or plasma high density lipoprotein (HDL) cholesterol measurementOrdered By: Nunu Fry on 02-01-2022 Cholesterol in HDL [Mass/Vol] 59 mg/dL 29-71 [facility] Comment on above: HDL CHOL ATP-III CLA SSIFICATION Cardiovascular RiskHDL > or equal to 60 mg/dL LOWHDL < 40 mg/dL HIGH Serum or plasma potassium me asurement (moles/volume)Ordered By: Homer Padilla on 02-01-2022 Potassium [Moles/Vol] 4.6 mmol/L 3.5-5.1 [facility] Serum or plasma sodium measu rement (moles/volume)Ordered By: Homer Padilla on 02-01-2022 Sodium [Moles/Vol] 138 mmol/L 136-146 [facility] Serum or plasma total biliru bin measurement (mass/volume)Ordered By: Homer Padilla on 02-01-2022 Bilirubin [Mass/Vol] 0.5 mg/dL 0.3-1.2 [facility] Serum or plasma total carbon dioxide measurement (moles/volume)Ordered By: Homer Padilla on 02-01-2022 CO2 [Moles/Vol] 28.5 mmol/L 22.0-30.0 [facility] Serum or plasma total choles terol/high density lipoprotein (HDL) cholesterol mass ratOrdered By: Nunu Fry on 02-01-2022 Cholesterol.total/Chol esterol in HDL [Mass ratio] 2.4 {ratio} <5.0 [facility] Serum or plasma urea nitroge n measurement (mass/volume)Ordered By: Homer Padilla on 02-01-2022 Urea nitrogen [Mass/Vol] 13 mg/dL 9-23 [facility] Triglyceride [Mass/volume] i n Serum or PlasmaOrdered By: Nunu Fry on 12-08-2022 Triglyceride [Mass/Vol] 64 mg/dL 35-149 [facility] Comment on above: TRIG ATP III CLASSIF [...] 20 mg/L (U) [Mass/Vol] 10.5 mg/dL 0.0-1.8 [facility] Urine microalbumin/creatinin e mass ratioOrdered By: Nunu Fry on 02-01-2022 Albumin/Creatinine DL <= 20 mg/L (U) [Mass ratio] 36.0 mg/g 0.0-30.0 [facility] Comment on above: 30-300 mg/g indicate s an increased risk for diabetic nephropathy. Greater than 300 mg/g is consistent with clinical nephropathy. (Am. J. Kidney Disease 1995, 25:107) WBC Auto (Bld) [#/Vol]Ordere d By: Homer Padilla on 02-01-2022 WBC (Bld) [#/Vol] 8.4 10*3/uL 4.1-10.5 [facility] Creatinine and Glomerular fi ltration rate.predicted panel (S/P/Bld)Ordered By: Bren Mccray on 11-22-2021 Creatinine [Mass/Vol] 0.94 mg/dL 0.64-1.27 [facility] Estimated glomerular filtrat ion rate (GFR) non- AmericanOrdered By: Bren Mccray on 11-22-2021 GFR/1.73 sq M.predicted among non-blacks MDRD (S/P/Bld) [Vol rate/Area] > 60 mL/Min [facility] Glucose Glucometer (BldC) [M ass/Vol]Ordered By: Bren Mccray on 11-22-2021 Glucose [Mass/Vol] 267 mg/dL [facility] Comment on above: Random Glucose Refer ence Range is dependent on time and content of last meal. Glucose of more than 200 mg/dL in a nonstressed, ambulatory subject supports the diagnosis of Diabetes Mellitus. Glucose [Mass/Vol] 112 mg/dL [facility] Comment on above: Random Glucose Refer ence Range is dependent on time and content of last meal. Glucose of more than 200 mg/dL in a nonstressed, ambulatory subject supports the diagnosis of Diabetes Mellitus. No Panel InformationOrdered By: Bren Mccray on 11-22-2021 Estimated GFR () > 60 mL/Min [facility] Comment on above: GFR estimated refere nce range: According to KDOQI guidelines, <60 ml/min/1.73m2 is sufficient to diagnose a patient with chronic kidney disease. Pharmacy Creatinine Clearance (Chem 144.17 [facility] Bedside Glucose #2 Comment Cleaned meter [facility] Bedside Glucose Comment See comment [facility] Comment on above: Glu2: WILL NOTIFY DR /RN Serum or plasma anion gap de terminationOrdered By: Bren Mccray on 11-22-2021 Anion gap [Moles/Vol] 15.7 mmol/L 6.0-15.0 [facility] Serum or plasma calcium ranjit urement (mass/volume)Ordered By: Bren Mccray on 11-22-2021 Calcium [Mass/Vol] 9.4 mg/dL 8.2-10.2 [facility] Serum or plasma chloride susanna surement (moles/volume)Ordered By: Bren Mccray on 11-22-2021 Chloride [Moles/Vol] 98 mmol/L 95-114 [facility] Serum or plasma glucose ranjit urement (mass/volume)Ordered By: Bren Mccray on 11-22-2021 Glucose [Mass/Vol] 113 mg/dL 70-100 [facility] Comment on above: ADA recommended refe rence rangeRandom Glucose Reference Range is dependent on time and content of last meal. Glucose of more than 200 mg/dL in a nonstressed, ambulatory subject supports the diagnosis of Diabetes Mellitus. Serum or plasma potassium me asurement (moles/volume)Ordered By: Bren Mccray on 11-22-2021 Potassium [Moles/Vol] 4.2 mmol/L 3.5-5.1 [facility] Serum or plasma sodium measu rement (moles/volume)Ordered By: Bren Mccray on 11-22-2021 Sodium [Moles/Vol] 135 mmol/L 136-146 [facility] Serum or plasma total carbon dioxide measurement (moles/volume)Ordered By: Bren Mccray on 11-22-2021 CO2 [Moles/Vol] 25.5 mmol/L 22.0-30.0 [facility] Serum or plasma urea nitroge n measurement (mass/volume)Ordered By: Bren Mccray on 11-22-2021 Urea nitrogen [Mass/Vol] 10 mg/dL 11-17 [facility] Bacterial blood cultureOrder ed By: Tuan Thakkar on 10-23-2021 Bacteria identified Cx Nom (Bld) NO GROWTH 5 DAYS [facility] Basophils Auto (Bld) [#/Vol] Ordered By: Tuan Thakkar on 10-19-2021 Basophils (Bld) [#/Vol] 0.0 10*3/uL 0.0-0.2 [facility] Basophils/100 WBC Auto (Bld) Ordered By: Tuan Thakkar on 10-19-2021 Basophils/100 WBC (Bld) 0.3 % . [facility] Blood hemoglobin measurement (mass/volume)Ordered By: Tuan Thakkar on 10-19-2021 Hemoglobin (Bld) [Mass/Vol] 12.7 g/dL 13.0-17.0 [facility] Blood leukocytes automated c ount (number/volume)Ordered By: Tuan Thakkar on 10-19-2021 WBC (Bld) [#/Vol] 9.1 10*3/uL 4.5-11.0 [facility] Creatinine and Glomerular fi ltration rate.predicted panel (S/P/Bld)Ordered By: Tuan Thakkar on 10-19-2021 Creatinine [Mass/Vol] 0.99 mg/dL 0.64-1.27 [facility] Eosinophils Auto (Bld) [#/Vo l]Ordered By: Tuan Thakkar on 10-19-2021 Eosinophils (Bld) [#/Vol] 0.2 10*3/uL 0.0-0.45 [facility] Eosinophils/100 WBC Auto (Bl d)Ordered By: Tuan Thakkar on 10-19-2021 Eosinophils/100 WBC (Bld) 2.0 % . [facility] Erythrocyte distribution wid th Auto (RBC) [Ratio]Ordered By: Tuan Thakkar on 10-19-2021 Erythrocyte distribution width (RBC) [Ratio] 13.9 % 12.0-14.8 [facility] Estimated glomerular filtrat ion rate (GFR) non- AmericanOrdered By: Tuan Thakkar on 10-19-2021 GFR/1.73 sq M.predicted among non-blacks MDRD (S/P/Bld) [Vol rate/Area] > 60 mL/Min [facility] Glucose Glucometer (BldC) [M ass/Vol]Ordered By: Tuan Thakkar on 10-19-2021 Glucose [Mass/Vol] 209 mg/dL [facility] Comment on above: Random Glucose Refer ence Range is dependent on time and content of last meal. Glucose of more than 200 mg/dL in a nonstressed, ambulatory subject supports the diagnosis of Diabetes Mellitus. Hematocrit Auto (Bld) [Volum e fraction]Ordered By: Tuan Thakkar on 10-19-2021 Hematocrit (Bld) [Volume fraction] 38.1 % 38.8-50.0 [facility] Laboratory - Hematology and Cell countsOrdered By: Tuan Thakkar on 10-19-2021 Nucleated RBC/100 WBC (Bld) [Ratio] 0.1 % 0-0.5 [facility] Lymphocytes Auto (Bld) [#/Vo l]Ordered By: Tuan Thakkar on 10-19-2021 Lymphocytes (Bld) [#/Vol] 2.0 10*3/uL 1.00-4.8 [facility] Lymphocytes/100 WBC Auto (Bl d)Ordered By: Tuan Thakkar on 10-19-2021 Lymphocytes/100 WBC (Bld) 22.2 % . [facility] MCH Auto (RBC) [Entitic mass ]Ordered By: Tuan Thakkar on 10-19-2021 MCH (RBC) [Entitic mass] 29.6 pg 27.5-35.2 [facility] MCHC Auto (RBC) [Mass/Vol]Or dered By: Tuan Thakkar on 10-19-2021 MCHC (RBC) [Mass/Vol] 33.3 g/dL 32.5-35.6 [facility] MCV Auto (RBC) [Entitic vol] Ordered By: Tuan Thakkar on 10-19-2021 MCV (RBC) [Entitic vol] 88.8 fL 83.5-101 [facility] Monocytes Auto (Bld) [#/Vol] Ordered By: Tuan Thakkar on 10-19-2021 Monocytes (Bld) [#/Vol] 0.8 10*3/uL 0.0-0.8 [facility] Monocytes/100 WBC Auto (Bld) Ordered By: Tuan Thakkar on 10-19-2021 Monocytes/100 WBC (Bld) 8.3 % . [facility] Neutrophils Auto (Bld) [#/Vo l]Ordered By: Tuan Thakkar on 10-19-2021 Neutrophils (Bld) [#/Vol] 6.1 10*3/uL 1.8-7.7 [facility] Neutrophils/100 WBC Auto (Bl d)Ordered By: Tuan Thakkar on 10-19-2021 Neutrophils/100 WBC (Bld) 67.2 % . [facility] No Panel InformationOrdered By: Tuan Thakkar on 10-19-2021 Bedside Glucose Comment Glu2: cleaned meter [facility] Estimated GFR () > 60 mL/Min [facility] Comment on above: GFR estimated refere nce range: According to KDOQI guidelines, <60 ml/min/1.73m2 is sufficient to diagnose a patient with chronic kidney disease. Pharmacy Creatinine Clearance (Chem 161.43 [facility] Platelet mean volume Auto (B ld) [Entitic vol]Ordered By: Tuan Thakkar on 10-19-2021 Platelet mean volume (Bld) [Entitic vol] 8.1 fL 6.6-10.1 [facility] Platelets Auto (Bld) [#/Vol] Ordered By: Tuan Thakkar on 10-19-2021 Platelets (Bld) [#/Vol] 207 10*3/uL 150-450 [facility] RBC Auto (Bld) [#/Vol]Ordere d By: Tuan Thakkar on 10-19-2021 RBC (Bld) [#/Vol] 4.29 10*6/uL 3.90-5.60 [facility] Serum or plasma calcium ranjit urement (mass/volume)Ordered By: Tuan Thakkar on 10-19-2021 Calcium [Mass/Vol] 8.5 mg/dL 8.2-10.2 [facility] Serum or plasma chloride susanna surement (moles/volume)Ordered By: Tuan Thakkar on 10-19-2021 Chloride [Moles/Vol] 108 mmol/L 95-114 [facility] Serum or plasma glucose ranjit urement (mass/volume)Ordered By: Tuan Thakkar on 10-19-2021 Glucose [Mass/Vol] 205 mg/dL 70-100 [facility] Comment on above: ADA recommended refe rence [...] on 10-19-2021 Potassium [Moles/Vol] 3.7 mmol/L 3.5-5.1 [facility] Serum or plasma sodium measu rement (moles/volume)Ordered By: Tuan Thakkar on 10-19-2021 Sodium [Moles/Vol] 139 mmol/L 136-146 [facility] Serum or plasma total carbon dioxide measurement (moles/volume)Ordered By: Tuan Thakkar on 10-19-2021 CO2 [Moles/Vol] 27.6 mmol/L 22.0-30.0 [facility] Serum or plasma urea nitroge n measurement (mass/volume)Ordered By: Tuan Thakkar on 10-19-2021 Urea nitrogen [Mass/Vol] 23 mg/dL 9 [facility] Amphetamine Screen Ql (U)Ord ered By: Howard Esquivel on 10-18-2021 Amphetamines Ql (U) Positive Negative [facility] Barbiturates [Presence] in U rineOrdered By: Hoawrd Esquivel on 10-18-2021 Barbiturates Ql (U) Negative Negative [facility] Benzodiazepines [Presence] i n UrineOrdered By: Howard Esquivel on 10-18-2021 Benzodiazepines Ql (U) Negative Negative [facility] Bilirubin Test strip Ql (U)O rdered By: Howard Esquivel on 10-18-2021 Bilirubin Ql (U) Negative Negative [facility] Cannabinoids [Presence] in U rine by Screen methodOrdered By: Howard Esquivel on 10-18-2021 Cannabinoids Screen Ql (U) Positive Negative [facility] Comment on above: These are unconfirme d [...] Esquivel on 10-18-2021 Color (U) Yellow Yellow [facility] Glucose mean value [Mass/vol ume] in Blood Estimated from glycated hemoglobinOrdered By: Tuan Thakkar on 10-18-2021 Average glucose Estimated from glycated hemoglobin (Bld) [Mass/Vol] 214 mg/dL [facility] Hemoglobin A1c percentageOrd ered By: Tuan Thakkar on 10-18-2021 HbA1c (Bld) [Mass fraction] 9.1 % 4.3-5.6 [facility] Comment on above: Increased risk for d iabetes: 5.7 - 6.4 diabetes: >6.4 glycemic control for adults with diabetes: <7.0 Increased risk for d iabetes: 5.7 - 6.4diabetes: >6.4glycemic control for adults with diabetes: <7.0 Ketones Auto test strip (U) [Mass/Vol]Ordered By: Howard Esquivel on 10-18-2021 Ketones (U) [Mass/Vol] 3+ Negative [facility] Laboratory - Chemistry and C hemistry - challengeOrdered By: Howard Esquivel on 10-18-2021 Lactate [Moles/Vol] 1.5 mmol/L 0.5-2.2 [facility] Laboratory - Chemistry and C hemistry - challengeOrdered By: Taylor Martínez on 10-18-2021 Magnesium [Mass/Vol] 2.3 mg/dL 1.6-2.6 [facility] Laboratory - Drug toxicology Ordered By: Howard Esquivel on 10-18-2021 Opiates Ql (U) Negative Negative [facility] Nitrite Test strip Ql (U)Ord ered By: Howard Esquivel on 10-18-2021 Nitrite Ql (U) Negative Negative [facility] No Panel InformationOrdered By: Tuan Thakkar on 10-18-2021 Bedside Glucose #2 Comment Insulin drip protoco [facility] Phencyclidine Screen Ql (U)O rdered By: Howard Esquivel on 10-18-2021 Phencyclidine Ql (U) Negative Negative [facility] Protein Auto test strip (U) [Mass/Vol]Ordered By: Howard Esquivel on 10-18-2021 Protein (U) [Mass/Vol] Negative Negative [facility] Specific gravity Auto test s trip (U) [Rel density]Ordered By: Howard Esquivel on 10-18-2021 Specific gravity (U) [Rel density] 1.024 1.001-1.03 0 [facility] Urine clarity by refractomet ry automatedOrdered By: Howard Esquivel on 10-18-2021 Clarity Refractometry automated (U) Clear Clear [facility] Urine cocaine detectionOrder ed By: Howard Esquivel on 10-18-2021 Cocaine Ql (U) Negative Negative [facility] Urine glucose measurement by automated test strip (mass/volume)Ordered By: Howard Esquivel on 10-18-2021 Glucose Auto test strip (U) [Mass/Vol] >=1000 mg/dL Normal [facility] Urine hemoglobin detection b y automated test stripOrdered By: Howard Esquivel on 10-18-2021 Hemoglobin Auto test strip Ql (U) Negative Negative [facility] Urine leukocyte esterase det ection by automated test stripOrdered By: Howard Esquivel on 10-18-2021 Leukocyte esterase Auto test strip Ql (U) Negative Negative [facility] Urobilinogen Auto test strip (U) [Mass/Vol]Ordered By: Howard Esquivel on 10-18-2021 Urobilinogen (U) [Mass/Vol] Normal mg/dL Normal [facility] Whole blood phosphatidyletha nol measurement by LC-MS/MS (mass/volume)Ordered By: Tuan Thakkar on 10-18-2021 Phosphatidylethanol (Bld) [Mass/Vol] Negative NEGATIVE [facility] Comment on above: Analyzed compound: P Eth 16:0/18:1. 9-[id number]-fi-veznezt-3-phosphoethanol.Analysis performed by Liquid Chromatography withTandem Mass Spectrometry [...] was developed and its performance characteristicsdetermined by [employer]. It has not been cleared or approvedby the Food and Drug Administration.Performed at: [employer] [address] [id number] Director: Dianne Paez [facility], Phone: [phone] pH Auto test strip (U)Ordere d By: Howard Esquivel on 10-18-2021 pH (U) 5.5 [pH] 5.0-9.0 [facility] Beta-hydroxybutyric acid susanna surementOrdered By: Howard Esquivel on 10-17-2021 Beta hydroxybutyrate [Mass/Vol] 8.76 mmol/L 0.05-0.27 [facility] Body fluid albumin measureme nt (mass/volume)Ordered By: Howard Esquivel on 10-17-2021 Albumin (Body fld) [Mass/Vol] 3.5 g/dL 3.2-5.5 [facility] COVID-19 Positive/NegativeOr dered By: Howard Esquivel on 10-17-2021 SARS-CoV-2 (COVID-19) N gene YAA+probe Ql (Resp) Negative Negative [facility] Comment on above: Testing for SARS-CoV -2 by RT-PCR This test was developed and its performance characteristics determined by [employer]) and validated at the [facility]. This test has not been FDA cleared [...] developed and its performance characteristics determined by [employer] ([employer]) and validated at the [facility]. This test has not been FDA cleared [...] (COVID-19) Ag IA.rapid Ql (Resp) Negative Negative [facility] Comment on above: This is a duplicate [facility] SARS Antigen (CINDY) result to be used for statistical tracking purpose only. Creatine kinase [Enzymatic a ctivity/volume] in Serum or PlasmaOrdered By: Howard Esquivel on 10-17-2021 CK [Catalytic activity/Vol] 318 U/L 22-269 [facility] Globulin Calc (S) [Mass/Vol] Ordered By: Howard Esquivel on 10-17-2021 Globulin (S) [Mass/Vol] 2.9 g/dL [facility] Laboratory - Chemistry and C hemistry - challengeOrdered By: Howard Esquivel on 10-17-2021 CO2 [Moles/Vol] 14.6 mmol/L 24.0-29.0 [facility] HCO3 (Bld) [Moles/Vol] 13.5 mmol/L 23.0-29.0 [facility] No Panel InformationOrdered By: Howard Esquivel on 10-17-2021 Blood Gas Critical Value See comment [facility] Comment on above: Critical Value shah d on: 10/17/2021 at 19:23 Blood Gas Sample Site Venous Fir [facility] FiO2 21 % [facility] Venous Blood Base Excess -13.8 mmol/L -3.0-3.0 [facility] Venous Blood Oxygen Content 5.7 mmol/L 6.6-9.7 [facility] Venous Blood Oxygen Saturation 65.0 % 73.0-76.0 [facility] Venous Blood Partial Pressure CO2 36.3 mm[Hg] 38.0-50.0 [facility] Venous Blood Partial Pressure O2 38.5 mm[Hg] 35.0-45.0 [facility] Venous Blood pH 7.19 7.32-7.43 [facility] SARS Antigen (LFIA) [facility] Protein [Mass/volume] in Ser um or PlasmaOrdered By: Howard Esquivel on 10-17-2021 Protein [Mass/Vol] 6.4 g/dL 6.1-7.9 [facility] Serum or plasma alanine cooley otransferase measurement without P-5'-P (enzymatic activiOrdered By: Howard Esquivel on 10-17-2021 ALT No additional P-5'-P [Catalytic activity/Vol] 49 U/L 10-60 [facility] Serum or plasma albumin/glob ulin mass ratioOrdered By: Howard Esquivel on 10-17-2021 Albumin/Globulin [Mass ratio] 1.2 {ratio} [facility] Serum or plasma alkaline rafael sphatase measurement (enzymatic activity/volume)Ordered By: Howard Esquivel on 10-17-2021 ALP [Catalytic activity/Vol] 71 U/L 32-92 [facility] Serum or plasma aspartate am inotransferase measurement (enzymatic activity/volume)Ordered By: Howard Esquivel on 10-17-2021 AST [Catalytic activity/Vol] 53 U/L 10-42 [facility] Serum or plasma ethanol ranjit urement (mass/volume)Ordered By: Howard Esquivel on 10-17-2021 Ethanol [Mass/Vol] 7 mg/dL [facility] Ethanol [Mass/Vol] 0.007 % [facility] Serum or plasma total biliru bin measurement (mass/volume)Ordered By: Howard Esquivel on 10-17-2021 Bilirubin [Mass/Vol] 2.0 mg/dL 0.3-1.2 [facility] Comment on above: Samples from patient s who have taken Naproxen have shown spurious elevation in Total Bilirubin levels. A metabolite of Naproxen, O-desmethylnaproxen, has been shown to interfere with the Jendrrenoik-Juanita method for measuring Total Bilirubin. Troponin I.cardiac [Mass/vol ume] in Serum or Plasma by High sensitivity methodOrdered By: Howard Esquivel on 10-17-2021 Troponin I.cardiac High sensitivity method [Mass/Vol] 6 pg/mL 0-20 [facility] Glucose Glucometer (BldC) [M ass/Vol]Ordered By: Kennedy Tran on 09-02-2021 Glucose [Mass/Vol] 427 mg/dL [facility] Comment on above: Random Glucose Refer ence Range is dependent on time and content of last meal. Glucose of more than 200 mg/dL in a nonstressed, ambulatory subject supports the diagnosis of Diabetes Mellitus. No Panel InformationOrdered By: Kennedy Tran on 09-02-2021 Bedside Glucose Comment See comment [facility] Comment on above: Glu2: WILL NOTIFY DR /RN Bacterial blood cultureOrder ed By: Joaquín Giles on 08-29-2021 Bacteria identified Cx Nom (Bld) NO GROWTH 5 DAYS [facility] Basophils Auto (Bld) [#/Vol] Ordered By: Shanthi Cross on 08-26-2021 Basophils (Bld) [#/Vol] 0.1 10*3/uL 0.0-0.2 [facility] Basophils/100 WBC Auto (Bld) Ordered By: Shanthi Cross on 08-26-2021 Basophils/100 WBC (Bld) 1.0 % . [facility] Blood hemoglobin measurement (mass/volume)Ordered By: Shanthi Cross on 08-26-2021 Hemoglobin (Bld) [Mass/Vol] 13.2 g/dL 13.0-17.0 [facility] Blood leukocytes automated c ount (number/volume)Ordered By: Shanthi Cross on 08-26-2021 WBC (Bld) [#/Vol] 5.5 10*3/uL 4.5-11.0 [facility] Creatinine and Glomerular fi ltration rate.predicted panel (S/P/Bld)Ordered By: Shanthi Cross on 08-26-2021 Creatinine [Mass/Vol] 0.77 mg/dL 0.64-1.27 [facility] Eosinophils Auto (Bld) [#/Vo l]Ordered By: Shanthi Cross on 08-26-2021 Eosinophils (Bld) [#/Vol] 0.2 10*3/uL 0.0-0.45 [facility] Eosinophils/100 WBC Auto (Bl d)Ordered By: Shanthi Cross on 08-26-2021 Eosinophils/100 WBC (Bld) 3.3 % . [facility] Erythrocyte distribution wid th Auto (RBC) [Ratio]Ordered By: Shanthi Cross on 08-26-2021 Erythrocyte distribution width (RBC) [Ratio] 14.0 % 12.0-14.8 [facility] Estimated glomerular filtrat ion rate (GFR) non- AmericanOrdered By: Shanthi Cross on 08-26-2021 GFR/1.73 sq M.predicted among non-blacks MDRD (S/P/Bld) [Vol rate/Area] > 60 mL/Min [facility] Glucose Glucometer (BldC) [M ass/Vol]Ordered By: Shanthi Cross on 08-26-2021 Glucose [Mass/Vol] 197 mg/dL [facility] Comment on above: Random Glucose Refer ence Range is dependent on time and content of last meal. Glucose of more than 200 mg/dL in a nonstressed, ambulatory subject supports the diagnosis of Diabetes Mellitus. Hematocrit Auto (Bld) [Volum e fraction]Ordered By: Shanthi Cross on 08-26-2021 Hematocrit (Bld) [Volume fraction] 39.4 % 38.8-50.0 [facility] Laboratory - Hematology and Cell countsOrdered By: Shanthi Cross on 08-26-2021 Nucleated RBC/100 WBC (Bld) [Ratio] 0.1 % 0-0.5 [facility] Lymphocytes Auto (Bld) [#/Vo l]Ordered By: Shanthi Cross on 08-26-2021 Lymphocytes (Bld) [#/Vol] 2.2 10*3/uL 1.00-4.8 [facility] Lymphocytes/100 WBC Auto (Bl d)Ordered By: Shanthi Cross on 08-26-2021 Lymphocytes/100 WBC (Bld) 41.1 % . [facility] MCH Auto (RBC) [Entitic mass ]Ordered By: Shanthi Cross on 08-26-2021 MCH (RBC) [Entitic mass] 29.6 pg 27.5-35.2 [facility] MCHC Auto (RBC) [Mass/Vol]Or dered By: Shanthi Cross on 08-26-2021 MCHC (RBC) [Mass/Vol] 33.4 g/dL 32.5-35.6 [facility] MCV Auto (RBC) [Entitic vol] Ordered By: Shanthi Cross on 08-26-2021 MCV (RBC) [Entitic vol] 88.8 fL 83.5-101 [facility] Monocytes Auto (Bld) [#/Vol] Ordered By: Shanthi Cross on 08-26-2021 Monocytes (Bld) [#/Vol] 0.6 10*3/uL 0.0-0.8 [facility] Monocytes/100 WBC Auto (Bld) Ordered By: Shanthi Cross on 08-26-2021 Monocytes/100 WBC (Bld) 10.1 % . [facility] Neutrophils Auto (Bld) [#/Vo l]Ordered By: Shanthi Cross on 08-26-2021 Neutrophils (Bld) [#/Vol] 2.4 10*3/uL 1.8-7.7 [facility] Neutrophils/100 WBC Auto (Bl d)Ordered By: Shanthi Cross on 08-26-2021 Neutrophils/100 WBC (Bld) 44.5 % . [facility] No Panel InformationOrdered By: Shanthi Cross on 08-26-2021 Bedside Glucose Comment Glu2: cleaned meter [facility] Estimated GFR () > 60 mL/Min [facility] Comment on above: GFR estimated refere nce range: According to KDOQI guidelines, <60 ml/min/1.73m2 is sufficient to diagnose a patient with chronic kidney disease. Pharmacy Creatinine Clearance (Chem 180.80 [facility] Platelet mean volume Auto (B ld) [Entitic vol]Ordered By: Shanthi Cross on 08-26-2021 Platelet mean volume (Bld) [Entitic vol] 8.3 fL 6.6-10.1 [facility] Platelets Auto (Bld) [#/Vol] Ordered By: Shanthi Cross on 08-26-2021 Platelets (Bld) [#/Vol] 226 10*3/uL 150-450 [facility] RBC Auto (Bld) [#/Vol]Ordere d By: Shanthi Cross on 08-26-2021 RBC (Bld) [#/Vol] 4.44 10*6/uL 3.90-5.60 [facility] Serum or plasma calcium ranjit urement (mass/volume)Ordered By: Shanthi Cross on 08-26-2021 Calcium [Mass/Vol] 8.5 mg/dL 8.2-10.2 [facility] Serum or plasma chloride susanna surement (moles/volume)Ordered By: Shanthi Cross on 08-26-2021 Chloride [Moles/Vol] 102 mmol/L 95-114 [facility] Serum or plasma glucose ranjit urement (mass/volume)Ordered By: Shanthi Cross on 08-26-2021 Glucose [Mass/Vol] 149 mg/dL 70-100 [facility] Comment on above: Delta: 358 on ADA [...] on 08-26-2021 Potassium [Moles/Vol] 3.9 mmol/L 3.5-5.1 [facility] Serum or plasma sodium measu rement (moles/volume)Ordered By: Shanthi Cross on 08-26-2021 Sodium [Moles/Vol] 137 mmol/L 136-146 [facility] Serum or plasma total carbon dioxide measurement (moles/volume)Ordered By: Shanthi Cross on 08-26-2021 CO2 [Moles/Vol] 28.1 mmol/L 22.0-30.0 [facility] Serum or plasma urea nitroge n measurement (mass/volume)Ordered By: Shanthi Cross on 08-26-2021 Urea nitrogen [Mass/Vol] 10 mg/dL 11-17 [facility] Laboratory - Chemistry and C hemistry - challengeOrdered By: Taylor Martínez on 08-25-2021 Magnesium [Mass/Vol] 1.9 mg/dL 1.6-2.6 [facility] Activated partial thrombopla stin time (aPTT) in platelet poor plasma by coagulation aOrdered By: Joaquín Giles on 08-24-2021 aPTT Coag (PPP) [Time] 30.0 s 25.1-36.5 [facility] Albumin [Mass/volume] in Ser um or PlasmaOrdered By: Joaquín Giles on 08-24-2021 Albumin [Mass/Vol] 3.5 g/dL 3.2-5.5 [facility] Amphetamine Screen Ql (U)Ord ered By: Joaquín Giles on 08-24-2021 Amphetamines Ql (U) Negative Negative [facility] Barbiturates [Presence] in U rineOrdered By: Joaquín Giles on 08-24-2021 Barbiturates Ql (U) Negative Negative [facility] Benzodiazepines [Presence] i n UrineOrdered By: Joaquín Giles on 08-24-2021 Benzodiazepines Ql (U) Negative Negative [facility] Beta-hydroxybutyric acid susanna surementOrdered By: Joaquín Giles on 08-24-2021 Beta hydroxybutyrate [Mass/Vol] 3.05 mmol/L 0.05-0.27 [facility] Bilirubin Test strip Ql (U)O rdered By: Joaquín Giles on 08-24-2021 Bilirubin Ql (U) Negative Negative [facility] COVID-19 Positive/NegativeOr dered By: Joaquín Giles on 08-24-2021 SARS-CoV-2 (COVID-19) N gene YAA+probe Ql (Resp) Negative Negative [facility] Comment on above: Testing for SARS-CoV -2 by RT-PCR This test was developed and its performance characteristics determined by [employer] ([employer]) and validated at the [facility]. This test has not been FDA cleared [...] and its performance characteristics determined by [employer] ([employer]) and validated at the [facility]. This test has not been FDA cleared [...] (COVID-19) Ag IA.rapid Ql (Resp) Negative Negative [facility] Comment on above: This is a duplicate [employer] SARS Antigen (CINDY) result to be used for statistical tracking purpose only. Cannabinoids [Presence] in U rine by Screen methodOrdered By: Joaquín Giles on 08-24-2021 Cannabinoids Screen Ql (U) Positive Negative [facility] Comment on above: These are unconfirme d [...] on 08-24-2021 Cholesterol [Mass/Vol] 121 mg/dL 140-200 [facility] Comment on above: Chol less than 200 m g/dl low risk Chol 201-239 mg/dl borderline risk Chol 240 mg/dl and greater high risk Chol less than 200 m g/dl low riskChol 201-239 mg/dl borderline riskChol 240 mg/dl and greater high risk Cholesterol in LDL Calc [Mas s/Vol]Ordered By: Taylor Martínez on 08-24-2021 Cholesterol in LDL [Mass/Vol] 55 mg/dL 0-100 [facility] Comment on above: LDL ATP III CLASSIFI [...] 08-24-2021 Cholesterol in VLDL [Mass/Vol] 24 mg/dL [facility] Color Auto (U)Ordered By: Rafael Giles on 08-24-2021 Color (U) Yellow Yellow [facility] Creatine kinase [Enzymatic a ctivity/volume] in Serum or PlasmaOrdered By: Joaquín Giles on 08-24-2021 CK [Catalytic activity/Vol] 136 U/L 22-269 [facility] Globulin Calc (S) [Mass/Vol] Ordered By: Joaquín Giles on 08-24-2021 Globulin (S) [Mass/Vol] 3.3 g/dL [facility] Ketones Auto test strip (U) [Mass/Vol]Ordered By: Joaquín Giles on 08-24-2021 Ketones (U) [Mass/Vol] 1+ Negative Fi [facility] Laboratory - Chemistry and C hemistry - challengeOrdered By: Joaquín Giles on 08-24-2021 Lactate [Moles/Vol] 4.0 mmol/L 0.5-2.2 [facility] Comment on above: Results called at 2310 on 08/24/21 Results calledat 231 0 on 08/24/21 CO2 [Moles/Vol] 28.8 mmol/L 24.0-29.0 [facility] HCO3 (Bld) [Moles/Vol] 27.1 mmol/L 23.0-29.0 [facility] Natriuretic peptide B (Bld) [Mass/Vol] 87.0 pg/mL 5-100 [facility] Laboratory - CoagulationOrde red By: Joaquín Giles on 08-24-2021 PT Coag (PPP) [Time] 10.7 s 9.0-12.9 [facility] Laboratory - Drug toxicology Ordered By: Joaquín Giles on 08-24-2021 Opiates Ql (U) Negative Negative [facility] Laboratory - Microbiology an d Antimicrobial susceptibilityOrdered By: Joaquín Giles on 08-24-2021 SARS-CoV-2 (COVID-19) RNA YAA+probe Ql (Unsp spec) N/A [facility] Nitrite Test strip Ql (U)Ord ered By: Joaquín Giles on 08-24-2021 Nitrite Ql (U) Negative Negative [facility] No Panel InformationOrdered By: Taylor Martínez on 08-24-2021 Bedside Glucose #2 Comment Insulin drip protoco [facility] No Panel InformationOrdered By: Joaquín Giles on 08-24-2021 Blood Gas Critical Value See comment [facility] Comment on above: Critical Value shah d on: 08/24/2021 at 18:30 Blood Gas Sample Site Venous Fir [facility] FiO2 N/A [facility] Venous Blood Base Excess -0.6 mmol/L -3.0-3.0 [facility] Venous Blood Oxygen Content 7.5 mmol/L 6.6-9.7 [facility] Venous Blood Oxygen Saturation 80.9 % 73.0-76.0 [facility] Venous Blood Partial Pressure CO2 56.5 mm[Hg] 38.0-50.0 [facility] Venous Blood Partial Pressure O2 45.4 mm[Hg] 35.0-45.0 [facility] Venous Blood pH 7.30 7.32-7.43 [facility] D-Dimer Quantitative (PE/DVT) 225 ng/mL 0-243 [facility] Comment on above: The reference range for [...] patients due toco-morbid conditions. SARS Antigen (LFIA) [facility] Phencyclidine Screen Ql (U)O rdered By: Joaquín Giles on 08-24-2021 Phencyclidine Ql (U) Negative Negative [facility] Platelet poor plasma interna tional normalized ratio (INR) by coagulation assay (relatOrdered By: Joaquín Giles on 08-24-2021 INR Coag (PPP) [Relative time] 1.0 {INR} [facility] Comment on above: INR Therapeutic Rang e [...] on 08-24-2021 Protein (U) [Mass/Vol] Negative Negative [facility] Protein [Mass/volume] in Ser um or PlasmaOrdered By: Joaquín Giles on 08-24-2021 Protein [Mass/Vol] 6.8 g/dL 6.1-7.9 [facility] Serum or plasma alanine cooley otransferase measurement without P-5'-P (enzymatic activiOrdered By: Joaquín Giles on 08-24-2021 ALT No additional P-5'-P [Catalytic activity/Vol] 39 U/L 10-60 [facility] Serum or plasma albumin/glob ulin mass ratioOrdered By: Joaquín Giles on 08-24-2021 Albumin/Globulin [Mass ratio] 1.1 {ratio} [facility] Serum or plasma alkaline rafael sphatase measurement (enzymatic activity/volume)Ordered By: Joaquín Giles on 08-24-2021 ALP [Catalytic activity/Vol] 89 U/L 32-92 [facility] Serum or plasma aspartate am inotransferase measurement (enzymatic activity/volume)Ordered By: Joaquín Giles on 08-24-2021 AST [Catalytic activity/Vol] 39 U/L 10-42 [facility] Serum or plasma high density lipoprotein (HDL) cholesterol measurementOrdered By: Taylor Martínez on 08-24-2021 Cholesterol in HDL [Mass/Vol] 41 mg/dL 29-71 [facility] Comment on above: HDL CHOL ATP-III CLA SSIFICATION Cardiovascular Risk HDL > or equal to 60 mg/dL LOW HDL < 40 mg/dL HIGH HDL CHOL ATP-III CLA SSIFICATION Cardiovascular RiskHDL > or equal to 60 mg/dL LOWHDL < 40 mg/dL HIGH Serum or plasma total biliru bin measurement (mass/volume)Ordered By: Joaquín Giles on 08-24-2021 Bilirubin [Mass/Vol] 1.3 mg/dL 0.3-1.2 [facility] Comment on above: Samples from patient [...] in HDL [Mass ratio] 3.0 {ratio} <5.0 [facility] Specific gravity Auto test s trip (U) [Rel density]Ordered By: Joaquín Giles on 08-24-2021 Specific gravity (U) [Rel density] 1.015 1.001-1.03 0 [facility] TSH DL <= 0.005 mIU/L QnOrde red By: Joaquín Giles on 08-24-2021 TSH Qn 1.18 m[IU]/L 0.45-5.33 [facility] Triglyceride [Mass/volume] i n Serum or PlasmaOrdered By: Taylor Martínez on 08-24-2021 Triglyceride [Mass/Vol] 123 mg/dL 35-149 [facility] Comment on above: TRIG ATP III CLASSIF [...] High sensitivity method [Mass/Vol] 5 pg/mL 0-20 [facility] Urine clarity by refractomet ry automatedOrdered By: Joaquín Giles on 08-24-2021 Clarity Refractometry automated (U) Clear Clear [facility] Urine cocaine detectionOrder ed By: Joaquín Giles on 08-24-2021 Cocaine Ql (U) Negative Negative [facility] Urine glucose measurement by automated test strip (mass/volume)Ordered By: Joaquín Giles on 08-24-2021 Glucose Auto test strip (U) [Mass/Vol] 500 mg/dL Normal [facility] Urine hemoglobin detection b y automated test stripOrdered By: Joaquín Giles on 08-24-2021 Hemoglobin Auto test strip Ql (U) Negative Negative [facility] Urine leukocyte esterase det ection by automated test stripOrdered By: Joaquín Giles on 08-24-2021 Leukocyte esterase Auto test strip Ql (U) Negative Negative [facility] Urobilinogen Auto test strip (U) [Mass/Vol]Ordered By: Joaquín Giles on 08-24-2021 Urobilinogen (U) [Mass/Vol] Normal mg/dL Normal [facility] pH Auto test strip (U)Ordere d By: Joaquín Giles on 08-24-2021 pH (U) 7.0 [pH] 5.0-9.0 [facility] Albumin [Mass/volume] in Ser um or PlasmaOrdered By: Shanthi Cross on 08-11-2021 Albumin [Mass/Vol] 2.9 g/dL 3.2-5.5 [facility] Basophils Auto (Bld) [#/Vol] Ordered By: Shanthi Cross on 08-11-2021 Basophils (Bld) [#/Vol] 0.0 10*3/uL 0.0-0.2 [facility] Basophils/100 WBC Auto (Bld) Ordered By: Shanthi Cross on 08-11-2021 Basophils/100 WBC (Bld) 0.2 % . [facility] Blood hemoglobin measurement (mass/volume)Ordered By: Shanthi Cross on 08-11-2021 Hemoglobin (Bld) [Mass/Vol] 13.4 g/dL 13.0-17.0 [facility] Blood leukocytes automated c ount (number/volume)Ordered By: Shanthi Cross on 08-11-2021 WBC (Bld) [#/Vol] 5.5 10*3/uL 4.5-11.0 [facility] Creatinine and Glomerular fi ltration rate.predicted panel (S/P/Bld)Ordered By: Shanthi Cross on 08-11-2021 Creatinine [Mass/Vol] 0.75 mg/dL 0.64-1.27 [facility] Direct bilirubin measurement Ordered By: Shanthi Cross on 08-11-2021 Bilirubin.direct [Mass/Vol] 0.2 mg/dL 0.0-0.4 [facility] Eosinophils Auto (Bld) [#/Vo l]Ordered By: Shanthi Cross on 08-11-2021 Eosinophils (Bld) [#/Vol] 0.3 10*3/uL 0.0-0.45 [facility] Eosinophils/100 WBC Auto (Bl d)Ordered By: Shanthi Cross on 08-11-2021 Eosinophils/100 WBC (Bld) 5.5 % . [facility] [facility] Erythrocyte distribution wid th Auto (RBC) [Ratio]Ordered By: Shanthi Cross on 08-11-2021 Erythrocyte distribution width (RBC) [Ratio] 14.0 % 12.0-14.8 [facility] Estimated glomerular filtrat ion rate (GFR) non- AmericanOrdered By: Shanthi Cross on 08-11-2021 GFR/1.73 sq M.predicted among non-blacks MDRD (S/P/Bld) [Vol rate/Area] > 60 mL/Min [facility] Globulin Calc (S) [Mass/Vol] Ordered By: Shanthi Cross on 08-11-2021 Globulin (S) [Mass/Vol] 2.9 g/dL [facility] Glucose Glucometer (BldC) [M ass/Vol]Ordered By: Shanthi Cross on 08-11-2021 Glucose [Mass/Vol] 280 mg/dL [facility] Comment on above: Random Glucose Refer ence Range is dependent on time and content of last meal. Glucose of more than 200 mg/dL in a nonstressed, ambulatory subject supports the diagnosis of Diabetes Mellitus. Hematocrit Auto (Bld) [Volum e fraction]Ordered By: Shanthi Cross on 08-11-2021 Hematocrit (Bld) [Volume fraction] 40.2 % 38.8-50.0 [facility] Laboratory - Hematology and Cell countsOrdered By: Shanthi Cross on 08-11-2021 Nucleated RBC/100 WBC (Bld) [Ratio] 0.1 % 0-0.5 [facility] Lymphocytes Auto (Bld) [#/Vo l]Ordered By: Shanthi Cross on 08-11-2021 Lymphocytes (Bld) [#/Vol] 2.4 10*3/uL 1.00-4.8 [facility] Lymphocytes/100 WBC Auto (Bl d)Ordered By: Shanthi Cross on 08-11-2021 Lymphocytes/100 WBC (Bld) 43.0 % . [facility] MCH Auto (RBC) [Entitic mass ]Ordered By: Shanthi Cross on 08-11-2021 MCH (RBC) [Entitic mass] 29.7 pg 27.5-35.2 [facility] MCHC Auto (RBC) [Mass/Vol]Or dered By: Shanthi Cross on 08-11-2021 MCHC (RBC) [Mass/Vol] 33.4 g/dL 32.5-35.6 [facility] MCV Auto (RBC) [Entitic vol] Ordered By: Shanthi Cross on 08-11-2021 MCV (RBC) [Entitic vol] 89.0 fL 83.5-101 [facility] Monocytes Auto (Bld) [#/Vol] Ordered By: Shanthi Cross on 08-11-2021 Monocytes (Bld) [#/Vol] 0.6 10*3/uL 0.0-0.8 [facility] Monocytes/100 WBC Auto (Bld) Ordered By: Shanthi Cross on 08-11-2021 Monocytes/100 WBC (Bld) 10.9 % . [facility] Neutrophils Auto (Bld) [#/Vo l]Ordered By: Shanthi Cross on 08-11-2021 Neutrophils (Bld) [#/Vol] 2.2 10*3/uL 1.8-7.7 [facility] Neutrophils/100 WBC Auto (Bl d)Ordered By: Shanthi Cross on 08-11-2021 Neutrophils/100 WBC (Bld) 40.4 % . [facility] No Panel InformationOrdered By: Shanthi Cross on 08-11-2021 Bedside Glucose Comment Glu2: cleaned meter [facility] Estimated GFR () > 60 mL/Min [facility] Comment on above: GFR estimated refere nce range: According to KDOQI guidelines, <60 ml/min/1.73m2 is sufficient to diagnose a patient with chronic kidney disease. Pharmacy Creatinine Clearance (Chem 183.44 [facility] Platelet mean volume Auto (B ld) [Entitic vol]Ordered By: Shanthi Cross on 08-11-2021 Platelet mean volume (Bld) [Entitic vol] 8.7 fL 6.6-10.1 [facility] Platelets Auto (Bld) [#/Vol] Ordered By: Shanthi Cross on 08-11-2021 Platelets (Bld) [#/Vol] 168 10*3/uL 150-450 [facility] Protein [Mass/volume] in Ser um or PlasmaOrdered By: Shanthi Cross on 08-11-2021 Protein [Mass/Vol] 5.8 g/dL 6.1-7.9 [facility] RBC Auto (Bld) [#/Vol]Ordere d By: Shanthi Cross on 08-11-2021 RBC (Bld) [#/Vol] 4.52 10*6/uL 3.90-5.60 [facility] Serum or plasma alanine cooley otransferase measurement without P-5'-P (enzymatic activiOrdered By: Shanthi Cross on 08-11-2021 ALT No additional P-5'-P [Catalytic activity/Vol] 150 U/L 10-60 [facility] Serum or plasma albumin/glob ulin mass ratioOrdered By: Shanthi Cross on 08-11-2021 Albumin/Globulin [Mass ratio] 1.0 {ratio} [facility] Serum or plasma alkaline rafael sphatase measurement (enzymatic activity/volume)Ordered By: Shanthi Cross on 08-11-2021 ALP [Catalytic activity/Vol] 62 U/L 32-92 [facility] Serum or plasma aspartate am inotransferase measurement (enzymatic activity/volume)Ordered By: Shanthi Cross on 08-11-2021 AST [Catalytic activity/Vol] 57 U/L 10-42 [facility] Serum or plasma calcium ranjit urement (mass/volume)Ordered By: Shanthi Cross on 08-11-2021 Calcium [Mass/Vol] 8.5 mg/dL 8.2-10.2 [facility] Serum or plasma chloride susanna surement (moles/volume)Ordered By: Shanthi Cross on 08-11-2021 Chloride [Moles/Vol] 103 mmol/L 95-114 [facility] Serum or plasma glucose ranjit urement (mass/volume)Ordered By: Shanthi Cross on 08-11-2021 Glucose [Mass/Vol] 141 mg/dL 70-100 [facility] Comment on above: ADA recommended refe rence range Random Glucose Reference Range is dependent on time and content of last meal. Glucose of more than 200 mg/dL in a nonstressed, ambulatory subject supports the diagnosis of Diabetes Mellitus. Serum or plasma non-glucuron idated bilirubin measurement (mass/volume)Ordered By: Shanthi Cross on 08-11-2021 Bilirubin.indirect [Mass/Vol] 0.7 mg/dL [facility] Serum or plasma potassium me asurement (moles/volume)Ordered By: Shanthi Cross on 08-11-2021 Potassium [Moles/Vol] 3.2 mmol/L 3.5-5.1 [facility] Serum or plasma sodium measu rement (moles/volume)Ordered By: Shanthi Cross on 08-11-2021 Sodium [Moles/Vol] 140 mmol/L 136-146 [facility] Serum or plasma total biliru bin measurement (mass/volume)Ordered By: Shanthi Cross on 08-11-2021 Bilirubin [Mass/Vol] 0.9 mg/dL 0.3-1.2 [facility] Serum or plasma total carbon dioxide measurement (moles/volume)Ordered By: Shanthi Cross on 08-11-2021 CO2 [Moles/Vol] 26.2 mmol/L 22.0-30.0 [facility] Serum or plasma urea nitroge n measurement (mass/volume)Ordered By: Shanthi Cross on 08-11-2021 Urea nitrogen [Mass/Vol] 8 mg/dL 9-23 [facility] Activated partial thrombopla stin time (aPTT) in platelet poor plasma by coagulation aOrdered By: Joaquín Giles on 08-09-2021 aPTT Coag (PPP) [Time] 24.9 s 25.1-36.5 [facility] Amphetamine Screen Ql (U)Ord ered By: Joaquín Giles on 08-09-2021 Amphetamines Ql (U) Negative Negative [facility] Barbiturates [Presence] in U rineOrdered By: Joaquín Giles on 08-09-2021 Barbiturates Ql (U) Negative Negative [facility] Benzodiazepines [Presence] i n UrineOrdered By: Joaquín Giles on 08-09-2021 Benzodiazepines Ql (U) Negative Negative [facility] Beta-hydroxybutyric acid susanna surementOrdered By: Joaquín Giles on 08-09-2021 Beta hydroxybutyrate [Mass/Vol] 7.97 mmol/L 0.05-0.27 [facility] Bilirubin Test strip Ql (U)O rdered By: Joaquín Giles on 08-09-2021 Bilirubin Ql (U) Negative Negative [facility] COVID-19 Positive/NegativeOr dered By: Joaquín Giles on 08-09-2021 SARS-CoV-2 (COVID-19) N gene YAA+probe Ql (Resp) Negative Negative [facility] Comment on above: Testing for SARS-CoV -2 by RT-PCR This test was developed and its performance characteristics determined by [employer]) and validated at the [facility]. This test has not been FDA cleared [...] (COVID-19) Ag IA.rapid Ql (Resp) Negative Negative [facility] Comment on above: This is a duplicate [facility] SARS Antigen (CINDY) result to be used for statistical tracking purpose only. Cannabinoids [Presence] in U rine by Screen methodOrdered By: Joaquín Giles on 08-09-2021 Cannabinoids Screen Ql (U) Positive Negative [facility] Comment on above: These are unconfirme d results and should not be used for legal purposes. Drug Cut-Off Concentration: AMPH 1000 ng/mL CHASITY 200 ng/mL ELISEO 200 ng/mL COCM 300 ng/mL OP 300 ng/mL PCP 25 ng/mL THC 20 ng/mL Color Auto (U)Ordered By: Rafael Giles on 08-09-2021 Color (U) Yellow Yellow [facility] Creatine kinase [Enzymatic a ctivity/volume] in Serum or PlasmaOrdered By: Joaquín Giles on 08-09-2021 CK [Catalytic activity/Vol] 76 U/L 22-269 [facility] Ketones Auto test strip (U) [Mass/Vol]Ordered By: Joaquín Giles on 08-09-2021 Ketones (U) [Mass/Vol] 4+ Negative Fi [facility] - Chemistry and C hemistry - challengeOrdered By: Joaquín Giles on 08-09-2021 CO2 [Moles/Vol] 16.9 mmol/L 24.0-29.0 [facility] HCO3 (Bld) [Moles/Vol] 15.7 mmol/L 23.0-29.0 [facility] Magnesium [Mass/Vol] 1.7 mg/dL 1.6-2.6 [facility] Natriuretic peptide B (Bld) [Mass/Vol] 31.0 pg/mL 5-100 [facility] Laboratory - CoagulationOrde red By: Joaquín Giles on 08-09-2021 PT Coag (PPP) [Time] 11.4 s 9.0-12.9 [facility] - Drug toxicology Ordered By: Joaquín Giles on 08-09-2021 Opiates Ql (U) Negative Negative [facility] Nitrite Test strip Ql (U)Ord ered By: Joaquín Giles on 08-09-2021 Nitrite Ql (U) Negative Negative [facility] No Panel InformationOrdered By: Joaquín Giles on 08-09-2021 Blood Gas Critical Value See comment [facility] Comment on above: Critical Value shah d on: 08/09/2021 at 07:05 Blood Gas Sample Site Venous Fir [facility] FiO2 21 % [facility] Venous Blood Base Excess -11.2 mmol/L -3.0-3.0 [facility] Venous Blood Oxygen Content 7.1 mmol/L 6.6-9.7 [facility] Venous Blood Oxygen Saturation 80.4 % 73.0-76.0 [facility] Venous Blood Partial Pressure CO2 38.5 mm[Hg] 38.0-50.0 [facility] Venous Blood Partial Pressure O2 47.4 mm[Hg] 35.0-45.0 [facility] Venous Blood pH 7.23 7.32-7.43 [facility] SARS Antigen (LFIA) [facility] Phencyclidine Screen Ql (U)O rdered By: Joaquín Giles on 08-09-2021 Phencyclidine Ql (U) Negative Negative [facility] Platelet poor plasma interna tional normalized ratio (INR) by coagulation assay (relatOrdered By: Joaquín Giles on 08-09-2021 INR Coag (PPP) [Relative time] 1.0 {INR} [facility] Comment on above: INR Therapeutic Rang e [...] 08-09-2021 Protein (U) [Mass/Vol] Negative Negative Fi [facility] Specific gravity Auto test s trip (U) [Rel density]Ordered By: Joaquín Giles on 08-09-2021 Specific gravity (U) [Rel density] 1.029 1.001-1.03 0 [facility] TSH DL <= 0.005 mIU/L QnOrde red By: Joaquín Giles on 08-09-2021 TSH Qn 0.48 m[IU]/L 0.45-5.33 [facility] Troponin I.cardiac [Mass/vol ume] in Serum or Plasma by High sensitivity methodOrdered By: Joaquín Giles on 08-09-2021 Troponin I.cardiac High sensitivity method [Mass/Vol] 8 pg/mL 0-20 [facility] Urine clarity by refractomet ry automatedOrdered By: Joaquín Giles on 08-09-2021 Clarity Refractometry automated (U) Clear Clear [facility] Urine cocaine detectionOrder ed By: Joaquín Giles on 08-09-2021 Cocaine Ql (U) Negative Negative [facility] Urine glucose measurement by automated test strip (mass/volume)Ordered By: Joaquín Giles on 08-09-2021 Glucose Auto test strip (U) [Mass/Vol] >=1000 mg/dL Normal [facility] Urine hemoglobin detection b y automated test stripOrdered By: Joaquín Giles on 08-09-2021 Hemoglobin Auto test strip Ql (U) Negative Negative [facility] Urine leukocyte esterase det ection by automated test stripOrdered By: Joaquín Giles on 08-09-2021 Leukocyte esterase Auto test strip Ql (U) Negative Negative [facility] Urobilinogen Auto test strip (U) [Mass/Vol]Ordered By: Joaquín Giles on 08-09-2021 Urobilinogen (U) [Mass/Vol] Normal mg/dL Normal [facility] pH Auto test strip (U)Ordere d By: Joaquín Giles on 08-09-2021 pH (U) 5.5 [pH] 5.0-9.0 [facility] CBC AUTO DIFFon 03-15-2020 Basophils (Bld) [#/Vol] 0.0 103/ul Normal 0.0-0.1 [facility] Comment on above: Performed By: #### C BC #### [facility] [address] [place], [place] [phone] Adeel Karly Basophils/100 WBC (Bld) 0.7 % Normal 0.2-2.[address] [facility] Comment on above: Performed By: #### C BC #### [facility] [address] [id number] Adeel Karly Eosinophils (Bld) [#/Vol] 0.2 103/ul Normal 0.0-0.[address] [facility] Comment on above: Performed By: #### C BC #### [facility] [address] [id number] Adeel Karly Eosinophils/100 WBC (Bld) 3.4 % Normal 0.9-7.[address] [facility] Comment on above: Performed By: #### C BC #### [facility] [address] [place], [place] [phone] Adeel Brandt Erythrocyte distribution width (RBC) [Ratio] 12.2 % Normal 11.0-15.0 [facility] Comment on above: Performed By: #### C BC #### [facility] [address] [place] [address] Adeel Brandt Hematocrit (Bld) [Volume fraction] 41.3 % Critically low 42.0-54.0 [facility] Comment on above: Performed By: #### C BC #### [facility] [address] [place] [address] Adeelcatracho Brandt Hemoglobin (Bld) [Mass/Vol] 13.6 g/dL Critically low 14.0-18.[address] [facility] Comment on above: Performed By: #### C BC #### [facility] [address] [place] [address] Adeel Karly IG # 0.01 10e3/ul Normal 0.00-0.03 [facility] Comment on above: Performed By: #### C BC #### [facility] [address] [place] [address] Adeel Brandt IG % 0.2 % Normal 0.0-0.[address] [facility] Comment on above: Performed By: #### C BC #### [facility] [address] [place] [address] Adeel Karly Lymphocytes (Bld) [#/Vol] 2.4 103/ul Normal 1.2-3.[address] [facility] Comment on above: Performed By: #### C BC #### [facility] [address] [place] [address] Adeel Brandt Lymphocytes/100 WBC (Bld) 40.9 % Normal 20.5-60.[address] [facility] Comment on above: Performed By: #### C BC #### [facility] [address] [place], [place] [phone] Adeel Brandt MANUAL DIFF REQ NO Normal [facility] Comment on above: Performed By: #### C BC #### [facility] [address] [place], [place] [phone] Adeel Brandt MCH (RBC) [Entitic mass] 28.6 pg Normal 25.9-34.[address] [facility] Comment on above: Performed By: #### C BC #### [facility] [address] [place], [place] [phone] Adeelcatracho Brandt MCHC (RBC) [Mass/Vol] 32.9 g/dL Normal 29.9-35.[address] [facility] Comment on above: Performed By: #### C BC #### [facility] [address] [place], [place] [phone] Adeelcatracho Brandt MCV (RBC) [Entitic vol] 86.8 fL Normal 80.0-94.[address] [facility] Comment on above: Performed By: #### C BC #### [facility] [address] [place], [place] [phone] Adeel Karly Monocytes (Bld) [#/Vol] 0.6 103/ul Normal 0.3-0.[address] [facility] Comment on above: Performed By: #### C BC #### [facility] [address] [place], [place] [phone] Adeel Karly Monocytes/100 WBC (Bld) 9.7 % Normal 1.7-12.0 [facility] Comment on above: Performed By: #### C BC #### [facility] [address] [place], [place] [phone] Adeel Karly Neutrophils (Bld) [#/Vol] 2.7 103/ul Normal 1.4-6.[address] [facility] Comment on above: Performed By: #### C BC #### [facility] [address] [place], [place] [phone] Adeel Karly Neutrophils/100 WBC (Bld) 45.1 % Normal 43.0-75.[address] [facility] Comment on above: Performed By: #### C BC #### [facility] [address] [place], [place] [phone] Adeel Karly Platelet mean volume (Bld) [Entitic vol] 10.6 fL Normal 9.5-13.[address] [facility] Comment on above: Performed By: #### C BC #### [facility] [address] [place], [place] [phone] Adeelcatracho Brandt Platelets (Bld) [#/Vol] 234 103/ul Normal 150-[address] [facility] Comment on above: Performed By: #### C BC #### [facility] [address] [place], [place] [phone] Adeelcatracho Brandt RBC (Bld) [#/Vol] 4.76 106/ul Normal 4.70-6.10 [facility] Comment on above: Performed By: #### C BC #### [facility] [address] [place], [place] [phone] Adeelcatracho Brandt WBC (Bld) [#/Vol] 5.9 103/ul Normal 4.0-11.0 [facility] Comment on above: Performed By: #### C BC #### [facility] [address] [place], [place] [phone] Adeel Brandt PROF 14(COMP METB)on 021 Albumin [Mass/Vol] 3.8 g/dL Normal 3.5-5.0 [facility] Comment on above: Performed By: #### C BC #### [facility] [address] [place], [place] [phone] Adeel Karly Albumin/Globulin [Mass ratio] 1.0 {ratio} Normal [facility] Comment on above: Performed By: #### C BC #### [facility] [address] [place], [place] [phone] Adeel Karly ALP [Catalytic activity/Vol] 92 U/L Normal 38-[address] [facility] Comment on above: Performed By: #### C BC #### [facility] [address] [place], [place] [phone] Adeel Karly ALT [Catalytic activity/Vol] 65 U/L Normal 21-72 [facility] Comment on above: Performed By: #### C BC #### [facility] [address] [place], [place] [phone] Adeel Karly Anion gap [Moles/Vol] 11.4 mmol/L Normal [facility] Comment on above: Performed By: #### C BC #### [facility] [address] [place], [place] [phone] Adeel Karly AST [Catalytic activity/Vol] 47 U/L Normal 17-[address] [facility] Comment on above: Performed By: #### C BC #### [facility] [address] [id number] Adeel Karly Bilirubin Ql (U) 0.5 mg/dL Normal 0.2-1.3 [facility] Comment on above: Performed By: #### C BC #### [facility] [address] [address] Adeel Karly Calcium [Mass/Vol] 9.0 mg/dL Normal 8.4-10.2 [facility] Comment on above: Performed By: #### C BC #### [facility] [address] [place] [address] Adeel Karly Chloride [Moles/Vol] 102 mmol/L Normal 98-107 [facility] Comment on above: Performed By: #### C BC #### [facility] [address] [address] Adeel Karly CO2 [Moles/Vol] 29.3 mmol/L Normal 22.0-30.0 [facility] Comment on above: Performed By: #### C BC #### [facility] [address] [place], [place] [phone] Adeel Karly Creatinine [Mass/Vol] 0.78 mg/dL Normal 0.66-1.25 [facility] Comment on above: Performed By: #### C BC #### [facility] [address] [place], [place] [address] Adeel Karly EGFR-AF FINNISH >60 Normal >=60 [facility] Comment on above: Performed By: #### C BC #### [facility] [address] [place], [place] [address] Adeel Karly EGFR-NON AF FINNISH >60 Normal >=[address] [facility] Comment on above: Performed By: #### C BC #### [facility] [address] [place], [place] [phone] Adeel Karly Globulin (S) [Mass/Vol] 3.7 g/dL Normal [facility] Comment on above: Performed By: #### C BC #### [facility] [address] [phone] Adeel Karly Glucose [Mass/Vol] 232 mg/dL Critically high 74-106 [facility] Comment on above: Performed By: #### C BC #### [facility] [address] [phone] Adeel Karly Potassium [Moles/Vol] 3.7 mmol/L Normal 3.4-5.0 [facility] Comment on above: Performed By: #### C BC #### [facility] [address] [address] Adeel Karly Protein [Mass/Vol] 7.5 g/dL Normal 6.1-8.2 [facility] Comment on above: Performed By: #### C BC #### [facility] [address] [place] [address] Adeel Karly Sodium [Moles/Vol] 139 mmol/L Normal 137-145 [facility] Comment on above: Performed By: #### C BC #### [facility] [address] [place] [address] Adeel Karly Urea nitrogen [Mass/Vol] 10.0 mg/dL Normal 9.0-20.0 [facility] Comment on above: Performed By: #### C BC #### [facility] [address] [place], [place] [phone] Adeel Karly Urea nitrogen/Creatinine [Mass ratio] 12.8 mg/mg Normal [facility] Comment on above: Performed By: #### C BC #### [facility] [address] [place], [place] [phone] Adeel Karly CBC AUTO DIFFon 02-09-2020 Basophils (Bld) [#/Vol] 0.0 103/ul Normal 0.0-0.1 [facility] Comment on above: Performed By: #### C BC #### [facility] [address] [place], [place] [address] Adeel Karly Basophils/100 WBC (Bld) 1.0 % Normal 0.2-2.0 [facility] Comment on above: Performed By: #### C BC #### [facility] [address] [phone] Adeel Karly Eosinophils (Bld) [#/Vol] 0.2 103/ul Normal 0.0-0.7 [facility] Comment on above: Performed By: #### C BC #### [facility] [address] [place], [place] [address] Adeel Karly Eosinophils/100 WBC (Bld) 4.6 % Normal 0.9-7.0 [facility] Comment on above: Performed By: #### C BC #### [facility] [address] [place], [place] [address] Adeel Karly Erythrocyte distribution width (RBC) [Ratio] 12.3 % Normal 11.0-15.0 [facility] Comment on above: Performed By: #### C BC #### [facility] [address] [place] [address] Adeel Karly Hematocrit (Bld) [Volume fraction] 36.7 % Critically low 42.0-54.0 [facility] Comment on above: Performed By: #### C BC #### [facility] [address] [place], [place] [phone] Adeel Karly Hemoglobin (Bld) [Mass/Vol] 12.4 g/dL Critically low 14.0-18.0 [facility] Comment on above: Performed By: #### C BC #### [facility] [address] [place] [address] Adeel Karly IG # 0.01 10e3/ul Normal 0.00-0.[address] [facility] Comment on above: Performed By: #### C BC #### [facility] [address] [place] [address] Adeel Karly IG % 0.2 % Normal 0.0-0.[address] [facility] Comment on above: Performed By: #### C BC #### [facility] [address] [place], [place] [phone] Adeel Karly Lymphocytes (Bld) [#/Vol] 2.1 103/ul Normal 1.2-3.[address] [facility] Comment on above: Performed By: #### C BC #### [facility] [address] [place], [place] [address] Adeel Karly Lymphocytes/100 WBC (Bld) 50.4 % Normal 20.5-60.0 [facility] Comment on above: Performed By: #### C BC #### [facility] [facility] [address], [place] [address] Adeel Karly MANUAL DIFF REQ NO Normal [facility] Comment on above: Performed By: #### C BC #### [facility] [address], [place] [address] Adeel Karly MCH (RBC) [Entitic mass] 29.2 pg Normal 25.9-34.[address] [facility] Comment on above: Performed By: #### C BC #### [facility] [address] [place] [id number] Adeel Karly MCHC (RBC) [Mass/Vol] 33.8 g/dL Normal 29.9-35.[address] [facility] Comment on above: Performed By: #### C BC #### [facility] [address] [place] [address] Adeel Karly MCV (RBC) [Entitic vol] 86.4 fL Normal 80.0-94.0 [facility] Comment on above: Performed By: #### C BC #### [facility] [address] [place] [phone] Adeel Karly Monocytes (Bld) [#/Vol] 0.5 103/ul Normal 0.3-0.[address] [facility] Comment on above: Performed By: #### C BC #### [facility] [address] [place] [address] Adeel Karly Monocytes/100 WBC (Bld) 12.7 % Critically high 1.7-12.[address] [facility] Comment on above: Performed By: #### C BC #### [facility] [address] [place] [address] Adeel Karly Neutrophils (Bld) [#/Vol] 1.3 103/ul Critically low 1.4-6.[address] [facility] Comment on above: Performed By: #### C BC #### [facility] [address], [place] [address] Adeel Karly Neutrophils/100 WBC (Bld) 31.1 % Critically low 43.0-75.0 [facility] Comment on above: Performed By: #### C BC #### [facility] [address] [place] [address] Adeel Karly Platelet mean volume (Bld) [Entitic vol] 9.5 fL Normal 9.5-13.5 [facility] Comment on above: Performed By: #### C BC #### [facility] [address] [place], [place] [phone] Adeel Karly Platelets (Bld) [#/Vol] 171 103/ul Normal 150-450 [facility] Comment on above: Performed By: #### C BC #### [facility] [address] [place], [place] [phone] Adeel Karly RBC (Bld) [#/Vol] 4.25 106/ul Critically low 4.70-6.10 [facility] Comment on above: Performed By: #### C BC #### [facility] [address] [place], [place] [phone] Adeel Karly WBC (Bld) [#/Vol] 4.2 103/ul Normal 4.0-11.0 [facility] Comment on above: Performed By: #### C BC #### [facility] [address] [place], [place] [phone] Adeel Gardneren PROF CHEM 8 (BAS METB)on Anion gap [Moles/Vol] 11.9 mmol/L Normal [facility] Comment on above: Performed By: #### B MP #### [facility] [address] [place], [place] [phone] Adeel Karly Calcium [Mass/Vol] 8.6 mg/dL Normal 8.4-10.2 [facility] Comment on above: Performed By: #### B MP #### [facility] [address] [place], [place] [phone] Adeel Karly Chloride [Moles/Vol] 105 mmol/L Normal 98-107 [facility] Comment on above: Performed By: #### B MP #### [facility] [address], [place] [address] Adeel Karly CO2 [Moles/Vol] 27.3 mmol/L Normal 22.0-30.0 [facility] Comment on above: Performed By: #### B MP #### [facility] [address] [place] [id number] Adeel Karly Creatinine [Mass/Vol] 1.06 mg/dL Normal 0.66-1.25 [facility] Comment on above: Performed By: #### B MP #### [facility] [address] [place] [id number] Adeel Karly EGFR-AF FINNISH >60 Normal >=60 [facility] Comment on above: Performed By: #### B MP #### [facility] [address] [place], [place] [phone] Adeel Karly EGFR-NON AF FINNISH >60 Normal >=60 [facility] Comment on above: Performed By: #### B MP #### [facility] [address] [place] [phone] Adeel Karly Glucose [Mass/Vol] 245 mg/dL Critically high 74-106 [facility] Comment on above: Performed By: #### B MP #### [facility] [address] [place] [address] Adeel Karly Potassium [Moles/Vol] 3.2 mmol/L Critically low 3.4-5.0 [facility] Comment on above: Performed By: #### B MP #### [facility] [address] [place] [phone] Adeel Karly Sodium [Moles/Vol] 141 mmol/L Normal 137-145 [facility] Comment on above: Performed By: #### B MP #### [facility] [address] [place] [phone] Adeel Karly Urea nitrogen [Mass/Vol] 11.0 mg/dL Normal 9.0-20.0 [facility] Comment on above: Performed By: #### B MP #### [facility] [address] [place] [address] Adeel Karly Urea nitrogen/Creatinine [Mass ratio] 10.4 mg/mg Normal [facility] Comment on above: Performed By: #### B MP #### [facility] [address] [place], [place] [phone] Adeel Karly CBC AUTO DIFFon 02-08-2020 Basophils (Bld) [#/Vol] 0.0 103/ul Normal 0.0-0.[address] [facility] Comment on above: Performed By: #### C BC #### [facility] [address] [place], [place] [phone] Adeel Karly Basophils/100 WBC (Bld) 0.4 % Normal 0.2-2.0 [facility] Comment on above: Performed By: #### C BC #### [facility] [address] [place] [address] Adeel Karly Eosinophils (Bld) [#/Vol] 0.1 103/ul Normal 0.0-0.[address] [facility] Comment on above: Performed By: #### C BC #### [facility] [address] [place] [address] Adeel Karly Eosinophils/100 WBC (Bld) 2.1 % Normal 0.9-7.0 [facility] Comment on above: Performed By: #### C BC #### [facility] [address] [place], [place] [phone] Adeel Karly Erythrocyte distribution width (RBC) [Ratio] 12.4 % Normal 11.0-15.[address] [facility] Comment on above: Performed By: #### C BC #### [facility] [address] [place] [address] Adeel Karly Hematocrit (Bld) [Volume fraction] 35.4 % Critically low 42.0-54.0 [facility] Comment on above: Performed By: #### C BC #### [facility] [address] [place], [place] [phone] Adeel Karly Hemoglobin (Bld) [Mass/Vol] 12.1 g/dL Critically low 14.0-18.[address] [facility] Comment on above: Performed By: #### C BC #### [facility] [address] [place] [phone] Adeel Karly IG # 0.01 10e3/ul Normal 0.00-0.03 [facility] Comment on above: Performed By: #### C BC #### [facility] [address] [place], [place] [address] Adeel Karly IG % 0.1 % Normal 0.0-0.5 [facility] Comment on above: Performed By: #### C BC #### [facility] [address] [place], [place] [phone] Adeel Karly Lymphocytes (Bld) [#/Vol] 2.1 103/ul Normal 1.2-3.8 [facility] Comment on above: Performed By: #### C BC #### [facility] [address] [place] [address] Adeel Karly Lymphocytes/100 WBC (Bld) 31.2 % Normal 20.5-60.0 [facility] Comment on above: Performed By: #### C BC #### [facility] [address] [place], [place] [phone] Adeel Karly MANUAL DIFF REQ NO Normal [facility] Comment on above: Performed By: #### C BC #### [facility] [address] [place], [place] [phone] Adeel Karly MCH (RBC) [Entitic mass] 29.5 pg Normal 25.9-34.0 [facility] Comment on above: Performed By: #### C BC #### [facility] [address] [place], [place] [phone] Adeel Karly MCHC (RBC) [Mass/Vol] 34.2 g/dL Normal 29.9-35.[address] [facility] Comment on above: Performed By: #### C BC #### [facility] [address] [place], [place] [phone] Adeel Karly MCV (RBC) [Entitic vol] 86.3 fL Normal 80.0-94.[address] [facility] Comment on above: Performed By: #### C BC #### [facility] [address], [place] [address] Adeel Karly Monocytes (Bld) [#/Vol] 0.9 103/ul Critically high 0.3-0.8 [facility] Comment on above: Performed By: #### C BC #### [facility] [address], [place] [address] Adeel Karly Monocytes/100 WBC (Bld) 13.9 % Critically high 1.7-12.0 [facility] Comment on above: Performed By: #### C BC #### [facility] [address] [place] [address] Adeel Karly Neutrophils (Bld) [#/Vol] 3.5 103/ul Normal 1.4-6.5 [facility] Comment on above: Performed By: #### C BC #### [facility] [address] [place] [address] Adeel Karly Neutrophils/100 WBC (Bld) 52.3 % Normal 43.0-75.0 [facility] Comment on above: Performed By: #### C BC #### [facility] [address] [place] [address] Adeel Karly Platelet mean volume (Bld) [Entitic vol] 9.4 fL Critically low 9.5-13.5 [facility] Comment on above: Performed By: #### C BC #### [facility] [address] [place] [address] Adeel Karly Platelets (Bld) [#/Vol] 204 103/ul Normal 150-[address] [facility] Comment on above: Performed By: #### C BC #### [facility] [address] [place] [address] Adeel Karly RBC (Bld) [#/Vol] 4.10 106/ul Critically low 4.70-6.10 [facility] Comment on above: Performed By: #### C BC #### [facility] [address] [place] [address] Adeel Karly WBC (Bld) [#/Vol] 6.7 103/ul Normal 4.0-11.0 [facility] Comment on above: Performed By: #### C BC #### [facility] [address] [address] Adeelcatracho Brandt DRUG SCREEN RAPID (URINE)on 02-08-2020 AMP Negative Normal NEGATIVE [facility] Comment on above: Performed By: #### B MP #### [facility] [address] [place] [address] Adeel Karly BAR Negative Normal NEGATIVE [facility] Comment on above: Performed By: #### B MP #### [facility] [address] [place] [address] Adeel Karly BUP Positive Abnormal NEGATIVE [facility] Comment on above: Performed By: #### B MP #### [facility] [address] [place] [address] Adeel Karly BZO Negative Normal NEGATIVE [facility] Comment on above: Performed By: #### B MP #### [facility] [address] [place] [address] Adeel Karly DIMAS Negative Normal NEGATIVE [facility] Comment on above: Performed By: #### B MP #### [facility] [address] [place] [address] Adeel Karly CUT-OFFS SEE BELOW Normal [facility] Comment on above: Result Comment: AMP (Amphetamine): [...] ng/mL Performed By: #### B MP #### [facility] [address] [place] [address] Adeelcatracho Brandt DRUG CUT HEADER DRUG CLASS TEST SYST EM CUT-OFF CONCENTRATIONS ARE FOLLOWS: Normal [facility] Comment on above: Performed By: #### B MP #### [facility] [address] [place] [address] Adeel Karly mAMP Negative Normal NEGATIVE [facility] Comment on above: Performed By: #### B MP #### [facility] [address] [place] [address] Adeel Karly MTD Negative Normal NEGATIVE [facility] Comment on above: Performed By: #### B MP #### [facility] [address] [place] [address] Adeel Karly OPI Negative Normal NEGATIVE [facility] Comment on above: Performed By: #### B MP #### [facility] [address] [place] [address] Adeel Karly OXY Negative Normal NEGATIVE [facility] Comment on above: Performed By: #### B MP #### [facility] [address] [place] [address] Adeel Karly PCP Negative Normal NEGATIVE [facility] Comment on above: Performed By: #### B MP #### [facility] [address] [place] [address] Adeel Karly PPX Negative Normal NEGATIVE [facility] Comment on above: Performed By: #### B MP #### [facility] [address] [place] [address] Adeel Karly TCA Negative Normal NEGATIVE [facility] Comment on above: Performed By: #### B MP #### [facility] [address] [place] [address] Adeel Karly THC Negative Normal NEGATIVE [facility] Comment on above: Performed By: #### B MP #### [facility] [address] [place] [address] Adeel Karly LIVER PROFILEon 02-08-2020 Albumin [Mass/Vol] 3.0 g/dL Critically low 3.5-5.[address] [facility] Comment on above: Performed By: #### L IVER #### [facility] [address] [place] [address] Adeel Kalry Albumin/Globulin [Mass ratio] 1.0 {ratio} Normal [facility] Comment on above: Performed By: #### L IVER #### [facility] [address], [place] [address] Adeel Karly ALP [Catalytic activity/Vol] 122 U/L Normal 38-126 [facility] Comment on above: Performed By: #### L IVER #### [facility] [address] [phone] Adeel Karly ALT [Catalytic activity/Vol] 151 U/L Critically high 21-72 [facility] Comment on above: Performed By: #### L IVER #### [facility] [address] [place] [phone] Adeel Karly AST [Catalytic activity/Vol] 71 U/L Critically high 17-59 [facility] Comment on above: Performed By: #### L IVER #### [facility] [address] [place], [place] [address] Adeel Karly BILI, CONJUGATED 0.2 mg/dL Normal 0.0-0.3 [facility] Comment on above: Performed By: #### L IVER #### [facility] [address] [place] [phone] Adeel Karly Bilirubin Ql (U) 0.5 mg/dL Normal 0.2-1.3 [facility] Comment on above: Performed By: #### L IVER #### [facility] [address] [place] [phone] Adeel Karly Globulin (S) [Mass/Vol] 2.9 g/dL Normal [facility] Comment on above: Performed By: #### L IVER #### [facility] [address], [place] [address] Adeel Karly Protein [Mass/Vol] 5.9 g/dL Critically low 6.1-8.2 [facility] Comment on above: Performed By: #### L IVER #### [facility] [address], [place] [address] Adeel Gardneren PROF CHEM 8 (BAS METB)on Anion gap [Moles/Vol] 14.9 mmol/L Normal [facility] Comment on above: Performed By: #### B MP #### [facility] [address], [place] [address] Adeel Karly Calcium [Mass/Vol] 8.7 mg/dL Normal 8.4-10.2 [facility] Comment on above: Performed By: #### B MP #### [facility] [address] [place] [phone] Adeel Karly Chloride [Moles/Vol] 106 mmol/L Normal 98-107 [facility] Comment on above: Performed By: #### B MP #### [facility] [address] [place] [phone] Adeel Karly CO2 [Moles/Vol] 24.6 mmol/L Normal 22.0-30.0 [facility] Comment on above: Performed By: #### B MP #### [facility] [address] [place] [phone] Adeel Karly Creatinine [Mass/Vol] 1.26 mg/dL Critically high 0.66-1.25 [facility] Comment on above: Performed By: #### B MP #### [facility] [address] [place] [phone] Adeel Karly EGFR-AF FINNISH >60 Normal >=60 [facility] Comment on above: Performed By: #### B MP #### [facility] [address] [place] [phone] Adeel Karly EGFR-NON AF FINNISH >60 Normal >=60 [facility] Comment on above: Performed By: #### B MP #### [facility] [address] [place] [phone] Adeel Karly Glucose [Mass/Vol] 186 mg/dL Critically high 74-106 [facility] Comment on above: Performed By: #### B MP #### [facility] [address] [place] [phone] Adeel Karly Potassium [Moles/Vol] 3.5 mmol/L Normal 3.4-5.0 [facility] Comment on above: Performed By: #### B MP #### [facility] [address] [place] [phone] Adeel Karly Sodium [Moles/Vol] 142 mmol/L Normal 137-145 [facility] Comment on above: Performed By: #### B MP #### [facility] [address] [place] [phone] Adeel Karly Urea nitrogen [Mass/Vol] 12.0 mg/dL Normal 9.0-20.0 [facility] Comment on above: Performed By: #### B MP #### [facility] [address] [place] [phone] Adeel Karly Urea nitrogen/Creatinine [Mass ratio] 9.5 mg/mg Normal [facility] Comment on above: Performed By: #### B MP #### [facility] [address] [place] [address] Adeel Karly Anion gap [Moles/Vol] 11.7 mmol/L Normal [facility] Comment on above: Performed By: #### B MP #### [facility] [address] [place] [address] Adeel Karly Calcium [Mass/Vol] 8.6 mg/dL Normal 8.4-10.2 [facility] Comment on above: Performed By: #### B MP #### [facility] [address] [place], [place] [address] Adeel Karly Chloride [Moles/Vol] 106 mmol/L Normal 98-[address] [facility] Comment on above: Performed By: #### B MP #### [facility] [address] [place] [phone] Adeel Karly CO2 [Moles/Vol] 23.7 mmol/L Normal 22.0-30.0 [facility] Comment on above: Performed By: #### B MP #### [facility] [address] [place], [place] [address] Adeel Karly Creatinine [Mass/Vol] 1.39 mg/dL Critically high 0.66-1.25 [facility] Comment on above: Performed By: #### B MP #### [facility] [address] [place], [place] [address] Adeel Karly EGFR-AF FINNISH >60 Normal >=60 [facility] Comment on above: Performed By: #### B MP #### [facility] [address] [place] [phone] Adeel Karly EGFR-NON AF FINNISH 58 mL/min/1.73m2 Critically low >=60 [facility] Comment on above: Performed By: #### B MP #### [facility] [address] [place] [phone] Adeel Karly Glucose [Mass/Vol] 241 mg/dL Critically high 74-106 [facility] Comment on above: Performed By: #### B MP #### [facility] [address] [place] [phone] Adeel Karly Potassium [Moles/Vol] 3.4 mmol/L Normal 3.4-5.0 [facility] Comment on above: Performed By: #### B MP #### [facility] [address] [place] [address] Adeel Karly Sodium [Moles/Vol] 138 mmol/L Normal 137-145 [facility] Comment on above: Performed By: #### B MP #### [facility] [address] [place] [phone] Adeel Karly Urea nitrogen [Mass/Vol] 14.0 mg/dL Normal 9.0-20.0 [facility] Comment on above: Performed By: #### B MP #### [facility] [address] [place] [phone] Adeel Karly Urea nitrogen/Creatinine [Mass ratio] 10.1 mg/mg Normal [facility] Comment on above: Performed By: #### B MP #### [facility] [address], [place] [address] Adeel Karly ACETONE SERUMon 02-07-2020 ACETONE MODERATE Abnormal NEGATIVE [facility] Comment on above: Performed By: #### A CETON #### [facility] [address], [place] [address] Adeel Karly AMYLASEon 02-07-2020 Amylase [Catalytic activity/Vol] U/L Critically low 31-110 [facility] Comment on above: Performed By: #### B MP #### [facility] [address] [place] [address] Adeel Karly CBC AUTO DIFFon 02-07-2020 Basophils (Bld) [#/Vol] 0.0 103/ul Normal 0.0-0.1 [facility] Comment on above: Performed By: #### C BC #### [facility] [address] [place], [place] [phone] Adeel Karly Basophils/100 WBC (Bld) 0.3 % Normal 0.2-2.0 [facility] Comment on above: Performed By: #### C BC #### [facility] [address] [place], [place] [phone] Adeel Karly Eosinophils (Bld) [#/Vol] 0.0 103/ul Normal 0.0-0.[address] [facility] Comment on above: Performed By: #### C BC #### [facility] [address] [place] [address] Adeel Karly Eosinophils/100 WBC (Bld) 0.1 % Critically low 0.9-7.0 [facility] Comment on above: Performed By: #### C BC #### [facility] [address] [place], [place] [address] Adeel Karly Erythrocyte distribution width (RBC) [Ratio] 12.6 % Normal 11.0-15.0 [facility] Comment on above: Performed By: #### C BC #### [facility] [address] [place], [place] [address] Adeel Karly Hematocrit (Bld) [Volume fraction] 43.8 % Normal 42.0-54.0 [facility] Comment on above: Performed By: #### C BC #### [facility] [address] [place], [place] [phone] Adeel Karly Hemoglobin (Bld) [Mass/Vol] 14.5 g/dL Normal 14.0-18.[address] [facility] Comment on above: Performed By: #### C BC #### [facility] [address] [place] [address] Adeel Karly IG # 0.03 10e3/ul Normal 0.00-0.03 [facility] Comment on above: Performed By: #### C BC #### [facility] [address] [place] [phone] Adeel Karly IG % 0.3 % Normal 0.0-0.5 [facility] Comment on above: Performed By: #### C BC #### [facility] [address] [place], [place] [phone] Adeel Karly Lymphocytes (Bld) [#/Vol] 1.4 103/ul Normal 1.2-3.8 [facility] Comment on above: Performed By: #### C BC #### [facility] [address] [place], [place] [address] Adeel Karly Lymphocytes/100 WBC (Bld) 12.8 % Critically low 20.5-60.0 [facility] Comment on above: Performed By: #### C BC #### [facility] [address] [place], [place] [address] Adeel Karly MANUAL DIFF REQ NO Normal [facility] Comment on above: Performed By: #### C BC #### [facility] [address] [place], [place] [phone] Adeel Karly MCH (RBC) [Entitic mass] 29.0 pg Normal 25.9-34.0 [facility] Comment on above: Performed By: #### C BC #### [facility] [address] [place], [place] [phone] Adeel Karly MCHC (RBC) [Mass/Vol] 33.1 g/dL Normal 29.9-35.[address] [facility] Comment on above: Performed By: #### C BC #### [facility] [address] [facility] [address] [place], [place] [id number] Adeel Karly MCV (RBC) [Entitic vol] 87.6 fL Normal 80.0-94.0 [facility] Comment on above: Performed By: #### C BC #### [facility] [address] [place], [place] [id number] Adeel Karly Monocytes (Bld) [#/Vol] 1.1 103/ul Critically high 0.3-0.8 [facility] Comment on above: Performed By: #### C BC #### [facility] [address] [place], [place] [address] Adeelcatracho Brandt Monocytes/100 WBC (Bld) 10.7 % Normal 1.7-12.0 [facility] Comment on above: Performed By: #### C BC #### [facility] [address] [place] [address] Adeel Karly Neutrophils (Bld) [#/Vol] 8.0 103/ul Critically high 1.4-6.5 [facility] Comment on above: Performed By: #### C BC #### [facility] [address] [place] [address] Adeelcatracho Brandt Neutrophils/100 WBC (Bld) 75.8 % Critically high 43.0-75.0 [facility] Comment on above: Performed By: #### C BC #### [facility] [address] [place], [place] [id number] Adeelcatracho Brandt Platelet mean volume (Bld) [Entitic vol] 9.3 fL Critically low 9.5-13.5 [facility] Comment on above: Performed By: #### C BC #### [facility] [address] [place], [place] [id number] Adeel Brandt Platelets (Bld) [#/Vol] 263 103/ul Normal 150-450 [facility] Comment on above: Performed By: #### C BC #### [facility] [address] [place] [address] Adeel Gardneren RBC (Bld) [#/Vol] 5.00 106/ul Normal 4.70-6.10 [facility] Comment on above: Performed By: #### C BC #### [facility] [address] [place], [place] [id number] Adeel Karly WBC (Bld) [#/Vol] 10.6 103/ul Normal 4.0-11.0 [facility] Comment on above: Performed By: #### C BC #### [facility] [address] [place], [place] [id number] Adeel Brandt LIPASEon 02-07-2020 Lipase [Catalytic activity/Vol] 25.0 U/L Normal 23.0-300.0 [facility] Comment on above: Performed By: #### B MP #### [facility] [address] [place], [place] [id number] Adeel Brandt OCC BLD IMMUNO SCREENon 01-25 OCCULT BLOOD Negative Normal NEGATIVE [facility] Comment on above: Performed By: #### O BSCRN #### [facility] [address] [place] [address] Adeelcatracho Brandt PH VENOUS BLOODon 02-07-2020 PCO2 VENOUS 32.2 mmHg Critically low 40.0-52.0 [facility] Comment on above: Performed By: #### B MP #### [facility] [address] [place] [address] Adeel Brandt pH VENOUS 7.33 Normal 7.33-7.43 [facility] Comment on above: Performed By: #### B MP #### [facility] [address] [place] [address] Adeel Brandt POINT OF CARE GLUCOSEon 01-25 Glucose [Mass/Vol] 251 mg/dL Critically high 74-106 [facility] Comment on above: Performed By: #### P OCGLUC #### [facility] [address] [place] [address] Adeel Brandt Glucose [Mass/Vol] 243 mg/dL Critically high 74-106 [facility] Comment on above: Performed By: #### B MP #### [facility] [address] [place] [address] Adeel Brandt PROF 14(COMP METB)on 020 Albumin [Mass/Vol] 3.7 g/dL Normal 3.5-5.0 [facility] Comment on above: Performed By: #### B MP #### [facility] [address] [place], [place] [phone] Adeel Brandt Albumin/Globulin [Mass ratio] 0.9 {ratio} Normal [facility] Comment on above: Performed By: #### B MP #### [facility] [address] [place], [place] [phone] Adeel Karly ALP [Catalytic activity/Vol] 167 U/L Critically high 38-126 [facility] Comment on above: Performed By: #### B MP #### [facility] [address] [place], [place] [phone] Adeel Karly ALT [Catalytic activity/Vol] 183 U/L Critically high 21-72 [facility] Comment on above: Performed By: #### B MP #### [facility] [address] [place] [id number] Adeel Karly Anion gap [Moles/Vol] 19.8 mmol/L Normal [facility] Comment on above: Performed By: #### B MP #### [facility] [address] [place], [place] [phone] Adeel Karly AST [Catalytic activity/Vol] 66 U/L Critically high 17-59 [facility] Comment on above: Performed By: #### B MP #### [facility] [address] [place], [place] [phone] Adeel Karly Bilirubin Ql (U) 0.8 mg/dL Normal 0.2-1.3 [facility] Comment on above: Performed By: #### B MP #### [facility] [address] [place], [place] [phone] Adeel Karly Calcium [Mass/Vol] 9.6 mg/dL Normal 8.4-10.2 [facility] Comment on above: Performed By: #### B MP #### [facility] [address] [place], [place] [phone] Adeel Karly Chloride [Moles/Vol] 99 mmol/L Normal 98-[address] [facility] Comment on above: Performed By: #### B MP #### [facility] [address] [place], [place] [phone] Adeel Karly CO2 [Moles/Vol] 18.1 mmol/L Critically low 22.0-30.[address] [facility] Comment on above: Performed By: #### B MP #### [facility] [address] [place], [place] [phone] Adeel Karly Creatinine [Mass/Vol] 1.78 mg/dL Critically high 0.66-1.25 [facility] Comment on above: Performed By: #### B MP #### [facility] [address] [place], [place] [address] Adeel Karly EGFR-AF FINNISH 53 mL/min/1.73m2 Critically low >=60 [facility] Comment on above: Performed By: #### B MP #### [facility] [address] [place], [place] [address] Adeel Karly EGFR-NON AF FINNISH 44 mL/min/1.73m2 Critically low >=60 [facility] Comment on above: Performed By: #### B MP #### [facility] [address] [place], [place] [address] Adeel Karly Globulin (S) [Mass/Vol] 4.1 g/dL Normal [facility] Comment on above: Performed By: #### B MP #### [facility] [address] [place] [id number] Adeel Karly Glucose [Mass/Vol] 368 mg/dL Critically high 74-106 [facility] Comment on above: Performed By: #### B MP #### [facility] [address] [place] [id number] Adeel Karly Potassium [Moles/Vol] 3.9 mmol/L Normal 3.4-5.0 [facility] Comment on above: Performed By: #### B MP #### [facility] [address] [place] [id number] Adeel Karly Protein [Mass/Vol] 7.8 g/dL Normal 6.1-8.2 [facility] Comment on above: Performed By: #### B MP #### [facility] [address] [place], [place] [address] Adeel Karly Sodium [Moles/Vol] 133 mmol/L Critically low 137-145 [facility] Comment on above: Performed By: #### B MP #### [facility] [address] [place], [place] [address] Adeel Karly Urea nitrogen [Mass/Vol] 17.0 mg/dL Normal 9.0-20.0 [facility] Comment on above: Performed By: #### B MP #### [facility] [address] [place] [address] Adeel Karly Urea nitrogen/Creatinine [Mass ratio] 9.6 mg/mg Normal [facility] Comment on above: Performed By: #### B MP #### [facility] [address] [place] [id number] Adeel Karly PROF CHEM 8 (BAS METB)on Anion gap [Moles/Vol] 15.5 mmol/L Normal [facility] Comment on above: Performed By: #### B MP #### [facility] [address] [place] [address] Adeel Karly Calcium [Mass/Vol] 8.5 mg/dL Normal 8.4-10.2 [facility] Comment on above: Performed By: #### B MP #### [facility] [address] [place] [address] Adeel Karly Chloride [Moles/Vol] 104 mmol/L Normal 98-107 [facility] Comment on above: Performed By: #### B MP #### [facility] [address] [place] [address] Adeel Karly CO2 [Moles/Vol] 20.3 mmol/L Critically low 22.0-30.0 [facility] Comment on above: Performed By: #### B MP #### [facility] [address] [place] [address] Adeel Karly Creatinine [Mass/Vol] 1.48 mg/dL Critically high 0.66-1.25 [facility] Comment on above: Performed By: #### B MP #### [facility] [address] [place] [id number] Adeel Karly EGFR-AF FINNISH >60 Normal >=60 [facility] Comment on above: Performed By: #### B MP #### [facility] [address] [place] [id number] Adeel Karly EGFR-NON AF FINNISH 54 mL/min/1.73m2 Critically low >=60 [facility] Comment on above: Performed By: #### B MP #### [facility] [address] [place] [id number] Adeel Karly Glucose [Mass/Vol] 325 mg/dL Critically high 74-106 [facility] Comment on above: Performed By: #### B MP #### [facility] [address] [place] [phone] Adeel Karly Potassium [Moles/Vol] 3.8 mmol/L Normal 3.4-5.0 [facility] Comment on above: Performed By: #### B MP #### [facility] [address] [place] [id number] Adeel Karly Sodium [Moles/Vol] 136 mmol/L Critically low 137-[address] [facility] Comment on above: Performed By: #### B MP #### [facility] [address] [place] [phone] Adeel Karly Urea nitrogen [Mass/Vol] 14.0 mg/dL Normal 9.0-20.0 [facility] Comment on above: Performed By: #### B MP #### [facility] [address] [place] [id number] Adeel Karly Urea nitrogen/Creatinine [Mass ratio] 9.5 mg/mg Normal [facility] Comment on above: Performed By: #### B MP #### [facility] [address] [place] [phone] Adeelcatracho Gardneren PROTIMEon 02-07-2020 INR Coag (PPP) [Relative time] 0.96 {INR} Normal [facility] Comment on above: Performed By: #### B MP #### [facility] [address] [place] [id number] Adeel Karly PT Coag (PPP) [Time] SEE BELOW Normal [facility] Comment on above: Result Comment: SCOOBY RED INR: 2.0 - 3.0 CONDITIONS NOT LISTED BELOW 2.5 - 3.5 FOR PROSTHETIC HEART VALVE REPLACEMENT 2.5 - 3.5 RECURRENT THROMBOSIS Performed By: #### B MP #### [facility] [address] [place] [id number] Adeel Karly PT Coag (PPP) [Time] 10.5 s Normal 9.0-11.6 [facility] Comment on above: Performed By: #### B MP #### [facility] [address] [place] [address] Adeel Brandt PTTon 02-07-2020 aPTT Coag (Bld) [Time] 25.1 s Normal 22.3-36.[address] [facility] Comment on above: Performed By: #### B MP #### [facility] [address] [place] [address] Adeel Brandt Rapid Covid-19 PCR (CVDRPD)o n 02-07-2020 [employer] L[employer] Info SEE BELOW Normal [facility] Comment on above: Result Comment: This test is not yet approved or cleared by the [place] Food and Drug Administration (FDA) . This test was developed by [employer], [facility]. The performance characteristics of this test were validated by [facility]. The results are not intended to be used as the sole means for clinical diagnosis or patient management decisions. [facility] is authorized under Clinical Laboratory Improvement Amendments (CLIA) to perform high-complexity testing. When diagnostic testing is negative, the possibility of a false negative should be considered in the context of a patients recent exposures and the presence of clinical signs and symptoms consistent with SARS-CoV-2. Performed By: #### C VDRPD #### [facility] [address] [place] [address] Adeel Gardneren SARS-CoV-2 NOT DETECTED Normal NOT DETECTED [facility] Comment on above: Result Comment: . Performed By: #### C VDRPD #### [facility] [address] [place] [address] Adeel Brandt XR ABD FLAT UP_PA Ryder [...] obstruction or perforation. Electronically authenticated by: KOLTON Rossi: 2020-02-07 13:53 Normal [facility] Vital Signs Date Time Vital Sign Value Performing Clinician Facility 02-06-2024 11:56-0500 Body height 190.5 cm Nunu Fry MD Work Phone: [facility] 02-06-2024 11:56-0500 Body mass index (BMI) [Ratio] 28.5 kg/m2 Nunu Fry MD Work Phone: [facility] 02-06-2024 11:56-0500 Body weight 103.42 kg Nunu Fry MD Work Phone: [facility] 02-06-2024 11:56-0500 Diastolic blood pressure 82 mm[Hg] Nunu Fry MD Work Phone: [facility] 02-06-2024 11:56-0500 Heart rate 96 /min Nunu Fry MD Work Phone: [facility] 02-06-2024 11:56-0500 Respiratory rate 18 /min Nunu Fry MD Work Phone: [facility] 02-06-2024 11:56-0500 Systolic blood pressure 122 mm[Hg] Nunu Fry MD Work Phone: [facility] 08-02-2023 13:28-0400 Diastolic blood pressure 87 mm[Hg] Services [facility] Work Phone: [facility] 08-02-2023 13:28-0400 Heart rate 85 /min Services [facility] Work Phone: [facility] 08-02-2023 13:28-0400 Respiratory rate 16 /min Services [facility] Work Phone: [facility] 08-02-2023 13:28-0400 SaO2% (BldA) [Mass fraction] 99 % Services [facility] Work Phone: [facility] 08-02-2023 13:28-0400 Systolic blood pressure 146 mm[Hg] Services [facility] Work Phone: [facility] 08-02-2023 11:17-0400 Body height 190.5 cm [facility] Work Phone: [facility] 08-02-2023 11:17-0400 Body temperature 97.7 [degF] [facility] Work Phone: [facility] 08-02-2023 11:17-0400 Body weight 112.03 kg [facility] Work Phone: [facility] 07-02-2023 03:00-0400 Diastolic blood pressure 95 mm[Hg] [facility] Work Phone: [facility] 07-02-2023 03:00-0400 Heart rate 93 /min [facility] Work Phone: [facility] 07-02-2023 03:00-0400 Respiratory rate 18 /min [facility] Work Phone: [facility] 07-02-2023 03:00-0400 SaO2% (BldA) [Mass fraction] 98 % [facility] Work Phone: [facility] 07-02-2023 03:00-0400 Systolic blood pressure 175 mm[Hg] [facility] Work Phone: [facility] 07-01-2023 23:15-0400 Body height 187.96 cm [facility] Work Phone: [facility] 07-01-2023 23:15-0400 Body temperature 97.3 [degF] [facility] Work Phone: [facility] 07-01-2023 23:15-0400 Body weight 113.39 kg [facility] Work Phone: [facility] 06-20-2023 15:11-0400 Diastolic blood pressure 82 mm[Hg] [facility] Work Phone: [facility] 06-20-2023 15:11-0400 Systolic blood pressure 128 mm[Hg] [facility] Work Phone: [facility] 06-20-2023 12:56-0400 Body height 190.5 cm [facility] Work Phone: [facility] 06-20-2023 12:56-0400 Body weight 106.4 kg [facility] Work Phone: [facility] 06-20-2023 12:55-0400 Body temperature 97.8 [degF] [facility] Work Phone: [facility] 06-20-2023 12:55-0400 Heart rate 101 /min [facility] Work Phone: [facility] 06-20-2023 12:55-0400 Respiratory rate 16 /min [facility] Work Phone: [facility] 06-20-2023 12:55-0400 SaO2% (BldA) [Mass fraction] 97 % [facility] Work Phone: [facility] 04-03-2023 16:52-0500 Diastolic blood pressure 82 mm[Hg] [facility] Work Phone: [facility] 04-03-2023 16:52-0500 Systolic blood pressure 118 mm[Hg] [facility] Work Phone: [facility] 04-03-2023 16:44-0500 Body height 190.5 cm [facility] Work Phone: [facility] 04-03-2023 16:44-0500 Body temperature 97.5 [degF] [facility] Work Phone: [facility] 04-03-2023 16:44-0500 Body weight 108.86 kg [facility] Work Phone: [facility] 04-03-2023 16:44-0500 Heart rate 100 /min [facility] Work Phone: [facility] 04-03-2023 16:44-0500 Respiratory rate 20 /min [facility] Work Phone: [facility] 04-03-2023 16:44-0500 SaO2% (BldA) [Mass fraction] 99 % Services [employer] Work Phone: [facility] 03-26-2023 08:45-0500 Body height 190.5 cm Dominik George Other [facility] 03-26-2023 08:45-0500 Body mass index (BMI) [Ratio] 30.99 kg/m2 Dominik Borjasley Other [facility] [employer] Other 03-26-2023 08:45-0500 Body weight 112.49 kg Dominik George Other [facility] 03-23-2023 20:41-0500 Body height 190.5 cm Services [employer] Work Phone: [facility] 03-23-2023 20:41-0500 Body temperature 97.6 [degF] [facility] Work Phone: [facility] 03-23-2023 20:41-0500 Body weight 108.86 kg Services [employer] Work Phone: [facility] 03-23-2023 20:41-0500 Diastolic blood pressure 70 mm[Hg] Services [employer] Work Phone: [facility] 03-23-2023 20:41-0500 Heart rate 99 /min Services [employer] Work Phone: [facility] 03-23-2023 20:41-0500 Respiratory rate 20 /min Services [employer] Work Phone: [facility] 03-23-2023 20:41-0500 SaO2% (BldA) [Mass fraction] 98 % Services [employer] Work Phone: [facility] 03-23-2023 20:41-0500 Systolic blood pressure 145 mm[Hg] Services [employer] Work Phone: [facility] 03-05-2023 08:38-0500 Blood Pressure Location Agnieszka Navarro [facility] 03-05-2023 08:38-0500 Body temperature 98.42 [degF] Agnieszka Navarro [facility] 03-05-2023 08:38-0500 Diastolic blood pressure 78 mm[Hg] Agnieszka Navarro [facility] 03-05-2023 08:38-0500 Heart rate 82 /min Agnieszka Navarro [facility] 03-05-2023 08:38-0500 SaO2% (BldA) [Mass fraction] 99 % Agnieszka Navarro [facility] 03-05-2023 08:38-0500 Systolic blood pressure 134 mm[Hg] Agnieszka Navarro [facility] 02-23-2022 13:46-0500 Body height 190.5 cm Pac 9 Work Phone: [facility] 02-23-2022 13:46-0500 Body temperature 98.01 [degF] Pac 9 Work Phone: [facility] 02-23-2022 13:46-0500 Body weight 107.46 kg Pacc 9 Work Phone: [facility] 02-23-2022 13:46-0500 Diastolic blood pressure 77 mm[Hg] [facility] Work Phone: [facility] 02-23-2022 13:46-0500 Heart rate 83 /min Pac 9 Work Phone: [facility] 02-23-2022 13:46-0500 SaO2% (BldA) [Mass fraction] 99 % [facility] 9 Work Phone: [facility] 02-23-2022 13:46-0500 Systolic blood pressure 104 mm[Hg] Pacc 9 Work Phone: [facility] 11-22-2021 19:13-0400 Diastolic blood pressure 76 mm[Hg] [facility] Work Phone: [facility] 11-22-2021 19:13-0400 Heart rate 90 /min [facility] Work Phone: [facility] 11-22-2021 19:13-0400 Respiratory rate 18 /min [facility] Work Phone: [facility] 11-22-2021 19:13-0400 SaO2% (BldA) [Mass fraction] 97 % [facility] Work Phone: [facility] 11-22-2021 19:13-0400 Systolic blood pressure 136 mm[Hg] [facility] Work Phone: [facility] 11-22-2021 17:57-0400 Body height 190.5 cm [facility] Work Phone: [facility] 11-22-2021 17:57-0400 Body weight 107.8 kg [facility] Work Phone: [facility] 11-22-2021 17:51-0400 Body temperature 98.2 [degF] [facility] Work Phone: [facility] 10-19-2021 09:00-0400 Diastolic blood pressure 77 mm[Hg] [facility] Work Phone: [facility] 10-19-2021 09:00-0400 Heart rate 70 /min [facility] Work Phone: [facility] 10-19-2021 09:00-0400 Respiratory rate 10 /min [facility] Work Phone: [facility] 10-19-2021 09:00-0400 SaO2% (BldA) [Mass fraction] 96 % [facility] Work Phone: [facility] 10-19-2021 09:00-0400 Systolic blood pressure 124 mm[Hg] [facility] Work Phone: [facility] 10-19-2021 06:00-0400 Body weight 160.1 kg [facility] Work Phone: [facility] 10-19-2021 04:00-0400 Body temperature 97.9 [degF] [facility] Work Phone: [facility] 10-18-2021 11:07-0400 Body height 182.88 cm [facility] Work Phone: [facility] 09-02-2021 03:51-0400 Heart rate 130 /min [facility] Work Phone: [facility] 09-02-2021 03:27-0400 Body height 190.5 cm [facility] Work Phone: [facility] 09-02-2021 03:27-0400 Body mass index (BMI) [Ratio] 29 kg/m2 [facility] Work Phone: [facility] 09-02-2021 03:27-0400 Body temperature 98.2 [degF] [facility] Work Phone: [facility] 09-02-2021 03:27-0400 Body weight 105.5 kg [facility] Work Phone: [facility] 09-02-2021 03:27-0400 Diastolic blood pressure 83 mm[Hg] [facility] Work Phone: [facility] 09-02-2021 03:27-0400 Respiratory rate 20 /min [facility] Work Phone: [facility] 09-02-2021 03:27-0400 SaO2% (BldA) [Mass fraction] 95 % [facility] Work Phone: [facility] 09-02-2021 03:27-0400 Systolic blood pressure 147 mm[Hg] [facility] Work Phone: [facility] 08-26-2021 14:48-0400 Diastolic blood pressure 50 mm[Hg] [facility] Work Phone: [facility] 08-26-2021 14:48-0400 Systolic blood pressure 183 mm[Hg] [facility] Work Phone: [facility] 08-26-2021 11:47-0400 Heart rate 70 /min [facility] Work Phone: [facility] 08-26-2021 11:47-0400 Respiratory rate 18 /min [facility] Work Phone: [facility] 08-26-2021 11:47-0400 SaO2% (BldA) [Mass fraction] 97 % [facility] Work Phone: [facility] 08-26-2021 08:24-0400 Body temperature 97.7 [degF] [facility] Work Phone: [facility] 08-26-2021 05:29-0400 Body weight 111.9 kg [facility] Work Phone: [facility] 08-25-2021 16:08-0400 Body height 190.5 cm [facility] [facility] 08-24-2021 22:51-0400 Body mass index (BMI) [Ratio] 30.5 kg/m2 [facility] Work Phone: [facility] 08-11-2021 08:00-0400 Body temperature 98.1 [degF] [facility] Work Phone: [facility] 08-11-2021 08:00-0400 Diastolic blood pressure 91 mm[Hg] [facility] Work Phone: [facility] 08-11-2021 08:00-0400 Heart rate 64 /min [facility] Work Phone: [facility] 08-11-2021 08:00-0400 Respiratory rate 18 /min [facility] Work Phone: [facility] 08-11-2021 08:00-0400 SaO2% (BldA) [Mass fraction] 100 % Services [facility] Work Phone: [facility] 08-11-2021 08:00-0400 Systolic blood pressure 136 mm[Hg] [facility] Work Phone: [facility] 08-11-2021 06:13-0400 Body weight 109.1 kg [facility] Work Phone: [facility] 08-10-2021 12:42-0400 Body height 190.5 cm [facility] Work Phone: [facility] 08-09-2021 10:28-0400 Body mass index (BMI) [Ratio] 29.9 kg/m2 [facility] Work Phone: [facility] 12-14-2020 14:30-0400 Body height 190.5 cm Wli Hackett Other [employer] Other 12-14-2020 14:30-0400 Body mass index (BMI) [Ratio] 29.37 kg/m2 Wil Laylagretchen Other [employer] Other 12-14-2020 14:30-0400 Body weight 106.6 kg Wil Laylaadelinamckenna Other [employer] Other Encounters Encounter Date Encounter Type Care Provider Facility Start: 03-11-2024 ambulatory Agnieszka Quintanilla [facility] Facility:[facility] Start: 02-18-2024 End: 02-19-2024 Evaluation and management of inpatient Xin Hawk Facility:[facility] Start: 02-06-2024 End: 02-06-2024 Robin Fry MD Work Phone: [facility] Start: 02-06-2024 End: 02-06-2024 Robin Fry MD Work Phone: [facility] Start: 02-06-2024 End: 02-06-2024 Office outpatient visit 40 minutes Nunu Fry MD Work Phone: [facility] Comment on above: Type 1 diabetes roseann itus with other circulatory complication (CMS/HCC) (Primary Dx); Insulin long-term use (CMS/HCC); Vitamin D deficiency; Encounter for dietary consultation; Encounter for fitting or adjustment of insulin pump; Insulin pump in place; Hypoglycemia Start: 02-06-2024 End: 02-06-2024 ambulatory NUNU FRY Not Available Start: 01-30-2024 End: 01-30-2024 ambulatory NON STAFF Facility:[facility] Start: 01-17-2024 End: 01-19-2024 Refill Apple Sewell LPN [facility] Comment on above: Type 1 diabetes roseann itus with hyperglycemia (HCC) (CMS/HCC) Start: 01-06-2024 End: 01-10-2024 Refill Nunu Fry MD Work Phone: [facility] Comment on above: Type 1 diabetes roseann itus with hyperglycemia (HCC) (CMS/HCC) Start: 12-12-2023 End: 12-12-2023 Clinisync Result Encounter Generic External Data Provider [facility] External Department Unsolicited Start: 12-12-2023 End: 12-12-2023 Clinisync Result Encounter Generic External Data Provider [facility] External Department Unsolicited Start: 12-12-2023 End: 12-17-2023 Telephone encounter Nunu Fry MD Work Phone: [facility] Start: 12-02-2023 End: 12-03-2023 Telephone encounter Nunu Fry MD Work Phone: [facility] Start: 08-02-2023 End: 08-02-2023 Emergency department patient visit Services [facility] Work Phone: [facility] Work Phone: Start: 07-01-2023 End: 07-02-2023 Emergency department patient visit Services [facility] Work Phone: [facility] Work Phone: Start: 06-20-2023 End: 06-20-2023 Emergency department patient visit [facility] Work Phone: [facility] Work Phone: Start: 04-03-2023 End: 04-03-2023 Emergency department patient visit [facility] Work Phone: [facility] Work Phone: Start: 03-26-2023 [facility] visit new patient Dominik [facility]jast[facility]is [facility] Start: 03-26-2023 End: 03-26-2023 Patient encounter procedure [facility] Work Phone: [facility] Start: 03-26-2023 End: 03-26-2023 ambulatory [facility] Work Phone: [facility] Work Phone: Start: 03-26-2023 End: 03-26-2023 Patient encounter procedure [facility] Work Phone: [facility] Start: 03-23-2023 End: 03-23-2023 Emergency department patient visit [facility] Work Phone: [facility] Work Phone: Start: 03-05-2023 End: 03-06-2023 ambulatory Agnieszkabrian Navarro Facility:[facility] Start: 03-05-2023 End: 03-05-2023 Patient encounter procedure Agnieszka Navarro [facility] Start: 03-05-2023 End: 03-05-2023 Well adult monitoring check done Agnieszka Navarro [facility] Start: 02-22-2023 ambulatory Agnieszka Navarro [facility] Start: 01-29-2023 End: 01-30-2023 ambulatory Agnieszka Navarro Facility:[facility] Start: 01-29-2023 End: 01-29-2023 Patient encounter procedure Agnieszka Navarro [facility] Start: 06-13-2022 ambulatory Homer charles MD Work Phone: Urology Start: 06-13-2022 Telephone encounter Homer nick MD Work Phone: Urology Comment on above: Returning Patient's Call Start: 05-29-2022 ambulatory Albertina mascorro PA Work Phone: Urology Start: 05-29-2022 End: 05-29-2022 Patient encounter procedure Albertina VERA Work Phone: Urology Comment on above: No-show for appointm ent (Primary Dx) Start: 05-01-2022 [facility] Facility :[facility] Start: 03-27-2022 Telephone encounter Homer nick MD Work Phone: Urology Comment on above: Electronic Communica tion (Sent fax to [facility] for PACC ) Start: 03-26-2022 ambulatory Mei eugene PA-C Work Phone: Urology Start: 03-26-2022 End: 03-26-2022 Patient encounter procedure Mei Villa PA-C Work Phone: Urology Comment on above: No-show for appointm ent (Primary Dx) Start: 03-16-2022 ambulatory [facility] Start: 02-28-2022 Telephone encounter Cathy Aguilar RN Pre Anesthesia Comment on above: Pre-Op Update (HgA1C needs drawn) Start: 02-27-2022 Telephone encounter Homer nick MD Work Phone: Urology Comment on above: Returning Patient's Call Start: 02-23-2022 Encounter for other preprocedural examination [facility] Start: 02-23-2022 End: 02-24-2022 PAT Pacc Main 9 Work Phone: Pre Anesthesia Comment on above: Pre-op evaluation (P rimary Dx); 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, not stated as uncontrolled (HCC); Opioid dependence with opioid-induced disorder (HCC); Hypertension, unspecified type; Gastroparesis; Depressive disorder Start: 02-23-2022 End: 02-23-2022 Preprocedural examination done Pac Main 9 Work Phone: Pre Anesthesia Start: 02-01-2022 End: 02-01-2022 ambulatory MD Bren Mccray Work Phone: [facility] Work Phone: Start: 02-01-2022 End: 02-01-2022 Patient encounter procedure MD Bren Mccray Work Phone: [facility]-Lab Main [place] Start: 01-30-2022 End: 01-30-2022 ambulatory [facility] Facility[facility] Start: 11-22-2021 End: 11-22-2021 Emergency department patient visit [facility] Work Phone: [facility] Start: 11-01-2021 ambulatory Noemi Mccray RN [facility] Start: 10-25-2021 End: 10-25-2021 ambulatory Mateus Cronin RN NURSE RESIDENTIAL APPRAISER Comment on above: Information (Lab res ult ) Start: 10-25-2021 Telephone encounter Jackroberto Sarmientous [facility] Start: 10-18-2021 End: 10-18-2021 ambulatory Wilver Chambers Other [employer] Other Start: 10-18-2021 Telephone encounter Abhijeetroberto Chambers Jean Pierre [facility] Start: 10-17-2021 End: 10-19-2021 Evaluation and management of inpatient [facility] Work Phone: [facility] Start: 09-02-2021 End: 09-02-2021 Emergency department patient visit [facility] Work Phone: [facility]gency [facility] Start: 08-24-2021 End: 08-26-2021 Evaluation and management of inpatient Services [facility] Work Phone: [facility] Start: 08-09-2021 End: 08-11-2021 Evaluation and management of inpatient [facility] Work Phone: [facility] Start: 06-28-2021 Telephone encounter Homer nick MD Work Phone: Urology Comment on above: Returning Patient's Call Start: 06-27-2021 End: 06-27-2021 ambulatory Wil Hackett Other [employer] Other Start: 06-27-2021 Telephone encounter Wil ROBISON [facility] Start: 06-21-2021 End: 06-21-2021 ambulatory Wil Hackett Other [employer] Other Start: 06-21-2021 Telephone encounter Wil ROBISON [...] 02-07-2020 End: 02-09-2020 Patient encounter procedure [facility] Facility:[facility] Procedures Date Procedure Procedure Detail Performing Clinician Start: 02-06-2024 Gluc bld gluc mntr d ev cleared fda spec home use Nunu Fry MD Work Phone: Start: 12-12-2023 ALL CBC WITH AUTO DIFF Generic External Data Provider Start: 08-02-2023 X-ray of both feet Serv ices [employer] Work Phone: Start: 06-20-2023 Plain X-ray of right hand [facility] [employer] Phone: Start: 03-26-2023 X-ray of left ankle Ser vices [employer] Phone: Start: 03-23-2023 Plain X-ray of left tibia and left fibula [facility] [employer] Phone: Start: 03-23-2023 Radiologic examinati on of knee [facility] [employer] Work Phone: Start: 10-17-2021 Plain chest X-ray Servi donna [employer] Work Phone: Start: 09-02-2021 Plain chest X-ray Servi donna [employer] Phone: Start: 08-24-2021 Plain chest X-ray Servi donna [employer] Phone: Start: 08-09-2021 US scan of gallbladder [facility] Work Phone: Start: 08-09-2021 Plain chest X-ray Servi donna [employer] Phone: Blood culture for bacteria, including anaerobic screen [facility] Work Phone: Blood culture for bacteria, including anaerobic screen [facility] [employer] Phone: SARS Antigen (LFIA) [facility] [employer] Work Phone: SARS Antigen (LFIA) [facility] [employer] Work Phone: SARS Antigen (LFIA) [facility] [employer] Work Phone: Plan of Treatment Date Care Activity Detail Author Start: 10-07-2029 Urine microalbumin profile DTaP,Tdap,Td Vaccine (8 - Td or Tdap) [facility] Start: 05-28-2024 End: 05-28-2024 Patient encounter procedure 05/28/2024 10:40 AM EDT Office Visit [facility] [address] [place] [id number] Nunu Fry MD [address] [place] [address] [facility] Start: 05-06-2024 Hemoglobin A1c measurement Diabetes: Hemoglobin A1C [facility] Start: 02-06-2024 End: 02-06-2024 Patient encounter procedure [facility] Comment on above: Arrived Start: 10-27-2023 Influenza vaccination Influenza Vaccine (#1) [facility] Start: 03-23-2023 Plain X-ray of left tibia and left fibula XR tibia fibula LT 2V* [facility] Start: 03-23-2023 XR Tibia and Fibula - left 2 Views [facility] Start: 03-23-2023 Radiologic examination of knee XR knee LT 4V* [facility] Start: 03-23-2023 XR Knee - left 4 Views [facility] Start: 02-23-2023 BP CONTROLLED (<130/80) BP CONTROLLED (<130/80) [facility] Start: 10-26-2022 Covid-19 Vaccine ( season) Covid-19 Vaccine ( season) [facility] Start: 10-26-[address] [facility] Start: 02-28-2022 End: 04-30-2022 CBC panel - Blood by Automated count CBC Lab Routine Organic erectile dysfunction Expected: 02/28/2022, Expires: 04/30/2022 [facility] Work Phone: Comment on above: Expected: 02/28/2022, Expires: Start: 02-28-2022 End: 03-06-2023 Comprehensive metabolic 2000 panel - Serum or Plasma COMP METABOLIC PANEL Lab Routine Organic erectile dysfunction Expected: 02/28/2022, Expires: 04/30/2022 [facility] Work Phone: Comment on above: Expected: 02/28/2022, Expires: 3 Start: 02-23-2022 End: 04-25-2022 Hemoglobin A1c in Blood HGB A1C Lab Routine Pre-op evaluation 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, not stated as uncontrolled (HCC) Expected: 02/23/2022, Expires: 04/25/2022 [facility] Work Phone: Comment on above: Expected: 02/23/2022, Expires: 3 Start: 11-02-2021 End: 11-02-2022 SARS-CoV-2 (COVID-19) RNA [Presence] in Respiratory specimen by YAA with probe detection PRE-PROCEDURE & PRE-OPERATIVE COVID Microbiology Routine Organic erectile dysfunction Expected: 11/02/2021, Expires: 11/02/2022 [facility] Work Phone: Comment on above: Expected: 11/02/2021, Expires: 3 Start: 10-26-[address] [facility] Start: 10-19-2021 [facility] Start: 10-17-2021 [facility] Start: 08-26-2021 [facility] Start: 08-24-2021 Hospital admission [facility] Start: 08-11-2021 [facility] Work Phone: Start: 08-09-2021 [facility] Work Phone: Start: 08-09-2021 Hospital admission [facility] Work Phone: Start: 06-05-2021 End: 08-05-2021 Hemoglobin A1c/Hemoglobin.total in Blood HGB A1C Lab Routine 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, not stated as uncontrolled (HCC) Expected: 06/05/2021, Expires: 08/05/2021 [facility] Work Phone: Comment on above: Expected: 06/05/2021, Expires: 2 Start: 12-08-2020 COVID-19 VACCINE (3 - Booster for Moderna series) COVID-19 VACCINE (3 - Booster for Moderna series) [facility] Start: 10-26-2020 Influenza vaccination INFLUENZA (#1) [facility] Start: 09-02-2020 COVID-19 VACCINE (3 - Booster for Moderna series) COVID-19 VACCINE (3 - Booster for Moderna series) [facility] Start: 10-19-2014 Hemoglobin A1c/Hemoglobin.total in Blood HBA1C [facility] Start: 2004 Urine microalbumin profile DTAP,TDAP,TD (1 - Tdap) [facility] Start: 2004 Urine screening for protein Diabetes: Urine Protein Screening [facility] Start: 09-05-2003 ANNUAL PCP TEAM CHRONIC DISEASE VISIT ANNUAL PCP TEAM CHRONIC DISEASE VISIT [facility] Start: 09-05-2003 Hepatitis B surface antibody level LDL CHOLESTEROL [facility] Start: 09-05-2003 HEPATITIS C SCREENING HEPATITIS C SCREENING [facility] Start: 09-05-2003 HIV SCREENING HIV SCREENING [facility] Start: 2001 ONE PNEUMOVAX PRIOR TO AGE 65 ONE PNEUMOVAX PRIOR TO AGE [address] [facility] Start: 11-15-1998 Hepatitis B Vaccine (2 of 3 - 3-dose series) Hepatitis B Vaccine (2 of 3 - 3-dose series) [facility] Start: 1997 Adult depression screening assessment DEPRESSION SCREENING [facility] Start: 09-05-1995 3 comp foot exam completed DIABETIC FOOT EXAM [facility] Start: 09-05-1995 Glaucoma screening Diabetes: Retinopathy Screening [facility] Start: 09-05-1995 Hepatitis B screening URINE ALBUMIN:CREATININE RATIO [facility] Start: 09-05-1995 Hepatitis C antibody, confirmatory test DILATED RETINAL EXAM [facility] Start: 09-05-1991 PNEUMOCOCCAL (1 - PCV) PNEUMOCOCCAL (1 - PCV) [facility] Start: 09-05-1991 Pneumococcal vaccination Pneumococcal Vaccine (1 - PCV) [facility] Start: 1985 Hemoglobin A1c measurement Diabetes: Hemoglobin A1C [facility] Start: 1985 HEPATITIS B (1 of 3 - 3-dose series) HEPATITIS B (1 of 3 - 3-dose series) [facility] ECG COMPLETE ECG COMPLETE ECG Routine Pre-op evaluation 02/23/2022 2:51 PM EST [facility] Work Phone: Patient Education [facility] Work Phone: Patient referral [facility] Work Phone: Phosphatidylethanol [Mass/volume] in Blood [facility] Work Phone: URINALYSIS, REFLEX MICROSCOPIC URINALYSIS, REFLEX MICROSCOPIC Lab Routine Screening for genitourinary condition Ordered: 05/10/2021 [facility] Work Phone: Comment on above: Ordered: 05/10/2021 URINALYSIS, REFLEX MICROSCOPIC URINALYSIS, REFLEX MICROSCOPIC Lab Routine Screening for genitourinary condition Ordered: 05/17/2021 [facility] Work Phone: Comment on above: Ordered: 05/17/2021 URINALYSIS, REFLEX MICROSCOPIC URINALYSIS, REFLEX MICROSCOPIC Lab Routine Screening for genitourinary condition Ordered: 03/26/2022 [facility] Work Phone: Comment on above: Ordered: 03/26/2022 URINALYSIS, REFLEX MICROSCOPIC URINALYSIS, REFLEX MICROSCOPIC Lab Routine Screening for genitourinary condition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
== END 2024-03-06 10:34 | disposition home or self-care (01) ==
LOC: WC 10:33
PROVIDERS: PCP Nurse Practitioner Family; Visit Provider Physician Assistant
DX: M79.672 Pain in left foot (principal); M25.475 Effusion, left foot; L97.425 Non-pressure chronic ulcer of left heel and midfoot with muscle involvement without evidence of necrosis; E11.621 Type 2 diabetes mellitus with foot ulcer; L97.422 Non-pressure chronic ulcer of left heel and midfoot with fat layer exposed; S90.822A Blister (nonthermal), left foot, initial encounter
CPT/HCPCS: 11042; 73630

== ENCOUNTER 2024-03-27 10:08 | Outpatient (OUT) | payer OTHER, SELFPAY | END 2024-03-27 10:09 | disposition home or self-care (01) | LOC: WC 10:08 | PROVIDERS: PCP Nurse Practitioner Family; Visit Provider Podiatrist Foot & Ankle Surgery | DX: E10.621 Type 1 diabetes mellitus with foot ulcer (principal); L97.425 Non-pressure chronic ulcer of left heel and midfoot with muscle involvement without evidence of necrosis; L97.422 Non-pressure chronic ulcer of left heel and midfoot with fat layer exposed | CPT/HCPCS: 11042 ==